=== PATIENT | male | born 1945 | race Caucasian/White ===

== ENCOUNTER 2016-07-28 16:44 | Emergency (ER) | payer OTHER ==
[~2016-07-28] VITALS: Ht 172.7 cm; Wt 87.0 kg
[~2016-07-28 16:44] MED LIST: ALBU0.63 NEB; ATOR40TA PO; ATOR40TA16 PO; CEPH-460 PO; CLAR10CA3 PO; COUM5TAB PO; DUONI NEB; ENOX80P SQ; FISH120014 PO; FURO1TAB60 PO; LASI20TA PO; LISI2.5T3 PO; LORA10TA7 PO; MECL12.574 PO; MECL25CH PO; METO25 PO; METO25TA3 PO; NITR0.4S SL; NOVOLOGP2 SQ; NOVOLOGSS SQ; PARO30TA PO; PAXI30TA7 PO; PRAZ1 PO; PRAZ1CAP PO; PRED20 PO; PRIN5TAB PO; SYMB80AE INH; WARF-21 PO; WARF2.5 PO
[2016-07-28 16:48] VITALS: BP 100/62; PULSE 76; RESP 16; TEMP 98.5; O2SAT 94
[2016-07-28] MEDS ORDERED: FISHCAP4 PO (17:14)
[2016-07-28] MEDS ORDERED: NITR0.4S SL (17:14)
[2016-07-28 17:15] VITALS: O2SAT 95
--- NOTE | 2016-07-28 17:16 | PD ---
HPI Chief Complaint: Respiratory Symptoms Time Seen by Provider: 16:56 Travel History International Travel<30 days: No Contact w/Intl Traveler<30days: No Traveled to known affect area: No History of Present Illness HPI 70-year-old male complains of shortness of breath and lower extremity swelling. Patient states that he has increasing lower extremity swelling for the past week. Patient has history of CHF and taking Lasix 40 mg twice a day. Patient states that he started having mild dry cough intermittent cough and increasing shortness of breath since last night. Patient denies any fever chills. Patient denies any chest pain. Patient denies abdominal pain. Patient denies any nausea vomiting diarrhea. Patient has history of chronic back pain, and that is not new. Patient denies any focal weakness or numbness of the extremity. Patient has history of fibrillation, hypertension, diabetes, dyslipidemia. Patient is a smoker. Patient is on Coumadin. PFSH Past Medical History Hx Anticoagulant Therapy: Yes (coumadin) Arthritis: Yes Asthma: Yes Autoimmune Disease: No Anxiety: Yes Depression: Yes Heart Rhythm Problems: Yes (AFIB) Cancer: No Cardiomyopathy: Yes Cardiovascular Problems: Yes (htn on meds, [place]) High Cholesterol: Yes Chest Pain: Yes Congestive Heart Failure: Yes COPD: Yes Cerebrovascular Accident: Yes (CVA's) Diabetes: Yes (INSULIN DEPENDENT X 15YRS) Diminished Hearing: No Endocrine: Yes GERD: Yes Genitourinary: Yes Headaches: Yes Hiatal Hernia: Yes Herniated Disk: Yes Hypertension: Yes Immune Disorder: No Implanted Vascular Access Dvce: Yes Musculoskeletal: Yes Neurologic: Yes (NEUROPATHY, RETINOPATHY) Psychiatric: Yes (PTSD) Reproductive: No Respiratory: Yes Migraines: No Myocardial Infarction: Yes (1989) Seizures: No Sickle Cell Disease: No Thyroid Disease: No Triglycerides - High: Yes PNEUMOCCOCAL Vaccine (Year): 1 Past Surgical History Abdominal Surgery: Yes (HERNIA REPAIR X 2) Body Medical Devices: PLATE, SCREWS, BOLTS, RODS IN BACK; FACCIAL RECONSTRUCTION Cardiac Surgery: No Eye Surgery: Yes Genitourinary Surgery: No Gynecologic Surgery: No Joint Replacement: Yes (RIGHT SHOULDER ROTATOR CUFF,RODS IN BACK) Neurologic Surgery: Yes (BACK SURGERY LUMBAR DISC FUSHION, ICBG WITH RODS ) Other Surgery: Yes Social History Alcohol Use: No Tobacco Use: Yes (1/2 PACK TO ONE PPD) Substance Use: No Allergies-Medications (Allergen,Severity, Reaction): Coded Allergies: Aspirin (Verified Allergy, Severe, ON COUMADIN, 07/28/16) Bee Sting (Verified Allergy, Severe, 07/28/16) Codeine (Verified Allergy, Severe, Seizures, 07/28/16) Penicillin (Verified Allergy, Severe, ANAPHYLAXSIS, 07/28/16) Sulfa (Verified Allergy, Severe, shakes/inchoherent, 07/28/16) Reported Meds & Prescriptions Reported Meds & Active Scripts Active Zithromax Z-Chandana (Azithromycin) 250 Mg Dspk 250 Mg PO DIRECTED 500 MG (2 tabs) day 1, then 1 tab days 2-5. Reported Metformin (Metformin HCl) 1,000 Mg Tab 1,000 Mg PO TID With meals Nitrostat SL (Nitroglycerin) 0.4 Mg Subl 0.4 Mg SL DIRECTED PRN 1 tablet under the tongue as needed for chest pain. Repeat every 5 minutes for a total of 3 DOSES or call 911 if NO relief. Fish Oil + D3 (Fish Oil-Cholecalciferol) 1,200-1,000 Mg-Unit Cap 1 Cap PO TID Paxil (Paroxetine HCl) 30 Mg Tab 30 Mg PO DAILY Claritin (Loratadine) 10 Mg Cap 10 Mg PO DAILY Lisinopril 2.5 Mg Tab 2.5 Mg PO DAILY Novolog Inj (Insulin Aspart) 1,000 Unit/10 Ml Vial 8 Units SQ WITH MEALS Lasix (Furosemide) 40 Mg Tab 40 Mg PO BID Fish Oil ([place]-3 Fatty Acids) 1,200 Mg Cap 1 Tab PO TID Symbicort Inh (Budesonide/Formoterol Fumarate) 80-4.5 Mcg/Act Aero 2 Puff INH Q12HR Atorvastatin (Atorvastatin Calcium) 40 Mg Tab 40 Mg PO HS Albuterol Neb (Albuterol Sulfate) 0.63 Mg/3 Ml Neb 0.63 Mg NEB Q4HR NEB PRN Coumadin 5 mg (Warfarin Sodium) 5 Mg Tab 5 Mg PO DAILY Review of Systems General / Constitutional: No: Fever Eyes: No: Visual changes HENT: No: Headaches Cardiovascular: No: Chest Pain or Discomfort Respiratory: Positive: Cough, Shortness of Breath Gastrointestinal: No: Abdominal Pain Genitourinary: No: Dysuria Musculoskeletal: Positive: Edema, No: Pain Skin: No Rash Neurologic: No: Weakness Psychiatric: No: Depression Endocrine: No: Polydipsia Hematologic/Lymphatic: No: Easy Bruising Physical Exam Narrative GENERAL: Well-nourished, well-developed patient. SKIN: Warm and dry. HEAD: Normocephalic. EYES: No scleral icterus. No injection or drainage. NECK: Supple, trachea midline. No JVD or lymphadenopathy. CARDIOVASCULAR: Regular rate and rhythm without murmurs, gallops, or rubs. RESPIRATORY: Breath sounds equal bilaterally. No accessory muscle use. GASTROINTESTINAL: Abdomen soft, non-tender, nondistended. MUSCULOSKELETAL: +1 pitting edema lower extremity. Dark Brown to purple discoloration low extremity. BACK: Nontender without obvious deformity. No CVA tenderness. Neurologic exam normal. Data Data Last Documented VS Vital Signs Date Time Temp Pulse Resp B/P Pulse Ox O2 Delivery O2 Flow Rate FiO2 07/28/16 17:35 72 20 95 Room Air 07/28/16 16:48 98.5 100/62 Orders Electrocardiogram (07/28/16 17:04) Complete Blood Count With Diff (07/28/16 17:04) Comprehensive Metabolic Panel (07/28/16 17:04) Creatine Kinase (Cpk) (07/28/16 17:04) Troponin I (07/28/16 17:04) B-Type Natriuretic Peptide (07/28/16 17:04) Prothrombin Time / Inr (Pt) (07/28/16 17:04) Act Partial Throm Time (Ptt) (07/28/16 17:04) Urinalysis - C+S If Indicated (07/28/16 17:04) Thyroid Stimulating Hormone (07/28/16 17:04) Chest, Single Ap (07/28/16 17:04) Iv Access Insert/Monitor (07/28/16 17:04) Ecg Monitoring (07/28/16 17:04) Oximetry (07/28/16 17:04) Labs Laboratory Tests Test 07/28/16 17:00 White Blood Count 10.7 TH/MM3 Red Blood Count 4.75 MIL/MM3 Hemoglobin 13.9 GM/DL Hematocrit 41.0 % Mean Corpuscular Volume 86.3 FL Mean Corpuscular Hemoglobin 29.2 PG Mean Corpuscular Hemoglobin 33.8 % Concent Red Cell Distribution Width 15.1 % Platelet Count 200 TH/MM3 Mean Platelet Volume 8.5 FL Neutrophils (%) (Auto) 71.4 % Lymphocytes (%) (Auto) 17.1 % Monocytes (%) (Auto) 8.6 % Eosinophils (%) (Auto) 2.5 % Basophils (%) (Auto) 0.4 % Neutrophils # (Auto) 7.7 TH/MM3 Lymphocytes # (Auto) 1.8 TH/MM3 Monocytes # (Auto) 0.9 TH/MM3 Eosinophils # (Auto) 0.3 TH/MM3 Basophils # (Auto) 0.0 TH/MM3 CBC Comment DIFF FINAL Differential Comment Prothrombin Time 43.2 SEC Prothromb Time International 3.7 RATIO Ratio Activated Partial 37.6 SEC Thromboplast Time Sodium Level 138 MEQ/L Potassium Level 3.7 MEQ/L Chloride Level 101 MEQ/L Carbon Dioxide Level 28.4 MEQ/L Anion Gap 9 MEQ/L Blood Urea Nitrogen 30 MG/DL Creatinine 1.30 MG/DL Estimat Glomerular Filtration 55 ML/MIN Rate Random Glucose 143 MG/DL Calcium Level 9.0 MG/DL Total Bilirubin 0.6 MG/DL Aspartate Amino Transf 16 U/L (AST/SGOT) Alanine Aminotransferase 28 U/L (ALT/SGPT) Alkaline Phosphatase 101 U/L Total Creatine Kinase 115 U/L Troponin I LESS THAN 0.02 NG/ML B-Type Natriuretic Peptide 56 PG/ML Total Protein 7.4 GM/DL Albumin 3.4 GM/DL Thyroid Stimulating Hormone 1.720 uIU/ML [address] [place] [address] Medical Decision Making Medical Screen Exam Complete: Yes Emergency Medical Condition: Yes Interpretation(s) EKG show atrial fibrillation rate 74. 1813 PM. Last Impressions Chest X-Ray 07/28/16 1704 Signed Impressions: Service Date/Time: Thursday, July 28, 2016 17:18 - CONCLUSION: Normal examination for a patient of this age. No significant change has occurred. Tenzin Alfred MD 1813 PM. CBC within normal limit. CMP within normal limit. BUN 30. Cardiac enzymes are normal. BNP 56. INR 3.7. Differential Diagnosis Differential diagnosis including URI, bronchitis, pneumonia, PE, pneumothorax, acute exacerbation of CHF. Narrative Course 70-year-old male with coughing congestion shows of breath and lower extremity edema. History of CHF and atrial fibrillation. Diagnosis Primary Impression: Bronchitis Patient Instructions: General Instructions Additional Instructions: Z-Chandana as directed. Continue with all medications. Keep legs elevated. Follow- up with personal physician. Return if worse. Check PT/INR while on antibiotic. Med/Other Pt SpecificInfo: Prescription(s) given Scripts Azithromycin (Zithromax Z-Chandana)250 Mg [id number] Mg PO DIRECTED #1 DSPK 500 MG (2 tabs) day 1, then 1 tab days 2-5. Prov:Dano Matias MD 07/28/16 Disposition: 01 DISCHARGE HOME Condition: Stable Dano Matias MD Jul 28, 2016 17:16
--- NOTE | 2016-07-28 17:30 | RADHPO ---
EXAM DATE/TIME: 07/28/2016 17:18 [facility] COMPARISON: CHEST SINGLE AP, June 07, 2016, 14:15. INDICATIONS : Shortness of breath. MEDICAL HISTORY : Congestive heart failure. Myocardial infarction. Asthma. Bronchitis. SURGICAL HISTORY : None. ENCOUNTER: Initial ACUITY: 1 day PAIN SCORE: 0/10 LOCATION: Bilateral chest FINDINGS: A single view of the chest demonstrates the lungs to be symmetrically aerated without evidence of mas s, infiltrate or effusion. The cardiomediastinal contours are unremarkable. Osseous structures are intact. CONCLUSION: Normal examination for a patient of this age. No significant change has occurred. Tenzin Alfred MD on July 28, 2016 at 17:27 Board Certified Radiologist. This report was verified electronically.
[2016-07-28 17:35] LABS: AUTOMATED NEUTROPHIL # 7.7 TH/MM3 (1.8-7.7); BASOPHIL % 0.4 % (0.0-2.0); EOSINOPHIL # 0.3 TH/MM3 (0-0.4); EOSINOPHIL % 2.5 % (0.0-4.0); HEMO FLAGS DIFF FINAL; LYMPH % 17.1 % (9.0-44.0); LYMPHOCYTE # 1.8 TH/MM3 (1.0-4.8); MEAN CELL VOLUME 86.3 FL (80.0-100.0); MEAN CORPUSCULAR HEMOGLOBIN 29.2 PG (27.0-34.0); MEAN CORPUSCULAR HGB CONC 33.8 % (32.0-36.0); MONO % 8.6 % (0.0-8.0); NEUT % 71.4 % (16.0-70.0); PLATELET COUNT 200 TH/MM3 (150-450); RED BLOOD COUNT 4.75 MIL/MM3 (4.50-5.90); RED CELL DISTRIBUTION WIDTH 15.1 % (11.6-17.2); WHITE BLOOD COUNT 10.7 TH/MM3 (4.0-11.0)
[2016-07-28] MEDS ORDERED: METF1000 PO (17:38)
[2016-07-28 17:43] LABS: CHLORIDE 101 MEQ/L (98-107); POTASSIUM 3.7 MEQ/L (3.5-5.1); SODIUM (NA) 138 MEQ/L (136-145)
[2016-07-28 17:47] LABS: ANION GAP 9 MEQ/L (5-15); BICARBONATE 28.4 MEQ/L (21.0-32.0); BLOOD UREA NITROGEN 30 MG/DL (7-18)
[2016-07-28 17:49] LABS: APTT (PATIENT) 37.6 SEC (24.3-30.1); INTERNATIONAL NORMALIZED RATIO 3.7 RATIO; PROTHROMBIN TIME - PATIENT 43.2 SEC (9.8-11.6)
[2016-07-28 17:50] LABS: ALT (GPT) 28 U/L (12-78); AST (GOT) 16 U/L (15-37); GLOMERULAR FILTRATION RATE 55 ML/MIN (>89)
[2016-07-28 17:51] LABS: TOTAL BILIRUBIN ADULT 0.6 MG/DL (0.2-1.0)
[2016-07-28 17:53] LABS: ALKALINE PHOSPHATASE 101 U/L (45-117); CREATINE KINASE 115 U/L (39-308)
[2016-07-28] MEDS ORDERED: ZITHTAB PO ×2 (18:18→18:20)
[2016-07-28 18:31] VITALS: BP 99/69
--- NOTE | 2016-07-30 07:02 | EKG ---
Date Performed: 07/28/2016 Time Performed: 17:08:52 PTAGE: 70 years EKG: Atrial fibrillation rSr'(V1) - probable normal variant Septal T wave changes are nonspecifi c Abnormal ECG PREVIOUS TRACING : 06/07/2016 14.03 Compared to prior tracing no significant change DOCTOR: Mark Osman Interpretating Date/Time 07/30/2016 07:00:11
== END 2016-07-28 18:45 | disposition home or self-care (01) ==
LOC: PHED 16:44
DX: J40 Bronchitis, not specified as acute or chronic (principal); R60.0 Localized edema; I50.9 Heart failure, unspecified; I48.91 Unspecified atrial fibrillation; R94.31 Abnormal electrocardiogram [ECG] [EKG]; I10 Essential (primary) hypertension; E11.9 Type 2 diabetes mellitus without complications; F17.200 Nicotine dependence, unspecified, uncomplicated; E78.00 Pure hypercholesterolemia, unspecified; Z79.01 Long term (current) use of anticoagulants; Z79.4 Long term (current) use of insulin; Z87.39 Personal history of other diseases of the musculoskeletal system and connective tissue; Z87.09 Personal history of other diseases of the respiratory system; Z86.79 Personal history of other diseases of the circulatory system; Z87.19 Personal history of other diseases of the digestive system; Z86.69 Personal history of other diseases of the nervous system and sense organs
CPT/HCPCS: 71010; 80053; 82550; 83880; 84443; 84484; 85025; 85610; 85730; 93005

== ENCOUNTER 2016-11-17 15:56 | Emergency (ER) | payer OTHER ==
[~2016-11-17] VITALS: Ht 172.7 cm; Wt 81.0 kg
[~2016-11-17 15:56] MED LIST changes: -ATOR40TA PO; -CEPH-460 PO; -DUONI NEB; -ENOX80P SQ; +FISHCAP4 PO; -LASI20TA PO; -LORA10TA7 PO; -MECL12.574 PO; -MECL25CH PO; +METF1000 PO; -METO25 PO; -METO25TA3 PO; -NOVOLOGSS SQ; -PARO30TA PO; -PRAZ1 PO; -PRAZ1CAP PO; -PRED20 PO; -PRIN5TAB PO; -WARF-21 PO; -WARF2.5 PO; +ZITHTAB PO
[2016-11-17 15:58] VITALS: BP 110/56; PULSE 73; RESP 18; TEMP 98.7; O2SAT 97
--- NOTE | 2016-11-17 16:05 | PD ---
Physical Exam Time Seen by Provider: 16:03 Narrative 71yo M c/o SOB x7days. [facility]. Hx CHF. Denies chest pain. Patient seen in triage. VS reviewed. Awaiting bed placement. Data Data Last Documented VS Vital Signs Date Time Temp Pulse Resp B/P Pulse Ox O2 Delivery O2 Flow Rate FiO2 11/17/16 15:58 98.7 73 18 110/56 97 Room Air MDM Supervised Visit with RAMEZ: Suha Calixto November 17, 2016 16:04
[2016-11-17 16:20] VITALS: O2SAT 98
--- NOTE | 2016-11-17 16:26 | PD ---
HPI Chief Complaint: Respiratory Symptoms Time Seen by Provider: 16:15 Travel History International Travel<30 days: No Contact w/Intl Traveler<30days: No Traveled to known affect area: No History of Present Illness HPI 71-year-old male with history of CHF, atrial fibrillation on Coumadin, COPD presents after being sent by the [facility] for evaluation of dyspnea. For the past week he has been more dyspneic which is constant, aggravated by movement. He has had no chest pain. He does endorse cough with brown sputum production. He' s had no fevers or chills. He feels like his legs are more tight bilaterally as well. He was seen at the [facility] today and sent here for further evaluation. He denies abdominal pain but does feel like it may be more distended than usual. Denies any dietary indiscretions, increase salt intake, recent travel, recent surgery. He takes his Lasix as prescribed. PFSH Past Medical History Hx Anticoagulant Therapy: Yes (coumadin) Arthritis: Yes Asthma: Yes Autoimmune Disease: No Anxiety: Yes Depression: Yes Heart Rhythm Problems: Yes (AFIB) Cancer: No Cardiomyopathy: Yes Cardiovascular Problems: Yes High Cholesterol: Yes Chest Pain: Yes Congestive Heart Failure: Yes COPD: Yes Cerebrovascular Accident: Yes Diabetes: Yes (METFORMIN 11/16/16) Diminished Hearing: No Endocrine: Yes GERD: Yes Genitourinary: Yes Headaches: Yes Hiatal Hernia: Yes Herniated Disk: Yes Hypertension: Yes Immune Disorder: No Implanted Vascular Access Dvce: Yes Musculoskeletal: Yes Neurologic: Yes (NEUROPATHY, RETINOPATHY) Psychiatric: Yes (PTSD) Reproductive: No Respiratory: Yes Migraines: No Myocardial Infarction: Yes (1989) Seizures: No Sickle Cell Disease: No Thyroid Disease: No Triglycerides - High: Yes PNEUMOCCOCAL Vaccine (Year): 1 Past Surgical History Abdominal Surgery: Yes (HERNIA REPAIR X 2) Body Medical Devices: PLATE, SCREWS, BOLTS, RODS IN BACK; FACCIAL RECONSTRUCTION Cardiac Surgery: No Eye Surgery: Yes Genitourinary Surgery: No Gynecologic Surgery: No Joint Replacement: Yes (RIGHT SHOULDER ROTATOR CUFF,RODS IN BACK) Neurologic Surgery: Yes (BACK SURGERY LUMBAR DISC FUSHION, ICBG WITH RODS ) Other Surgery: Yes Social History Alcohol Use: No Tobacco Use: Yes (1/2 PACK TO ONE PPD) Substance Use: No Allergies-Medications (Allergen,Severity, Reaction): Coded Allergies: Aspirin (Verified Allergy, Severe, ON COUMADIN, 07/28/16) Bee Sting (Verified Allergy, Severe, 07/28/16) Codeine (Verified Allergy, Severe, Seizures, 07/28/16) Penicillin (Verified Allergy, Severe, ANAPHYLAXSIS, 07/28/16) Sulfa (Verified Allergy, Severe, shakes/inchoherent, 07/28/16) Reported Meds & Prescriptions Reported Meds & Active Scripts Active Doxycycline Hyclate 100 Mg Cap 100 Mg PO BID Zithromax Z-Chandana (Azithromycin) 250 Mg Dspk 250 Mg PO DIRECTED 500 MG (2 tabs) day 1, then 1 tab days 2-5. Reported Metformin (Metformin HCl) 1,000 Mg Tab 1,000 Mg PO TID With meals Nitrostat SL (Nitroglycerin) 0.4 Mg Subl 0.4 Mg SL DIRECTED PRN 1 tablet under the tongue as needed for chest pain. Repeat every 5 minutes for a total of 3 DOSES or call 911 if NO relief. Fish Oil + D3 (Fish Oil-Cholecalciferol) 1,200-1,000 Mg-Unit Cap 1 Cap PO TID Paxil (Paroxetine HCl) 30 Mg Tab 30 Mg PO DAILY Claritin (Loratadine) 10 Mg Cap 10 Mg PO DAILY Lisinopril 2.5 Mg Tab 2.5 Mg PO DAILY Novolog Inj (Insulin Aspart) 1,000 Unit/10 Ml Vial 8 Units SQ WITH MEALS Lasix (Furosemide) 40 Mg Tab 40 Mg PO BID Fish Oil ([place]-3 Fatty Acids) 1,200 Mg Cap 1 Tab PO TID Symbicort Inh (Budesonide/Formoterol Fumarate) 80-4.5 Mcg/Act Aero 2 Puff INH Q12HR Atorvastatin (Atorvastatin Calcium) 40 Mg Tab 40 Mg PO HS Albuterol Neb (Albuterol Sulfate) 0.63 Mg/3 Ml Neb 0.63 Mg NEB Q4HR NEB PRN Coumadin 5 mg (Warfarin Sodium) 5 Mg Tab 5 Mg PO DAILY Review of Systems Except as stated in HPI: all other systems reviewed are Neg Physical Exam Narrative GENERAL: Pleasant well-developed well-nourished male in no acute distress resting comfortable in hospital bed. Vital signs reviewed. SKIN: Warm and dry. Chronic-appearing venous stasis changes on the lower extremities, left greater than right, some scabbing noted. There is no erythema or drainage. HEAD: Atraumatic. Normocephalic. EYES: Pupils equal and round. No scleral icterus. No injection or drainage. ENT: No nasal bleeding or discharge. Mucous membranes pink and moist. NECK: Trachea midline. No JVD. CARDIOVASCULAR: Regular rate and rhythm. No murmur appreciated. RESPIRATORY: No accessory muscle use. Mildly coarse breath sounds. No significant crackles at the bases, no wheezing. GASTROINTESTINAL: Abdomen soft, non-tender, nondistended. Hepatic and splenic margins not palpable. MUSCULOSKELETAL: No obvious deformities. There is no pitting edema of the legs , feet. NEUROLOGICAL: Awake and alert. No obvious cranial nerve deficits. Motor grossly within normal limits. Normal speech. PSYCHIATRIC: Appropriate mood and affect; insight and judgment normal. Data Data Last Documented VS Vital Signs Date Time Temp Pulse Resp B/P Pulse Ox O2 Delivery O2 Flow Rate FiO2 11/17/16 16:20 99 Room Air 11/17/16 16:15 22 11/17/16 15:58 98.7 73 110/56 Orders Complete Blood Count With Diff (11/17/16 16:18) Comprehensive Metabolic Panel (11/17/16 16:18) B-Type Natriuretic Peptide (11/17/16 16:18) Act Partial Throm Time (Ptt) (11/17/16 16:18) Prothrombin Time / Inr (Pt) (11/17/16 16:18) Magnesium (Mg) (11/17/16 16:18) Ckmb (Isoenzyme) Profile (11/17/16 16:18) Troponin I (11/17/16 16:18) Urinalysis - C+S If Indicated (11/17/16 16:18) Iv Access Insert/Monitor (11/17/16 16:18) Electrocardiogram (11/17/16 16:18) Ecg Monitoring (11/17/16 16:18) Oximetry (11/17/16 16:18) Oxygen Administration (11/17/16 16:18) Chest, Single Ap (11/17/16 16:18) Sodium Chloride 0.9% Flush (Ns Flush) (11/17/16 16:30) CKMB (11/17/16 16:22) CKMB% (11/17/16 16:22) Labs Laboratory Tests Test 11/17/16 11/17/16 16:22 17:00 White Blood Count 10.3 TH/MM3 Red Blood Count 4.87 MIL/MM3 Hemoglobin 14.0 GM/DL Hematocrit 42.0 % Mean Corpuscular Volume 86.2 FL Mean Corpuscular Hemoglobin 28.7 PG Mean Corpuscular Hemoglobin 33.3 % Concent Red Cell Distribution Width 16.1 % Platelet Count 218 TH/MM3 Mean Platelet Volume 8.5 FL Neutrophils (%) (Auto) 68.0 % Lymphocytes (%) (Auto) 17.9 % Monocytes (%) (Auto) 10.6 % Eosinophils (%) (Auto) 2.6 % Basophils (%) (Auto) 0.9 % Neutrophils # (Auto) 7.0 TH/MM3 Lymphocytes # (Auto) 1.8 TH/MM3 Monocytes # (Auto) 1.1 TH/MM3 Eosinophils # (Auto) 0.3 TH/MM3 Basophils # (Auto) 0.1 TH/MM3 CBC Comment DIFF FINAL Differential Comment Prothrombin Time 70.3 SEC Prothromb Time International 5.9 RATIO Ratio Activated Partial 42.0 SEC Thromboplast Time Sodium Level 135 MEQ/L Potassium Level 4.5 MEQ/L Chloride Level 98 MEQ/L Carbon Dioxide Level 30.8 MEQ/L Anion Gap 6 MEQ/L Blood Urea Nitrogen 29 MG/DL Creatinine 1.46 MG/DL Estimat Glomerular Filtration 48 ML/MIN Rate Random Glucose 172 MG/DL Calcium Level 9.4 MG/DL Magnesium Level 2.2 MG/DL Total Bilirubin 0.7 MG/DL Aspartate Amino Transf 29 U/L (AST/SGOT) Alanine Aminotransferase 29 U/L (ALT/SGPT) Alkaline Phosphatase 114 U/L Total Creatine Kinase 214 U/L Creatine Kinase MB 3.2 NG/ML Troponin I LESS THAN 0.02 NG/ML B-Type Natriuretic Peptide 59 PG/ML Total Protein 8.0 GM/DL Albumin 3.6 GM/DL Urine Color YELLOW Urine Turbidity CLEAR Urine pH 6.0 Urine Specific [place] 1.011 Urine Protein NEG mg/dL Urine Glucose (UA) NEG mg/dL Urine Ketones NEG mg/dL Urine Occult Blood NEG Urine Nitrite NEG Urine Bilirubin NEG Urine Urobilinogen LESS THAN 2.0 MG/DL Urine Leukocyte Esterase NEG Urine RBC 1 /hpf Urine WBC 1 /hpf Urine Hyaline Casts 9 /lpf Microscopic Urinalysis Comment CULT NOT INDICATED MDM Medical Decision Making Medical Screen Exam Complete: Yes Emergency Medical Condition: Yes Medical Record Reviewed: Yes Interpretation(s) EKG atrial fibrillation with a rate of 68, essentially unchanged from previous in July. Differential Diagnosis Pneumonia, bronchitis, COPD exacerbation, CHF exacerbation, acute coronary syndrome, PE, spontaneous pneumothorax Narrative Course 71-year-old male with history of CHF, COPD, atrial fibrillation presents for evaluation of worsening dyspnea over the past week, denies chest pain. Physical examination is reassuring. His oxygen saturation is 98% on room air. He is conversing normally. He has no lower extremity pitting edema but he does have some chronic venous stasis changes. A basic lab work, EKG, ECG monitoring , chest x-ray. The patient's laboratory and imaging studies have been reviewed. His x-ray reveals no acute abnormalities. CBC is unremarkable. CMP reveals a GFR of 48 which is at his baseline. His BNP and cardiac enzymes are normal. His INR is supratherapeutic and he is already aware of this and is holding his Coumadin until Tuesday. He sees his primary care physician on Tuesday to have his INR rechecked. Upon reexamination the patient is requesting to go home which seems reasonable. Impression is bronchitis with history of COPD, history of CHF. The plan would be to treat him with doxycycline. He understands that doxycycline like most antibiotics can affect the INR levels. Discussed signs and symptoms noted reports returning to the emergency room. He is stable for discharge. Procedures EKG Prior to Arrival: Yes Diagnosis Primary Impression: Bronchitis Additional Impressions: Chronic obstructive pulmonary disease Qualified Code: J44.9 - Chronic obstructive pulmonary disease, unspecified COPD type Chronic systolic congestive heart failure Additional Instructions: Antibiotic as prescribed. Hold Coumadin as previously instructed and follow-up with your primary care physician in 2 days for recheck. Return for any acutely new or worsening symptoms. Med/Other Pt SpecificInfo: Prescription(s) given Scripts Doxycycline Hyclate 100 Mg [id number] Mg PO BID #20 CAP Ref 0 Prov:Dave Singleton MD 11/17/16 Disposition: 01 DISCHARGE HOME Condition: Stable Sam Lopez November 17, 2016 16:26
[2016-11-17] MEDS ORDERED: SODIUM CHLORIDE 0.9% FLUSH 10 ML FLUSH IVF PRN (16:30)
[2016-11-17 16:33] LABS: BASOPHIL # 0.1 TH/MM3 (0-0.2); BASOPHIL % 0.9 % (0.0-2.0); EOSINOPHIL # 0.3 TH/MM3 (0-0.4); EOSINOPHIL % 2.6 % (0.0-4.0); HEMO FLAGS DIFF FINAL; LYMPH % 17.9 % (9.0-44.0); LYMPHOCYTE # 1.8 TH/MM3 (1.0-4.8); MEAN CELL VOLUME 86.2 FL (80.0-100.0); MEAN CORPUSCULAR HEMOGLOBIN 28.7 PG (27.0-34.0); MEAN CORPUSCULAR HGB CONC 33.3 % (32.0-36.0); MONO % 10.6 % (0.0-8.0); PLATELET COUNT 218 TH/MM3 (150-450); RED BLOOD COUNT 4.87 MIL/MM3 (4.50-5.90); RED CELL DISTRIBUTION WIDTH 16.1 % (11.6-17.2); WHITE BLOOD COUNT 10.3 TH/MM3 (4.0-11.0)
[2016-11-17 16:43] LABS: INTERNATIONAL NORMALIZED RATIO 5.9 RATIO; PROTHROMBIN TIME - PATIENT 70.3 SEC (9.8-11.6)
[2016-11-17 16:53] LABS: ANION GAP 6 MEQ/L (5-15)
[2016-11-17 16:59] LABS: ALKALINE PHOSPHATASE 114 U/L (45-117); ALT (GPT) 29 U/L (12-78); AST (GOT) 29 U/L (15-37); BICARBONATE 30.8 MEQ/L (21.0-32.0); BLOOD UREA NITROGEN 29 MG/DL (7-18); CHLORIDE 98 MEQ/L (98-107); CREATINE KINASE 214 U/L (39-308); GLOMERULAR FILTRATION RATE 48 ML/MIN (>89); MAGNESIUM 2.2 MG/DL (1.5-2.5); POTASSIUM 4.5 MEQ/L (3.5-5.1); SODIUM (NA) 135 MEQ/L (136-145); TOTAL BILIRUBIN ADULT 0.7 MG/DL (0.2-1.0)
[2016-11-17 17:12] LABS: CKMB 3.2 NG/ML (0.5-3.6)
[2016-11-17 17:16] LABS: BLOOD, URINE NEG (NEG); COMMENT (UR) CULT NOT INDICATED; CULTURE IF INDICATED CULT NOT INDICATED; GLUCOSE,URINE NEG (NEG); HYALINE CAST, URINE 9 /lpf (RARE); KETONE, URINE NEG (NEG); NITRITE,URINE NEG (NEG); URINE COLOR YELLOW (YELLW/STRAW)
--- NOTE | 2016-11-17 17:18 | RADRPT ---
EXAM DATE/TIME: 11/17/2016 16:54 [facility] COMPARISON: CHEST SINGLE AP, July 28, 2016, 17:18. INDICATIONS : Short of breath. MEDICAL HISTORY : Congestive heart failure. Myocardial infarction. Asthma. Bronchitis. SURGICAL HISTORY : None. ENCOUNTER: Initial ACUITY: 1 day PAIN SCORE: 0/10 LOCATION: Bilateral chest FINDINGS: Cardiomegaly. Clear lungs. Osseous structures are intact. EKG leads are noted. CONCLUSION: No acute disease. Edgar Weber MD on November 17, 2016 at 17:16 Board Certified Radiologist. This report was verified electronically.
[2016-11-17] MEDS ORDERED: DOXY100C PO (17:29)
[2016-11-17 18:54] VITALS: BP 122/65; PULSE 70; RESP 18; O2SAT 97
--- NOTE | 2016-11-18 17:28 | EKG ---
Date Performed: 11/17/2016 Time Performed: 16:30:29 PTAGE: 71 years EKG: ATRIAL FIBRILLATION MODERATE ST DEPRESSION ABNORMAL ECG PREVIOUS TRACING : 07/28/2016 17.08 Compared to prior tracing no significant change DOCTOR: Jalen Rossi Interpretating Date/Time 11/18/2016 17:27:16
== END 2016-11-17 18:53 | disposition home or self-care (01) ==
LOC: NEPC 15:56
DX: J40 Bronchitis, not specified as acute or chronic (principal); J44.9 Chronic obstructive pulmonary disease, unspecified; I48.91 Unspecified atrial fibrillation; E78.00 Pure hypercholesterolemia, unspecified; I10 Essential (primary) hypertension; I25.2 Old myocardial infarction; K21.9 Gastro-esophageal reflux disease without esophagitis; E11.9 Type 2 diabetes mellitus without complications; Z79.4 Long term (current) use of insulin; Z79.01 Long term (current) use of anticoagulants; I42.9 Cardiomyopathy, unspecified; Z79.82 Long term (current) use of aspirin; F17.210 Nicotine dependence, cigarettes, uncomplicated
CPT/HCPCS: 71010; 80053; 81001; 82550; 82552; 83735; 83880; 84484; 85025; 85610; 85730; 93005; 99285

== ENCOUNTER 2017-01-24 13:41 | Emergency (ER) | payer OTHER ==
[~2017-01-24] VITALS: Ht 175.3 cm; Wt 81.0 kg
[~2017-01-24 13:41] MED LIST changes: +DOXY100C PO
[2017-01-24 13:46] VITALS: BP 130/99; PULSE 97; RESP 20; TEMP 99.5; O2SAT 95
[2017-01-24] MEDS ORDERED: WARF-23 PO (14:13)
[2017-01-24] MEDS ORDERED: WARF-18 PO (14:13)
[2017-01-24] MEDS ORDERED: RESP: ALBUTEROL 2.5 MG/3 ML NEB (SCH) INH ONE (14:15)
[2017-01-24] MEDS ORDERED: methylPREDNISolone SOD SUCC 125 MG/2 ML VIAL IVP ONE (14:15)
[2017-01-24] MEDS ORDERED: SODIUM CHLORIDE 0.9% FLUSH 10 ML FLUSH IVF PRN (14:15)
--- NOTE | 2017-01-24 14:25 | RADRPT ---
EXAM DATE/TIME: 01/24/2017 14:13 [facility] COMPARISON: CHEST SINGLE AP, November 17, 2016, 16:54. INDICATIONS : Short of Breath MEDICAL HISTORY : Congestive heart failure. Myocardial infarction. Asthma. Bronchitis SURGICAL HISTORY : None. ENCOUNTER: Initial ACUITY: 1 day PAIN SCORE: 0/10 LOCATION: Bilateral chest FINDINGS: A single view of the chest demonstrates the lungs to be symmetrically aerated without evidence of mas s, infiltrate or effusion. The cardiomediastinal contours are unremarkable. Osseous structures are intact. CONCLUSION: 1. No acute cardiopulmonary disease. Vitaly Parikh MD on January 24, 2017 at 14:22 Board Certified Radiologist. This report was verified electronically.
[2017-01-24 14:34] VITALS: RESP 20; O2SAT 93
[2017-01-24 14:46] LABS: AUTOMATED NEUTROPHIL # 7.6 TH/MM3 (1.8-7.7); BASOPHIL # 0.1 TH/MM3 (0-0.2); BASOPHIL % 0.9 % (0.0-2.0); EOSINOPHIL # 0.1 TH/MM3 (0-0.4); EOSINOPHIL % 0.7 % (0.0-4.0); HEMATOCRIT 43.5 % (39.0-51.0); HEMO FLAGS DIFF FINAL; LYMPH % 15.5 % (9.0-44.0); LYMPHOCYTE # 1.6 TH/MM3 (1.0-4.8); MEAN CELL VOLUME 87.4 FL (80.0-100.0); MEAN CORPUSCULAR HGB CONC 33.2 % (32.0-36.0); MONO % 10.2 % (0.0-8.0); NEUT % 72.7 % (16.0-70.0); PLATELET COUNT 173 TH/MM3 (150-450); RED BLOOD COUNT 4.97 MIL/MM3 (4.50-5.90); RED CELL DISTRIBUTION WIDTH 15.1 % (11.6-17.2); WHITE BLOOD COUNT 10.4 TH/MM3 (4.0-11.0)
[2017-01-24 14:55] LABS: CHLORIDE 102 MEQ/L (98-107); SODIUM (NA) 136 MEQ/L (136-145)
[2017-01-24 14:57] LABS: INTERNATIONAL NORMALIZED RATIO 1.9 RATIO
[2017-01-24 15:00] LABS: ANION GAP 9 MEQ/L (5-15); BICARBONATE 24.7 MEQ/L (21.0-32.0); BLOOD UREA NITROGEN 17 MG/DL (7-18)
[2017-01-24 15:04] LABS: GLOMERULAR FILTRATION RATE 60 ML/MIN (>89)
[2017-01-24 15:18] VITALS: BP 122/72; PULSE 80; RESP 18; O2SAT 96
[2017-01-24] MEDS ORDERED: PRED20 PO (15:25)
--- NOTE | 2017-01-24 15:25 | PD ---
HPI Chief Complaint: Respiratory Symptoms Time Seen by Provider: 14:00 Travel History International Travel<30 days: No Contact w/Intl Traveler<30days: No Traveled to known affect area: No History of Present Illness HPI 71-year-old male describes shortness of breath. Orthopnea is reported. He has a history of COPD and CHF. He reports strict compliance with diuretics and dietary guidelines. He reports yesterday he was very tired spent most of the day in bed. He denies fever. He reports an occasional cough nonproductive. He has no chest pain. He reports compliance with Coumadin for DVTs and A. fib. PFSH Past Medical History Hx Anticoagulant Therapy: Yes Arthritis: Yes Asthma: Yes Autoimmune Disease: No Anxiety: Yes Depression: Yes Heart Rhythm Problems: Yes (AFIB) Cancer: No Cardiomyopathy: Yes Cardiovascular Problems: Yes High Cholesterol: Yes Chest Pain: Yes Congestive Heart Failure: Yes COPD: Yes Cerebrovascular Accident: Yes Diabetes: Yes Patient Takes Glucophage: No Diminished Hearing: No Endocrine: Yes GERD: Yes Genitourinary: Yes Headaches: Yes Hiatal Hernia: Yes Heparin Induced Thrombocytopen: No Herniated Disk: Yes Hypertension: Yes Immune Disorder: No Implanted Vascular Access Dvce: Yes Musculoskeletal: Yes Neurologic: Yes (NEUROPATHY, RETINOPATHY) Psychiatric: Yes (PTSD) Reproductive: No Respiratory: Yes Migraines: No Myocardial Infarction: Yes (1989) Seizures: No Sickle Cell Disease: No Thyroid Disease: No Triglycerides - High: Yes Influenza Vaccination: No PNEUMOCCOCAL Vaccine (Year): 1 Past Surgical History Abdominal Surgery: Yes (HERNIA REPAIR X 2) Body Medical Devices: PLATE, SCREWS, BOLTS, RODS IN BACK; FACCIAL RECONSTRUCTION Cardiac Surgery: No Eye Surgery: Yes Genitourinary Surgery: No Gynecologic Surgery: No Joint Replacement: Yes (RIGHT SHOULDER ROTATOR CUFF,RODS IN BACK) Neurologic Surgery: Yes (BACK SURGERY LUMBAR DISC FUSHION, ICBG WITH RODS ) Other Surgery: Yes Social History Alcohol Use: No Tobacco Use: Yes (2 PPD) Substance Use: No Allergies-Medications (Allergen,Severity, Reaction): Coded Allergies: Aspirin (Verified Allergy, Severe, ON COUMADIN, 01/24/17) Bee Sting (Verified Allergy, Severe, 01/24/17) Codeine (Verified Allergy, Severe, Seizures, 01/24/17) Penicillin (Verified Allergy, Severe, ANAPHYLAXSIS, 01/24/17) Sulfa (Verified Allergy, Severe, shakes/inchoherent, 01/24/17) Reported Meds & Prescriptions Reported Meds & Active Scripts Active Reported Warfarin 2.5 Mg Tab 2.5 Mg PO M/FR Warfarin 5 Mg Tab 5 Mg PO T/,,SA, ALLEN Nitrostat SL (Nitroglycerin) 0.4 Mg Subl 0.4 Mg SL DIRECTED PRN 1 tablet under the tongue as needed for chest pain. Repeat every 5 minutes for a total of 3 DOSES or call 911 if NO relief. Fish Oil + D3 (Fish Oil-Cholecalciferol) 1,200-1,000 Mg-Unit Cap 1 Cap PO TID Lisinopril 2.5 Mg Tab 2.5 Mg PO DAILY Novolog Inj (Insulin Aspart) 1,000 Unit/10 Ml Vial Unknown Dose SQ WITH MEALS Lasix (Furosemide) 40 Mg Tab 45 Mg PO BID Symbicort Inh (Budesonide/Formoterol Fumarate) 80-4.5 Mcg/Act Aero 2 Puff INH Q12HR Atorvastatin (Atorvastatin Calcium) 40 Mg Tab 40 Mg PO HS Albuterol Neb (Albuterol Sulfate) 0.63 Mg/3 Ml Neb 0.63 Mg NEB Q4HR NEB PRN Review of Systems Except as stated in HPI: all other systems reviewed are Neg General / Constitutional: No: Fever Respiratory: Positive: Shortness of Breath Physical Exam Narrative GENERAL: 71-year-old male pleasant well-nourished well-developed SKIN: Focused skin assessment warm/dry. HEAD: Atraumatic. Normocephalic. EYES: Pupils equal and round. No scleral icterus. No injection or drainage. ENT: No nasal bleeding or discharge. Mucous membranes pink and moist. NECK: Trachea midline. No JVD. CARDIOVASCULAR: Regular rate and rhythm. No murmur appreciated. RESPIRATORY: Wheezing present bilaterally. Normal respiratory rate. GASTROINTESTINAL: Abdomen soft, non-tender, nondistended. Hepatic and splenic margins not palpable. MUSCULOSKELETAL: No obvious deformities. No clubbing. No cyanosis. Prominent lower extremity venous vasculature without pitting edema. NEUROLOGICAL: Awake and alert. No obvious cranial nerve deficits. Motor grossly within normal limits. Normal speech. PSYCHIATRIC: Appropriate mood and affect; insight and judgment normal. Data Data Last Documented VS Vital Signs Date Time Temp Pulse Resp B/P Pulse Ox O2 Delivery O2 Flow Rate FiO2 7/31/17 15:18 80 18 122/72 96 Room Air 01/24/17 13:46 99.5 Vital signs reviewed Orders Complete Blood Count With Diff (01/24/17 14:04) Basic Metabolic Panel (Bmp) (01/24/17 14:04) B-Type Natriuretic Peptide (01/24/17 14:04) Prothrombin Time / Inr (Pt) (01/24/17 14:04) Troponin I (01/24/17 14:04) Iv Access Insert/Monitor (01/24/17 14:04) Electrocardiogram (01/24/17 14:04) Ecg Monitoring (01/24/17 14:04) Oximetry (01/24/17 14:04) Oxygen Administration (01/24/17 14:04) Chest, Single Ap (01/24/17 14:04) Sodium Chloride 0.9% Flush (Ns Flush) (01/24/17 14:15) Methylprednisolone So Succ Inj (Solumedr (01/24/17 14:15) Albuterol Neb (Albuterol Neb) (01/24/17 14:15) Labs Laboratory Tests Test 01/24/17 14:20 White Blood Count 10.4 TH/MM3 Red Blood Count 4.97 MIL/MM3 Hemoglobin 14.4 GM/DL Hematocrit 43.5 % Mean Corpuscular Volume 87.4 FL Mean Corpuscular Hemoglobin 29.0 PG Mean Corpuscular Hemoglobin 33.2 % Concent Red Cell Distribution Width 15.1 % Platelet Count 173 TH/MM3 Mean Platelet Volume 9.5 FL Neutrophils (%) (Auto) 72.7 % Lymphocytes (%) (Auto) 15.5 % Monocytes (%) (Auto) 10.2 % Eosinophils (%) (Auto) 0.7 % Basophils (%) (Auto) 0.9 % Neutrophils # (Auto) 7.6 TH/MM3 Lymphocytes # (Auto) 1.6 TH/MM3 Monocytes # (Auto) 1.1 TH/MM3 Eosinophils # (Auto) 0.1 TH/MM3 Basophils # (Auto) 0.1 TH/MM3 CBC Comment DIFF FINAL Differential Comment Prothrombin Time 22.0 SEC Prothromb Time International 1.9 RATIO Ratio Sodium Level 136 MEQ/L Potassium Level 4.0 MEQ/L Chloride Level 102 MEQ/L Carbon Dioxide Level 24.7 MEQ/L Anion Gap 9 MEQ/L Blood Urea Nitrogen 17 MG/DL Creatinine 1.20 MG/DL Estimat Glomerular Filtration 60 ML/MIN Rate Random Glucose 233 MG/DL Calcium Level 9.0 MG/DL Troponin I LESS THAN 0.02 NG/ML B-Type Natriuretic Peptide 207 PG/ML MDM Medical Decision Making Medical Screen Exam Complete: Yes Emergency Medical Condition: Yes Medical Record Reviewed: Yes Differential Diagnosis CHF, COPD, pneumonia, bronchitis, renal failure, anemia Narrative Course CBC & BMP Diagram 01/24/17 14:20 BNP 207 Troponin less than 0.02 EKG atrial fibrillation rate 81 Last 24 hours Impressions Chest X-Ray 01/24/17 1404 Signed Impressions: Service Date/Time: Tuesday, January 24, 2017 14:13 - CONCLUSION: 1. No acute cardiopulmonary disease. Vitaly Parikh MD At 1520: patient is resting comfortably and feels better, is alert and in no distress. The patients results and examination findings were discussed. The repeat examination is unremarkable and benign. The history, exam, diagnostic testing, and current condition do not suggest any significant pathology to warrant further testing, continued ED treatment, admission, or surgical evaluation at this point. The vital signs have been stable. The patient does not have uncontrollable pain, intractable vomiting, or other significant symptoms. The patient's condition is stable and appropriate for discharge. The patient will pursue further outpatient evaluation with a primary care physician or other designated or consulting physician as indicated in the discharge instructions. The patient expressed understanding and was agreeable with this plan. Diagnosis Primary Impression: Chronic obstructive pulmonary disease Qualified Code: J44.9 - Chronic obstructive pulmonary disease, unspecified COPD type Additional Impression: Chronic systolic congestive heart failure Referrals: Primary Care Physician 2 days Additional Instructions: PLEASE RETURN TO THE ER IF YOU DEVELOP A FEVER, SHORTNESS OF BREATH WORSENS OR IF YOU DEVELOP CHEST PAIN. PLEASE DO NOT HESITATE TO RETURN FOR ANY REASON YOU CONSIDER APPROPRIATE. Med/Other Pt SpecificInfo: Prescription(s) given Scripts Prednisone 20 Mg Tab20 Mg PO DAILY 4 Days Ref 0 Prov:Nick Rossi MD 01/24/17 Disposition: 01 DISCHARGE HOME Condition: Stable Nick Rossi MD Jan 24, 2017 15:25
--- NOTE | 2017-01-25 13:52 | EKG ---
Date Performed: 01/24/2017 Time Performed: 14:17:45 PTAGE: 71 years EKG: ATRIAL FIBRILLATION INTRAVENTRICULAR CONDUCTION DELAY Since previous tracing, no significan t change noted ABNORMAL ECG PREVIOUS TRACING : 11/17/2016 16.30 DOCTOR: Montana Chiu Interpretating Date/Time 01/25/2017 13:50:39
== END 2017-01-24 15:41 | disposition home or self-care (01) ==
LOC: PHED 13:41
DX: J44.9 Chronic obstructive pulmonary disease, unspecified (principal); I50.22 Chronic systolic (congestive) heart failure; R94.31 Abnormal electrocardiogram [ECG] [EKG]; E11.9 Type 2 diabetes mellitus without complications; I10 Essential (primary) hypertension; E78.5 Hyperlipidemia, unspecified; I25.2 Old myocardial infarction; F17.200 Nicotine dependence, unspecified, uncomplicated; Z79.4 Long term (current) use of insulin; Z79.01 Long term (current) use of anticoagulants; Z87.09 Personal history of other diseases of the respiratory system; Z87.39 Personal history of other diseases of the musculoskeletal system and connective tissue; Z86.59 Personal history of other mental and behavioral disorders; Z86.79 Personal history of other diseases of the circulatory system; Z87.19 Personal history of other diseases of the digestive system; Z86.69 Personal history of other diseases of the nervous system and sense organs
CPT/HCPCS: 71010; 80048; 83880; 84484; 85025; 85610; 93005; 94664; 96374; 99285; J2930; J7613

== ENCOUNTER 2017-05-12 15:58 | Emergency (ER) | payer OTHER ==
[~2017-05-12] VITALS: Ht 175.3 cm; Wt 85.0 kg
[~2017-05-12 15:58] MED LIST changes: -CLAR10CA3 PO; -COUM5TAB PO; -DOXY100C PO; -FISH120014 PO; -METF1000 PO; -PAXI30TA7 PO; +PRED20 PO; +WARF-18 PO; +WARF-23 PO; -ZITHTAB PO
[2017-05-12 16:00] VITALS: BP 129/58; PULSE 59; RESP 16; TEMP 97.7; O2SAT 97
[2017-05-12] MEDS ORDERED: CEPH500T PO (18:23)
--- NOTE | 2017-05-12 18:36 | PD ---
HPI . Paronychia Chief Complaint: Injury Time Seen by Provider: 17:48 Travel History International Travel<30 days: No Contact w/Intl Traveler<30days: No Traveled to known affect area: No History of Present Illness HPI 71-year-old male patient presents emergency department for evaluation of infection swelling on the distal aspect of his left fourth digit. Patient states he has experienced symptoms for a week now. Patient went to the [facility] today for evaluation and was referred here for a drainage procedure. Patient denies any fevers, chills, malaise. Patient retains full range of motion in his left hand and fourth digit finger. PFSH Past Medical History Hx Anticoagulant Therapy: Yes Arthritis: Yes Asthma: Yes Atrial Fibrillation: Yes Autoimmune Disease: No Anxiety: Yes Depression: Yes Heart Rhythm Problems: Yes Cancer: No Cardiomyopathy: Yes Cardiovascular Problems: Yes High Cholesterol: Yes Chest Pain: Yes Congestive Heart Failure: Yes COPD: Yes Cerebrovascular Accident: Yes Diabetes: Yes Patient Takes Glucophage: No Diminished Hearing: No Endocrine: Yes GERD: Yes Genitourinary: Yes Headaches: Yes Hiatal Hernia: Yes Heparin Induced Thrombocytopen: No Herniated Disk: Yes Hypertension: Yes Immune Disorder: No Implanted Vascular Access Dvce: Yes Musculoskeletal: Yes Neurologic: Yes (NEUROPATHY) Psychiatric: Yes (PTSD) Reproductive: No Respiratory: Yes Migraines: No Myocardial Infarction: Yes (1989) Seizures: No Sickle Cell Disease: No Thyroid Disease: No Triglycerides - High: Yes Tetanus Vaccination: > 5 Years Influenza Vaccination: No PNEUMOCCOCAL Vaccine (Year): 1 Past Surgical History Abdominal Surgery: Yes (HERNIA REPAIR X 2) Body Medical Devices: PLATE, SCREWS, BOLTS, RODS IN BACK; FACCIAL RECONSTRUCTION Cardiac Surgery: No Eye Surgery: Yes Genitourinary Surgery: No Gynecologic Surgery: No Joint Replacement: Yes (RIGHT SHOULDER ROTATOR CUFF,RODS IN BACK) Neurologic Surgery: Yes (BACK SURGERY LUMBAR DISC FUSHION, ICBG WITH RODS ) Other Surgery: Yes Social History Alcohol Use: No Tobacco Use: Yes (2 PPD) Substance Use: No Allergies-Medications (Allergen,Severity, Reaction): Coded Allergies: Sulfa (Sulfonamide Antibiotics) (Unverified Allergy, Severe, shakes/ inchoherent, 05/12/17) aspirin (Unverified Allergy, Severe, ON COUMADIN, 05/12/17) bee venom protein (honey bee) (Unverified Allergy, Severe, 05/12/17) codeine (Unverified Allergy, Severe, Seizures, 05/12/17) penicillin G (Unverified Allergy, Severe, ANAPHYLAXSIS, 05/12/17) Reported Meds & Prescriptions Reported Meds & Active Scripts Active Prednisone 20 Mg Tab 20 Mg PO DAILY 4 Days Reported Warfarin 2.5 Mg Tab 2.5 Mg PO M/FR Warfarin 5 Mg Tab 5 Mg PO T/,,SA, ALLEN Nitrostat SL (Nitroglycerin) 0.4 Mg Subl 0.4 Mg SL DIRECTED PRN 1 tablet under the tongue as needed for chest pain. Repeat every 5 minutes for a total of 3 DOSES or call 911 if NO relief. Fish Oil + D3 (Fish Oil-Cholecalciferol) 1,200-1,000 Mg-Unit Cap 1 Cap PO TID Lisinopril 2.5 Mg Tab 2.5 Mg PO DAILY Novolog Inj (Insulin Aspart) 1,000 Unit/10 Ml Vial Unknown Dose SQ WITH MEALS Lasix (Furosemide) 40 Mg Tab 45 Mg PO BID Symbicort Inh (Budesonide/Formoterol Fumarate) 80-4.5 Mcg/Act Aero 2 Puff INH Q12HR Atorvastatin (Atorvastatin Calcium) 40 Mg Tab 40 Mg PO HS Albuterol Neb (Albuterol Sulfate) 0.63 Mg/3 Ml Neb 0.63 Mg NEB Q4HR NEB PRN Review of Systems Except as stated in HPI: all other systems reviewed are Neg Physical Exam Narrative GENERAL: Well-nourished, well-developed 71-year-old male patient in no acute distress. Nontoxic appearing. Pleasant. SKIN: Area of edema and erythema noted to the distal aspect of the fourth digit on the left hand. HEAD: Normocephalic. Atraumatic. EYES: No scleral icterus. No injection or drainage. NECK: Supple, trachea midline. No JVD or lymphadenopathy. CARDIOVASCULAR: Regular rate and rhythm without murmurs, gallops, or rubs. RESPIRATORY: Breath sounds equal bilaterally. No accessory muscle use. GASTROINTESTINAL: Abdomen soft, non-tender, nondistended. MUSCULOSKELETAL: Full range of motion of the left hand. No cyanosis, or ecchymosis. BACK: Nontender without obvious deformity. No CVA tenderness. Data Data Last Documented VS Vital Signs Date Time Temp Pulse Resp B/P (MAP) Pulse Ox O2 Delivery O2 Flow Rate FiO2 05/12/17 16:00 97.7 59 16 129/58 (81) 97 Room Air MDM Medical Decision Making Medical Screen Exam Complete: Yes Emergency Medical Condition: Yes Differential Diagnosis Differential diagnoses include but not limited to cellulitis, paronychia, abscess Narrative Course 71-year-old male presents to the emergency department for evaluation of area of swelling and erythema to the distal aspect of the fourth digit on his left hand. Patient was repaired here. The [facility] for drainage procedure. Ethyl chloride spray used to anesthetize the area and incision was made. Moderate amount of purulent drainage noted. Wound culture obtained. Patient discharged home. Patient states he is going to perform good skin care. Patient instructed to return the emergency Department with any worsening condition but otherwise follow up with his primary care at the [facility]. Diagnosis Primary Impression: Paronychia of finger Qualified Codes: L03.012 - Cellulitis of left finger Referrals: [facility] [place] Patient Instructions: General Instructions, Paronychia (ED) Additional Instructions: Please return to emergency department if your symptoms return or worsen. Follow up with your primary care provider. Take medications as prescribed. Keep finger clean and dry. Med/Other Pt SpecificInfo: Prescription(s) given Disposition: DISCHARGE HOME Condition: Stable Tisha Harris May 12, 2017 18:36
== END 2017-05-12 19:03 | disposition home or self-care (01) ==
LOC: NEPK 15:58
DX: L03.012 Cellulitis of left finger (principal); J44.9 Chronic obstructive pulmonary disease, unspecified; E11.9 Type 2 diabetes mellitus without complications; I11.0 Hypertensive heart disease with heart failure; B95.1 Streptococcus, group B, as the cause of diseases classified elsewhere; Z79.01 Long term (current) use of anticoagulants
CPT/HCPCS: 26010; 87070; 87205

== ENCOUNTER 2017-09-16 11:40 | Inpatient (IN) | payer OTHER, MEDICARE ==
[2017-09-16] VITALS (22 sets, daily range): BP systolic 90–147; BP diastolic 53–68; PULSE 78–102; RESP 18–41; TEMP 98.8–100.3; O2SAT 90–99
[~2017-09-16] VITALS: Ht 175.3 cm; Wt 81.5 kg
--- NOTE | 2017-09-16 12:11 | PD ---
HPI Chief Complaint: Respiratory Symptoms Time Seen by Provider: 11:52 Travel History International Travel<30 days: No Contact w/Intl Traveler<30days: No Traveled to known affect area: No History of Present Illness HPI The patient is a 72-year-old male who presents to the emergency department for shortness of breath of 3 days duration. The patient states 3 days ago he developed increasing shortness of breath. He does note a cough that is occasionally productive, producing white sputum, as well as subjective fever, chills, and sweats. The patient is followed at the [facility], has not seen the [facility] doctor since his symptoms began. He did not receive a pneumonia coccal or influenza vaccination this year, states he always gets pneumonia when he received the vaccinations. He does complain of shortness of breath, cough, myalgias, nausea, decreased appetite, but denies any diarrhea. Symptoms are moderate. He has been using nebulizers at home without any alleviation of his symptoms. He does have a history of emphysema, is not on oxygen at home. PFSH Past Medical History Hx Anticoagulant Therapy: Yes Arthritis: Yes Asthma: Yes Atrial Fibrillation: Yes Autoimmune Disease: No Anxiety: Yes Depression: Yes Heart Rhythm Problems: Yes Cancer: No Cardiomyopathy: Yes Cardiovascular Problems: Yes High Cholesterol: Yes Chest Pain: Yes Congestive Heart Failure: Yes COPD: Yes Cerebrovascular Accident: Yes Diabetes: Yes Diminished Hearing: No Endocrine: Yes GERD: Yes Genitourinary: Yes Headaches: Yes Hiatal Hernia: Yes Heparin Induced Thrombocytopen: No Herniated Disk: Yes Hypertension: Yes Immune Disorder: No Implanted Vascular Access Dvce: Yes Musculoskeletal: Yes Neurologic: Yes (NEUROPATHY) Psychiatric: Yes (PTSD) Reproductive: No Respiratory: Yes Migraines: No Myocardial Infarction: Yes (1989) Seizures: No Sickle Cell Disease: No Thyroid Disease: No Triglycerides - High: Yes PNEUMOCCOCAL Vaccine (Year): 1 Past Surgical History Abdominal Surgery: Yes (HERNIA REPAIR X 2) Body Medical Devices: PLATE, SCREWS, BOLTS, RODS IN BACK; FACCIAL RECONSTRUCTION Cardiac Surgery: No Eye Surgery: Yes Genitourinary Surgery: No Gynecologic Surgery: No Joint Replacement: Yes (RIGHT SHOULDER ROTATOR CUFF,RODS IN BACK) Neurologic Surgery: Yes (BACK SURGERY LUMBAR DISC FUSHION, ICBG WITH RODS ) Other Surgery: Yes Social History Alcohol Use: No Tobacco Use: Yes (1/2 PPD) Substance Use: No Allergies-Medications (Allergen,Severity, Reaction): Coded Allergies: Sulfa (Sulfonamide Antibiotics) (Unverified Allergy, Severe, shakes/ inchoherent, 09/16/17) aspirin (Unverified Allergy, Severe, ON COUMADIN, 09/16/17) bee venom protein (honey bee) (Unverified Allergy, Severe, 09/16/17) codeine (Unverified Allergy, Severe, Seizures, 09/16/17) penicillin G (Unverified Allergy, Severe, ANAPHYLAXSIS, 09/16/17) Reported Meds & Prescriptions Reported Meds & Active Scripts Active Prednisone 20 Mg Tab 20 Mg PO DAILY 4 Days Reported Warfarin 2.5 Mg Tab 2.5 Mg PO / Warfarin 5 Mg Tab 5 Mg PO /,,, ALLEN Nitrostat SL (Nitroglycerin) 0.4 Mg Subl 0.4 Mg SL DIRECTED PRN 1 tablet under the tongue as needed for chest pain. Repeat every 5 minutes for a total of 3 DOSES or call 911 if NO relief. Fish Oil + D3 (Fish Oil-Cholecalciferol) 1,200-1,000 Mg-Unit Cap 1 Cap PO TID Lisinopril 2.5 Mg Tab 2.5 Mg PO DAILY Novolog Inj (Insulin Aspart) 1,000 Unit/10 Ml Vial Unknown Dose SQ WITH MEALS Lasix (Furosemide) 40 Mg Tab 45 Mg PO BID Symbicort Inh (Budesonide/Formoterol Fumarate) 80-4.5 Mcg/Act Aero 2 Puff INH Q12HR Atorvastatin (Atorvastatin Calcium) 40 Mg Tab 40 Mg PO HS Albuterol Neb (Albuterol Sulfate) 0.63 Mg/3 Ml Neb 0.63 Mg NEB Q4HR NEB PRN Review of Systems Except as stated in HPI: all other systems reviewed are Neg General / Constitutional: Positive: Fever, Chills HENT: No: Lightheadedness Cardiovascular: No: Chest Pain or Discomfort Respiratory: Positive: Cough, Shortness of Breath, Wheezing Gastrointestinal: Positive: Nausea, Loss of Appetite, No: Vomiting, Abdominal Pain Musculoskeletal: No: Edema Neurologic: No: Dizziness Physical Exam Narrative GENERAL: Awake, alert, pleasant 72-year-old male who appears his stated age and appears in moderate respiratory distress. Only able to speak in 2-3 word sentences. SKIN: Focused skin assessment warm/dry. HEAD: Atraumatic. Normocephalic. EYES: No injection or drainage.. ENT: No nasal bleeding or discharge. Mucous membranes pink and moist. NECK: Trachea midline. No JVD. CARDIOVASCULAR: Irregularly irregular, tachycardic with a heart rate 105. RESPIRATORY: Tachypnea with a respiratory rate of 32. Supraclavicular retractions. Diminished breath sounds throughout. GASTROINTESTINAL: Abdomen soft, non-tender, nondistended. No rebound tenderness. MUSCULOSKELETAL: No obvious deformities. No clubbing. No cyanosis. No edema. NEUROLOGICAL: Awake and alert. No obvious cranial nerve deficits. Motor grossly within normal limits. Normal speech. PSYCHIATRIC: Appropriate mood and affect; insight and judgment normal. Data Data Last Documented VS Vital Signs Date Time Temp Pulse Resp B/P (MAP) Pulse Ox O2 Delivery O2 Flow Rate FiO2 09/16/17 12:52 98.8 82 20 95/53 (67) 98 BiPAP 60 Orders Orders Complete Blood Count With Diff (09/16/17 12:04) Comprehensive Metabolic Panel (09/16/17 12:04) B-Type Natriuretic Peptide (09/16/17 12:04) Act Partial Throm Time (Ptt) (09/16/17 12:04) Prothrombin Time / Inr (Pt) (09/16/17 12:04) Magnesium (Mg) (09/16/17 12:04) Ckmb (Isoenzyme) Profile (09/16/17 12:04) Troponin I (09/16/17 12:04) Influenzae A/B Antigen (09/16/17 12:04) Blood Culture (09/16/17 12:04) Iv Access Insert/Monitor (09/16/17 12:04) Ecg Monitoring (09/16/17 12:04) Oximetry (09/16/17 12:04) Oxygen Administration (09/16/17 12:04) Chest, Single Ap (09/16/17 12:04) Sodium Chloride 0.9% Flush (Ns Flush) (09/16/17 12:15) Methylprednisolone So Succ Inj (Solumedr (09/16/17 12:15) Albuterol-Ipratropium Neb (Duoneb Neb) (09/16/17 12:15) Resp Bipap / Cpap Non Invas Vt (09/16/17 12:04) Lactic Acid (09/16/17 12:04) Electrocardiogram (09/16/17 ) Oseltamivir (Tamiflu) (09/16/17 13:00) CKMB (09/16/17 12:10) CKMB% (09/16/17 12:10) Admit Order (Ed Use Only) (09/16/17 13:14) Labs Laboratory Tests Test 09/16/17 12:10 White Blood Count 9.6 TH/MM3 Red Blood Count 5.12 MIL/MM3 Hemoglobin 15.1 GM/DL Hematocrit 46.0 % Mean Corpuscular Volume 89.8 FL Mean Corpuscular Hemoglobin 29.5 PG Mean Corpuscular Hemoglobin Concent 32.9 % Red Cell Distribution Width 15.2 % Platelet Count 148 TH/MM3 Mean Platelet Volume 9.3 FL Neutrophils (%) (Auto) 83.7 % Lymphocytes (%) (Auto) 6.4 % Monocytes (%) (Auto) 9.4 % Eosinophils (%) (Auto) 0.0 % Basophils (%) (Auto) 0.5 % Neutrophils # (Auto) 8.1 TH/MM3 Lymphocytes # (Auto) 0.6 TH/MM3 Monocytes # (Auto) 0.9 TH/MM3 Eosinophils # (Auto) 0.0 TH/MM3 Basophils # (Auto) 0.0 TH/MM3 CBC Comment DIFF FINAL Differential Comment Prothrombin Time 26.8 SEC Prothromb Time International Ratio 2.7 RATIO Activated Partial Thromboplast Time 38.1 SEC Blood Urea Nitrogen 33 MG/DL Creatinine 1.80 MG/DL Random Glucose 277 MG/DL Total Protein 7.7 GM/DL Albumin 3.3 GM/DL Calcium Level 8.7 MG/DL Magnesium Level 2.4 MG/DL Alkaline Phosphatase 73 U/L Aspartate Amino Transf (AST/SGOT) 76 U/L Alanine Aminotransferase (ALT/SGPT) 37 U/L Total Bilirubin 1.5 MG/DL Sodium Level 131 MEQ/L Potassium Level 4.5 MEQ/L Chloride Level 95 MEQ/L Carbon Dioxide Level 24.0 MEQ/L Anion Gap 12 MEQ/L Estimat Glomerular Filtration Rate 37 ML/MIN Lactic Acid Level 3.6 mmol/L Total Creatine Kinase 2323 U/L Creatine Kinase MB 7.1 NG/ML Creatine Kinase MB % 0.3 % Troponin I 1.54 NG/ML B-Type Natriuretic Peptide 375 PG/ML MDM Medical Decision Making Medical Screen Exam Complete: Yes Emergency Medical Condition: Yes Medical Record Reviewed: Yes Interpretation(s) EKG reveals atrial fibrillation with RVR. Rate 101. Nonspecific T-wave changes. Last Impressions Chest X-Ray 09/16/17 1204 Signed Impressions: Service Date/Time: Saturday, September 16, 2017 12:09 - CONCLUSION: Interstitial changes bilaterally do not appear significantly changed and suggest interstitial lung disease. No acute cardiopulmonary abnormality is identified. Derick Rincon MD Laboratory Tests Test 09/16/17 12:10 White Blood Count 9.6 TH/MM3 Red Blood Count 5.12 MIL/MM3 Hemoglobin 15.1 GM/DL Hematocrit 46.0 % Mean Corpuscular Volume 89.8 FL Mean Corpuscular Hemoglobin 29.5 PG Mean Corpuscular Hemoglobin Concent 32.9 % Red Cell Distribution Width 15.2 % Platelet Count 148 TH/MM3 Mean Platelet Volume 9.3 FL Neutrophils (%) (Auto) 83.7 % Lymphocytes (%) (Auto) 6.4 % Monocytes (%) (Auto) 9.4 % Eosinophils (%) (Auto) 0.0 % Basophils (%) (Auto) 0.5 % Neutrophils # (Auto) 8.1 TH/MM3 Lymphocytes # (Auto) 0.6 TH/MM3 Monocytes # (Auto) 0.9 TH/MM3 Eosinophils # (Auto) 0.0 TH/MM3 Basophils # (Auto) 0.0 TH/MM3 CBC Comment DIFF FINAL Differential Comment Prothrombin Time 26.8 SEC Prothromb Time International Ratio 2.7 RATIO Activated Partial Thromboplast Time 38.1 SEC Blood Urea Nitrogen 33 MG/DL Creatinine 1.80 MG/DL Random Glucose 277 MG/DL Total Protein 7.7 GM/DL Albumin 3.3 GM/DL Calcium Level 8.7 MG/DL Magnesium Level 2.4 MG/DL Alkaline Phosphatase 73 U/L Aspartate Amino Transf (AST/SGOT) 76 U/L Alanine Aminotransferase (ALT/SGPT) 37 U/L Total Bilirubin 1.5 MG/DL Sodium Level 131 MEQ/L Potassium Level 4.5 MEQ/L Chloride Level 95 MEQ/L Carbon Dioxide Level 24.0 MEQ/L Anion Gap 12 MEQ/L Estimat Glomerular Filtration Rate 37 ML/MIN Lactic Acid Level 3.6 mmol/L Total Creatine Kinase 2323 U/L Creatine Kinase MB 7.1 NG/ML Creatine Kinase MB % 0.3 % Troponin I 1.54 NG/ML B-Type Natriuretic Peptide 375 PG/ML Differential Diagnosis Differential diagnosis includes COPD exacerbation, influenza, pneumonia, bronchitis, pleural effusion, pulmonary edema, congestive heart failure, pulmonary embolism, viral syndrome. Narrative Course IV was established, labs are drawn and sent, and the patient was placed on cardiac telemetry monitoring and continuous pulse oximetry monitoring. EKG was ordered and interpreted. Chest x-ray was obtained. The patient was placed on BiPAP 12/5 and 60%. Lactic acid and blood cultures were sent to lab. Influenza screen was sent to lab. The patient received Solu-Medrol 125 mg intravenously and duo nebs 3. The patient's breathing improved on BiPAP. The patient's lactic acid is elevated 3.6, troponin elevated at 1.54, CPK greater than 2300, influenza A positive. Chest x-ray reveals interstitial lung disease but no evidence of pneumonia. The patient appears to have sepsis secondary to influenza A with secondary involvement of renal function with elevated creatinine 1.8 and elevated CPK and troponin. The patient is allergic to aspirin, therefore, no aspirin was administered. Coumadin is therapeutic. The patient will be placed in the stepdown unit at [facility]. 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 Burrell. He denies any previous stents or CABG. a call was placed to the on-call manager merchandising, Dr. Rossi, at 1:21 PM. I did discuss the patient with Dr. Rossi at 1:27 PM he states the patient may need an evaluation for possible ischemia after his initial sepsis/ influenza A evaluation is complete and his symptoms improved. The stock turner, Dr. Alegria, was consulted in regards to the patient's intensive care admission. I spoke with him personally at 3:30 PM, he request transfer to [facility] as the patient may need ischemic workup including cardiac catheterization. Therefore, patient will be transferred to the intensive care unit, IMC, at [facility] per Dr. Alegria's recommendations. Critical Care Narrative Aggregate critical care time was 40 minutes. Time to perform other separately billable procedures was not included in the critical care time. My time did not include minutes spent treating any other patients simultaneously or on activities that did not directly contribute to the patient's treatment. The services I provided to this patient were to treat and/or prevent clinically significant deterioration that could result in: Anoxia, hypoxia, septic shock, STEMI. I provided critical care services requiring my management, as noted below: Chart data review, documentation time, medication orders and management, vital sign assessments/reviewing monitor data, ordering and reviewing lab tests, ordering and interpreting/reviewing x-rays and diagnostic studies, care of the patient and discussion of the patient with the admitting physicians. Physician Communication Physician Communication I discussed the patient with Dr. Gunn who agrees with admission. Diagnosis Primary Impression: Influenza A Additional Impressions: COPD exacerbation Elevated troponin Lactic acidosis Rhabdomyolysis Qualified Codes: M62.82 - Rhabdomyolysis Admitting Information Admitting Physician Requests: Admit Condition: Serious Nagi Linares MD Sep 16, 2017 12:10
[2017-09-16] MEDS ORDERED: methylPREDNISolone SOD SUCC 125 MG/2 ML VIAL IV PUSH ONE (12:15)
[2017-09-16] MEDS ORDERED: SODIUM CHLORIDE 0.9% FLUSH 10 ML FLUSH IVF PRN (12:15)
[2017-09-16 12:26] LABS: AUTOMATED NEUTROPHIL # 8.1 TH/MM3 (1.8-7.7); BASOPHIL % 0.5 % (0.0-2.0); HEMOGLOBIN 15.1 GM/DL (13.0-17.0); LYMPH % 6.4 % (9.0-44.0); LYMPHOCYTE # 0.6 TH/MM3 (1.0-4.8); MEAN CELL VOLUME 89.8 FL (80.0-100.0); MEAN CORPUSCULAR HEMOGLOBIN 29.5 PG (27.0-34.0); MEAN CORPUSCULAR HGB CONC 32.9 % (32.0-36.0); MEAN PLATELET VOLUME 9.3 FL (7.0-11.0); MONO % 9.4 % (0.0-8.0); MONOCYTE # 0.9 TH/MM3 (0-0.9); NEUT % 83.7 % (16.0-70.0); PLATELET COUNT 148 TH/MM3 (150-450); RED BLOOD COUNT 5.12 MIL/MM3 (4.50-5.90); RED CELL DISTRIBUTION WIDTH 15.2 % (11.6-17.2); WHITE BLOOD COUNT 9.6 TH/MM3 (4.0-11.0)
[2017-09-16] MEDS: RESP: ALBUTEROL 2.5 MG/IPRATROPIUM 0.5 MG NEB (SCH) INH ×4 (12:30→21:43)
[2017-09-16 12:38] LABS: CHLORIDE 95 MEQ/L (98-107); SODIUM (NA) 131 MEQ/L (136-145)
[2017-09-16 12:41] LABS: CALCIUM 8.7 MG/DL (8.5-10.1)
[2017-09-16 12:42] LABS: ALBUMIN 3.3 GM/DL (3.4-5.0); BLOOD UREA NITROGEN 33 MG/DL (7-18); GLUCOSE,RANDOM 277 MG/DL (74-106); MAGNESIUM 2.4 MG/DL (1.5-2.5)
--- NOTE | 2017-09-16 12:43 | RADRPT ---
EXAM DATE/TIME: 09/16/2017 12:09 [facility] COMPARISON: CHEST SINGLE AP, March 19, 2015, 20:27. CHEST SINGLE AP, June 07, 2016, 14:15. CHEST SINGLE AP, July 28, 2016, 17:18. CHEST SINGLE AP, November 17, 2016, 16:54. CHEST SINGLE AP, January 24, 2017 , 14:13. INDICATIONS : Short of breath MEDICAL HISTORY : Congestive heart failure. Myocardial infarction. Asthma. Bronchitis SURGICAL HISTORY : None. ENCOUNTER: Initial ACUITY: 1 day PAIN SCORE: 0/10 LOCATION: Bilateral chest FINDINGS: Portable AP views of the chest demonstrate a normal-sized cardiac silhouette with calcification of th e aorta. There is stable interstitial prominence bilaterally. No pleural effusion, airspace consolida tion, or pneumothorax is visualized. The bones and soft tissues demonstrate no acute finding. CONCLUSION: Interstitial changes bilaterally do not appear significantly changed and suggest interstitial lung di sease. No acute cardiopulmonary abnormality is identified. A Rahul Rincon MD on September 16, 2017 at 12:39 Board Certified Radiologist. This report was verified electronically.
[2017-09-16 12:44] LABS: INTERNATIONAL NORMALIZED RATIO 2.7 RATIO; PROTHROMBIN TIME - PATIENT 26.8 SEC (9.8-11.6)
[2017-09-16 12:45] LABS: ALT (GPT) 37 U/L (12-78); AST (GOT) 76 U/L (15-37); GLOMERULAR FILTRATION RATE 37 ML/MIN (>89)
[2017-09-16 12:47] LABS: TOTAL BILIRUBIN ADULT 1.5 MG/DL (0.2-1.0); TOTAL PROTEIN 7.7 GM/DL (6.4-8.2)
[2017-09-16 12:48] LABS: ALKALINE PHOSPHATASE 73 U/L (45-117)
[2017-09-16] MEDS ORDERED: OSELTAMIVIR PHOSPHATE 75 MG CAP PO ONE (13:00)
[2017-09-16 13:15] LABS: TROPONIN I 1.54 NG/ML (0.02-0.05)
[2017-09-16] MEDS ORDERED: RESP: ALBUTEROL 2.5 MG/3 ML NEB (PRN) INH (13:15)
[2017-09-16] MEDS ORDERED: SODIUM CHLORIDE 0.9% FLUSH 10 ML FLUSH IV FLUSH PRN (13:15)
[2017-09-16] MEDS ORDERED: SODIUM CHLOR 0.9% 1000 ML INJ 1,000 ML IV ONE (14:00)
[2017-09-16] MEDS ORDERED: ENOXAPARIN SODIUM 40 MG/0.4 ML SYRINGE SQ SCH (14:00)
[2017-09-16] MEDS ORDERED: NITROGLYCERIN 0.4 MG SL 25 TABS/BTL SL PRN (14:00)
[2017-09-16] MEDS ORDERED: DEXTROSE 50% IN WATER 50 ML VIAL(D50) IV PUSH PRN ×2 (14:15→17:00)
[2017-09-16] MEDS ORDERED: CEFEPIME INJ 1,000 MG in SODIUM CHLORIDE 0.9% INJ 100 ML IV SCH (14:15)
[2017-09-16] MEDS ORDERED: GLUCAGON 1 MG/ML VIAL OTHER PRN ×2 (14:15→17:00)
--- NOTE | 2017-09-16 14:17 | HHI.HP ---
HPI Service [facility] Primary Care Physician [facility] Admission Diagnosis Influenza A, COPD exacerbation, lactic acidosis Diagnoses: Chief Complaint: Shortness of breath and weakness Travel History International Travel<30 Days: No Contact w/Intl Traveler <30 Da: No Traveled to Known Affected Are: No Sepsis Criteria SIRS Criteria (2 or more): Temp > 100.9 or < 96.8, Heart rate over 90, RR > 20 or PaCO2 < 32 Severe Sepsis (+one): Organ Dysfunction, Hypotension, Lactate >2 History of Present Illness This patient is a 72-year-old gentleman with known history of atrial fibrillation and COPD. 3 days ago he developed increased shortness of breath without any chest pain but was associated with sputum and subjective fever and chills. He laid around his house for quite a while and felt lethargic. His brother from [facility], [place] called his local brother who came to check on him and they found him very listless in the bed. Patient was then brought to the emergency room by private vehicle. Here he was found to have increased work of breathing and tachypnea and was started on BiPAP with IV steroids and nebulized bronchodilators. Patient since that time has become hypotensive. He has a new fever. Patient also still feels quite listless. Labs have resulted in it does show a influenza positive test as well as elevated troponin and elevated CPK levels. On my review of the EKG patient does have some hazy pattern without martha pneumonia. Patient also has an EKG which shows A. fib with no ischemic changes. The patient is hyponatremic with elevated lactic acid and elevated blood glucose. He does also have diabetes. Patient is admitted to the ICU due to multifactorial causes for severe sepsis and respiratory failure. Review of Systems Constitutional: COMPLAINS OF: Dizziness, DENIES: Diaphoretic episodes, Fatigue , Fever, Weight gain, Weight loss, Chills, Change in appetite, Night Sweats Endocrine: DENIES: Heat/cold intolerance, Polydipsia, Polyuria, Polyphagia Eyes: DENIES: Blurred vision, Diplopia, Eye inflammation, Eye pain, Vision loss , Photosensitivity, Double Vision Ears, nose, mouth, throat: DENIES: Tinnitus, Hearing loss, Vertigo, Nasal discharge, Oral lesions, Throat pain, Hoarseness, Ear Pain, Running Nose, Epistaxis, Sinus Pain, Toothache, Odynophagia Respiratory: DENIES: Apneas, Cough, Snoring, Wheezing, Hemoptysis, Sputum production, Shortness of breath Cardiovascular: COMPLAINS OF: Dyspnea on Exertion, DENIES: Chest pain, Palpitations, Syncope, PND, Lower Extremity Edema, Orthopnea, Claudication Gastrointestinal: DENIES: Abdominal pain, Black stools, Bloody stools, Constipation, Diarrhea, Nausea, Vomiting, Difficulty Swallowing, Anorexia Genitourinary: DENIES: Sexual dysfunction, Urinary frequency, Urinary incontinence, Urgency, Hematuria, Dysuria, Nocturia, Penile Discharge, Testicular Pain, Testicular Swelling Integumentary: DENIES: Abnormal pigmentation, Nail changes, Pruritus, Rash Hematologic/lymphatic: DENIES: Bruising, Lymphadenopathy Immunologic/allergic: DENIES: Eczema, Urticaria Neurologic: DENIES: Abnormal gait, Headache, Localized weakness, Paresthesias, Seizures, Speech Problems, Tremor, Poor Balance Psychiatric: DENIES: Anxiety, Confusion, Mood changes, Depression, Hallucinations, Agitation, Suicidal Ideation, Homicidal Ideation, Delusions Except as stated in HPI: all other systems reviewed are Neg Past Family Social History Past Medical History COPD Atrial fibrillation Chronic pain PTSD Past Surgical History Hernia repaier x2 Multiple plates and screws and facial reconstruction from trauma Right shoulder rotator cuff surgery Lumbar surgery Eye surgery Reported Medications Reviewed in the EMR Allergies: Coded Allergies: Sulfa (Sulfonamide Antibiotics) (Unverified Allergy, Severe, shakes/ inchoherent, 09/16/17) aspirin (Unverified Allergy, Severe, ON COUMADIN, 09/16/17) bee venom protein (honey bee) (Unverified Allergy, Severe, 09/16/17) codeine (Unverified Allergy, Severe, Seizures, 09/16/17) penicillin G (Unverified Allergy, Severe, ANAPHYLAXSIS, 09/16/17) Active Ordered Medications Reviewed in the EMR Family History Parents are both , mother at 77 from cardiac disease in father at 64 from sudden cardiac Social History No alcohol dependency Tobacco half pack a day for 40 years Lives alone Physical Exam Vital Signs Vital Signs Date Time Temp Pulse Resp B/P (MAP) Pulse Ox O2 Delivery O2 Flow Rate FiO2 09/16/17 12:52 98.8 82 20 95/53 (67) 98 BiPAP 60 09/16/17 12:31 100 BiPAP 09/16/17 12:22 96 18 104/56 (72) 09/16/17 12:20 99 BiPAP 60 09/16/17 12:20 99 BiPAP 60 09/16/17 12:15 99 60 09/16/17 11:42 100.3 92 22 147/67 (93) 91 Physical Exam GENERAL: This is a well-nourished, ill-appearing on BiPAP SKIN: No rashes, ecchymoses or lesions. Cool and dry. HEAD: Atraumatic. Normocephalic. No temporal or scalp tenderness. EYES: Pupils equal round and reactive. Extraocular motions intact. No scleral icterus. No injection or drainage. ENT: Nose without bleeding, purulent drainage or septal hematoma. Throat without erythema, tonsillar hypertrophy or exudate. Uvula midline. Airway patent. NECK: Trachea midline. No JVD or lymphadenopathy. Supple, nontender, no meningeal signs. CARDIOVASCULAR: Regular rate and rhythm without murmurs, gallops, or rubs. RESPIRATORY: Decreased breath sounds bilaterally GASTROINTESTINAL: Abdomen soft, non-tender, nondistended. No hepato-splenomegaly , or palpable masses. No guarding. MUSCULOSKELETAL: Extremities without clubbing, cyanosis, or edema. No joint tenderness, effusion, or edema noted. No calf tenderness. Negative Homans sign bilaterally. NEUROLOGICAL: Awake and alert. Cranial nerves II through XII intact. Motor and sensory grossly within normal limits. Five out of 5 muscle strength in all muscle groups. Normal speech. Laboratory Laboratory Tests Test 09/16/17 12:10 White Blood Count 9.6 Red Blood Count 5.12 Hemoglobin 15.1 Hematocrit 46.0 Mean Corpuscular Volume 89.8 Mean Corpuscular Hemoglobin 29.5 Mean Corpuscular Hemoglobin Concent 32.9 Red Cell Distribution Width 15.2 Platelet Count 148 Mean Platelet Volume 9.3 Neutrophils (%) (Auto) 83.7 Lymphocytes (%) (Auto) 6.4 Monocytes (%) (Auto) 9.4 Eosinophils (%) (Auto) 0.0 Basophils (%) (Auto) 0.5 Neutrophils # (Auto) 8.1 Lymphocytes # (Auto) 0.6 Monocytes # (Auto) 0.9 Eosinophils # (Auto) 0.0 Basophils # (Auto) 0.0 CBC Comment DIFF FINAL Differential Comment Prothrombin Time 26.8 Prothromb Time International Ratio 2.7 Activated Partial Thromboplast Time 38.1 Blood Urea Nitrogen 33 Creatinine 1.80 Random Glucose 277 Total Protein 7.7 Albumin 3.3 Calcium Level 8.7 Magnesium Level 2.4 Alkaline Phosphatase 73 Aspartate Amino Transf (AST/SGOT) 76 Alanine Aminotransferase (ALT/SGPT) 37 Total Bilirubin 1.5 Sodium Level 131 Potassium Level 4.5 Chloride Level 95 Carbon Dioxide Level 24.0 Anion Gap 12 Estimat Glomerular Filtration Rate 37 Lactic Acid Level 3.6 Total Creatine Kinase 2323 Creatine Kinase MB 7.1 Creatine Kinase MB % 0.3 Troponin I 1.54 B-Type Natriuretic Peptide 375 Date/Time Source Procedure Growth Status 09/16/17 12:30 Blood Peripheral Aerobic Blood Culture Pending Received 09/16/17 12:30 Blood Peripheral Anaerobic Blood Culture Pending Received 09/16/17 12:25 Nasal Aspirate Influenza Types A,B Antigen (PAIGE) - Final Positive For Flu A Antigen Complete Result Diagram: 09/16/17 1210 09/16/17 1210 Imaging Last Impressions Chest X-Ray 09/16/17 1204 Signed Impressions: Service Date/Time: Saturday, September 16, 2017 12:09 - CONCLUSION: Interstitial changes bilaterally do not appear significantly changed and suggest interstitial lung disease. No acute cardiopulmonary abnormality is identified. Derick Rincon MD Septic Shock Reassessment Septic shock perfusion: reassessment completed Caprini VTE Risk Assessment Caprini VTE Risk Assessment: Mod/High Risk (score >= 2) VTE Pharm Contraindication: Coagulopathy,INR elevated Caprini Risk Assessment Model Point Value = 1 Point Value = 2 Point Value = 3 Point Value = 5 Age 41-60 Minor surgery BMI > 25 kg/m2 Swollen legs Varicose veins or History of unexplained or recurrent spontaneous Oral contraceptives or hormone replacement Sepsis (< 1 month) Serious lung disease, including pneumonia (< 1 month) Abnormal pulmonary function Acute myocardial infarction Congestive heart failure (< 1 month) History of inflammatory bowel disease Medical patient at bed rest Age 61-74 Arthroscopic surgery Major open surgery (> 45 min) Laparoscopic surgery (> 45 min) Malignancy Confined to bed (> 72 hours) Immobilizing plaster cast Central venous access Age >= 75 History of VTE Family history of VTE Factor V Leiden Prothrombin [id number] Lupus anticoagulant Anticardiolipin antibodies Elevated serum homocysteine Heparin-induced thrombocytopenia Other congenital or acquired thrombophilia Stroke (< 1 month) Elective arthroplasty Hip, pelvis, or leg fracture Acute spinal cord injury (< 1 month) Prophylaxis Regimen Total Risk Factor Score Risk Level Prophylaxis Regimen 0-1 Low Early ambulation 2 Moderate Order ONE of the following: *Sequential Compression Device (SCD) *Heparin 5000 units SQ BID 3-4 Higher Order ONE of the following medications: *Heparin 5000 units SQ TID *Enoxaparin/Lovenox 40 mg SQ daily (WT < 150 kg, CrCl > 30 mL/min) *Enoxaparin/Lovenox 30 mg SQ daily (WT < 150 kg, CrCl > 10-29 mL/min) *Enoxaparin/Lovenox 30 mg SQ BID (WT < 150 kg, CrCl > 30 mL/min) AND/OR *Sequential Compression Device (SCD) 5 or more Highest Order ONE of the following medications: *Heparin 5000 units SQ TID (Preferred with Epidurals) *Enoxaparin/Lovenox 40 mg SQ daily (WT < 150 kg, CrCl > 30 mL/min) *Enoxaparin/Lovenox 30 mg SQ daily (WT < 150 kg, CrCl > 10-29 mL/min) *Enoxaparin/Lovenox 30 mg SQ BID (WT < 150 kg, CrCl > 30 mL/min) AND *Sequential Compression Device (SCD) Assessment and Plan Problem List: (1) Severe sepsis ICD Code: A41.9 - Sepsis, unspecified organism; R65.20 - Severe sepsis without septic shock Plan: Multifactorial due to copd and Influenza A Patient with elevated lactic acid, acute coronary syndrome, hypotension and respiratory failure Critical care evaluation pending Admit patient to ICU Follow-up blood cultures (2) COPD exacerbation ICD Code: J44.1 - Chronic obstructive pulmonary disease with (acute) exacerbation Status: Acute Plan: Continue with bronchodilators by nebulizer IV steroids IV antibiotics Oxygen to taper (3) Elevated troponin ICD Code: R74.8 - Abnormal levels of other serum enzymes Status: Acute Plan: Etiology unclear may be true ischemic event however EKG is not consistent with this. Patient is septic as well and this could also be a reflection of his rhabdomyolysis and indicates the patient will need to be evaluated by cardiology, will continue with cardiac enzymes trending Continue IV hydration Follow-up echocardiogram and symptom management for chest pain Patient anticoagulated on warfarin and his blood pressure prohibits the use of beta-blockers at this time (4) Influenza A ICD Code: J10.1 - Influenza due to other identified influenza virus with other respiratory manifestations Status: Acute Plan: Tamifly Resp support, O2 treat COPD (5) Rhabdomyolysis ICD Code: M62.82 - Rhabdomyolysis Status: Acute Plan: IV hydration, follow trend Follow renal function and avoid nephrotoxins (6) Lactic acidosis ICD Code: E87.2 - Acidosis Status: Acute Plan: Secondary to severe sepsis Repeat pending (7) Diabetes type 1, uncontrolled ICD Code: E10.65 - Diabetes type 1, uncontrolled Status: Acute Plan: ADA diet Insulin per sliding scale (8) Atrial fibrillation ICD Code: I48.91 - Atrial fibrillation Status: Acute Plan: Rate is controlled and ptn on Warfarin INR 2.7 (9) FRANK (acute kidney injury) ICD Code: N17.9 - Acute kidney failure, unspecified Plan: Patient appears volume depleted and with rhabdomyolysis We will continue with IV hydration and follow clinically Avoid nephrotoxins Follow-up repeat urine (10) Hyponatremia ICD Code: E87.1 - Hypo-osmolality and hyponatremia Plan: Patient quite volume depleted We will reassess after volume status normalizes Code Status Full code Discussed Condition With Patient, ER Physician Certification 2 Midnight Certification Type: Admission for Inpatient Services Order for Inpatient Services The services are ordered in accordance with Medicare regulations or non- Medicare payer requirements, as applicable. In the case of services not specified as inpatient-only, they are appropriately provided as inpatient services in accordance with the 2-midnight benchmark. Estimated LOS (days): 5 5 days is the estimated time the patient will need to remain in the hospital, assuming treatment plan goals are met and no additional complications. Post-Hospital Plan: Not yet determined Problem Qualifiers (1) Rhabdomyolysis: Qualified Codes: M62.82 - Rhabdomyolysis Augustina Gunn MD Sep 16, 2017 14:17
[2017-09-16] MEDS ORDERED: Vancomycin Consult Pharmacy 1 EA OTHER SCH (15:30)
[2017-09-16] MEDS ORDERED: LEVOFLOXACIN 750 MG PREMIX INJ 150 ML IV SCH (16:00)
[2017-09-16] MEDS ORDERED: INSULIN ASPART SUPPLEMENTAL SCALE SQ SCH ×2 (17:00)
[2017-09-16] MEDS: VANCOMYCIN INJ 1,250 MG in SODIUM CHLOR 0.9% 250 ML INJ 250 ML IV SCH (17:27)
--- NOTE | 2017-09-16 17:30 | MB ---
cc: Asha Christiansen MD DATE: 09/16/2017 REASON FOR CONSULTATION: Critical care management. HISTORY OF PRESENT ILLNESS: The patient is a 72-year-old male with a past medical history of coronary artery disease, chronic atrial fibrillation on Coumadin, COPD, and active smoker who presented to [facility] with a 3-4 day history of progressive worsening shortness of breath associated with a productive cough and subjective fever and chills. In addition, he reports edema of lower extremities. The patient denies any chest pain, orthopnea, or PND. In addition, he denies any nausea, vomiting, or abdominal pain. A chest x-ray in the ER showed interstitial changes bilaterally, which do not appear significantly changed compared to prior study. His laboratory data was significant for a lactic acidosis with lactic acid level 3.6, acute kidney injury with a creatinine 1.80 and elevated total CK 2323. In addition, his troponin was 1.50. Patient ruled in for influenza. He was placed on a BiPAP 12/5 with 50% FIO2 and an ABG was performed, which showed a pH of 7.43, CO2 of 34, paO2 pf 282, bicarbonate 23 and sats of 98%. The patient had systolic blood pressure in the 90s on arrival and he is currently receiving 1 liter bolus of normal saline with a current blood pressure 120/65 with a pulse of 93. The patient was taken off BiPAP and is currently on 4 liter oxygen with good saturation. He denies any use of home oxygen. He is being followed by the [facility]. He remains an active smoker where he smokes half a pack of cigarettes per day with a [id number] history of smoking. EKG in the ER shows atrial fibrillation with a rate of 101 beats per minute. The patient was initially admitted under hospitalist service; however, critical care medicine was consulted for critical care and respiratory management. PAST MEDICAL HISTORY: Significant for COPD, coronary artery disease with previous MT, chronic atrial fibrillation. PAST SURGICAL HISTORY: Previous hernia repair; previous face, shoulder, and back surgeries; previous eye surgery. ALLERGIES: 1. SULFA. 2. ASPIRIN. 3. PENICILLIN G. 4. CODEINE. SOCIAL HISTORY: Nondrinker, active smoker where he smokes half a pack a day for about 60 years. FAMILY HISTORY: Coronary artery disease runs in the family. REVIEW OF SYSTEMS: As per HPI. Rest of review of systems is unremarkable. PHYSICAL EXAMINATION: GENERAL: This is a 72-year-old male lying in bed in mild respiratory distress. VITAL SIGNS: Temperature 98.0, pulse of 93, blood pressure currently 120/65, saturation 94%. HEENT: Atraumatic, normocephalic. Pupils are equal, round, reactive to light and accommodation. Extraocular muscles intact. Conjunctivae pink with anicteric sclerae. Oral mucosa within normal. Dry mucous membranes. NECK: Supple. No JVD, adenopathy or thyromegaly. Trachea midline. HEART: Irregularly irregular. Normal S1, S2. No murmurs, rubs or gallops noted. LUNGS: Bilateral equal air entry with a few coarse breath sounds. ABDOMEN: Soft, nontender, nondistended, positive bowel sounds. EXTREMITIES: No cyanosis, clubbing, edema. NEUROLOGIC: No focal sensory deficit. LABORATORY DATA: Sodium 131, potassium 4.5, chloride 95, CO2 of 24, BUN 33, creatinine 1.80 with a lactic acid 3.6. AST 76, total bilirubin 1.5, ALT 37. Total CK 2320, CK-MB 7.1, troponin 1.54. BNP 375, albumin 3.3. WBC 9.6, hemoglobin 15.1, hematocrit 46, platelet count 148. INR 2.7 with PT 26.8. IMAGING STUDIES: Chest x-ray in the ER showed interstitial changes bilaterally. ASSESSMENT AND PLAN: 1. Acute hypoxemic respiratory failure. 2. Positive influenza. 3. Acute kidney injury. 4. Lactic acidemia. 5. Rhabdomyolysis with elevated CKs. 6. Elevated troponins, which could be stress mediated; however, cannot rule out acute coronary syndrome. 7. Coagulopathy secondary to Coumadin. 8. Elevated AST. 9. Chronic atrial fibrillation. 10. Chronic obstructive pulmonary disease. 11. Chronic obstructive pulmonary disease. RECOMMENDATIONS: 1. Monitor neuro status closely and avoid any sedatives. 2. Continue to wean down oxygen as tolerated and keep sats above 92%. 3. Bronchodilators in the form of DuoNeb q.4 plus q.2 hours p.r.n. for shortness of breath. In addition, we will add Symbicort 160/4.5 two puffs q.12 hours. 4. Agree with IV steroids. He was placed on Solu-Medrol 60 mg IV q.6 hours. 5. Noninvasive positive pressure ventilation p.r.n. for respiratory distress. 6. I will obtain CT scan of the chest without contrast for further evaluation of pulmonary parenchyma. 7. Monitor heart rate and blood pressure closely and maintain MAP greater than 65 mmHg. The patient is currently receiving 1 liter bolus of normal saline. We will continue maintenance fluids, normal saline at 75 mL an hour. 8. Serial lactic acid monitoring until clear. 9. Monitor cardiac enzymes with troponins. In addition, we will obtain 2D echo to evaluate LV function. Dr. Rossi from cardiology service was notified by ED. 10. Monitor renal function, I's and O's and avoid nephrotoxins. Electrolyte replacement as needed. Continue with IV hydration as stated above and monitor CKs. 11. Start on heart healthy diet once respiratory status improves and place on Pepcid for gastrointestinal prophylaxis. 12. Continue with antibiotics. He was given cefepime and Tamiflu. In addition, vancomycin was ordered. We will continue with vancomycin, Tamiflu and Levaquin. OF NOTE, THE PATIENT IS ALLERGIC TO PENICILLIN. Follow up on blood cultures and will check a sputum culture, Strep pneumonia and legionella urinary antigen. A chest x-ray in the ED showed likely chronic interstitial changes. Check urinalysis with culture if indicated. 13. Increase sliding scale to medium scale with Accu-Cheks for glycemic control. 14. Monitor CBC and coags as the patient is on Coumadin with INR 2.7 on arrival. 15. Gastrointestinal prophylaxis with Pepcid and DVT prophylaxis with SCDs and Coumadin. 16. Case discussed with nursing staff. 17. Further recommendations will be based on hospital course. MD MARTHA Alvarez/DIVINA , 04:53 PM , 05:28 PM
[2017-09-16] MEDS: INSULIN NovoLIN REGULAR SUPPLEMENTAL SCALE SQ SCH ×2 (17:35→20:18)
[2017-09-16] MEDS: SODIUM CHLOR 0.9% 1000 ML INJ 1,000 ML IV SCH ×2 (17:35→20:03)
[2017-09-16] MEDS: methylPREDNISolone SOD SUCC 125 MG/2 ML VIAL IV PUSH SCH (17:35)
--- NOTE | 2017-09-16 19:59 | EKG ---
Date Performed: 09/16/2017 Time Performed: 11:54:44 PTAGE: 72 years EKG: ATRIAL FIBRILLATION WITH RAPID VENTRICULAR RESPONSE INCOMPLETE RIGHT BUNDLE BRANCH BLOCK NO NSPECIFIC ST & T-WAVE ABNORMALITY Since previous tracing, no significant change noted ABNORMAL RHYTHM ECG PREVIOUS TRACING : 01/24/2017 14.17 DOCTOR: Johnny Rae Interpretating Date/Time 09/16/2017 19:55:28
[2017-09-16] MEDS: OSELTAMIVIR PHOSPHATE 75 MG CAP PO SCH (20:02)
[2017-09-16] MEDS: SODIUM CHLORIDE 0.9% FLUSH 10 ML FLUSH IV FLUSH SCH (20:03)
[2017-09-16] MEDS: LEVOFLOXACIN 500 MG PREMIX INJ 100 ML IV SCH (20:03)
[2017-09-16] MEDS: BUDESONIDE-FORMOTEROL 160/4.5 MCG INHALER INH SCH (20:20)
--- NOTE | 2017-09-16 23:22 | RADRPT ---
EXAM DATE/TIME: 09/16/2017 22:38 [facility] COMPARISON: CTA CHEST W 3D RECON, July 19, 2011, 15:28. INDICATIONS : Shortness of breath, interstitial lung disease. RADIATION DOSE: 16.60 CTDIvol (mGy) MEDICAL HISTORY : Chronic obstructive pulmonary disease. Congestive heart failure. Cerebrovascular disease. Myocardial infarction. Hypertension. Diabetes. SURGICAL HISTORY : Hernia repairs. Back surgery. ENCOUNTER: Initial ACUITY: 1 day PAIN SCALE: 4/10 LOCATION: chest TECHNIQUE: Volumetric scanning of the chest was performed. Using automated exposure control and adjustment of t he mA and/or kV according to patient size, radiation dose was kept as low as reasonably achievable to obtain optimal diagnostic quality images. DICOM format image data is available electronically for r eview and comparison. Follow-up recommendations for detected pulmonary nodules are based at a minimum on nodule size and pa tient risk factors according to Fleischner Society Guidelines. FINDINGS: Comparison is CT a chest from June 2011. Peribronchial thickening and distal airway disease have w orsened since the prior examination. There is also fairly extensive cylindrical bronchiectasis. This has also worsened. There is no left effusion. Trace right pleural fluid. Extensive mediastinal and hilar adenopathy is stable to slightly increased from 2012 and is probably reactive. Moderate to severe coronary artery calcifications. Small hiatal hernia. No acute findings in the upper abdomen. CONCLUSION: 1. Overall there is progression of peribronchial thickening, cylindrical bronchiectasis and distal ai rway disease in both lungs since June 2011. Differential diagnosis is chronic atypical mycobacteri al disease and chronic aspiration. Mediastinal adenopathy is also stable to slightly increased in siz e over the last 6 years. 2. Moderate coronary calcifications. Tenzin Alfred MD on September 16, 2017 at 23:15 Board Certified Radiologist. This report was verified electronically.
[2017-09-17] VITALS (33 sets, daily range): BP systolic 80–123; BP diastolic 49–69; PULSE 68–96; RESP 14–46; TEMP 97.3–100.3; O2SAT 94–100
--- NOTE | 2017-09-17 00:16 | MB ---
cc: Jalen Rossi DO DATE: 09/16/2017 Corrected Copy: 09/19/17 REASON FOR CONSULTATION: Elevated troponin. HISTORY OF PRESENT ILLNESS: Percy Castañeda is a pleasant 72-year-old male who presented to [facility] on 09/16/2017 due to increasing shortness of breath. He states that shortness of breath has been worse over the past 3 days. Shortness of breath comes on with any type of activity. He does not seem to get more short of breath while lying flat. He denies chest pain with any of these activities. He has had subjective fevers and chills and bringing up some sputum. Overall, the past few days he has felt relatively lethargic. Apparently his one brother came to check on him and found him lying in bed, short of breath and so he brought him to the emergency room. Upon arrival to the emergency room, he was started on BiPAP with IV steroids and bronchodilators. He was found to be influenza positive as well as an elevated troponin and admitted to the ICU. In seeing him, he is currently mildly tachypneic, but denies any chest pain. PAST MEDICAL HISTORY: 1. COPD. 2. Atrial fibrillation. 3. Chronic pain. 4. Posttraumatic stress disorder. PAST SURGICAL HISTORY: 1. Hernia repair x2. 2. Multiple plates, screws, and facial reconstruction from trauma. 3. Right shoulder rotator cuff surgery. 4. Lumbar surgery. 5. Eye surgery. ALLERGIES: 1. SULFA. 2. ASPIRIN. 3. CODEINE. 4. PENICILLIN-G. MEDICATIONS: 1. Albuterol every 4 hours as needed for shortness of breath. 2. Coumadin 2.5 mg Tuesday and Tuesday with 5 mg all the other days. 3. Lipitor 40 mg every night. 4. Nitro sublingual as needed. 5. Lisinopril 2.5 mg daily. 6. Lasix 40 mg t.i.d. 7. Symbicort 2 puffs every 12 hours. 8. Prednisone 20 mg daily. 9. NovoLog sliding scale. FAMILY HISTORY: Mother at the age of 77 from cardiac disease. His father at the age of 64 from sudden cardiac . SOCIAL HISTORY: The patient denies alcohol. He smokes half a pack of cigarettes for 40 years. REVIEW OF SYSTEMS: Fourteen systems were reviewed including osteopathic. Pertinent positives and negatives above, otherwise negative. PHYSICAL EXAMINATION: VITAL SIGNS: Temperature 99.1, heart rate 82, blood pressure 112/54, respirations 28, pulse oximetry 96% on 4 liters. GENERAL: The patient appears mildly tachypneic, in no acute distress, alert, awake and oriented x3. HEENT: Extraocular muscles intact. Mucous membranes moist. NECK: Supple. No JVD at 45 degrees. No carotid bruits heard bilaterally. Carotid upstroke is brisk in nature. HEART: Irregularly irregular. Positive first and second heart sounds with no noted murmurs, gallops or rubs. LUNGS: Scattered rhonchi bilaterally. ABDOMEN: Soft, nontender, nondistended. No organomegaly noted. EXTREMITIES: Show no clubbing, cyanosis or edema. Femoral and distal pulses intact bilaterally. NEUROLOGIC: No focal deficits. SKIN: Warm, dry and intact. OSTEOPATHIC: No kyphoscoliosis, lordosis or paraspinal tender points. LABORATORY DATA: Hemoglobin 15.1, hematocrit 46.0, platelets 148. Potassium 4.5, BUN 33, creatinine 1.80. Troponin 1.72. Lactic acid 3.6. Electrocardiogram (09/16/2017 at 11:54): Atrial fibrillation with rapid ventricular response, incomplete right bundle branch block, nonspecific ST and T-wave changes. IMPRESSIONS: 1. Influenza positive. 2. Severe sepsis. 3. Xgd-RI-yxkqeyxjt myocardial infarction, possible type 1 versus type 2. 4. Rhabdomyolysis. 5. Lactic acidosis. 6. Diabetes mellitus. 7. Atrial fibrillation. 8. Acute kidney injury. 9. Hyponatremia. RECOMMENDATIONS: 1. Mr. Castañeda presented with what appears to be shortness of breath secondary to influenza. 2. He was found to have an elevated troponin, and this may be type 1 versus type 2 NSTEMI. Obviously, there appears to be some injury here, but this may overall be due to his shortness of breath and stress on his body due to his overall illness. 3. He is currently on Coumadin for his atrial fibrillation. At this time, we will hold his Coumadin, and once his INR is below 2, he will be placed on a heparin drip. 4. I believe that once he is stabilized from his influenza, he should undergo an ischemic evaluation, most likely with cardiac catheterization. 5. We will check a 2D echo to look at his overall left ventricular function, cardiac structure, and possible valvopathies. 6. I spoke to him for greater than 3 minutes about tobacco cessation. 7. Further recommendations will be made based on the hospital course. Thank you for allowing me to see Percy Castañeda. If there are any questions, please do not hesitate to call. DO LESLYE Mcduffie/OLI , 11:33 PM , 12:14 AM
[2017-09-17 00:41] LABS: BILIRUBIN, URINE NEG (NEG); BLOOD, URINE MOD (NEG); GLUCOSE,URINE 500 mg/dL (NEG); KETONE, URINE TRACE mg/dL (NEG); NITRITE,URINE NEG (NEG); URINE COLOR YELLOW (YELLW/STRAW); URINE LEUKOCYTE ESTERASE NEG (NEG)
[2017-09-17 00:50] LABS: RBC, URINE 0-2 /hpf (0-3); SQUAMOUS EPITHELIAL CELL URINE 0-5 /hpf (0-5); WBC, URINE 0-2 /hpf (0-5)
[2017-09-17] MEDS: methylPREDNISolone SOD SUCC 125 MG/2 ML VIAL IV PUSH SCH ×4 (00:53→18:18)
[2017-09-17] MEDS: INSULIN NovoLIN REGULAR SUPPLEMENTAL SCALE SQ SCH ×4 (00:59→13:00)
[2017-09-17 06:22] LABS: AUTOMATED NEUTROPHIL # 5.3 TH/MM3 (1.8-7.7); BASOPHIL % 0.2 % (0.0-2.0); HEMATOCRIT 42.6 % (39.0-51.0); LYMPH % 8.2 % (9.0-44.0); LYMPHOCYTE # 0.5 TH/MM3 (1.0-4.8); MEAN CELL VOLUME 90.1 FL (80.0-100.0); MEAN CORPUSCULAR HEMOGLOBIN 29.7 PG (27.0-34.0); MEAN CORPUSCULAR HGB CONC 32.9 % (32.0-36.0); MEAN PLATELET VOLUME 9.4 FL (7.0-11.0); MONO % 4.8 % (0.0-8.0); MONOCYTE # 0.3 TH/MM3 (0-0.9); NEUT % 86.8 % (16.0-70.0); PLATELET COUNT 117 TH/MM3 (150-450); RED BLOOD COUNT 4.73 MIL/MM3 (4.50-5.90); RED CELL DISTRIBUTION WIDTH 15.2 % (11.6-17.2); WHITE BLOOD COUNT 6.1 TH/MM3 (4.0-11.0)
[2017-09-17 06:32] LABS: INTERNATIONAL NORMALIZED RATIO 2.8 RATIO; PROTHROMBIN TIME - PATIENT 28.7 SEC (9.8-11.6)
[2017-09-17 08:05] LABS: ALBUMIN 2.7 GM/DL (3.4-5.0); ALKALINE PHOSPHATASE 61 U/L (45-117); ALT (GPT) 38 U/L (12-78); AST (GOT) 67 U/L (15-37); BICARBONATE 24.6 MEQ/L (21.0-32.0); BLOOD UREA NITROGEN 31 MG/DL (7-18); CALCIUM 8.2 MG/DL (8.5-10.1); CHLORIDE 107 MEQ/L (98-107); GLOMERULAR FILTRATION RATE 54 ML/MIN (>89); GLUCOSE,RANDOM 282 MG/DL (74-106); MAGNESIUM 2.4 MG/DL (1.5-2.5); PHOSPHORUS 2.5 MG/DL (2.5-4.9); SODIUM (NA) 145 MEQ/L (136-145); TOTAL BILIRUBIN ADULT 0.9 MG/DL (0.2-1.0); TOTAL PROTEIN 6.8 GM/DL (6.4-8.2)
[2017-09-17 08:10] LABS: TROPONIN I 1.43 NG/ML (0.02-0.05)
[2017-09-17] MEDS: RESP: ALBUTEROL 2.5 MG/IPRATROPIUM 0.5 MG NEB (SCH) INH ×3 (08:34→20:02)
[2017-09-17] MEDS: SODIUM CHLORIDE 0.9% FLUSH 10 ML FLUSH IV FLUSH SCH ×2 (08:49→21:00)
[2017-09-17] MEDS: OSELTAMIVIR PHOSPHATE 75 MG CAP PO SCH ×2 (08:49→21:28)
[2017-09-17] MEDS: BUDESONIDE-FORMOTEROL 160/4.5 MCG INHALER INH SCH ×2 (09:00→21:28)
--- NOTE | 2017-09-17 13:27 | ECHRPT ---
Indication: SHORTNESS OF BREATH CONCLUSIONS The left ventricular systolic function is moderately reduced with an estimated ejection fraction in the range of 40-45%. Normal left ventricular size. Wall thickness is normal. No regional wall motion abnormalities are present. The right ventricle is mildly dilated. The right atrial size is wiwr-bv-pfzravsppk dilated. Severe thickening of the mitral valve leaflets. Calcification of both mitral valve leaflets. Trace mitral valve regurgitation. Moderate to severe mitral valve stenosis. Mitral valve mean gradient is 12.7 mmHg. The mitral valve area by Pressure Halftime Method is 1.41cm. Possibly severe aortic valve stenosis visually, though gradient only moderate, mean 23 mmHG Moderate aortic valve stenosis. Sqpm-iz-perxrnwz aortic valve regurgitation. There is trace tricuspid valve regurgitation. The estimated pulmonary arterial pressure is 31.3 mmHg. BP: 92 / 61 HR: 71 Rhythm: Sinus MEASUREMENTS (Male / Female) Normal Values Technical Quality:Fair 2D ECHO LV Diastolic Diameter PLAX 3.9 cm 4.2 - 5.9 / 3.9 - 5.3 cm LV Systolic Diameter PLAX 3.2 cm IVS Diastolic Thickness 1.0 cm 0.6 - 1.0 / 0.6 - 0.9 cm LVPW Diastolic Thickness 1.0 cm 0.6 - 1.0 / 0.6 - 0.9 cm LV Relative Wall Thickness 0.5 LVOT Diameter 1.8 cm LA Systolic Diameter LX 3.9 cm 3.0 - 4.0 / 2.7 - 3.8 cm LV Ejection Fraction MOD 4C 47.1 % LV Cardiac Index MOD 4C 1121.2 cm/minm LV Ejection Fraction 4C AL 50.8 % LV Cardiac Index 4C AL 1249.1 cm/minm M-MODE Aortic Root Diameter MM 2.7 cm LA Systolic Diameter MM 3.6 cm LA Ao Ratio MM 1.3 AV Cusp Separation MM 1.1 cm DOPPLER AV Peak Velocity 304.6 cm/s AV Peak Gradient 37.1 mmHg AV Mean Gradient 20.6 mmHg AV Velocity Time Integral 76.2 cm AI Peak Velocity 337.5 cm/s AI Peak Gradient 45.6 mmHg AI Pressure Half Time 474.5 ms LVOT Peak Velocity 81.5 cm/s LVOT Peak Gradient 2.7 mmHg LVOT Velocity Time Integral 17.2 cm LVOT Cardiac Index 1482.7 cm/minm AV Area Cont Eq vti 0.6 cm AV Area Cont Eq pk 0.7 cm MV Peak Velocity 254.7 cm/s MV Peak Gradient 25.9 mmHg MV Mean Velocity 167.7 cm/s MV Mean Gradient 12.7 mmHg MV Area PHT 1.4 cm Mitral E Point Velocity 244.7 cm/s Mitral A Point Velocity 100.0 cm/s Mitral E to A Ratio 2.4 TR Peak Velocity 231.0 cm/s TR Peak Gradient 21.3 mmHg Right Atrial Pressure 10.0 mmHg Pulmonary Artery Systolic Pressu 31.3 mmHg Right Ventricular Systolic Press 31.3 mmHg PV Peak Velocity 133.0 cm/s PV Peak Gradient 7.1 mmHg FINDINGS LEFT VENTRICLE The left ventricular systolic function is moderately reduced with an estimated ejection fraction in the range of 40-45%. Normal left ventricular size. Wall thickness is normal. No regional wall motion abnormalities are present. RIGHT VENTRICLE The right ventricle is mildly dilated. LEFT ATRIUM The left atrial size is normal. RIGHT ATRIUM The right atrial size is bwlu-uc-fahtgpyxfd dilated. ATRIAL SEPTUM Normal atrial septal thickness without atrial level shunting by limited color doppler interrogation. AORTA The aortic root and proximal ascending aorta are normal in size on limited imaging. MITRAL VALVE Severe thickening of the mitral valve leaflets. Calcification of both mitral valve leaflets. Trace mitral valve regurgitation. Moderate to severe mitral valve stenosis. Mitral valve mean gradient is 12.7 mmHg. The mitral valve area by Pressure Halftime Method is 1.41cm. AORTIC VALVE Diffuse calcification of the aortic valve. Severe aortic valve stenosis. Aortic valve area is 0.57 cm. Moderate aortic valve stenosis. Dqsv-de-qmtxylos aortic valve regurgitation. TRICUSPID VALVE Structurally normal tricuspid valve. There is trace tricuspid valve regurgitation. The estimated pulmonary arterial pressure is 31.3 mmHg. PULMONARY VALVE No pulmonary valve regurgitation or stenosis. VESSELS The inferior vena cava is normal in size. PERICARDIUM No pericardial effusion. Adam Cartwright MD (Electronically Signed) Final Date:17 September 2017 13:27
[2017-09-17] MEDS: SODIUM CHLOR 0.9% 1000 ML INJ 1,000 ML IV SCH (14:47)
[2017-09-17] MEDS: INSULIN ASPART SUPPLEMENTAL SCALE SQ SCH ×2 (17:00→21:28)
[2017-09-17] MEDS ORDERED: GLUCAGON 1 MG/ML VIAL OTHER PRN (17:15)
[2017-09-17] MEDS ORDERED: DEXTROSE 50% IN WATER 50 ML VIAL(D50) IV PUSH PRN (17:15)
[2017-09-17] MEDS: VANCOMYCIN INJ 1,250 MG in SODIUM CHLOR 0.9% 250 ML INJ 250 ML IV SCH (18:00)
--- NOTE | 2017-09-17 18:10 | HHI.CCPN ---
Subjective Remarks/Hospital Course The patient is a 72-year-old male with a past medical history of coronary artery disease, chronic atrial fibrillation on Coumadin, COPD, and active smoker who presented to [place] [facility] with a 3-4 day history of progressive worsening shortness of breath associated with a productive cough and subjective fever and chills. In addition , he reports edema of lower extremities. The patient denies any chest pain, orthopnea, or PND. In addition, he denies any nausea, vomiting, or abdominal pain. A chest x-ray in the ER showed interstitial changes bilaterally, which do not appear significantly changed compared to prior study. His laboratory data was significant for a lactic acidosis with lactic acid level 3.6, acute kidney injury with a creatinine 1.80 and elevated total CK 2323. In addition, his troponin was 1.50. Patient ruled in for influenza. He was placed on a BiPAP 12/5 with 50% FIO2 and an ABG was performed, which showed a pH of 7.43, CO2 of 34, paO2 pf 282, bicarbonate 23 and sats of 98%. The patient had systolic blood pressure in the 90s on arrival and he is currently receiving 1 liter bolus of normal saline with a current blood pressure 120/65 with a pulse of 93. The patient was taken off BiPAP and is currently on 4 liter oxygen with good saturation. He denies any use of home oxygen. He is being followed by the [place]. He remains an active smoker where he smokes half a pack of cigarettes per day with a 24-sumg-slro history of smoking. EKG in the ER shows atrial fibrillation with a rate of 101 beats per minute. The patient was initially admitted under hospitalist service; however, critical care medicine was consulted for critical care and respiratory management. 09/17: Labored breathing. Elevated glucose. Troponin trend continues. INR remains elevated, hold heparin. Objective Vital Signs Date Time Temp Pulse Resp B/P (MAP) Pulse Ox O2 Delivery O2 Flow Rate FiO2 09/17/17 11:00 92 34 107/69 (82) 95 09/17/17 08:36 Nasal Cannula 3.00 09/17/17 08:00 97.6 09/17/17 02:30 40 Intake and Output 09/17/17 09/17/17 09/18/17 08:00 16:00 00:00 Output Total 1200 ml Balance -1200 ml Result Diagram: 09/17/1760409/17/17604 Other Results Microbiology Date/Time Source Procedure Growth Status 09/16/17 12:25 Nasal Aspirate Influenza Types A,B Antigen (PAIGE) - Final Positive For Flu A Antigen Complete 09/17/17 00:00 Urine Catheterized Urine Legionella Antigen - Final PRESUMPTIVE NEGATIVE FOR LEGIONELLA P... Complete 09/17/17 00:00 Urine Catheterized Urine Streptococcus pneumoniae Antigen (M - Final PRESUMPTIVE NEGATIVE FOR STREPTOCOCCU... Complete Objective Remarks GENERAL: This is a 72-year-old male lying in bed in moderate respiratory distress. HEENT: Atraumatic, normocephalic. ITZEL. Extraocular muscles intact. Conjunctivae pink with anicteric sclerae. Oral mucosa within normal. Moist mucous membranes. NECK: Supple. No obstruction or stridor. Trachea midline. HEART: Irregularly irregular. Normal S1, S2. No murmurs, rubs or gallops noted. No JVD. LUNGS: Bilateral equal air entry with coarse breath sounds. Diffuse crackles. ABDOMEN: Soft, nontender, nondistended, positive bowel sounds. No guarding. EXTREMITIES: No cyanosis, clubbing, edema. Well perfused. NEUROLOGIC: O X 3, alert, anxious. Moves 4 limbs with purpose. A/P Assessment and Plan ASSESSMENT AND PLAN: 1. Acute hypoxemic respiratory failure. 2. Positive influenza. 3. Acute kidney injury. 4. Lactic acidemia. 5. Rhabdomyolysis with elevated CKs. 6. Elevated troponins, which could be stress mediated; however, cannot rule out acute coronary syndrome. 7. Coagulopathy secondary to Coumadin. 8. Elevated AST. 9. Chronic atrial fibrillation. 10. Chronic obstructive pulmonary disease, not exacerbated. RECOMMENDATIONS: 1. Gentle hydration. 2. Continue to wean down oxygen as tolerated and keep sats above 92%. 3. Bronchodilators in the form of DuoNeb q.4 plus q.2 hours p.r.n. for shortness of breath. Symbicort 160/4.5 two puffs q.12 hours. 4. Solu-Medrol 40 mg IV q.8 hours. 5. Noninvasive positive pressure ventilation p.r.n. for respiratory distress. 6. CT scan of the chest without contrast for further evaluation of pulmonary parenchyma -> clear. 7. Monitor heart rate and blood pressure closely and maintain MAP greater than 65 mmHg. 8. Serial lactic acid monitoring until clear. Done. 9. Monitor cardiac enzymes with troponins. 10. Monitor renal function, I's and O's and avoid nephrotoxins. Electrolyte replacement as needed. 11. Start on heart healthy diet once respiratory status improves and place on Pepcid for gastrointestinal prophylaxis. 12. D/C antibiotics. Follow up on blood cultures and will check a sputum culture, Strep pneumonia and legionella urinary antigen. 13. Increase sliding scale to medium scale with Accu-Cheks for glycemic control. Add levemir BID 14. Monitor CBC and coags as the patient is on Coumadin with INR 2.7 on arrival. 15. Gastrointestinal prophylaxis with Pepcid and DVT prophylaxis with SCDs and Coumadin. Overall impression: This acts like long-standing mitral stenosis with chronic interstitial changes but I can't easily select out changes associated with acute viral pneumonia. CT changes of bronchiectasis may simply reflect chronic aspiration. I will taper off steroids as there is no bronchospasm now. Hold fluids, restart diuretics. Dave Underwood MD Sep 17, 2017 18:10
--- NOTE | 2017-09-17 18:14 | PD.CARD.PN ---
Subjective Subjective Remarks Pt still w/ flu/coughing Objective Medications Current Medications Medications (Trade) Dose Ordered Sig/Arleen Route Start Time Stop Time Status Last Admin (NS Flush) 2 ml BID IV FLUSH 09/16/17 21:00 09/17/17 08:49 (NS Flush) 2 ml UNSCH PRN IV FLUSH 09/16/17 13:15 (Duoneb Neb) 1 ampule Q6HR WHILE AWAKE NEB INH 09/16/17 14:00 09/17/17 15:27 (Albuterol Neb) 2.5 mg Q2HR NEB PRN INH 09/16/17 13:15 (SoluMEDROL INJ) 60 mg Q6H IV PUSH 09/16/17 18:00 09/17/17 12:00 (Nitrostat Sl) 0.4 mg Q5M PRN SL 09/16/17 14:00 (Tamiflu) 75 mg BID PO 09/16/17 21:00 09/17/17 08:49 Vancomycin HCl 1250 mg/Sodium Chloride 262.5 ml @ 262.5 mls/ hr Q24H IV 09/16/17 18:00 09/16/17 17:27 Pharmacy Profile Note 0 ml @ 0 mls/hr UNSCH OTHER 09/16/17 15:30 Levofloxacin/ Dextrose 100 ml @ 100 mls/hr Q24H IV 09/16/17 18:00 09/16/17 20:03 Sodium Chloride 1,000 ml @ 75 mls/hr [id number] IV 09/16/17 16:15 09/17/17 14:47 (Symbicort 160-4.5 Mcg Inh) 2 puff Q12HR INH 09/16/17 21:00 09/17/17 09:00 (D50w (Vial) Inj) 50 ml UNSCH PRN IV PUSH 09/16/17 17:00 (Glucagon Inj) 1 mg UNSCH PRN OTHER 09/16/17 17:00 Miscellaneous Information SPECIFIC LAB TO BE DEMETRISU... ONCE ONCE .XX 09/19/17 17:45 09/19/17 17:46 (Levemir Inj) 8 units Q12HR SQ 09/17/17 21:00 (NovoLOG SUPPLEMENTAL SCALE) 1 ACHS SLIDING SCALE SQ 09/17/17 17:00 Vital Signs / I&O Vital Signs Date Time Temp Pulse Resp B/P (MAP) Pulse Ox O2 Delivery O2 Flow Rate FiO2 09/17/17 11:00 92 34 107/69 (82) 95 09/17/17 10:00 86 09/17/17 10:00 80 30 80/49 (59) 97 09/17/17 09:00 82 29 92/57 (69) 96 09/17/17 08:36 99 Nasal Cannula 3.00 09/17/17 08:00 68 09/17/17 08:00 97.6 72 19 106/61 (76) 97 09/17/17 07:00 98 Nasal Cannula 3.00 09/17/17 07:00 74 25 111/53 (72) 97 09/17/17 06:13 78 09/17/17 06:02 74 14 92/61 (71) 100 09/17/17 05:02 72 24 112/63 (79) 99 09/17/17 04:38 73 09/17/17 04:02 97.3 74 21 103/51 (68) 98 09/17/17 03:02 76 24 98/58 (71) 99 09/17/17 02:30 99 40 09/17/17 02:06 80 09/17/17 02:02 74 24 95/60 (72) 98 09/17/17 01:02 78 22 93/57 (69) 99 09/17/17 00:02 100.3 80 25 113/66 (82) 99 09/17/17 00:00 81 09/16/17 23:02 84 36 106/61 (76) 93 09/16/17 22:00 78 09/16/17 22:00 80 28 93/64 (74) 97 09/16/17 21:50 98 40 09/16/17 21:43 97 Nasal Cannula 4.00 09/16/17 21:10 84 33 98/56 (70) 97 09/16/17 20:00 99.1 82 28 112/54 (73) 96 09/16/17 20:00 82 09/16/17 19:23 98 Nasal Cannula 4.00 09/16/17 19:00 84 30 99/68 (78) 95 I/O 09/16/17 09/16/17 09/16/17 09/17/17 09/17/17 09/17/17 07:00 15:00 23:00 07:00 15:00 23:00 Intake Total 1120 ml Output Total 1200 ml Balance 1120 ml -1200 ml Intake Oral 120 ml IV Total 1000 ml Output Urine Total 1200 ml # Voids 2 Physical Exam GENERAL: This is a well-nourished, well-developed patient, in no apparent distress. CARDIOVASCULAR: Regular rate and rhythm 2/6 tiffany RESPIRATORY: Clear to auscultation. Breath sounds equal bilaterally. No wheezes , rales, or rhonchi. GASTROINTESTINAL: Abdomen soft, non-tender, nondistended. Normal active bowel sounds MUSCULOSKELETAL: Extremities without clubbing, cyanosis, or edema. NEURO: Alert & Oriented x4 to person, place, time, situation. Moves all ext x4 Laboratory Laboratory Tests Test 09/16/17 18:20 09/17/17 00:00 09/17/17 01:00 09/17/17 06:05 Lactic Acid Level 1.7 mmol/L Troponin I 1.70 NG/ML 1.61 NG/ML 1.43 NG/ML Urine Color YELLOW Urine Turbidity CLEAR Urine pH 6.0 Urine Specific Rickman 1.025 Urine Protein 100 mg/dL Urine Glucose (UA) 500 mg/dL Urine Ketones TRACE mg/dL Urine Occult Blood MOD Urine Nitrite NEG Urine Bilirubin NEG Urine Urobilinogen 0.2 MG/DL Urine Leukocyte Esterase NEG Urine RBC 0-2 /hpf Urine WBC 0-2 /hpf Urine Squamous Epithelial Cells 0-5 /hpf Urine Bacteria NONE /hpf Microscopic Urinalysis Comment CULT NOT INDICATED Nasal Screen MRSA (PCR) MRSA NOT DETECTED White Blood Count 6.1 TH/MM3 Red Blood Count 4.73 MIL/MM3 Hemoglobin 14.0 GM/DL Hematocrit 42.6 % Mean Corpuscular Volume 90.1 FL Mean Corpuscular Hemoglobin 29.7 PG Mean Corpuscular Hemoglobin Concent 32.9 % Red Cell Distribution Width 15.2 % Platelet Count 117 TH/MM3 Mean Platelet Volume 9.4 FL Neutrophils (%) (Auto) 86.8 % Lymphocytes (%) (Auto) 8.2 % Monocytes (%) (Auto) 4.8 % Eosinophils (%) (Auto) 0.0 % Basophils (%) (Auto) 0.2 % Neutrophils # (Auto) 5.3 TH/MM3 Lymphocytes # (Auto) 0.5 TH/MM3 Monocytes # (Auto) 0.3 TH/MM3 Eosinophils # (Auto) 0.0 TH/MM3 Basophils # (Auto) 0.0 TH/MM3 CBC Comment DIFF FINAL Differential Comment Prothrombin Time 28.7 SEC Prothromb Time International Ratio 2.8 RATIO Blood Urea Nitrogen 31 MG/DL Creatinine 1.30 MG/DL Random Glucose 282 MG/DL Total Protein 6.8 GM/DL Albumin 2.7 GM/DL Calcium Level 8.2 MG/DL Phosphorus Level 2.5 MG/DL Magnesium Level 2.4 MG/DL Alkaline Phosphatase 61 U/L Aspartate Amino Transf (AST/SGOT) 67 U/L Alanine Aminotransferase (ALT/SGPT) 38 U/L Total Bilirubin 0.9 MG/DL Sodium Level 145 MEQ/L Potassium Level 4.4 MEQ/L Chloride Level 107 MEQ/L Carbon Dioxide Level 24.6 MEQ/L Anion Gap 13 MEQ/L Estimat Glomerular Filtration Rate 54 ML/MIN Total Creatine Kinase 1143 U/L Creatine Kinase MB 7.4 NG/ML Creatine Kinase MB % 0.6 % Imaging Last Impressions Chest X-Ray 09/16/17 1204 Signed Impressions: Service Date/Time: Saturday, September 16, 2017 12:09 - CONCLUSION: Interstitial changes bilaterally do not appear significantly changed and suggest interstitial lung disease. No acute cardiopulmonary abnormality is identified. A Rahul Rincon MD Chest CT 09/16/17 0000 Signed Impressions: Service Date/Time: Saturday, September 16, 2017 22:38 - CONCLUSION: 1. Overall there is progression of peribronchial thickening, cylindrical bronchiectasis and distal airway disease in both lungs since June 2011. Differential diagnosis is chronic atypical mycobacterial disease and chronic aspiration. Mediastinal adenopathy is also stable to slightly increased in size over the last 6 years. 2. Moderate coronary calcifications. 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 ASA allergic, LFTs up so will avoid adding statin but could be considered as outpt Assessment and Plan Will sign off, but will be available as needed should he change his mind about the above workup. Adam Cartwright MD Sep 17, 2017 18:14
[2017-09-17] MEDS: LEVOFLOXACIN 500 MG PREMIX INJ 100 ML IV SCH (18:15)
[2017-09-17] MEDS: INSULIN DETEMIR 100 UNITS/ML VIAL SQ SCH (18:17)
[2017-09-18] VITALS (39 sets, daily range): BP systolic 85–134; BP diastolic 42–81; PULSE 71–118; RESP 18–36; TEMP 97.5–98.4; O2SAT 93–98
[2017-09-18] MEDS: methylPREDNISolone SOD SUCC 125 MG/2 ML VIAL IV PUSH SCH ×4 (00:28→20:08)
[2017-09-18] MEDS: SODIUM CHLOR 0.9% 1000 ML INJ 1,000 ML IV SCH (06:13)
--- NOTE | 2017-09-18 06:46 | HHI.CCPN ---
Subjective Remarks/Hospital Course The patient is a 72-year-old male with a past medical history of coronary artery disease, chronic atrial fibrillation on Coumadin, COPD, and active smoker who presented to [facility] with a 3-4 day history of progressive worsening shortness of breath associated with a productive cough and subjective fever and chills. In addition , he reports edema of lower extremities. The patient denies any chest pain, orthopnea, or PND. In addition, he denies any nausea, vomiting, or abdominal pain. A chest x-ray in the ER showed interstitial changes bilaterally, which do not appear significantly changed compared to prior study. His laboratory data was significant for a lactic acidosis with lactic acid level 3.6, acute kidney injury with a creatinine 1.80 and elevated total CK 2323. In addition, his troponin was 1.50. Patient ruled in for influenza. He was placed on a BiPAP 12/5 with 50% FIO2 and an ABG was performed, which showed a pH of 7.43, CO2 of 34, paO2 pf 282, bicarbonate 23 and sats of 98%. The patient had systolic blood pressure in the 90s on arrival and he is currently receiving 1 liter bolus of normal saline with a current blood pressure 120/65 with a pulse of 93. The patient was taken off BiPAP and is currently on 4 liter oxygen with good saturation. He denies any use of home oxygen. He is being followed by the [facility]. He remains an active smoker where he smokes half a pack of cigarettes per day with a [id number] history of smoking. EKG in the ER shows atrial fibrillation with a rate of 101 beats per minute. The patient was initially admitted under hospitalist service; however, critical care medicine was consulted for critical care and respiratory management. 09/17: Labored breathing. Elevated glucose. Troponin trend continues. INR remains elevated, hold heparin. 09/18 No events overnight. Afebrile. Objective Vital Signs Date Time Temp Pulse Resp B/P (MAP) Pulse Ox O2 Delivery O2 Flow Rate FiO2 09/18/17 05:02 98.0 80 23 90/52 (65) 96 09/18/17 00:00 Nasal Cannula 2.00 09/17/17 22:20 40 Intake and Output 09/18/17 09/18/17 09/19/17 08:00 16:00 00:00 Intake Total 1300 ml Balance 1300 ml Result Diagram: 09/17/17 0605 09/17/17 0605 Imaging Last Impressions Chest X-Ray 09/16/17 1204 Signed Impressions: Service Date/Time: Saturday, September 16, 2017 12:09 - CONCLUSION: Interstitial changes bilaterally do not appear significantly changed and suggest interstitial lung disease. No acute cardiopulmonary abnormality is identified. Derick Rincon MD Chest CT 09/16/17 0000 Signed Impressions: Service Date/Time: Saturday, September 16, 2017 22:38 - CONCLUSION: 1. Overall there is progression of peribronchial thickening, cylindrical bronchiectasis and distal airway disease in both lungs since June 2011. Differential diagnosis is chronic atypical mycobacterial disease and chronic aspiration. Mediastinal adenopathy is also stable to slightly increased in size over the last 6 years. 2. Moderate coronary calcifications. Tenzin Alfred MD Objective Remarks GENERAL: This is a 72-year-old male lying in bed in mild respiratory distress. HEENT: Atraumatic, normocephalic. ITZEL. Extraocular muscles intact. Conjunctivae pink with anicteric sclerae. Oral mucosa within normal. Moist mucous membranes. NECK: Supple. No obstruction or stridor. Trachea midline. HEART: Irregularly irregular. Normal S1, S2. No murmurs, rubs or gallops noted. No JVD. LUNGS: Bilateral equal air entry with coarse breath sounds. Diffuse crackles. ABDOMEN: Soft, nontender, nondistended, positive bowel sounds. No guarding. EXTREMITIES: No cyanosis, clubbing, edema. Well perfused. NEUROLOGIC:A/O X 3, alert, anxious. Moves 4 limbs with purpose. A/P Assessment and Plan ASSESSMENT AND PLAN: 1. Acute hypoxemic respiratory failure. 2. Positive influenza. 3. Acute kidney injury. 4. Lactic acidemia. 5. Rhabdomyolysis with elevated CKs. 6. Elevated troponins, which could be stress mediated; however, cannot rule out acute coronary syndrome. 7. Coagulopathy secondary to Coumadin. 8. Elevated AST. 9. Chronic atrial fibrillation. 10. Chronic obstructive pulmonary disease, not exacerbated. RECOMMENDATIONS: Neuro: Monitor neuro status, avoid sedatives Pulm: Continue with oxygen keep sats above 92%. Bronchodilators (DuoNeb, Symbicort) Decrease Solu-Medrol 40 mg IV Q12 BIPAP p.r.n. for respiratory distress. CT chest: progression of peribronchial thickening, cylindrical bronchiectasis and distal airway disease in both lungs Pulm eval. CV: Monitor HR and BP and maintain MAP>65 mmHg. Lactic acid 1.7 Echo: EF 40-45%, mod- severe MS, severe , cards is following- Dr. Cartwright Patient declined cardiac cath and double valve surgery. : Monitor renal function, I's and O's and avoid nephrotoxins. Electrolyte replacement as needed. GI: on Pepcid for gastrointestinal prophylaxis. ID: d/c Vanco, Levaquin, continue Tamiflu Strep pneumonia and legionella urinary antigen negative . Endo: SSI- medium scale with Accu-Cheks for glycemic control. Levemir 8u BID Heme: Monitor CBC and coags as the patient is on Coumadin with INR 2.8 09/17 GI prophylaxis with Pepcid and DVT prophylaxis with SCDs and Coumadin. Will sign off and transfer care to [facility] Level 2 Asha Christiansen MD Sep 18, 2017 06:46
[2017-09-18] MEDS ORDERED: FUROSEMIDE 40 MG/4 ML VIAL IV PUSH ONE (07:00)
[2017-09-18] MEDS: RESP: ALBUTEROL 2.5 MG/IPRATROPIUM 0.5 MG NEB (SCH) INH ×3 (07:49→20:23)
[2017-09-18 07:56] LABS: AUTOMATED NEUTROPHIL # 10.3 TH/MM3 (1.8-7.7); BASOPHIL # 0.1 TH/MM3 (0-0.2); BASOPHIL % 0.7 % (0.0-2.0); HEMATOCRIT 41.3 % (39.0-51.0); HEMOGLOBIN 13.8 GM/DL (13.0-17.0); LYMPH % 4.4 % (9.0-44.0); LYMPHOCYTE # 0.5 TH/MM3 (1.0-4.8); MEAN CELL VOLUME 90.2 FL (80.0-100.0); MEAN CORPUSCULAR HEMOGLOBIN 30.1 PG (27.0-34.0); MEAN CORPUSCULAR HGB CONC 33.4 % (32.0-36.0); MEAN PLATELET VOLUME 9.2 FL (7.0-11.0); MONO % 1.3 % (0.0-8.0); MONOCYTE # 0.1 TH/MM3 (0-0.9); NEUT % 93.6 % (16.0-70.0); PLATELET COUNT 110 TH/MM3 (150-450); RED BLOOD COUNT 4.57 MIL/MM3 (4.50-5.90)
[2017-09-18 08:05] LABS: CHLORIDE 108 MEQ/L (98-107); SODIUM (NA) 139 MEQ/L (136-145)
[2017-09-18 08:07] LABS: INTERNATIONAL NORMALIZED RATIO 2.2 RATIO; PROTHROMBIN TIME - PATIENT 22.5 SEC (9.8-11.6)
[2017-09-18 08:08] LABS: ALBUMIN 2.7 GM/DL (3.4-5.0); BICARBONATE 23.2 MEQ/L (21.0-32.0); BLOOD UREA NITROGEN 33 MG/DL (7-18); CALCIUM 8.4 MG/DL (8.5-10.1); GLUCOSE,RANDOM 204 MG/DL (74-106)
[2017-09-18 08:11] LABS: ALT (GPT) 42 U/L (12-78); AST (GOT) 57 U/L (15-37); GLOMERULAR FILTRATION RATE 66 ML/MIN (>89)
[2017-09-18 08:13] LABS: TOTAL BILIRUBIN ADULT 0.7 MG/DL (0.2-1.0); TOTAL PROTEIN 6.3 GM/DL (6.4-8.2)
[2017-09-18 08:14] LABS: ALKALINE PHOSPHATASE 55 U/L (45-117)
[2017-09-18] MEDS: OSELTAMIVIR PHOSPHATE 75 MG CAP PO SCH ×2 (08:27→20:30)
[2017-09-18] MEDS: BUDESONIDE-FORMOTEROL 160/4.5 MCG INHALER INH SCH ×2 (08:28→20:09)
[2017-09-18] MEDS: INSULIN DETEMIR 100 UNITS/ML VIAL SQ SCH ×2 (08:28→21:49)
[2017-09-18] MEDS: INSULIN ASPART SUPPLEMENTAL SCALE SQ SCH ×4 (08:29→21:48)
[2017-09-18] MEDS: SODIUM CHLORIDE 0.9% FLUSH 10 ML FLUSH IV FLUSH SCH ×2 (08:30→20:09)
[2017-09-18 08:43] LABS: TROPONIN I 0.73 NG/ML (0.02-0.05)
--- NOTE | 2017-09-18 12:06 | MB ---
cc: Dominic Guillory MD, V J MD DATE: 09/18/2017 REASON FOR CONSULTATION: Shortness of breath, hypoxemia. HISTORY OF PRESENT ILLNESS: The patient is a pleasant 72-year-old gentleman who is known to have a history of COPD, coronary artery disease, atrial fibrillation. The patient started having increased shortness of breath with a cough. The cough was productive. The patient did feel feverish, but he did not have any documented fever. He did not have any chest pain. He does not have any hemoptysis. He is doing much better today. PAST MEDICAL HISTORY: Reviewed in detail. PAST SURGICAL HISTORY: Reviewed in detail. ALLERGIES: REVIEWED IN DETAIL. SOCIAL HISTORY: The patient is a smoker, about half a pack a day for the past 60 years. REVIEW OF SYSTEMS: As mentioned in the HPI. PHYSICAL EXAMINATION: VITAL SIGNS: Show temperature 98, pulse 76, respiratory rate 20, blood pressure 98/56. He is sating 97% on 2 liters nasal cannula. HEAD AND NECK: Atraumatic, normocephalic. Trachea midline. LUNGS: Mild expiratory wheeze and rhonchi. HEART: S1, S2. ABDOMEN: Soft, nontender. EXTREMITIES: No edema or cyanosis. NEUROLOGIC: Alert, oriented x 3, moves all extremities. LABORATORY DATA: Reviewed. WBC 11, hemoglobin is 13.8. Sodium 139, potassium 4.2, BUN is 33, creatinine is 1.10. I reviewed his CT chest. It did show evidence of bronchiectasis. He does have mediastinal, hilar lymphadenopathy that are more in size compared to 2012. ASSESSMENT AND PLAN: 1. Acute chronic obstructive pulmonary disease with exacerbation. 2. Likely bronchiectasis exacerbation. 3. Mediastinal lymphadenopathy. The patient is improving. I would like to continue the current treatment with IV steroids as well as the antibiotics. I do believe the patient may benefit from a bronchoscopy at some point. The patient will need to be evaluated with a followup CAT scan because most likely the mediastinal lymphadenopathy needs to be addressed. This will be deferred to Dr. Amaya. He will be back in the morning. I do not think the patient needs to be in the intensive care unit from a pulmonary perspective at this point. Thank you for this consultation. MD MILENA York/SLAVA , 11:36 AM , 12:05 PM
--- NOTE | 2017-09-18 16:27 | PD.CARD.PN ---
Subjective Subjective Remarks Pt says he is starting to feel better. Objective Medications Current Medications Medications (Trade) Dose Ordered Sig/Arleen Route Start Time Stop Time Status Last Admin (NS Flush) 2 ml BID IV FLUSH 09/16/17 21:00 09/18/17 08:30 (NS Flush) 2 ml UNSCH PRN IV FLUSH 09/16/17 13:15 (Duoneb Neb) 1 ampule Q6HR WHILE AWAKE NEB INH 09/16/17 14:00 09/18/17 14:04 (Albuterol Neb) 2.5 mg Q2HR NEB PRN INH 09/16/17 13:15 (Nitrostat Sl) 0.4 mg Q5M PRN SL 09/16/17 14:00 (Tamiflu) 75 mg BID PO 09/16/17 21:00 09/18/17 08:27 (Symbicort 160-4.5 Mcg Inh) 2 puff Q12HR INH 09/16/17 21:00 09/18/17 08:28 (D50w (Vial) Inj) 50 ml UNSCH PRN IV PUSH 09/16/17 17:00 (Glucagon Inj) 1 mg UNSCH PRN OTHER 09/16/17 17:00 Miscellaneous Information SPECIFIC LAB TO BE DEMETRIUS... ONCE ONCE .XX 09/19/17 17:45 09/19/17 17:46 (Levemir Inj) 8 units Q12HR SQ 09/17/17 21:00 09/18/17 08:28 (NovoLOG SUPPLEMENTAL SCALE) 1 ACHS SLIDING SCALE SQ 09/17/17 17:00 09/18/17 13:37 (SoluMEDROL INJ) 40 mg Q12H IV PUSH 09/18/17 07:00 09/18/17 08:30 Vital Signs / I&O Vital Signs Date Time Temp Pulse Resp B/P (MAP) Pulse Ox O2 Delivery O2 Flow Rate FiO2 09/18/17 16:02 98.3 84 19 100/55 (70) 94 09/18/17 16:00 Nasal Cannula 2.00 09/18/17 16:00 82 09/18/17 15:02 92 24 111/51 (71) 93 09/18/17 14:28 118 35 109/61 (77) 09/18/17 14:24 98 29 109/81 (90) 09/18/17 14:24 98 29 109/81 (90) 09/18/17 14:21 98 36 94/60 (71) 94 09/18/17 14:21 98 36 94/60 (71) 94 09/18/17 14:02 92 26 94/54 (67) 94 09/18/17 14:02 97.9 92 26 94/54 (67) 94 09/18/17 14:00 86 24 94 09/18/17 14:00 71 09/18/17 13:02 88 26 97/50 (66) 94 09/18/17 12:02 88 25 103/55 (71) 94 09/18/17 12:00 2.00 09/18/17 12:00 86 09/18/17 11:02 94 26 100/53 (69) 09/18/17 10:02 88 22 113/61 (78) 95 09/18/17 10:00 82 09/18/17 09:02 97.5 100 23 134/58 (83) 95 09/18/17 08:02 80 27 86/57 (67) 97 09/18/17 08:00 77 09/18/17 08:00 Nasal Cannula 2.00 09/18/17 07:49 97 2.00 09/18/17 07:02 74 23 96/58 (71) 94 09/18/17 06:02 76 20 98/56 (70) 95 09/18/17 06:00 82 09/18/17 05:02 98.0 80 23 90/52 (65) 96 09/18/17 04:02 78 22 111/69 (83) 98 09/18/17 04:00 80 09/18/17 03:02 82 18 110/65 (80) 96 09/18/17 02:02 84 22 95/61 (72) 96 09/18/17 01:02 84 22 94/42 (59) 96 09/18/17 00:02 90 28 108/70 (83) 97 09/18/17 00:00 96 Nasal Cannula 2.00 09/18/17 00:00 80 09/17/17 23:02 97.3 86 24 96/63 (74) 98 09/17/17 22:20 97 Bi-Pap 40 09/17/17 22:10 98 40 09/17/17 22:02 84 25 90/54 (66) 96 09/17/17 22:00 72 09/17/17 21:00 88 30 95/59 (71) 96 09/17/17 20:02 99 Nasal Cannula 4.00 09/17/17 20:02 98.0 78 21 102/56 (71) 98 09/17/17 20:00 98 Nasal Cannula 3.00 09/17/17 20:00 96 09/17/17 19:02 86 28 123/56 (78) 97 09/17/17 18:00 88 46 109/66 (80) 98 09/17/17 18:00 90 09/17/17 17:00 84 22 107/60 (76) 98 I/O 09/17/17 09/17/17 09/17/17 09/18/17 09/18/17 09/18/17 07:00 15:00 23:00 07:00 15:00 23:00 Intake Total 862.5 ml 1300 ml Output Total 1200 ml 280 ml Balance -1200 ml 582.5 ml 1300 ml Intake Oral 500 ml 300 ml IV Total 362.5 ml 1000 ml Output Urine Total 1200 ml 280 ml Stool Total 0 ml # Voids 2 3 # Bowel Movements 1 Physical Exam GENERAL: This is a well-nourished, well-developed patient, in no apparent distress. CARDIOVASCULAR: Regular rate and rhythm 2/6 tiffany RESPIRATORY: Clear to auscultation. Breath sounds equal bilaterally. No wheezes , rales, or rhonchi. GASTROINTESTINAL: Abdomen soft, non-tender, nondistended. Normal active bowel sounds MUSCULOSKELETAL: Extremities without clubbing, cyanosis, or edema. NEURO: Alert & Oriented x4 to person, place, time, situation. Moves all ext x4 Laboratory Laboratory Tests Test 09/18/17 07:45 09/18/17 12:55 White Blood Count 11.0 TH/MM3 Red Blood Count 4.57 MIL/MM3 Hemoglobin 13.8 GM/DL Hematocrit 41.3 % Mean Corpuscular Volume 90.2 FL Mean Corpuscular Hemoglobin 30.1 PG Mean Corpuscular Hemoglobin Concent 33.4 % Red Cell Distribution Width 15.0 % Platelet Count 110 TH/MM3 Mean Platelet Volume 9.2 FL Neutrophils (%) (Auto) 93.6 % Lymphocytes (%) (Auto) 4.4 % Monocytes (%) (Auto) 1.3 % Eosinophils (%) (Auto) 0.0 % Basophils (%) (Auto) 0.7 % Neutrophils # (Auto) 10.3 TH/MM3 Lymphocytes # (Auto) 0.5 TH/MM3 Monocytes # (Auto) 0.1 TH/MM3 Eosinophils # (Auto) 0.0 TH/MM3 Basophils # (Auto) 0.1 TH/MM3 CBC Comment DIFF FINAL Differential Comment Prothrombin Time 22.5 SEC Prothromb Time International Ratio 2.2 RATIO Blood Urea Nitrogen 33 MG/DL Creatinine 1.10 MG/DL Random Glucose 204 MG/DL Total Protein 6.3 GM/DL Albumin 2.7 GM/DL Calcium Level 8.4 MG/DL Alkaline Phosphatase 55 U/L Aspartate Amino Transf (AST/SGOT) 57 U/L Alanine Aminotransferase (ALT/SGPT) 42 U/L Total Bilirubin 0.7 MG/DL Sodium Level 139 MEQ/L Potassium Level 4.2 MEQ/L Chloride Level 108 MEQ/L Carbon Dioxide Level 23.2 MEQ/L Anion Gap 8 MEQ/L Estimat Glomerular Filtration Rate 66 ML/MIN Troponin I 0.73 NG/ML 0.48 NG/ML Imaging Last Impressions Chest X-Ray 09/16/17 1204 Signed Impressions: Service Date/Time: Saturday, September 16, 2017 12:09 - CONCLUSION: Interstitial changes bilaterally do not appear significantly changed and suggest interstitial lung disease. No acute cardiopulmonary abnormality is identified. Derick Rincon MD Chest CT 09/16/17 0000 Signed Impressions: Service Date/Time: Saturday, September 16, 2017 22:38 - CONCLUSION: 1. Overall there is progression of peribronchial thickening, cylindrical bronchiectasis and distal airway disease in both lungs since June 2011. Differential diagnosis is chronic atypical mycobacterial disease and chronic aspiration. Mediastinal adenopathy is also stable to slightly increased in size over the last 6 years. 2. Moderate coronary calcifications. 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 ASA allergic, LFTs up so will avoid adding statin but could be considered as outpt Assessment and Plan Again I asked if he wanted cardiac workup and he declines. Will sign off, but will be available as needed should he change his mind about the above workup. Adam Cartwright MD Sep 18, 2017 16:27
[2017-09-19] VITALS (32 sets, daily range): BP systolic 98–132; BP diastolic 52–71; PULSE 68–99; RESP 4–30; TEMP 96.2–98; O2SAT 93–99
[2017-09-19] MEDS ORDERED: TEMAZEPAM 7.5 MG CAP PO ONE (00:30)
[2017-09-19] MEDS ORDERED: TEMAZEPAM 15 MG CAP PO PRN (00:30)
[2017-09-19 05:14] LABS: AUTOMATED NEUTROPHIL # 8.2 TH/MM3 (1.8-7.7); BASOPHIL % 0.1 % (0.0-2.0); HEMATOCRIT 42.2 % (39.0-51.0); HEMOGLOBIN 14.1 GM/DL (13.0-17.0); LYMPH % 6.5 % (9.0-44.0); LYMPHOCYTE # 0.6 TH/MM3 (1.0-4.8); MEAN CELL VOLUME 89.6 FL (80.0-100.0); MEAN CORPUSCULAR HGB CONC 33.5 % (32.0-36.0); MEAN PLATELET VOLUME 8.9 FL (7.0-11.0); MONO % 6.3 % (0.0-8.0); MONOCYTE # 0.6 TH/MM3 (0-0.9); NEUT % 87.1 % (16.0-70.0); PLATELET COUNT 116 TH/MM3 (150-450); RED BLOOD COUNT 4.72 MIL/MM3 (4.50-5.90); RED CELL DISTRIBUTION WIDTH 15.6 % (11.6-17.2); WHITE BLOOD COUNT 9.4 TH/MM3 (4.0-11.0)
[2017-09-19 05:43] LABS: CHLORIDE 105 MEQ/L (98-107); SODIUM (NA) 138 MEQ/L (136-145)
[2017-09-19 05:46] LABS: CALCIUM 8.7 MG/DL (8.5-10.1)
[2017-09-19 05:47] LABS: ALBUMIN 2.7 GM/DL (3.4-5.0); BICARBONATE 25.1 MEQ/L (21.0-32.0); BLOOD UREA NITROGEN 32 MG/DL (7-18); GLUCOSE,RANDOM 222 MG/DL (74-106)
[2017-09-19 05:50] LABS: ALT (GPT) 46 U/L (12-78); AST (GOT) 39 U/L (15-37); GLOMERULAR FILTRATION RATE 60 ML/MIN (>89)
[2017-09-19 05:52] LABS: TOTAL BILIRUBIN ADULT 0.9 MG/DL (0.2-1.0); TOTAL PROTEIN 6.2 GM/DL (6.4-8.2)
[2017-09-19 05:53] LABS: ALKALINE PHOSPHATASE 56 U/L (45-117)
[2017-09-19 06:42] LABS: INTERNATIONAL NORMALIZED RATIO 1.7 RATIO; PROTHROMBIN TIME - PATIENT 17.3 SEC (9.8-11.6)
[2017-09-19] MEDS: methylPREDNISolone SOD SUCC 125 MG/2 ML VIAL IV PUSH SCH ×2 (07:00→18:19)
[2017-09-19] MEDS: RESP: ALBUTEROL 2.5 MG/IPRATROPIUM 0.5 MG NEB (SCH) INH ×3 (07:20→20:20)
[2017-09-19] MEDS: INSULIN ASPART SUPPLEMENTAL SCALE SQ SCH ×4 (08:00→21:29)
[2017-09-19] MEDS: SODIUM CHLORIDE 0.9% FLUSH 10 ML FLUSH IV FLUSH SCH ×2 (09:00→21:31)
[2017-09-19] MEDS: BUDESONIDE-FORMOTEROL 160/4.5 MCG INHALER INH SCH ×2 (09:00→21:31)
[2017-09-19] MEDS: INSULIN DETEMIR 100 UNITS/ML VIAL SQ SCH ×2 (09:00→21:33)
[2017-09-19] MEDS: OSELTAMIVIR PHOSPHATE 75 MG CAP PO SCH ×2 (09:00→21:31)
--- NOTE | 2017-09-19 15:19 | HHI.PR ---
Subjective Remarks Raspatory status is improving. Patient is still oxygen dependent. He says he does not take oxygen at baseline. Influenza coupled with COPD is causing his hypoxia. With resolution of influenza he should have improvement in his respiratory status. Objective Vital Signs Date Time Temp Pulse Resp B/P (MAP) Pulse Ox O2 Delivery O2 Flow Rate FiO2 09/19/17 11:01 72 20 109/61 (77) 96 09/19/17 11:00 74 18 96 09/19/17 10:40 98.0 78 18 112/52 (72) 09/19/17 10:00 83 09/19/17 09:00 74 18 113/54 (73) 98 09/19/17 08:00 96 Nasal Cannula 2.00 09/19/17 08:00 68 09/19/17 08:00 70 19 109/54 (72) 96 09/19/17 07:21 99 Nasal Cannula 2.00 09/19/17 07:00 09/19/17 07:00 70 8 100/63 (75) 97 09/19/17 06:00 70 17 104/60 (75) 96 09/19/17 06:00 70 09/19/17 05:00 70 22 113/71 (85) 93 09/19/17 04:00 68 09/19/17 04:00 68 22 114/58 (76) 94 09/19/17 04:00 96 Nasal Cannula 2.00 09/19/17 03:00 72 22 109/60 (76) 94 09/19/17 02:00 78 24 110/63 (79) 96 09/19/17 02:00 78 09/19/17 01:29 86 30 105/67 (80) 96 09/19/17 00:00 76 09/19/17 00:00 95 Nasal Cannula 2.00 09/19/17 00:00 76 24 98/62 (74) 96 09/18/17 23:00 98.4 76 22 94/54 (67) 95 09/18/17 22:00 82 09/18/17 22:00 82 23 103/57 (72) 96 09/18/17 21:00 80 20 105/59 (74) 96 09/18/17 20:24 97 Nasal Cannula 2.00 09/18/17 20:00 98.3 74 23 112/61 (78) 96 09/18/17 20:00 95 09/18/17 20:00 96 Nasal Cannula 2.00 09/18/17 19:52 74 27 103/53 (70) 97 09/18/17 19:00 98.3 82 24 98 09/18/17 18:00 88 29 85/73 (77) 94 09/18/17 18:00 78 09/18/17 17:30 88 25 96 09/18/17 17:02 86 21 103/67 (79) 94 09/18/17 16:02 98.3 84 19 100/55 (70) 94 09/18/17 16:00 Nasal Cannula 2.00 09/18/17 16:00 82 09/18/17 15:02 92 24 111/51 (71) 93 I/O 09/18/17 09/18/17 09/18/17 09/19/17 09/19/17 09/19/17 07:00 15:00 23:00 07:00 15:00 23:00 Intake Total 1300 ml 720 ml 420 ml Output Total 801 ml Balance 1300 ml -81 ml 420 ml Intake Oral 300 ml 720 ml 420 ml IV Total 1000 ml Output Urine Total 800 ml Stool Total 1 ml # Voids 3 2 # Bowel Movements 1 1 Result Diagram: 09/19/17 0502 09/19/17 0502 Objective Remarks GENERAL: NAD, A&Ox3 HEAD: Normocephalic. NECK: Supple, trachea midline. No lymphadenopathy. EYES: No scleral icterus. No injection or drainage. CARDIOVASCULAR: Regular rate and rhythm without murmurs, gallops, or rubs. RESPIRATORY: Breath sounds equal bilaterally. No accessory muscle use. GASTROINTESTINAL: Abdomen soft, non-tender, nondistended. MUSCULOSKELETAL: No cyanosis, or edema. SKIN: Warm and dry. NEURO: No focal neurological deficitis. A/P Problem List: (1) COPD exacerbation ICD Code: J44.1 - Chronic obstructive pulmonary disease with (acute) exacerbation Status: Acute (2) Influenza A ICD Code: J10.1 - Influenza due to other identified influenza virus with other respiratory manifestations Status: Acute Assessment and Plan Mr. Castañeda is a 72 year old male admitted with Respiratory Failure related to influenza with underlying COPD. Acute hypoxemic respiratory failure. Positive influenza. COPD Improving slowly Continue Flu treatment Acute kidney injury Improved Follow renal function Lactic acidemia. Rhabdomyolysis with elevated CKs. Resolved Follow clinically Related to influenza and inflammation Elevated troponins Elevated AST Likely related to inflammation No further monitoring Hx of Coagulopathy on coumadin. Chronic atrial fibrillation Lovenox DVT Prophylaxis Lovechelseyx Nick Patiño MD Sep 19, 2017 15:19
[2017-09-19] MEDS ORDERED: PHARMACY ORDERED LAB ONE (17:45)
[2017-09-19] MEDS ORDERED: ENOXAPARIN SODIUM 40 MG/0.4 ML SYRINGE SQ SCH (18:00)
[2017-09-20 04:00] VITALS: BP 134/89; PULSE 78; RESP 18; TEMP 97.4; O2SAT 96
[2017-09-20 07:12] VITALS: O2SAT 93
[2017-09-20] MEDS: RESP: ALBUTEROL 2.5 MG/IPRATROPIUM 0.5 MG NEB (SCH) INH (07:12)
[2017-09-20 08:00] VITALS: BP 139/79; PULSE 67; RESP 16; TEMP 97.1; O2SAT 93
[2017-09-20] MEDS: INSULIN ASPART SUPPLEMENTAL SCALE SQ SCH (08:22)
[2017-09-20] MEDS: methylPREDNISolone SOD SUCC 125 MG/2 ML VIAL IV PUSH SCH (08:24)
[2017-09-20] MEDS: INSULIN DETEMIR 100 UNITS/ML VIAL SQ SCH (09:00)
[2017-09-20] MEDS: BUDESONIDE-FORMOTEROL 160/4.5 MCG INHALER INH SCH (09:13)
[2017-09-20] MEDS: OSELTAMIVIR PHOSPHATE 75 MG CAP PO SCH (09:13)
[2017-09-20] MEDS: SODIUM CHLORIDE 0.9% FLUSH 10 ML FLUSH IV FLUSH SCH (09:13)
[2017-09-20 09:14] LABS: AUTOMATED NEUTROPHIL # 6.6 TH/MM3 (1.8-7.7); BASOPHIL % 0.3 % (0.0-2.0); EOSINOPHIL % 0.1 % (0.0-4.0); HEMATOCRIT 41.4 % (39.0-51.0); HEMOGLOBIN 13.6 GM/DL (13.0-17.0); LYMPH % 9.2 % (9.0-44.0); LYMPHOCYTE # 0.8 TH/MM3 (1.0-4.8); MEAN CELL VOLUME 89.6 FL (80.0-100.0); MEAN CORPUSCULAR HEMOGLOBIN 29.4 PG (27.0-34.0); MEAN CORPUSCULAR HGB CONC 32.8 % (32.0-36.0); MEAN PLATELET VOLUME 9.4 FL (7.0-11.0); MONO % 9.4 % (0.0-8.0); MONOCYTE # 0.8 TH/MM3 (0-0.9); PLATELET COUNT 104 TH/MM3 (150-450); RED BLOOD COUNT 4.62 MIL/MM3 (4.50-5.90); RED CELL DISTRIBUTION WIDTH 15.3 % (11.6-17.2); WHITE BLOOD COUNT 8.2 TH/MM3 (4.0-11.0)
[2017-09-20] MEDS ORDERED: PRED10 PO (09:37)
[2017-09-20 09:41] LABS: CHLORIDE 104 MEQ/L (98-107); SODIUM (NA) 136 MEQ/L (136-145)
[2017-09-20 09:44] LABS: CALCIUM 8.6 MG/DL (8.5-10.1)
[2017-09-20 09:45] LABS: ALBUMIN 2.9 GM/DL (3.4-5.0); BICARBONATE 22.9 MEQ/L (21.0-32.0); GLUCOSE,RANDOM 271 MG/DL (74-106)
[2017-09-20 09:48] LABS: GLOMERULAR FILTRATION RATE 66 ML/MIN (>89)
[2017-09-20 09:49] LABS: TOTAL PROTEIN 6.4 GM/DL (6.4-8.2)
[2017-09-20 09:51] LABS: ALKALINE PHOSPHATASE 66 U/L (45-117)
[2017-09-20 09:56] LABS: ALT (GPT) 55 U/L (12-78)
[2017-09-20 10:00] LABS: AST (GOT) 36 U/L (15-37); BLOOD UREA NITROGEN 30 MG/DL (7-18)
[2017-09-20 10:07] LABS: TOTAL BILIRUBIN ADULT 1.2 MG/DL (0.2-1.0)
--- NOTE | 2017-09-20 10:12 | HHI.DS ---
Discharge Summary Admission Date Sep 16, 2017 at 14:06 Discharge Date: Sep 20, 2017 Admitting Diagnosis Influenza A, COPD exacerbation, lactic acidosis (1) Severe sepsis ICD Code: A41.9 - Sepsis, unspecified organism; R65.20 - Severe sepsis without septic shock Diagnosis: Principal (2) COPD exacerbation ICD Code: J44.1 - Chronic obstructive pulmonary disease with (acute) exacerbation Diagnosis: Principal Status: Acute (3) Elevated troponin ICD Code: R74.8 - Abnormal levels of other serum enzymes Diagnosis: Principal Status: Acute (4) Influenza A ICD Code: J10.1 - Influenza due to other identified influenza virus with other respiratory manifestations Diagnosis: Principal Status: Acute (5) Rhabdomyolysis ICD Code: M62.82 - Rhabdomyolysis Diagnosis: Principal Status: Acute (6) Lactic acidosis ICD Code: E87.2 - Acidosis Diagnosis: Principal Status: Acute (7) Diabetes type 1, uncontrolled ICD Code: E10.65 - Diabetes type 1, uncontrolled Diagnosis: Principal Status: Acute (8) Atrial fibrillation ICD Code: I48.91 - Atrial fibrillation Diagnosis: Principal Status: Acute (9) FRANK (acute kidney injury) ICD Code: N17.9 - Acute kidney failure, unspecified Diagnosis: Principal (10) Hyponatremia ICD Code: E87.1 - Hypo-osmolality and hyponatremia Diagnosis: Principal Procedures None Brief History - From Admission This patient is a 72-year-old gentleman with known history of atrial fibrillation and COPD. 3 days ago he developed increased shortness of breath without any chest pain but was associated with sputum and subjective fever and chills. He laid around his house for quite a while and felt lethargic. His brother from [facility] called his local brother who came to check on him and they found him very listless in the bed. Patient was then brought to the emergency room by private vehicle. Here he was found to have increased work of breathing and tachypnea and was started on BiPAP with IV steroids and nebulized bronchodilators. Patient since that time has become hypotensive. He has a new fever. Patient also still feels quite listless. Labs have resulted in it does show a influenza positive test as well as elevated troponin and elevated CPK levels. On my review of the EKG patient does have some hazy pattern without martha pneumonia. Patient also has an EKG which shows A. fib with no ischemic changes. The patient is hyponatremic with elevated lactic acid and elevated blood glucose. He does also have diabetes. Patient is admitted to the ICU due to multifactorial causes for severe sepsis and respiratory failure. CBC/BMP: 09/20/17 0832 09/20/17 0832 Significant Findings Laboratory Tests Test 09/18/17 07:45 09/18/17 12:55 09/18/17 18:32 09/19/17 05:02 Platelet Count 110 TH/MM3 (150-450) 116 TH/MM3 (150-450) Neutrophils (%) (Auto) 93.6 % (16.0-70.0) 87.1 % (16.0-70.0) Lymphocytes (%) (Auto) 4.4 % (9.0-44.0) 6.5 % (9.0-44.0) Neutrophils # (Auto) 10.3 TH/MM3 (1.8-7.7) 8.2 TH/MM3 (1.8-7.7) Lymphocytes # (Auto) 0.5 TH/MM3 (1.0-4.8) 0.6 TH/MM3 (1.0-4.8) Prothrombin Time 22.5 SEC (9.8-11.6) 17.3 SEC (9.8-11.6) Blood Urea Nitrogen 33 MG/DL (7-18) 32 MG/DL (7-18) Random Glucose 204 MG/DL (74-106) 222 MG/DL (74-106) Total Protein 6.3 GM/DL (6.4-8.2) 6.2 GM/DL (6.4-8.2) Albumin 2.7 GM/DL (3.4-5.0) 2.7 GM/DL (3.4-5.0) Calcium Level 8.4 MG/DL (8.5-10.1) Aspartate Amino Transf (AST/SGOT) 57 U/L (15-37) 39 U/L (15-37) Chloride Level 108 MEQ/L (98-107) Estimat Glomerular Filtration Rate 66 ML/MIN (>89) 60 ML/MIN (>89) Troponin I 0.73 NG/ML (0.02-0.05) 0.48 NG/ML (0.02-0.05) 0.38 NG/ML (0.02-0.05) Test 09/20/17 08:32 Platelet Count 104 TH/MM3 (150-450) Neutrophils (%) (Auto) 81.0 % (16.0-70.0) Monocytes (%) (Auto) 9.4 % (0.0-8.0) Lymphocytes # (Auto) 0.8 TH/MM3 (1.0-4.8) Blood Urea Nitrogen 30 MG/DL (7-18) Random Glucose 271 MG/DL (74-106) Albumin 2.9 GM/DL (3.4-5.0) Estimat Glomerular Filtration Rate 66 ML/MIN (>89) Hospital Course Mr. Castañeda is a 72 year old male admitted with Influenza and respiratory distress. He has underlying COPD. He needed intense respiratory support. Bronchoscopy was recommended, but he declines this option. Also declines options for cardiac interventions regarding cardiac valve disease. He has been told at the [facility] that he would not survive anesthesia and thus will not consent to any such procedures. He has finally been responding to steroids and is on room air with good oxygen saturations (93%, no SOB) He is medially stable at this point for discharge to home, without oxygen. Pt Condition on Discharge: Stable Discharge Disposition: Discharge Home Discharge Time: <= 30 minutes Discharge Instructions DIET: Follow Instructions for: As Tolerated, No Restrictions Activities you can perform: Regular-No Restrictions Follow up Referrals: PCP Follow-up - 2 Weeks New Medications: Prednisone (Prednisone) 10 Mg Tab 10 MG PO DIRECTED for Inflammation, #17 TAB 0 Refills 2 Tabs by mouth Daily, Day 1 to 5 1 Tab by mouth Daily, Day 6 to 10 1/2 Tab by mouth Daily, Day 11-14 Then stop Continued Medications: Albuterol Neb (Albuterol Neb) 0.63 Mg/3 Ml Neb 0.63 MG NEB Q4HR NEB PRN for SHORTNESS OF BREATH, #25 NEBULE 0 Refills Atorvastatin (Atorvastatin) 40 Mg Tab 40 MG PO HS for Cholesterol Management, #30 TAB 0 Refills Budesonide-Formoterol Inh (Symbicort Inh) 80-4.5 Mcg/Act Aero 2 PUFF INH Q12HR for Asthma Management, #1 INHALER 0 Refills Fish Oil-Cholecalciferol (Fish Oil + D3) 1,200-1,000 Mg-Unit Cap 1 CAP PO TID for Nutritional Supplement, #30 CAP 0 Refills Furosemide (Lasix) 40 Mg Tab 40 MG PO TID, #60 TAB 0 Refills Insulin Aspart Inj (Novolog Inj) 1,000 Unit/10 Ml Vial Unknown Dose SQ WITH MEALS for Blood Sugar Management, #0 ML 0 Refills Lisinopril (Lisinopril) 2.5 Mg Tab 2.5 MG PO DAILY, #30 TAB 0 Refills Nitroglycerin SL (Nitrostat SL) 0.4 Mg Subl 0.4 MG SL DIRECTED PRN for CHEST PAIN, #100 TAB.SL 0 Refills 1 tablet under the tongue as needed for chest pain. Repeat every 5 minutes for a total of 3 DOSES or call 911 if NO relief. Warfarin (Warfarin) 5 Mg Tab 5 MG PO T/,,SA, ALLEN for Blood Clot Prevention, #30 TAB 0 Refills Warfarin (Warfarin) 2.5 Mg Tab 2.5 MG PO / for Blood Clot Prevention, #30 TAB 0 Refills Discontinued Medications: Prednisone (Prednisone) 20 Mg Tab 20 MG PO DAILY for 4 Days, TAB 0 Refills Nick Patiño MD Sep 20, 2017 10:12
== END 2017-09-20 11:39 | disposition home or self-care (01) | DRG 871 ==
LOC: PHED 11:40 → INTOOBSV 13:15 → PHEDA 13:15 → OBSVTOIN 14:06 → PHICU 16:18 → PH3A 09-19 18:07
PROVIDERS: ADMIT Hospitalist; ATTEND Hospitalist
PROC: 5A09357 Assistance with Respiratory Ventilation, Less than 24 Consecutive Hours, Continuous Positive Airway Pressure (ICD-10-PCS; principal; 2017-09-16)
DX: A41.89 Other specified sepsis (principal); J96.01 Acute respiratory failure with hypoxia; I21.4 Non-ST elevation (NSTEMI) myocardial infarction; J84.9 Interstitial pulmonary disease, unspecified; N17.9 Acute kidney failure, unspecified; E87.2 Acidosis; I42.9 Cardiomyopathy, unspecified; I48.2 Chronic atrial fibrillation; E86.9 Volume depletion, unspecified; M62.82 Rhabdomyolysis; E87.1 Hypo-osmolality and hyponatremia; J47.1 Bronchiectasis with (acute) exacerbation; J10.1 Influenza due to other identified influenza virus with other respiratory manifestations; R65.20 Severe sepsis without septic shock; I50.9 Heart failure, unspecified; I11.0 Hypertensive heart disease with heart failure; R06.03 Acute respiratory distress; E10.65 Type 1 diabetes mellitus with hyperglycemia; I25.2 Old myocardial infarction; K21.9 Gastro-esophageal reflux disease without esophagitis; R74.8 Abnormal levels of other serum enzymes; E78.00 Pure hypercholesterolemia, unspecified; I25.10 Atherosclerotic heart disease of native coronary artery without angina pectoris; E10.42 Type 1 diabetes mellitus with diabetic polyneuropathy; R79.1 Abnormal coagulation profile; T45.515A Adverse effect of anticoagulants, initial encounter; R59.0 Localized enlarged lymph nodes; I08.0 Rheumatic disorders of both mitral and aortic valves; M19.90 Unspecified osteoarthritis, unspecified site; F17.210 Nicotine dependence, cigarettes, uncomplicated; F43.10 Post-traumatic stress disorder, unspecified; Z79.01 Long term (current) use of anticoagulants; Z79.4 Long term (current) use of insulin; Z82.49 Family history of ischemic heart disease and other diseases of the circulatory system; Z86.73 Personal history of transient ischemic attack (TIA), and cerebral infarction without residual deficits; Z88.0 Allergy status to penicillin; Z88.2 Allergy status to sulfonamides; Z88.5 Allergy status to narcotic agent; Z88.6 Allergy status to analgesic agent; Z91.030 Bee allergy status
CPT/HCPCS: 36600; 71045; 71250; 80053; 81001; 82550; 82552; 82805; 82948; 83605; 83735; 83880; 84100; 84484; 85025; 85610; 85730; 87040; 87449; 87641; 87804; 93005; 93306; 94002; 94003; 94640; 94664; 96374; J1650; J1815; J1940; J1956; J2930; J3370; J7030; J7050

== ENCOUNTER 2017-11-30 12:46 | Emergency (ER) | payer OTHER, MEDICARE ==
[~2017-11-30] VITALS: Ht 172.7 cm; Wt 72.5 kg
[~2017-11-30 12:46] MED LIST changes: +PRED10 PO; -PRED20 PO
[2017-11-30 12:52] VITALS: BP 82/48; PULSE 81; RESP 20; TEMP 98.3; O2SAT 95
[2017-11-30] MEDS ORDERED: SODIUM CHLORID 0.9% 500 ML INJ 500 ML IV ONE (13:15)
[2017-11-30 13:20] VITALS: BP 107/56; PULSE 78; RESP 20; O2SAT 93
[2017-11-30 13:53] LABS: AUTOMATED NEUTROPHIL # 6.2 TH/MM3 (1.8-7.7); BASOPHIL # 0.1 TH/MM3 (0-0.2); BASOPHIL % 0.8 % (0.0-2.0); EOSINOPHIL # 0.1 TH/MM3 (0-0.4); EOSINOPHIL % 1.5 % (0.0-4.0); HEMATOCRIT 38.9 % (39.0-51.0); HEMOGLOBIN 13.8 GM/DL (13.0-17.0); LYMPH % 14.7 % (9.0-44.0); LYMPHOCYTE # 1.3 TH/MM3 (1.0-4.8); MEAN CELL VOLUME 87.4 FL (80.0-100.0); MEAN CORPUSCULAR HEMOGLOBIN 31.1 PG (27.0-34.0); MEAN CORPUSCULAR HGB CONC 35.5 % (32.0-36.0); MEAN PLATELET VOLUME 8.6 FL (7.0-11.0); MONO % 12.8 % (0.0-8.0); MONOCYTE # 1.1 TH/MM3 (0-0.9); NEUT % 70.2 % (16.0-70.0); PLATELET COUNT 206 TH/MM3 (150-450); RED BLOOD COUNT 4.45 MIL/MM3 (4.50-5.90); RED CELL DISTRIBUTION WIDTH 17.2 % (11.6-17.2); WHITE BLOOD COUNT 8.8 TH/MM3 (4.0-11.0)
[2017-11-30 14:04] LABS: INTERNATIONAL NORMALIZED RATIO 2.8 RATIO; PROTHROMBIN TIME - PATIENT 28.6 SEC (9.8-11.6)
[2017-11-30 14:10] VITALS: BP 96/66; PULSE 90; RESP 20; O2SAT 93
--- NOTE | 2017-11-30 14:14 | RADRPT ---
EXAM DATE: 11/30/2017 1:58 PM EDT AGE/SEX: 72 years / Male INDICATIONS: Short of breath. CLINICAL DATA: This is the patient's initial encounter. Patient reports that signs and symptoms have been present for 1 day and indicates a pain score of 4/10. MEDICAL/SURGICAL HISTORY: Hypertension. Chronic obstructive pulmonary disease. Congestive heart failure. Cerebrovascular disease. None. COMPARISON: [facility], CHEST SINGLE AP, 09/16/2017. . FINDINGS: A single AP view of the chest demonstrates the lungs to be symmetrically aerated without evidence of mass, infiltrate or effusion. The cardiomediastinal contours are unremarkable. Osseous structures a re intact. CONCLUSION: Negative examination. Electronically signed by: Erlin Asif MD 11/30/2017 2:12 PM EDT
--- NOTE | 2017-11-30 14:19 | PD ---
HPI Chief Complaint: Respiratory Symptoms Time Seen by Provider: 12:57 Travel History International Travel<30 days: No Contact w/Intl Traveler<30days: No Traveled to known affect area: No History of Present Illness HPI 72-year-old male the presents to the ED for evaluation of shortness of breath and possible lung infection as well as hypotension. Per patient has been having symptoms for about 3-4 days. Per patient about 4 days ago he started having a bad coughing spell and he noticed that he spit up some blood. Per patient he was today coagulated blood. He did not think much of it and it went away. Per patient after that he developed the more shortness of breath and coughing and left-sided discomfort. Per patient is not really pain but more feels like there is an infection in there. Per patient he has had this before. He does have a history of CHF and COPD. He went to the [place] [facility] today to get evaluated for this and apparently they sent him here for evaluation as he was found to be hypotensive and was brought here for evaluation for this. He came here on his own car. He states that he uses inhalers at home. Per patient currently he does not feel short of breath but he does have shortness of breath with exertion which is chronic for him. His main concern is that he may have an infection and per patient has had this before and he usually gets an antibiotic and goes home. Per patient the [place] would not do that so they brought him here for eval. Per patient he has no discomfort at this time. No chest pain. States that mainly his main concern was the shortness of breath and apparently the coughing up blood. He does take Coumadin. PFSH Past Medical History Hx Anticoagulant Therapy: Yes Arthritis: Yes Asthma: Yes Atrial Fibrillation: Yes Autoimmune Disease: No Anxiety: Yes Depression: Yes Heart Rhythm Problems: Yes Cancer: No Cardiomyopathy: Yes Cardiovascular Problems: Yes High Cholesterol: Yes Chemotherapy: No Chest Pain: Yes Congestive Heart Failure: Yes COPD: Yes Cerebrovascular Accident: Yes Diabetes: Yes Patient Takes Glucophage: No Diminished Hearing: No Endocrine: Yes GERD: Yes Genitourinary: Yes Headaches: Yes Hiatal Hernia: Yes Heparin Induced Thrombocytopen: No Herniated Disk: Yes Hypertension: Yes Immune Disorder: No Implanted Vascular Access Dvce: Yes Kidney Stones: No Musculoskeletal: Yes Neurologic: Yes (NEUROPATHY) Psychiatric: Yes (PTSD) Reproductive: No Respiratory: Yes Migraines: No Myocardial Infarction: Yes (1989) Radiation Therapy: No Renal Failure: No Seizures: No Sickle Cell Disease: No Sleep Apnea: Yes Thyroid Disease: No Triglycerides - High: Yes Ulcer: No PNEUMOCCOCAL Vaccine (Year): 1 Past Surgical History Abdominal Surgery: Yes (HERNIA REPAIR X 2) AICD: No Arteriovenous Shunt: No Body Medical Devices: PLATE, SCREWS, BOLTS, RODS IN BACK; FACCIAL RECONSTRUCTION Cardiac Surgery: No Ear Surgery: No Eye Surgery: Yes (orbital) Genitourinary Surgery: No Gynecologic Surgery: No Insulin Pump: No Joint Replacement: Yes (RIGHT SHOULDER ROTATOR CUFF,RODS IN BACK) Neurologic Surgery: Yes (BACK SURGERY LUMBAR DISC FUSHION, ICBG WITH RODS ) Oral Surgery: No Pacemaker: No Other Surgery: Yes Social History Alcohol Use: No Tobacco Use: Yes (06/28 PPD) Substance Use: No Allergies-Medications (Allergen,Severity, Reaction): Coded Allergies: Sulfa (Sulfonamide Antibiotics) (Verified Allergy, Severe, shakes/ inchoherent, 11/30/17) aspirin (Verified Allergy, Severe, ON COUMADIN, 11/30/17) bee venom protein (honey bee) (Verified Allergy, Severe, 11/30/17) codeine (Verified Allergy, Severe, Seizures, 11/30/17) penicillin G (Verified Allergy, Severe, ANAPHYLAXSIS, 11/30/17) Reported Meds & Prescriptions Reported Meds & Active Scripts Active Azithromycin 250 Mg Tab 250 Mg PO DIRECTED Take 2 tabs (500 mg) on day 1 then 1 tab daily x 4 days. Prednisone 10 Mg Tab 10 Mg PO DIRECTED 2 Tabs by mouth Daily, Day 1 to 5 1 Tab by mouth Daily, Day 6 to 10 1/2 Tab by mouth Daily, Day 11-14 Then stop Reported Warfarin 2.5 Mg Tab 2.5 Mg PO / Warfarin 5 Mg Tab 5 Mg PO /,,, ALLEN Nitrostat SL (Nitroglycerin) 0.4 Mg Subl 0.4 Mg SL DIRECTED PRN 1 tablet under the tongue as needed for chest pain. Repeat every 5 minutes for a total of 3 DOSES or call 911 if NO relief. Fish Oil + D3 (Fish Oil-Cholecalciferol) 1,200-1,000 Mg-Unit Cap 1 Cap PO TID Lisinopril 2.5 Mg Tab 2.5 Mg PO DAILY Novolog Inj (Insulin Aspart) 1,000 Unit/10 Ml Vial Unknown Dose SQ WITH MEALS Lasix (Furosemide) 40 Mg Tab 40 Mg PO TID Symbicort Inh (Budesonide/Formoterol Fumarate) 80-4.5 Mcg/Act Aero 2 Puff INH Q12HR Atorvastatin (Atorvastatin Calcium) 40 Mg Tab 40 Mg PO HS Albuterol Neb (Albuterol Sulfate) 0.63 Mg/3 Ml Neb 0.63 Mg NEB Q4HR NEB PRN Review of Systems Except as stated in HPI: all other systems reviewed are Neg Physical Exam Narrative GENERAL: Well-nourished, well-developed patient in no apparent distress. SKIN: Warm and dry. HEAD: Atraumatic. Normocephalic. EYES: Pupils equal and round reactive to light and accommodation. No scleral icterus. No injection or drainage. ENT: No nasal bleeding or discharge. Mucous membranes pink and moist. TMs are clear with no sign of infection or perforation. No mastoid tenderness. Ear canals are intact bilaterally. No lymphadenopathy. Nostril mucosa is red and moist with clear mucus noted. No sinus tenderness to palpation noted. Tonsils are not enlarged or swollen. No ulvua Deviation. Tongue is midline. NECK: Trachea midline. No JVD. No meningeal signs noted CARDIOVASCULAR: Regular rate and rhythm. RESPIRATORY: No accessory muscle use. Clear to auscultation. Breath sounds equal bilaterally. GASTROINTESTINAL: Abdomen soft, non-tender, nondistended. Hepatic and splenic margins not palpable. MUSCULOSKELETAL: Extremities without clubbing, cyanosis, or edema. No obvious deformities. Full range of motion of the upper and lower extremities bilaterally. 2+ pulses bilaterally. NEUROLOGICAL: Awake and alert. No obvious cranial nerve deficits. Motor grossly within normal limits. Five out of 5 muscle strength in the arms and legs. Normal speech. PSYCHIATRIC: Appropriate mood and affect; insight and judgment normal. Data Data Last Documented VS Vital Signs Date Time Temp Pulse Resp B/P (MAP) Pulse Ox O2 Delivery O2 Flow Rate FiO2 11/30/17 14:10 90 20 96/66 (76) 93 Room Air 11/30/17 12:52 98.3 Orders Orders Electrocardiogram (11/30/17 12:58) Complete Blood Count With Diff (11/30/17 12:58) Comprehensive Metabolic Panel (11/30/17 12:58) B-Type Natriuretic Peptide (11/30/17 12:58) Prothrombin Time / Inr (Pt) (11/30/17 12:58) Act Partial Throm Time (Ptt) (11/30/17 12:58) Lipase (11/30/17 12:58) Magnesium (Mg) (11/30/17 12:58) Chest, Single Ap (11/30/17 12:58) Iv Access Insert/Monitor (11/30/17 12:58) Ecg Monitoring (11/30/17 12:58) Oximetry (11/30/17 12:58) Lactic Acid Sepsis Protocol (11/30/17 12:58) Ct Pulmonary Angiogram (11/30/17 ) Type And Screen (11/30/17 13:07) B-Type Natriuretic Peptide (11/30/17 13:07) Troponin I (11/30/17 13:07) Ckmb (Isoenzyme) Profile (11/30/17 13:07) Sodium Chlorid 0.9% 500 Ml Inj (Ns 500 M (11/30/17 13:15) CKMB (11/30/17 13:20) CKMB% (11/30/17 13:20) Iohexol 350 Inj (Omnipaque 350 Inj) (11/30/17 16:46) Azithromycin Inj (Zithromax Inj) (11/30/17 17:15) Ed Discharge Order (11/30/17 17:22) Labs Laboratory Tests Test 11/30/17 13:20 11/30/17 13:28 White Blood Count 8.8 TH/MM3 Red Blood Count 4.45 MIL/MM3 Hemoglobin 13.8 GM/DL Hematocrit 38.9 % Mean Corpuscular Volume 87.4 FL Mean Corpuscular Hemoglobin 31.1 PG Mean Corpuscular Hemoglobin Concent 35.5 % Red Cell Distribution Width 17.2 % Platelet Count 206 TH/MM3 Mean Platelet Volume 8.6 FL Neutrophils (%) (Auto) 70.2 % Lymphocytes (%) (Auto) 14.7 % Monocytes (%) (Auto) 12.8 % Eosinophils (%) (Auto) 1.5 % Basophils (%) (Auto) 0.8 % Neutrophils # (Auto) 6.2 TH/MM3 Lymphocytes # (Auto) 1.3 TH/MM3 Monocytes # (Auto) 1.1 TH/MM3 Eosinophils # (Auto) 0.1 TH/MM3 Basophils # (Auto) 0.1 TH/MM3 CBC Comment DIFF FINAL Differential Comment Prothrombin Time 28.6 SEC Prothromb Time International Ratio 2.8 RATIO Activated Partial Thromboplast Time 35.7 SEC Blood Urea Nitrogen 39 MG/DL Creatinine 1.44 MG/DL Random Glucose 125 MG/DL Total Protein 8.1 GM/DL Albumin 3.6 GM/DL Calcium Level 9.4 MG/DL Magnesium Level 1.9 MG/DL Alkaline Phosphatase 84 U/L Aspartate Amino Transf (AST/SGOT) 22 U/L Alanine Aminotransferase (ALT/SGPT) 28 U/L Total Bilirubin 1.8 MG/DL Sodium Level 133 MEQ/L Potassium Level 3.9 MEQ/L Chloride Level 97 MEQ/L Carbon Dioxide Level 24.5 MEQ/L Anion Gap 12 MEQ/L Estimat Glomerular Filtration Rate 48 ML/MIN Total Creatine Kinase 112 U/L Creatine Kinase MB 2.4 NG/ML Troponin I LESS THAN 0.02 NG/ML B-Type Natriuretic Peptide 90 PG/ML Lipase 219 U/L Lactic Acid Level 1.7 mmol/L [facility] Medical Decision Making Medical Screen Exam Complete: Yes Emergency Medical Condition: Yes Medical Record Reviewed: Yes Interpretation(s) CBC & BMP Diagram 11/30/17 13:20 Total Protein 8.1, Albumin 3.6, Calcium Level 9.4, Magnesium Level 1.9, Alkaline Phosphatase 84, Aspartate Amino Transf (AST/SGOT) 22, Alanine Aminotransferase (ALT/SGPT) 28, Total Bilirubin 1.8 H Last Impressions Chest X-Ray 11/30/17 1258 Signed Impressions: CONCLUSION: Negative examination. CT Angiography 11/30/17 0000 Signed Impressions: CONCLUSION: 1. Bronchiectasis with waxing and waning parenchymal infiltrates with new foca l infiltrate right lower lobe not present previously most likely pneumonia. 2. Stable mediastinal adenopathy. 3. No evidence for PE. troponin and CKMB negative EKG show atrial fibrillation but no sign of RVR read by me and attending. No sign of acute ischemia. Differential Diagnosis Pneumonia versus COPD versus PE versus bronchitis versus sinusitis versus hemoptysis Narrative Course 72-year-old male that presents to the ED for evaluation of possible infection hypotension. Patient was properly examined and was found to have signs and symptoms of unclear etiology. Labs and imaging ordered. Labs and imaging showed no sign of acute disease. CTA was done try and set of PE. No PE noted but definitely appears to have what appears to be early pneumonia. Will treat with azithromycin. My attending himself Dr. Rincon evaluated the patient and recommendation from him to the patient was for admission secondary to patient's low blood pressure. This is chronic for the patient per patient and he does not want to stay. Patient was made aware that he will have signed out AMA and this could lead to potentially fatal complications. He wants to leave AMA. My attending had a lengthy discussion with the patient who still wants to leave AMA. AMA: The risks of leaving against medical advice without further evaluation treatment were discussed with the patient. These risks include cardiac dysfunction, cardiac dysrhythmia, possible heart attack, possible stroke or . The patient indicated understanding of these risks and appeared to have the capacity to make this decision. Patient will be regardless treated with azithromycin as he does have an infection. Patient was told to follow-up closely with PCP. See ED if worsening symptoms. Diagnosis Primary Impression: Pneumonia Qualified Codes: J18.1 - Lobar pneumonia, unspecified organism Patient Instructions: General Instructions Additional Instructions: Take medication as prescribed. Follow-up with PCP. See ED if any worsening symptoms. Med/Other Pt SpecificInfo: Prescription(s) given Scripts Azithromycin (Azithromycin) 250 Mg Tab 250 MG PO DIRECTED for Infection, #6 TAB 0 Refills Take 2 tabs (500 mg) on day 1 then 1 tab daily x 4 days. Prov: Benjamin Rincon MD 11/30/17 Disposition: 07 AGAINST MEDICAL ADVICE Condition: Casey Jacobson Nov 30, 2017 14:19
[2017-11-30 14:26] LABS: ALBUMIN 3.6 GM/DL (3.4-5.0); AST (GOT) 22 U/L (15-37); BICARBONATE 24.5 MEQ/L (21.0-32.0); BLOOD UREA NITROGEN 39 MG/DL (7-18); CALCIUM 9.4 MG/DL (8.5-10.1); CHLORIDE 97 MEQ/L (98-107); CREATININE 1.44 MG/DL (0.60-1.30); GLOMERULAR FILTRATION RATE 48 ML/MIN (>89); GLUCOSE,RANDOM 125 MG/DL (74-106); MAGNESIUM 1.9 MG/DL (1.5-2.5); SODIUM (NA) 133 MEQ/L (136-145)
[2017-11-30 14:27] LABS: ALT (GPT) 28 U/L (12-78)
[2017-11-30 14:29] LABS: ALKALINE PHOSPHATASE 84 U/L (45-117); TOTAL BILIRUBIN ADULT 1.8 MG/DL (0.2-1.0); TOTAL PROTEIN 8.1 GM/DL (6.4-8.2); TROPONIN I LESS THAN 0.02 NG/ML (0.02-0.05)
[2017-11-30 15:00] VITALS: BP 117/63; PULSE 72; RESP 18; O2SAT 95
[2017-11-30 16:00] VITALS: BP 107/59; PULSE 74; RESP 17; O2SAT 95
[2017-11-30] MEDS ORDERED: IOHEXOL 350 MG/ML 10 ML VIAL (for RAD DIAG) IVCONTRAST ONE (16:46)
--- NOTE | 2017-11-30 16:53 | RADRPT ---
EXAM DATE: 11/30/2017 4:43 PM EDT AGE/SEX: 72 years / Male INDICATIONS: Shortness of breath, hypotension. CLINICAL DATA: This is the patient's initial encounter. Patient reports that signs and symptoms have been present for 3 days and indicates a pain score of 0/10. MEDICAL/SURGICAL HISTORY: Cardiovascular disease. Cerebrovascular disease. Chronic obstructive pu lmonary disease. Hypertension, asthma, renal disease, diabetes, emphysema, neuropathy. None. RADIATION DOSE: 9.81 CTDI (mGy) COMPARISON: [facility], CT THORAX W/O CONTRAST, 09/16/2017. . TECHNIQUE: Volumetric scanning was performed using a multi-row detector CT scanner during bolus infu nicolle of 50 ml Omnipaque 350 (iohexol) nonionic water-soluble contrast as a single exam dose. The mason a was post processed with a variety of visualization algorithms including full volume maximum intensi ty projection and sliding thin slab reformation. Using automated exposure control and adjustment of the mA and/or kV according to patient size, radiation dose was kept as low as reasonably achievable t o obtain optimal diagnostic quality images. FINDINGS: Approximate 8 mm groundglass nodule is present in right middle lobe not significantly changed. There are parenchymal infiltrates in right lower lobe in addition to somewhat nodular process in right uppe r lobe and right lower lobe infiltrate was not seen previously. Slight infiltrate is also seen in lef t lower lobe. Small hiatal hernia is seen. There is no evidence of PE for technique. Approximate 1.6 cm right thyroid nodule is present. There are lymph nodes within the mediastinum nonspecific the lar gest measures almost 2.4 cm in right paratracheal area and a 3.1 cm in precarinal area. There is invo lvement of the superior mediastinum, AP window, bilateral hilar and subcarinal area. Bronchiectasis i s again seen not significantly changed. CONCLUSION: 1. Bronchiectasis with waxing and waning parenchymal infiltrates with new focal infiltrate right low er lobe not present previously most likely pneumonia. 2. Stable mediastinal adenopathy. 3. No evidence for PE. Electronically signed by: Shakira Yeager MD 11/30/2017 4:51 PM EDT
[2017-11-30] MEDS ORDERED: AZITHROMYCIN INJ 500 MG in SODIUM CHLOR 0.9% 250 ML INJ 250 ML IV ONE (17:15)
[2017-11-30] MEDS ORDERED: AZIT250T3 PO (17:20)
--- NOTE | 2017-11-30 17:22 | PD ---
Data Data Last Documented VS Vital Signs Date Time Temp Pulse Resp B/P (MAP) Pulse Ox O2 Delivery O2 Flow Rate FiO2 11/30/17 14:10 90 20 96/66 (76) 93 Room Air 11/30/17 12:52 98.3 Orders Orders Electrocardiogram (11/30/17 12:58) Complete Blood Count With Diff (11/30/17 12:58) Comprehensive Metabolic Panel (11/30/17 12:58) B-Type Natriuretic Peptide (11/30/17 12:58) Prothrombin Time / Inr (Pt) (11/30/17 12:58) Act Partial Throm Time (Ptt) (11/30/17 12:58) Lipase (11/30/17 12:58) Magnesium (Mg) (11/30/17 12:58) Chest, Single Ap (11/30/17 12:58) Iv Access Insert/Monitor (11/30/17 12:58) Ecg Monitoring (11/30/17 12:58) Oximetry (11/30/17 12:58) Lactic Acid Sepsis Protocol (11/30/17 12:58) Ct Pulmonary Angiogram (11/30/17 ) Type And Screen (11/30/17 13:07) B-Type Natriuretic Peptide (11/30/17 13:07) Troponin I (11/30/17 13:07) Ckmb (Isoenzyme) Profile (11/30/17 13:07) Sodium Chlorid 0.9% 500 Ml Inj (Ns 500 M (11/30/17 13:15) CKMB (11/30/17 13:20) CKMB% (11/30/17 13:20) Iohexol 350 Inj (Omnipaque 350 Inj) (11/30/17 16:46) Azithromycin Inj (Zithromax Inj) (11/30/17 17:15) Labs Laboratory Tests Test 11/30/17 13:20 11/30/17 13:28 White Blood Count 8.8 TH/MM3 Red Blood Count 4.45 MIL/MM3 Hemoglobin 13.8 GM/DL Hematocrit 38.9 % Mean Corpuscular Volume 87.4 FL Mean Corpuscular Hemoglobin 31.1 PG Mean Corpuscular Hemoglobin Concent 35.5 % Red Cell Distribution Width 17.2 % Platelet Count 206 TH/MM3 Mean Platelet Volume 8.6 FL Neutrophils (%) (Auto) 70.2 % Lymphocytes (%) (Auto) 14.7 % Monocytes (%) (Auto) 12.8 % Eosinophils (%) (Auto) 1.5 % Basophils (%) (Auto) 0.8 % Neutrophils # (Auto) 6.2 TH/MM3 Lymphocytes # (Auto) 1.3 TH/MM3 Monocytes # (Auto) 1.1 TH/MM3 Eosinophils # (Auto) 0.1 TH/MM3 Basophils # (Auto) 0.1 TH/MM3 CBC Comment DIFF FINAL Differential Comment Prothrombin Time 28.6 SEC Prothromb Time International Ratio 2.8 RATIO Activated Partial Thromboplast Time 35.7 SEC Blood Urea Nitrogen 39 MG/DL Creatinine 1.44 MG/DL Random Glucose 125 MG/DL Total Protein 8.1 GM/DL Albumin 3.6 GM/DL Calcium Level 9.4 MG/DL Magnesium Level 1.9 MG/DL Alkaline Phosphatase 84 U/L Aspartate Amino Transf (AST/SGOT) 22 U/L Alanine Aminotransferase (ALT/SGPT) 28 U/L Total Bilirubin 1.8 MG/DL Sodium Level 133 MEQ/L Potassium Level 3.9 MEQ/L Chloride Level 97 MEQ/L Carbon Dioxide Level 24.5 MEQ/L Anion Gap 12 MEQ/L Estimat Glomerular Filtration Rate 48 ML/MIN Total Creatine Kinase 112 U/L Creatine Kinase MB 2.4 NG/ML Troponin I LESS THAN 0.02 NG/ML B-Type Natriuretic Peptide 90 PG/ML Lipase 219 U/L Lactic Acid Level 1.7 mmol/L MDM Supervised Visit with RAMEZ: Yes Narrative Course I, Dr. Rincon, have reviewed the advance practice practitioner's documentation and am in agreement, met with the patient face to face, made the diagnosis, and the medical decision making was done by me. *My assessment and Findings: Workup is reviewed. I discussed with the patient. I suggested hospitalization which she is declining. He does have some pneumonia along with borderline low blood pressures and intermittently marginal saturations. He absolutely refuses. He is going to sign out against advice. I have advised him to return if he worsens or changes his mind. We will treat him with some antibiotics despite his leaving against advice. He has no PE Benjamin Rincon MD Nov 30, 2017 17:22
[2017-11-30 19:02] VITALS: BP 115/80
--- NOTE | 2017-12-01 15:33 | EKG ---
Date Performed: 11/30/2017 Time Performed: 12:42:04 PTAGE: 72 years EKG: ATRIAL FIBRILLATION INCOMPLETE RIGHT BUNDLE BRANCH BLOCK MODERATE ST DEPRESSION ABNORMAL EC G Since the PREVIOUS TRACING , no significant change noted PREVIOUS TRACIN09/16/2017 11.54 DOCTOR: Saira Jj Interpretating Date/Time 12/01/2017 15:31:38
== END 2017-11-30 19:05 | disposition left against medical advice (07) ==
LOC: NEPE 12:46
DX: J18.1 Lobar pneumonia, unspecified organism (principal); I95.9 Hypotension, unspecified; I48.91 Unspecified atrial fibrillation; I45.10 Unspecified right bundle-branch block; J44.0 Chronic obstructive pulmonary disease with (acute) lower respiratory infection; I11.0 Hypertensive heart disease with heart failure; I50.9 Heart failure, unspecified; E11.9 Type 2 diabetes mellitus without complications; I25.2 Old myocardial infarction; E78.2 Mixed hyperlipidemia; F32.9 Major depressive disorder, single episode, unspecified; F43.10 Post-traumatic stress disorder, unspecified; F17.210 Nicotine dependence, cigarettes, uncomplicated; Z86.73 Personal history of transient ischemic attack (TIA), and cerebral infarction without residual deficits; Z88.2 Allergy status to sulfonamides; Z88.0 Allergy status to penicillin; Z88.5 Allergy status to narcotic agent; Z79.01 Long term (current) use of anticoagulants; Z79.4 Long term (current) use of insulin
CPT/HCPCS: 71045; 71275; 80053; 82550; 82552; 83605; 83690; 83735; 83880; 84484; 85025; 85610; 85730; 86850; 86900; 86901; 93005; 96361; 96374; 99284; J0456; J7040; J7050; Q9967

== ENCOUNTER 2018-02-15 14:32 | Observation (INO) ==
[2018-02-15 15:44] LABS: Baso % (Auto) 0.5 % (0.0-2.0); Eos # (Auto) 0.1 th/mm3 (0.0-0.4); Eos % (Auto) 1.1 % (0.0-4.0); Hemoglobin 13.7 gm/dL (13.0-17.0); Lymph % (Auto) 13.1 % (9.0-44.0); Mean Corpuscular HGB Conc 32.6 % (32.0-36.0); Mean Corpuscular Hemoglobin 29.5 pg (27.0-34.0); Mean Corpuscular Volume 90.3 fL (80.0-100.0); Mean Platelet Volume 8.8 fL (7.0-11.0); Mono # (Auto) 0.7 th/mm3 (0.0-0.9); Neut # (Auto) 5.8 th/mm3 (1.8-7.7); Neut % (Auto) 76.3 % (16.0-70.0); Platelet Count 175 th/mm3 (150-450); Red Blood Count 4.65 mil/mm3 (4.50-5.90); Red Cell Distribution Width 17.4 % (11.6-17.2); White Blood Count 7.7 th/mm3 (4.0-11.0)
[2018-02-15 15:50] LABS: Activated Partial Thrombo Time 32.3 sec (24.3-30.1); INR 2.7 Ratio; Prothrombin Time 27.5 sec (9.8-11.6)
--- NOTE | 2018-02-15 16:03 | ED ---
HPI General Chief Complaint: Shortness of Breath/Dyspnea Stated Complaint: SOB Time Seen by Provider: 02/15/18 14:42 Source: patient, EMS, RN notes reviewed and old records reviewed Mode of arrival: EMS Limitations: no limitations History of Present Illness 72 y/o male presents with shortness of breath over the past couple of days. He states he was at his primary doctor and his oxygen level was 88% so they called an ambulance to bring him here. In route he was 96% on room air. He states he feels short of breath when he moves around or lays flat. He states he also gets swelling in his legs intermittently. He denies any pain or other concurrent complaints at this time. He does note history of CHF MD Complaint: shortness of breath Related Data Home Medications Medication Instructions Recorded Confirmed albuterol sulfate 2 puff INHALATION Q6H PRN 02/15/18 02/15/18 atorvastatin [Lipitor] 40 mg PO HS 02/15/18 02/15/18 budesonide-formoterol [Symbicort] 2 puff INHALATION BID 02/15/18 02/15/18 doxycycline hyclate 100 mg PO BID 02/15/18 02/15/18 furosemide [Lasix] 20 mg PO TID 02/15/18 02/15/18 gabapentin 200 mg PO HS 02/15/18 02/15/18 gabapentin 600 mg PO BID 02/15/18 02/15/18 guaifenesin 400 mg PO Q8HR PRN 02/15/18 02/15/18 insulin glargine [Lantus U-100 40 unit SUB-Q BID 02/15/18 02/15/18 Insulin] liraglutide [Victoza 2-Chandana] 1.8 mg SUB-Q DAILY 02/15/18 02/15/18 metformin 500 mg PO BID 02/15/18 02/15/18 metoprolol succinate 12.5 mg PO DAILY 02/15/18 02/15/18 warfarin 2.5 mg PO DIRECTED 02/15/18 02/15/18 warfarin 5 mg PO DIRECTED 02/15/18 02/15/18 zolpidem [Ambien] 2.5 mg PO HS PRN 02/15/18 02/15/18 Allergies Allergy/AdvReac Type Severity Reaction Status Date / Time aspirin Allergy Severe ON COUMADIN Verified 11/30/17 12:52 bee venom protein (honey bee) Allergy Severe Agitation Verified 02/15/18 14:49 codeine Allergy Severe Seizures Verified 11/30/17 12:52 penicillin G Allergy Severe ANAPHYLAXSI Verified 11/30/17 12:52 S Sulfa (Sulfonamide Allergy Severe shakes/inch Verified 11/30/17 12:52 Antibiotics) oherent Review of Systems ROS: all other systems reviewed are negative [facility] Medical History Medical History Afib (Acute) Asthma (Acute) CHF (congestive heart failure) (Acute) Diabetes (Acute) HTN (hypertension) (Acute) Heart attack (Acute) Surgical History Surgical History History of facial surgery (Acute) Previous back surgery (Acute) Social History Social History Substance History: No History of Abuse Second Hand Smoke Exposure: No Smoking Status: Current every day smoker Tobacco Type: Cigarettes How Often Do You Have a Drink Containing Alcohol: Never Recent Travel in [facility] within the Last 8 Weeks: No Recent Out of Country Travel within the Last 8 Weeks: No Immunization History Tetanus Immunization: Unsure Hx Influenza Vaccine This Season: No Exam Narrative Exam Narrative: GENERAL: 72 y/o male presents in no apparent distress SKIN: Focused skin assessment warm/dry. HEAD: Atraumatic. Normocephalic. EYES: Pupils equal and round. No scleral icterus. No injection or drainage. ENT: No nasal bleeding or discharge. Mucous membranes pink and moist. NECK: Trachea midline. CARDIOVASCULAR: irregular rate and rhythm. RESPIRATORY: No accessory muscle use. crackles bilaterally. GASTROINTESTINAL: Abdomen soft, non-tender, nondistended. MUSCULOSKELETAL: No obvious deformities. No clubbing. No cyanosis. mild edema noted bilaterally. NEUROLOGICAL: Awake and alert. Motor grossly within normal limits. Normal speech. Course Reevaluation(s) Reevaluation #1: patient updated and agrees to admit Consultations Consultation #1: dr patiño agrees to admit Initial Documented Vital Signs Temperature 98.5 F 02/15/18 14:49 Pulse Rate 92 H 02/15/18 14:49 Respiratory Rate 18 02/15/18 14:49 Blood Pressure 134/68 02/15/18 14:49 Last Documented Vital Signs Temperature 98.5 F 02/15/18 14:49 Pulse Rate 92 H 02/15/18 14:49 Respiratory Rate 18 02/15/18 14:49 Blood Pressure 134/68 02/15/18 14:49 Medical Decision Making MDM Narrative Medical decision making narrative: will check labs, imaging and dose with lasix and reevaluate Medical Screen Exam Complete: Yes Emergency Medical Condition: Yes Differential Diagnosis Differential Diagnosis: chf, anemia, renal failure Lab Data Lab results reviewed: Yes I reviewed the patient's lab results. Result diagrams: 02/15/18 15:05 02/15/18 15:05 Lab Results 02/15/18 02/15/18 02/15/18 Range/Units 15:05 15:05 15:05 WBC 7.7 (4.0-11.0) th/mm3 RBC 4.65 (4.50-5.90) mil/mm3 Hgb 13.7 (13.0-17.0) gm/dL Hct 42.0 (39.0-51.0) % MCV 90.3 (80.0-100.0) fL MCH 29.5 (27.0-34.0) pg MCHC 32.6 (32.0-36.0) % RDW 17.4 H (11.6-17.2) % Plt Count 175 (150-450) th/mm3 MPV 8.8 (7.0-11.0) fL Neut % (Auto) 76.3 H (16.0-70.0) % Lymph % (Auto) 13.1 (9.0-44.0) % [place] % (Auto) 9.0 H (0.0-8.0) % Eos % (Auto) 1.1 (0.0-4.0) % Baso % (Auto) 0.5 (0.0-2.0) % Neut # (Auto) 5.8 (1.8-7.7) th/mm3 Lymph # (Auto) 1.0 (1.0-4.8) th/mm3 [place] # (Auto) 0.7 (0.0-0.9) th/mm3 Eos # (Auto) 0.1 (0.0-0.4) th/mm3 Baso # (Auto) 0.0 (0.0-0.2) th/mm3 WBC Differential . Differential Comment Auto diff final PT 27.5 H (9.8-11.6) sec INR 2.7 Ratio APTT 32.3 H (24.3-30.1) sec Sodium 137 (136-145) meq/L Potassium 3.9 (3.5-5.1) meq/L Chloride 101 (98-107) meq/L Carbon Dioxide 26.9 (21.0-32.0) meq/L Anion Gap 9 (5-15) meq/L BUN 25 H (7-18) mg/dL Creatinine 1.54 H (0.60-1.30) mg/dL Estimated GFR 45 L (>89) mL/min Random Glucose 220 H (74-106) mg/dL Calcium 8.5 (8.5-10.1) mg/dL Magnesium 1.9 (1.5-2.5) mg/dL Total Bilirubin 0.8 (0.2-1.0) mg/dL AST 27 (15-37) U/L ALT 26 (12-78) U/L Alkaline Phosphatase 118 H (45-117) U/L Total Creatine Kinase 149 (39-308) U/L CK-MB (CK-2) 5.0 H (0.5-3.6) ng/mL Troponin I 0.05 (0.02-0.05) ng/mL B-Natriuretic Peptide (0-100) pg/mL Total Protein 7.1 (6.4-8.2) g/dL Albumin 3.0 L (3.4-5.0) g/dL 02/15/18 Range/Units 15:05 WBC (4.0-11.0) th/mm3 RBC (4.50-5.90) mil/mm3 Hgb (13.0-17.0) gm/dL Hct (39.0-51.0) % MCV (80.0-100.0) fL MCH (27.0-34.0) pg MCHC (32.0-36.0) % RDW (11.6-17.2) % Plt Count (150-450) th/mm3 MPV (7.0-11.0) fL Neut % (Auto) (16.0-70.0) % Lymph % (Auto) (9.0-44.0) % [place] % (Auto) (0.0-8.0) % Eos % (Auto) (0.0-4.0) % Baso % (Auto) (0.0-2.0) % Neut # (Auto) (1.8-7.7) th/mm3 Lymph # (Auto) (1.0-4.8) th/mm3 [place] # (Auto) (0.0-0.9) th/mm3 Eos # (Auto) (0.0-0.4) th/mm3 Baso # (Auto) (0.0-0.2) th/mm3 WBC Differential Differential Comment PT (9.8-11.6) sec INR Ratio APTT (24.3-30.1) sec Sodium (136-145) meq/L Potassium (3.5-5.1) meq/L Chloride (98-107) meq/L Carbon Dioxide (21.0-32.0) meq/L Anion Gap (5-15) meq/L BUN (7-18) mg/dL Creatinine (0.60-1.30) mg/dL Estimated GFR (>89) mL/min Random Glucose (74-106) mg/dL Calcium (8.5-10.1) mg/dL Magnesium (1.5-2.5) mg/dL Total Bilirubin (0.2-1.0) mg/dL AST (15-37) U/L ALT (12-78) U/L Alkaline Phosphatase (45-117) U/L Total Creatine Kinase (39-308) U/L CK-MB (CK-2) (0.5-3.6) ng/mL Troponin I (0.02-0.05) ng/mL B-Natriuretic Peptide 359 H (0-100) pg/mL Total Protein (6.4-8.2) g/dL Albumin (3.4-5.0) g/dL Imaging Data Attestation: I personally reviewed and interpreted this imaging study as follows : Radiologist's impression: Chest X-Ray 02/15/18 14:43 CONCLUSION: Right base infiltrate and effusion Discharge Plan Discharge Disposition Patient Disposition: 30 Still Patient Discharge Details Diagnosis: Acute exacerbation of CHF (congestive heart failure) Physicians Team ED Provider: Claudette Denton Primary Care Provider: [facility] [place] Attending Provider: Nick Patiño Status ED Status: Admitted Observation Patient
[2018-02-15 16:05] LABS: Alanine Aminotransferase 26 U/L (12-78); Anion Gap 9 meq/L (5-15); Aspartate Aminotransferase 27 U/L (15-37); Blood Urea Nitrogen 25 mg/dL (7-18); Calcium 8.5 mg/dL (8.5-10.1); Carbon Dioxide 26.9 meq/L (21.0-32.0); Chloride 101 meq/L (98-107); Glomerular Filtration Rate 45 mL/min (>89); Glucose,Random 220 mg/dL (74-106); Magnesium 1.9 mg/dL (1.5-2.5); Potassium 3.9 meq/L (3.5-5.1); Sodium 137 meq/L (136-145)
[2018-02-15 16:09] LABS: Alkaline Phosphatase 118 U/L (45-117); Creatine Kinase 149 U/L (39-308); Total Protein 7.1 g/dL (6.4-8.2); Troponin I 0.05 ng/mL (0.02-0.05)
--- NOTE | 2018-02-15 16:36 | XR ---
EXAM DATE: 02/15/2018 4:32 PM EDT AGE/SEX: 72 years / Male INDICATIONS: Patient states he has been experiencing shortness of breath for 4 weeks. CLINICAL DATA: This is the patient's initial encounter. Patient reports that signs and symptoms have been present for 1 month and indicates a pain score of 2/10. MEDICAL/SURGICAL HISTORY: Asthma. Smoker None. [place] [facility] [place]. . FINDINGS: There is mild infiltrate in the right lung base potentially with small associated effusion. The left lung is grossly clear. Cardiac contours are stable and satisfactory. CONCLUSION: Right base infiltrate and effusion Electronically signed by: Rahul England MD 02/15/2018 4:34 PM EDT
[2018-02-15] MEDS ORDERED: Dextrose 50% in Water 50 ML Vial IV.PUSH PRN (18:00)
--- NOTE | 2018-02-15 19:16 | P.HPIM ---
History of Present Illness Primary Care Physician: Physician [facility] History of Present Illness: Mr. Castañeda is a 72-year-old male. He has a past medical history of CHF and came in secondary to progressive shortness of breath. He says shortness of breath has been present for about 1 month but has worsened recently. [facility]. Imaging shows evidence for CHF exacerbation but additionally unilateral infiltrate is suggestive of pneumonia. With treatment in the ER he has improvement in his respiratory status. When seen in the ER he is 95% on room air. Additional complaints are left-sided flank/chest pain. No other complaints. Patient is hoping to discharge soon, he is asked to be patient. - Diagnosis (1) Community acquired pneumonia (2) Acute exacerbation of CHF (congestive heart failure) Review of Systems Constitutional: No fevers, no chills no night sweats, no fatigue, no weakness Eyes: No eye pain, no blurry vision, no loss of vision ENT: No sore throat, no ear pain, no rhinorrhea Cardiovascular: No chest pain, no tachycardia, no palpitations, no shortness of breath, no syncope Respiratory: No wheezing, no cough, shortness of breath, pleuritic chest pain Gastrointestinal: No abdominal pain, no black tarry stools, no bright red blood per rectum, no vomiting, no diarrhea Musculoskeletal: No joint pain, no muscle cramps, no stiffness Integumentary: No rash, no ulcers, no drainage Neurologic: No sensory loss, no loss of motor function, no dizziness Psychiatric: No behavioral changes, no hallucinations, no suicidal ideations PMFSH - History History Provided By: Patient - Medical History Medical History: Medical History (Last Reviewed 02/15/18 @ 16:01 by Claudette Denton MD) Afib Asthma CHF (congestive heart failure) Diabetes HTN (hypertension) Heart attack - Surgical History Surgical History: Surgical History (Last Reviewed 02/15/18 @ 16:01 by Claudette Denton MD) History of facial surgery Previous back surgery - Family History Family History: Family History (Last Updated 02/15/18 @ 19:06 by Nick Patiño MD) Other Coronary artery disease - Tobacco History Second Hand Smoke Exposure: No Tobacco Use In Past 30 Days: No Smoking Status: Current every day smoker Tobacco Type: Cigarettes - Alcohol History How Often Do You Have a Drink Containing Alcohol: Never - Substance Use History Substance History: No History of Abuse - Travel History Recent Travel in the [place] Within the Last 8 Weeks: No Recent Travel Out of the Country Within the Last 8 Weeks: No - Immunization History Tetanus Immunization: Unsure Hx Influenza Vaccine This Season: No Medications and Allergies Active Medications: Active Medications Al Hydroxide/Mg Hydroxide (Milk Of Gerardo Liq) 30 ml PO Q12H PRN PRN Reason: Mild Constipation Atorvastatin Calcium (Lipitor) 40 mg PO HS SALAS Budesonide/Formoterol Fumarate (Symbicort 80/4.5 Mcg Inh) 2 puff INH BID SALAS Dextrose (D50w Vial) 50 ml IV.PUSH UNSCH PRN PRN Reason: PER HYPOGLYCEMIA PROTOCOL Doxycycline Hyclate (Vibramycin) 100 mg PO BID SALAS Furosemide (Lasix Inj) 40 mg IV.PUSH BID@0900,1800 SALAS Gabapentin (Neurontin) 200 mg PO HS SALAS Glucagon (Glucagon Inj) 1 mg OTHER PRN PRN PRN Reason: for Hypoglycemia Protocol Insulin Aspart (Novolog Insulin Correctional Sugar Inj) 0 unit SQ ACHS SALAS; Protocol Metoprolol Succinate (Toprol Xl) 12.5 mg PO DAILY SALAS Non-Formulary Medication (Gabapentin [Gabapentin]) 600 mg PO BID SALAS Non-Formulary Medication (Guaifenesin [Guaifenesin]) 400 mg PO Q8HR PRN PRN Reason: Thin Mucous Non-Formulary Medication (Insulin Glargine) 40 unit SQ BID SALAS Non-Formulary Medication (Liraglutide [Victoza 2-Chandana]) 1.8 mg SQ DAILY SALAS Ondansetron HCl (Zofran Inj) 4 mg IV.PUSH Q6H PRN PRN Reason: NAUSEA OR VOMITING Warfarin Sodium (Coumadin) 5 mg PO DIRECTED SALAS Warfarin Sodium (Coumadin) 2.5 mg PO DIRECTED SALAS Zolpidem Tartrate (Ambien) 2.5 mg PO HS PRN PRN Reason: Sleep Allergies Allergy/AdvReac Type Severity Reaction Status Date / Time aspirin Allergy Severe ON COUMADIN Verified 11/30/17 12:52 bee venom protein (honey bee) Allergy Severe Agitation Verified 02/15/18 14:49 codeine Allergy Severe Seizures Verified 11/30/17 12:52 penicillin G Allergy Severe ANAPHYLAXSI Verified 11/30/17 12:52 S Sulfa (Sulfonamide Allergy Severe shakes/inch Verified 11/30/17 12:52 Antibiotics) oherent Home Medications Medication Instructions Recorded Confirmed Type albuterol sulfate 2 puff INHALATION Q6H PRN 02/15/18 02/15/18 History atorvastatin [Lipitor] 40 mg PO HS 02/15/18 02/15/18 History budesonide-formoterol [Symbicort] 2 puff INHALATION BID 02/15/18 02/15/18 History doxycycline hyclate 100 mg PO BID 02/15/18 02/15/18 History furosemide [Lasix] 20 mg PO TID 02/15/18 02/15/18 History gabapentin 200 mg PO HS 02/15/18 02/15/18 History gabapentin 600 mg PO BID 02/15/18 02/15/18 History guaifenesin 400 mg PO Q8HR PRN 02/15/18 02/15/18 History insulin glargine [Lantus U-100 40 unit SUB-Q BID 02/15/18 02/15/18 History Insulin] liraglutide [Victoza 2-Chandana] 1.8 mg SUB-Q DAILY 02/15/18 02/15/18 History metformin 500 mg PO BID 02/15/18 02/15/18 History metoprolol succinate 12.5 mg PO DAILY 02/15/18 02/15/18 History warfarin 2.5 mg PO DIRECTED 02/15/18 02/15/18 History warfarin 5 mg PO DIRECTED 02/15/18 02/15/18 History zolpidem [Ambien] 2.5 mg PO HS PRN 02/15/18 02/15/18 History Exam Vital signs: Vital Signs 02/15/18 14:49 Temperature 98.5 F Pulse Rate 92 H Respiratory Rate 18 Blood Pressure 134/68 Intake & Output 02/14/18 02/15/18 02/15/18 18:59 06:59 18:59 Weight 79.379 kg Narrative: GENERAL: NAD, A&Ox3 HEAD: Normocephalic. NECK: Supple, trachea midline. No lymphadenopathy. EYES: No scleral icterus. No injection or drainage. CARDIOVASCULAR: Regular rate and rhythm without murmurs, gallops, or rubs. RESPIRATORY: Breath sounds equal bilaterally. No accessory muscle use. Bilateral basilar crackles. GASTROINTESTINAL: Abdomen soft, non-tender, nondistended. MUSCULOSKELETAL: No cyanosis, or edema. SKIN: Warm and dry. NEURO: No focal neurological deficits. Results - Labs CBC & Chem 7: 02/15/18 15:05 02/15/18 15:05 Labs: Short CBC 02/15/18 Range/Units 15:05 WBC 7.7 (4.0-11.0) th/mm3 Hgb 13.7 (13.0-17.0) gm/dL Hct 42.0 (39.0-51.0) % Plt Count 175 (150-450) th/mm3 BMP 02/15/18 15:05 Sodium 137 Potassium 3.9 Chloride 101 Carbon Dioxide 26.9 BUN 25 H Creatinine 1.54 H Calcium 8.5 Cardiac Enzymes 02/15/18 Range/Units 15:05 Total Creatine Kinase 149 (39-308) U/L CK-MB (CK-2) 5.0 H (0.5-3.6) ng/mL Troponin I 0.05 (0.02-0.05) ng/mL Liver Function 02/15/18 Range/Units 15:05 Total Bilirubin 0.8 (0.2-1.0) mg/dL AST 27 (15-37) U/L ALT 26 (12-78) U/L Alkaline Phosphatase 118 H (45-117) U/L Albumin 3.0 L (3.4-5.0) g/dL - Imaging Impressions Chest X-Ray 02/15/18 14:43 CONCLUSION: Right base infiltrate and effusion Caprini VTE Risk Assessment Caprini VTE Risk Assessment: Moderate/High Risk (score >= 2) Caprini Risk Assessment Model: Point Value = 1 Point Value = 2 Point Value = 3 Point Value = 5 Age 41-60 Minor surgery BMI > 25 kg/m2 Swollen legs Varicose veins or History of unexplained or recurrent spontaneous Oral contraceptives or hormone replacement Sepsis (< 1 month) Serious lung disease, including pneumonia (< 1 month) Abnormal pulmonary function Acute myocardial infarction Congestive heart failure (< 1 month) History of inflammatory bowel disease Medical patient at bed rest Age 61-74 Arthroscopic surgery Major open surgery (> 45 min) Laparoscopic surgery (> 45 min) Malignancy Confined to bed (> 72 hours) Immobilizing plaster cast Central venous access Age >= 75 History of VTE Family history of VTE Factor V Leiden Prothrombin [id number] Lupus anticoagulant Anticardiolipin antibodies Elevated serum homocysteine Heparin-induced thrombocytopenia Other congenital or acquired thrombophilia Stroke (< 1 month) Elective arthroplasty Hip, pelvis, or leg fracture Acute spinal cord injury (< 1 month) Prophylaxis Regimen: Total Risk Factor Score Risk Level Prophylaxis Regimen 0-1 Low Early ambulation 2 Moderate Order ONE of the following: *Sequential Compression Device (SCD) *Heparin 5000 units SQ BID 3-4 Higher Order ONE of the following medications: *Heparin 5000 units SQ TID *Enoxaparin/Lovenox 40 mg SQ daily (WT < 150 kg, CrCl > 30 mL/min) *Enoxaparin/Lovenox 30 mg SQ daily (WT < 150 kg, CrCl > 10-29 mL/min) *Enoxaparin/Lovenox 30 mg SQ BID (WT < 150 kg, CrCl > 30 mL/min) AND/OR *Sequential Compression Device (SCD) 5 or more Highest Order ONE of the following medications: *Heparin 5000 units SQ TID (Preferred with Epidurals) *Enoxaparin/Lovenox 40 mg SQ daily (WT < 150 kg, CrCl > 30 mL/min) *Enoxaparin/Lovenox 30 mg SQ daily (WT < 150 kg, CrCl > 10-29 mL/min) *Enoxaparin/Lovenox 30 mg SQ BID (WT < 150 kg, CrCl > 30 mL/min) AND *Sequential Compression Device (SCD) Assessment and Plan - Assessment (1) Community acquired pneumonia Code(s): J18.9 - Pneumonia, unspecified organism Status: Acute (2) Acute exacerbation of CHF (congestive heart failure) Code(s): I50.9 - Heart failure, unspecified Status: Acute - Plan 72-year-old male admitted secondary to CHF exacerbation and pneumonia CHF exacerbation IV diuresis Monitor renal function Oxygen as needed Follow clinically for improvement Follow on telemetry Community-acquired pneumonia Rocephin Azithromycin Probiotics Monitor clinically for improvement Oxygen supplementation as needed Atrial fibrillation [place] Follow clinically Continue baseline treatments Hypertension Continue baseline treatment Follow blood pressures Adjust treatments as needed Diabetes mellitus type 2 Follow blood sugars Insulin sliding scale Diabetic diet Asthma Continue baseline treatments Albuterol nebulizer DVT prophylaxis Heparin
[2018-02-15] MEDS ORDERED: Zolpidem Tartrate 5 MG Tablet PO PRN (21:00)
[2018-02-15] MEDS: Insulin Detemir Inj 1,000 UNIT/10 ML Vial SQ SCH (21:41)
[2018-02-15] MEDS: Gabapentin 100 MG Capsule PO SCH (21:41)
[2018-02-15] MEDS: Heparin - SQ 10,000 UNITS/ML Vial SQ SCH (21:41)
[2018-02-15] MEDS: Insulin NovoLOG Aspart Correctional Sugar Inj SQ SCH (21:41)
[2018-02-15] MEDS ORDERED: guaiFENesin 600 MG ER Tablet PO PRN (22:00)
[2018-02-15] MEDS: Budesonide-Formoterol 80/4.5 MCG 6.9 GM Inhaler INH SCH (23:21)
[2018-02-16] MEDS ORDERED: LIRAGLUTIDE 1.8 MG SQ SCH (09:00)
[2018-02-16] MEDS: Insulin NovoLOG Aspart Correctional Sugar Inj SQ SCH ×4 (09:12→21:13)
[2018-02-16] MEDS: Insulin Detemir Inj 1,000 UNIT/10 ML Vial SQ SCH ×2 (09:14→21:12)
[2018-02-16 11:51] LABS: Baso # (Auto) 0.1 th/mm3 (0.0-0.2); Baso % (Auto) 0.6 % (0.0-2.0); Eos # (Auto) 0.1 th/mm3 (0.0-0.4); Lymph # (Auto) 0.9 th/mm3 (1.0-4.8); Lymph % (Auto) 11.2 % (9.0-44.0); Mean Corpuscular HGB Conc 33.4 % (32.0-36.0); Mean Corpuscular Hemoglobin 29.6 pg (27.0-34.0); Mean Corpuscular Volume 88.8 fL (80.0-100.0); Mean Platelet Volume 8.8 fL (7.0-11.0); Mono # (Auto) 0.8 th/mm3 (0.0-0.9); Mono % (Auto) 9.5 % (0.0-8.0); Neut # (Auto) 6.5 th/mm3 (1.8-7.7); Neut % (Auto) 77.7 % (16.0-70.0); Platelet Count 173 th/mm3 (150-450); Red Blood Count 4.73 mil/mm3 (4.50-5.90); Red Cell Distribution Width 17.2 % (11.6-17.2); White Blood Count 8.4 th/mm3 (4.0-11.0)
[2018-02-16] MEDS: Gabapentin 300 MG Capsule PO SCH ×2 (11:58→16:47)
[2018-02-16] MEDS: Heparin - SQ 10,000 UNITS/ML Vial SQ SCH ×2 (12:00→21:09)
[2018-02-16 12:02] LABS: INR 2.6 Ratio; Prothrombin Time 26.4 sec (9.8-11.6)
[2018-02-16] MEDS: Budesonide-Formoterol 80/4.5 MCG 6.9 GM Inhaler INH SCH ×2 (12:03→21:45)
[2018-02-16 12:22] LABS: Alanine Aminotransferase 27 U/L (12-78); Albumin 3.1 g/dL (3.4-5.0); Alkaline Phosphatase 86 U/L (45-117); Anion Gap 10 meq/L (5-15); Aspartate Aminotransferase 23 U/L (15-37); Blood Urea Nitrogen 20 mg/dL (7-18); Calcium 8.7 mg/dL (8.5-10.1); Carbon Dioxide 27.3 meq/L (21.0-32.0); Chloride 104 meq/L (98-107); Glomerular Filtration Rate 63 mL/min (>89); Glucose,Random 97 mg/dL (74-106); Potassium 3.3 meq/L (3.5-5.1); Sodium 141 meq/L (136-145); Total Protein 7.2 g/dL (6.4-8.2); Troponin I 0.06 ng/mL (0.02-0.05)
--- NOTE | 2018-02-16 13:26 | ECG ---
Date Performed: 02/15/2018 Time Performed: 14:59:29 PTAGE: 72 years EKG: ATRIAL FIBRILLATION INCOMPLETE RIGHT BUNDLE BRANCH BLOCK ST DEVIATION AND MODERATE T-WAVE A BNORMALITY, CONSIDER ANTERIOR ISCHEMIA ABNORMAL ECG INTERPRETATION BASED ON A DEFAULT AGE OF 40 YEARS PREVIOUS TRACING : 11/30/2017 12.42 Since the previous tracing, no significant change not ed DOCTOR: Montana Chiu Interpretating Date/Time 02/16/2018 13:24:39
--- NOTE | 2018-02-16 14:29 | P.PN ---
Subjective Interval history: Follow-up for CHF exacerbation, pneumonia. The patient reports continued shortness of breath, dyspnea on exertion, and lower extremity swelling. He also reports cough, nonproductive. Denies fevers but does report recent chills. He reports minimal improvement compared to yesterday. He denies any chest pain. The patient is very upset about his food, wants a regular meal. Thoroughly explained the importance of a low-sodium diet and fluid restriction secondary to his CHF and fluid overload. Patient states he eats out every day and does not add any salt to his food. Again explained that restaurants likely already add salt to his food and he should limit his sodium intake to less than 2 g per day. We thoroughly discussed CHF education, monitoring daily weights, fluid intake less than 1200 mL per day, and sodium intake less than 2 g per day. Physical Exam Vital signs: Vital Signs 02/15/18 14:49 02/15/18 23:00 02/16/18 03:00 Temperature 98.5 F Pulse Rate 92 H 82 88 Respiratory Rate 18 15 19 Blood Pressure 134/68 122/66 131/70 Pulse Oximetry 98 97 02/16/18 09:09 02/16/18 11:50 Temperature 97.6 F Pulse Rate 71 89 Respiratory Rate 18 16 Blood Pressure 124/63 105/64 Pulse Oximetry 92 L 94 L Intake & Output 02/15/18 02/16/18 02/16/18 18:59 06:59 18:59 Weight 79.379 kg Narrative: GENERAL: Well-nourished, well-developed elderly male patient in [facility]. SKIN: Warm and dry. No rash. HEENT: Normocephalic. Atraumatic. Mucous membranes pink and moist. NECK: Supple. Trachea midline. CARDIOVASCULAR: Regular rate and rhythm. No murmur appreciated. RESPIRATORY: No accessory muscle use. Clear to auscultation today, improved. Breath sounds equal bilaterally. GASTROINTESTINAL: Abdomen soft, non-tender, nondistended. Normoactive bowel sounds x4. MUSCULOSKELETAL: No obvious deformities. Extremities without clubbing, cyanosis , or edema. NEUROLOGICAL: Awake and alert. No obvious cranial nerve deficits. Motor grossly within normal limits. Moving all extremities spontaneously. Normal speech. Results - Labs CBC & Chem 7: 02/16/18 10:38 02/17/18 06:36 Laboratory Results - last 24 hr 02/15/18 02/15/18 02/15/18 15:05 15:05 15:05 WBC 7.7 RBC 4.65 Hgb 13.7 Hct 42.0 MCV 90.3 MCH 29.5 MCHC 32.6 RDW 17.4 H Plt Count 175 MPV 8.8 Neut % (Auto) 76.3 H Lymph % (Auto) 13.1 [place] % (Auto) 9.0 H Eos % (Auto) 1.1 Baso % (Auto) 0.5 Neut # (Auto) 5.8 Lymph # (Auto) 1.0 [place] # (Auto) 0.7 Eos # (Auto) 0.1 Baso # (Auto) 0.0 WBC Differential . Differential Comment Auto diff final PT 27.5 H INR 2.7 APTT 32.3 H Sodium 137 Potassium 3.9 Chloride 101 Carbon Dioxide 26.9 Anion Gap 9 BUN 25 H Creatinine 1.54 H Estimated GFR 45 L POC Glucose Random Glucose 220 H Calcium 8.5 Magnesium 1.9 Total Bilirubin 0.8 AST 27 ALT 26 Alkaline Phosphatase 118 H Total Creatine Kinase 149 CK-MB (CK-2) 5.0 H Troponin I 0.05 B-Natriuretic Peptide Total Protein 7.1 Albumin 3.0 L 02/15/18 02/15/18 02/16/18 15:05 21:37 10:38 WBC 8.4 RBC 4.73 Hgb 14.0 Hct 42.0 MCV 88.8 MCH 29.6 MCHC 33.4 RDW 17.2 Plt Count 173 MPV 8.8 Neut % (Auto) 77.7 H Lymph % (Auto) 11.2 [place] % (Auto) 9.5 H Eos % (Auto) 1.0 Baso % (Auto) 0.6 Neut # (Auto) 6.5 Lymph # (Auto) 0.9 L [place] # (Auto) 0.8 Eos # (Auto) 0.1 Baso # (Auto) 0.1 WBC Differential . Differential Comment Auto diff final PT INR APTT Sodium Potassium Chloride Carbon Dioxide Anion Gap BUN Creatinine Estimated GFR POC Glucose 89 Random Glucose Calcium Magnesium Total Bilirubin AST ALT Alkaline Phosphatase Total Creatine Kinase CK-MB (CK-2) Troponin I B-Natriuretic Peptide 359 H Total Protein Albumin 02/16/18 02/16/18 02/16/18 10:38 10:38 10:38 WBC RBC Hgb Hct MCV MCH MCHC RDW Plt Count MPV Neut % (Auto) Lymph % (Auto) [place] % (Auto) Eos % (Auto) Baso % (Auto) Neut # (Auto) Lymph # (Auto) [place] # (Auto) Eos # (Auto) Baso # (Auto) WBC Differential Differential Comment PT 26.4 H INR 2.6 APTT Sodium 141 Potassium 3.3 L Chloride 104 Carbon Dioxide 27.3 Anion Gap 10 BUN 20 H Creatinine 1.14 Estimated GFR 63 L POC Glucose Random Glucose 97 D Calcium 8.7 Magnesium Total Bilirubin 1.2 H AST 23 ALT 27 Alkaline Phosphatase 86 Total Creatine Kinase 90 CK-MB (CK-2) Troponin I 0.06 H B-Natriuretic Peptide Total Protein 7.2 Albumin 3.1 L - Imaging Impressions Chest X-Ray 02/15/18 14:43 CONCLUSION: Right base infiltrate and effusion Assessment and Plan - Assessment (1) Community acquired pneumonia Code(s): J18.9 - Pneumonia, unspecified organism Status: Acute (2) Acute exacerbation of CHF (congestive heart failure) Code(s): I50.9 - Heart failure, unspecified Status: Acute - Plan 72-year-old male with history of afib, asthma, CHF, DM, HTN, CAD, presents with increasing shortness of breath and cough, found to have CHF exacerbation and pneumonia Acute Systolic CHF exacerbation EMR reviewed, echo 09/17/17 showed EF 40-45% with mod-severe MS, moderate , mild-mod AR Upon review of EMR, the patient previously declined further work up with cath and consideration for double valve surgery, and he is still declining any further testing/intervention, requests medical management only Continue IV diuresis with Lasix 40mg bid Monitor renal function and Is&Os Oxygen as needed Continue BB, unable to add ESEQUIEL due to CKD and borderline low BP Follow clinically for improvement Monitor on telemetry Provided CHF education including limiting sodium/fluid intake and monitoring daily weights Community-acquired pneumonia Continue antibiotics with doxycycline Monitor clinically for improvement Oxygen supplementation as needed Atrial fibrillation [place] Follow clinically Continue patient's Coumadin, INR therapeutic at 2.6 Hypertension Continue baseline treatment Follow blood pressures Adjust treatments as needed Diabetes mellitus type 2 Follow blood sugars Insulin sliding scale Diabetic diet Asthma Continue baseline treatments Albuterol nebulizer DVT prophylaxis Heparin Discharge Planning: Discharge pending further clinical improvement. Will need to wean off oxygen or perform walk test prior to discharge.
[2018-02-16] MEDS: Gabapentin 100 MG Capsule PO SCH (21:08)
[2018-02-17 07:43] LABS: Carbon Dioxide 29.7 meq/L (21.0-32.0); Potassium 3.9 meq/L (3.5-5.1)
[2018-02-17] MEDS: Insulin NovoLOG Aspart Correctional Sugar Inj SQ SCH (10:10)
[2018-02-17] MEDS: Gabapentin 300 MG Capsule PO SCH (10:14)
[2018-02-17] MEDS: Budesonide-Formoterol 80/4.5 MCG 6.9 GM Inhaler INH SCH (10:17)
[2018-02-17] MEDS: Insulin Detemir Inj 1,000 UNIT/10 ML Vial SQ SCH (10:17)
[2018-02-17] MEDS: Heparin - SQ 10,000 UNITS/ML Vial SQ SCH (10:18)
--- NOTE | 2018-02-17 11:04 | P.PN ---
Subjective Interval history: Follow-up for CHF exacerbation, pneumonia. Patient reports feeling much better today and wants to go home. He denies any significant shortness of breath. He reports an occasional cough productive of clear sputum today. Denies fevers or chills. He passed his O2 walk test with lowest O2 saturation of 92% on exertion. He continues to decline any further testing for his CHF. He adamantly wants to go home as soon as possible. He has no other medical complaints at this time. Physical Exam Vital signs: Vital Signs 02/16/18 11:50 02/16/18 16:00 02/16/18 18:02 Temperature 97.6 F 98.4 F Pulse Rate 89 87 88 Respiratory Rate 16 14 Blood Pressure 105/64 122/65 Pulse Oximetry 94 L 95 02/16/18 19:45 02/16/18 20:00 02/16/18 23:26 Temperature 97.6 F 97.4 F L Pulse Rate 94 H 84 Respiratory Rate 18 18 Blood Pressure 116/65 107/61 Pulse Oximetry 95 97 96 02/17/18 00:00 02/17/18 04:00 02/17/18 08:00 Temperature 98.3 F 97.6 F Pulse Rate 83 82 87 Respiratory Rate 20 16 Blood Pressure 120/60 135/71 Pulse Oximetry 96 91 L Intake & Output 02/16/18 02/17/18 02/17/18 18:59 06:59 18:59 Intake Total 480 / 480 Output Total 1200 / 1200 Balance -720 / -720 Weight 79.4 kg Intake: Oral 480 / 480 Output: Urine 1200 / 1200 Other: Date of Last Bowel Movement 02/15/18 Weight On Admission 79.379 kg Narrative: GENERAL: Well-nourished, well-developed elderly male patient in [facility]. SKIN: Warm and dry. No rash. HEENT: Normocephalic. Atraumatic. Mucous membranes pink and moist. NECK: Supple. Trachea midline. CARDIOVASCULAR: Regular rate and rhythm. No murmur appreciated. RESPIRATORY: No accessory muscle use. Clear to auscultation today, improved. Breath sounds equal bilaterally. GASTROINTESTINAL: Abdomen soft, non-tender, nondistended. Normoactive bowel sounds x4. MUSCULOSKELETAL: No obvious deformities. Extremities without clubbing, cyanosis , or edema. NEUROLOGICAL: Awake and alert. No obvious cranial nerve deficits. Motor grossly within normal limits. Moving all extremities spontaneously. Normal speech. Results - Labs CBC & Chem 7: 02/16/18 10:38 02/17/18 06:36 Laboratory Results - last 24 hr 02/16/18 02/16/18 02/16/18 10:38 10:38 10:38 WBC 8.4 RBC 4.73 Hgb 14.0 Hct 42.0 MCV 88.8 MCH 29.6 MCHC 33.4 RDW 17.2 Plt Count 173 MPV 8.8 Neut % (Auto) 77.7 H Lymph % (Auto) 11.2 [place] % (Auto) 9.5 H Eos % (Auto) 1.0 Baso % (Auto) 0.6 Neut # (Auto) 6.5 Lymph # (Auto) 0.9 L [place] # (Auto) 0.8 Eos # (Auto) 0.1 Baso # (Auto) 0.1 WBC Differential . Differential Comment Auto diff final PT 26.4 H INR 2.6 Sodium 141 Potassium 3.3 L Chloride 104 Carbon Dioxide 27.3 Anion Gap 10 BUN 20 H Creatinine 1.14 Estimated GFR 63 L POC Glucose Random Glucose 97 D Calcium 8.7 Total Bilirubin 1.2 H AST 23 ALT 27 Alkaline Phosphatase 86 Total Creatine Kinase Troponin I Total Protein 7.2 Albumin 3.1 L 02/16/18 02/16/18 02/16/18 10:38 16:45 21:06 WBC RBC Hgb Hct MCV MCH MCHC RDW Plt Count MPV Neut % (Auto) Lymph % (Auto) [place] % (Auto) Eos % (Auto) Baso % (Auto) Neut # (Auto) Lymph # (Auto) [place] # (Auto) Eos # (Auto) Baso # (Auto) WBC Differential Differential Comment PT INR Sodium Potassium Chloride Carbon Dioxide Anion Gap BUN Creatinine Estimated GFR POC Glucose 95 170 H Random Glucose Calcium Total Bilirubin AST ALT Alkaline Phosphatase Total Creatine Kinase 90 Troponin I 0.06 H Total Protein Albumin 02/17/18 02/17/18 06:36 07:48 WBC RBC Hgb Hct MCV MCH MCHC RDW Plt Count MPV Neut % (Auto) Lymph % (Auto) [place] % (Auto) Eos % (Auto) Baso % (Auto) Neut # (Auto) Lymph # (Auto) [place] # (Auto) Eos # (Auto) Baso # (Auto) WBC Differential Differential Comment PT INR Sodium 141 Potassium 3.9 Chloride 102 Carbon Dioxide 29.7 Anion Gap 9 BUN 27 H Creatinine 1.19 Estimated GFR 60 L POC Glucose 85 Random Glucose 85 Calcium 9.0 Total Bilirubin AST ALT Alkaline Phosphatase Total Creatine Kinase Troponin I Total Protein Albumin - Imaging Chest X-Ray 02/15/18 14:43 CONCLUSION: Right base infiltrate and effusion Assessment and Plan - Assessment (1) Community acquired pneumonia Code(s): J18.9 - Pneumonia, unspecified organism Status: Acute (2) Acute exacerbation of CHF (congestive heart failure) Code(s): I50.9 - Heart failure, unspecified Status: Acute - Plan 72-year-old male with history of afib, asthma, CHF, DM, HTN, CAD, presents with increasing shortness of breath and cough, found to have CHF exacerbation and pneumonia Acute Systolic CHF exacerbation EMR reviewed, echo 09/17/17 showed EF 40-45% with mod-severe MS, moderate , mild-mod AR Upon review of EMR, the patient previously declined further work up with cath and consideration for valve surgery, and he is still declining any further testing/intervention, requests medical management only Continue IV diuresis with Lasix 40mg bid Monitor renal function and Is&Os Oxygen as needed Continue BB, unable to add ESEQUIEL due to CKD and borderline low BP Follow clinically for improvement Monitor on telemetry Provided CHF education including limiting sodium/fluid intake and monitoring daily weights, patient verbalized understanding Symptoms much improved, stable for discharge, continued p.o. Lasix at discharge. Community-acquired pneumonia Continue antibiotics with doxycycline Monitor clinically for improvement Oxygen supplementation as needed Atrial fibrillation [place] Follow clinically Continue patient's Coumadin, INR therapeutic at 2.6 Hypertension Continue baseline treatment Follow blood pressures Adjust treatments as needed Diabetes mellitus type 2 Follow blood sugars Insulin sliding scale Diabetic diet Asthma Continue baseline treatments Albuterol nebulizer DVT prophylaxis Heparin Discharge Planning: Discharge patient to home Condition on discharge: Stable Cardiac diet as tolerated Ad Maia activity Rx written: Lasix 40 mg twice daily, doxycycline 100 mg twice daily, KCl 20 mEq twice daily Follow-up with primary care physician at the [facility] within 1 week
== END 2018-02-17 13:15 | disposition home or self-care (01) ==
LOC: NEPE 14:32 → NEDA 14:32 → NEDH 21:40 → NEPHCDU 02-16 09:47
PROVIDERS: ADMIT Internal Medicine; ATTEND Internal Medicine
DX: Z79.01 Long term (current) use of anticoagulants; I50.23 Acute on chronic systolic (congestive) heart failure; J18.9 Pneumonia, unspecified organism; Z88.6 Allergy status to analgesic agent; Z79.4 Long term (current) use of insulin; Z79.51 Long term (current) use of inhaled steroids; Z88.2 Allergy status to sulfonamides; Z88.5 Allergy status to narcotic agent; Z82.49 Family history of ischemic heart disease and other diseases of the circulatory system; I11.0 Hypertensive heart disease with heart failure; I25.10 Atherosclerotic heart disease of native coronary artery without angina pectoris; I25.2 Old myocardial infarction; E11.9 Type 2 diabetes mellitus without complications; I48.91 Unspecified atrial fibrillation; J45.909 Unspecified asthma, uncomplicated; Z88.0 Allergy status to penicillin; F17.210 Nicotine dependence, cigarettes, uncomplicated

== ENCOUNTER 2018-05-19 03:57 | Inpatient (IN) ==
--- NOTE | 2018-05-19 04:20 | ED ---
HPI General Chief Complaint: Respiratory Symptoms Stated Complaint: EVAC/Short of Breath Time Seen by Provider: 05/19/18 04:06 History of Present Illness HPI Narrative: pt is bed bound COPD VET recently admitted to [facility] for 3 days and dsicahrge 4 days ago after being treated for PNA , Pt has home Neb but not making his symptoms better. Pt conitnues to use accessory muscles and has difficulty breathing increased resp rate and cough up phlegm. Related Data Home Medications Medication Instructions Recorded Confirmed albuterol sulfate 2 puff INHALATION Q6H PRN 02/15/18 02/15/18 atorvastatin [Lipitor] 120 mg PO HS 02/15/18 02/15/18 budesonide-formoterol [Symbicort] 2 puff INHALATION BID 02/15/18 02/15/18 gabapentin 200 mg PO HS 02/15/18 02/15/18 gabapentin 600 mg PO BID 02/15/18 02/15/18 guaifenesin 400 mg PO Q8HR PRN 02/15/18 02/15/18 insulin glargine [Lantus U-100 40 unit SUB-Q BID 02/15/18 02/15/18 Insulin] liraglutide [Victoza 2-Chandana] 1.8 mg SUB-Q DAILY 02/15/18 02/15/18 metformin 500 mg PO BID 02/15/18 02/15/18 metoprolol succinate 12.5 mg PO DAILY 02/15/18 02/15/18 warfarin 2.5 mg PO DIRECTED 02/15/18 02/15/18 warfarin 5 mg PO DIRECTED 02/15/18 02/15/18 zolpidem [Ambien] 2.5 mg PO HS PRN 02/15/18 02/15/18 [id number] oil [Fish 1,200 mg PO DAILY 05/19/18 Oil] Previous Rx's Medication Instructions Recorded furosemide [Lasix] 40 mg PO BID@0900,1800 #120 tab 02/17/18 potassium chloride 20 meq PO BID #60 tab 02/17/18 Allergies Allergy/AdvReac Type Severity Reaction Status Date / Time aspirin Allergy Severe ON COUMADIN Verified 05/19/18 04:07 bee venom protein (honey bee) Allergy Severe Agitation Verified 05/19/18 04:07 codeine Allergy Severe Seizures Verified 05/19/18 04:07 penicillin G Allergy Severe ANAPHYLAXSI Verified 05/19/18 04:07 S Sulfa (Sulfonamide Allergy Severe shakes/inch Verified 05/19/18 04:07 Antibiotics) oherent Review of Systems ROS: all other systems reviewed are negative [facility] Family History Family History Other Coronary artery disease Social History Social History Substance History: No History of Abuse Second Hand Smoke Exposure: No Smoking Status: Current every day smoker Tobacco Type: Cigarettes How Often Do You Have a Drink Containing Alcohol: Never Recent Travel in [facility] within the Last 8 Weeks: No Recent Out of Country Travel within the Last 8 Weeks: No Exam Narrative Exam Narrative: GENERAL: pt is arriving stretch EVAC on neb treatment 97 % sat on neb 100% O2 mild resp distress SKIN: Warm and dry. HEAD: Atraumatic. Normocephalic. EYES: Pupils equal and round. No scleral icterus. No injection or drainage. ENT: No nasal bleeding or discharge. Mucous membranes pink and moist. NECK: Trachea midline. No JVD. CARDIOVASCULAR: Regular rate and rhythm. RESPIRATORY: using abdominal muscles to breath increased RR and wheeze auscultated in all [place] bilaterally. GASTROINTESTINAL: Abdomen soft, non-tender, nondistended. Hepatic and splenic margins not palpable. MUSCULOSKELETAL: Extremities legs edema and large of bound bound appearnce to leg bilateral wasting muscle widened by gravity . chronic appearance bilateral s. NEUROLOGICAL: Awake and alert. No obvious cranial nerve deficits. Motor grossly within normal limits. Five out of 5 muscle strength in the arms and legs. Normal speech. PSYCHIATRIC: Appropriate mood and affect; insight and judgment normal. Course Initial Documented Vital Signs Pulse Oximetry 99 05/19/18 04:05 Last Documented Vital Signs Pulse Oximetry 99 05/19/18 04:05 Discharge Plan Physicians Team ED Provider: Yuri Ocasio Rxs /Orders / Referrals /Forms Prescriptions: No Action metoprolol succinate 25 mg Tablet Extended Release 24 Hr 12.5 mg PO DAILY RF: 0 metformin 500 mg Tablet 500 mg PO BID RF: 0 atorvastatin [Lipitor] 80 mg Tablet 120 mg PO HS RF: 0 gabapentin 600 mg Tablet 600 mg PO BID RF: 0 insulin glargine [Lantus U-100 Insulin] 100 unit/mL Solution 40 unit SUB-Q BID RF: 0 warfarin 5 mg Tablet 5 mg PO DIRECTED RF: 0 warfarin 5 mg Tablet 2.5 mg PO DIRECTED RF: 0 zolpidem [Ambien] 5 mg Tablet 2.5 mg PO HS PRN (Reason: Sleep) RF: 0 gabapentin 100 mg Capsule 200 mg PO HS RF: 0 albuterol sulfate 90 mcg/actuation Hfa Aerosol Inhaler 2 puff INHALATION Q6H PRN (Reason: Shortness Of Breath) RF: 0 guaifenesin 400 mg Tablet 400 mg PO Q8HR PRN (Reason: Thin Mucous) RF: 0 budesonide-formoterol [Symbicort] 80-4.5 mcg/actuation Hfa Aerosol Inhaler 2 puff INHALATION BID RF: 0 liraglutide [Victoza 2-Chandana] 0.6 mg/0.1 mL (18 mg/3 mL) Pen Injector 1.8 mg SUB-Q DAILY RF: 0 potassium chloride 20 mEq Tablet,Er Particles/Crystals 20 meq PO BID Qty: 60 RF: 0 furosemide [Lasix] 20 mg Tablet 40 mg PO BID@0900,1800 Qty: 120 RF: 0 [id number] oil [Fish Oil] 120 mg-180 mg- 60 mg-1,200 mg Capsule, Delayed Release(Dr/Ec) 1,200 mg PO DAILY RF: 0 Status ED Status: With Doctor
--- NOTE | 2018-05-19 04:29 | XR ---
EXAM DATE: 05/19/2018 4:25 AM EST AGE/SEX: 72 years / Male INDICATIONS: Shortness of breath CLINICAL DATA: This is the patient's initial encounter. Patient reports that signs and symptoms have been present for 1 day and indicates a pain score of 0/10. MEDICAL/SURGICAL HISTORY: . Hypertension. Chronic obstructive pulmonary disease. Congestive hea rt failure. Cerebrovascular disease. None. COMPARISON: [facility], CHEST 1V SINGLE AP, 05/05/2018. . FINDINGS: A single AP view of the chest demonstrates the lungs to be symmetrically aerated without evidence of mass, infiltrate or effusion. The cardiomediastinal contours are unremarkable. Osseous structures a re intact. CONCLUSION: No acute findings. Electronically signed by: Tenzin Alfred MD 05/19/2018 4:27 AM EST
[2018-05-19] MEDS ORDERED: Metoprolol Inj 5 MG/5 ML Vial IV.PUSH ONE (04:43)
[2018-05-19 04:45] LABS: Chloride 95 meq/L (98-107); Potassium 5.1 meq/L (3.5-5.1); Sodium 130 meq/L (136-145)
[2018-05-19 04:48] LABS: Albumin 3.2 g/dL (3.4-5.0); Anion Gap 11 meq/L (5-15); Calcium 8.5 mg/dL (8.5-10.1); Carbon Dioxide 24.4 meq/L (21.0-32.0); Glucose,Random 227 mg/dL (74-106)
[2018-05-19 04:49] LABS: Blood Urea Nitrogen 45 mg/dL (7-18)
[2018-05-19 04:51] LABS: Alanine Aminotransferase 82 U/L (12-78); Baso % (Auto) 0.3 % (0.0-2.0); Eos % (Auto) 0.2 % (0.0-4.0); Hematocrit 47.6 % (39.0-51.0); Hemoglobin 15.2 gm/dL (13.0-17.0); Lymph # (Auto) 1.2 th/mm3 (1.0-4.8); Lymph % (Auto) 15.8 % (9.0-44.0); Mean Corpuscular HGB Conc 31.9 % (32.0-36.0); Mean Corpuscular Hemoglobin 28.3 pg (27.0-34.0); Mean Corpuscular Volume 88.9 fL (80.0-100.0); Mean Platelet Volume 10.1 fL (7.0-11.0); Mono # (Auto) 0.8 th/mm3 (0.0-0.9); Mono % (Auto) 9.8 % (0.0-8.0); Neut # (Auto) 5.8 th/mm3 (1.8-7.7); Neut % (Auto) 73.9 % (16.0-70.0); Platelet Count 167 th/mm3 (150-450); Red Blood Count 5.35 mil/mm3 (4.50-5.90); Red Cell Distribution Width 18.8 % (11.6-17.2); White Blood Count 7.8 th/mm3 (4.0-11.0)
[2018-05-19 04:52] LABS: Aspartate Aminotransferase 139 U/L (15-37); Glomerular Filtration Rate 37 mL/min (>89)
[2018-05-19 04:53] LABS: Total Protein 7.6 g/dL (6.4-8.2)
[2018-05-19 04:54] LABS: Alkaline Phosphatase 97 U/L (45-117)
[2018-05-19 04:57] LABS: Troponin I 0.03 ng/mL (0.02-0.05)
[2018-05-19] MEDS ORDERED: Dextrose 50% in Water 50 ML Vial IV.PUSH PRN (05:34)
[2018-05-19] MEDS ORDERED: Bisacodyl 10 MG Supp RECTAL PRN (05:34)
[2018-05-19] MEDS ORDERED: Warfarin Consult Pharmacy OTHER PRN (05:37)
[2018-05-19 05:56] LABS: ABG Base Excess 0.3 mmol/L (-2-2); ABG PCO2 35 mmHg (38-42); ABG PO2 149 mmHg (61-120)
[2018-05-19 07:01] LABS: INR 5.5 Ratio; Prothrombin Time 54.9 sec (9.8-11.6)
[2018-05-19] MEDS: Furosemide 20 MG Tablet PO SCH ×2 (08:33→18:51)
[2018-05-19] MEDS: Insulin NovoLOG Aspart Correctional Sugar Inj SQ SCH ×4 (08:34→21:50)
[2018-05-19] MEDS: Senna/Docusate Sodium 8.6/50 MG Tablet PO SCH ×2 (08:34→20:41)
[2018-05-19] MEDS: Gabapentin 300 MG Capsule PO SCH ×2 (08:36→20:40)
--- NOTE | 2018-05-19 09:55 | P.HP ---
History of Present Illness Primary Care Physician: [facility] History of Present Illness: 72-year-old white male being admitted for SOB. Patient is a poor historian with significant memory gaps in his history of present illness. Patient reports experiencing worsening shortness of breath starting about 4 days ago. Claims he was just discharged from some hospital about 1 week ago but does not know the name, no records of such in [facility] system and RN verified he hasn't been to [facility] either. He says he ended up feeling one prescription at [facility] which was an antibiotic which was with "ligament" damage. The other prescriptions he said he was given he is not sure what exactly what he did with them. He says he tried to get them filled at the [place] but he is unable to tell me if he actually ended up going to the pharmacy and submitting the prescriptions at all or picking up the medications at all, but what he does affirm is that he was not taking any of those other medicines coming out of the hospital. Reports having thick productive sputum and cough induced chest pain but no other chest pain otherwise. When asked if he was having nausea vomiting or diarrhea, he reports having black stools as well that self resolved and says that this happened earlier in the week. Patient does not know his medications well. He says he takes 2 inhalers for his COPD and wears 2 L of oxygen. 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 Denies any suicidal or homicidal ideation. In the emergency department he had chest x-ray done which I reviewed which is clear from any acute findings. He also had a BMP done which showed elevated creatinine at 1.8 with his baseline seems to be under 1.2. Was noted to be in A. fib with RVR, given IV Lopressor. Inpatient Certification: I certify that the inpatient services were ordered in accordance with Medicare regulations governing the order. This includes certification that hospital inpatient services are reasonable and necessary and in the case of services not specified as inpatient-only under 42 CFR 419.22(n), that they are appropriately provided as inpatient services in accordance to with the 2-midnight benchmark under 43 CFR 412.3(e) Estimated Total Length of Stay (Days): 2 Plans for Post Hospital Care: Not yet determined PMFSH - History History Provided By: Patient - Medical History Medical History: Medical History (Last Reviewed 05/19/18 @ 10:00 by Yves Hammonds MD) Afib Asthma CHF (congestive heart failure) Diabetes HTN (hypertension) Heart attack - Surgical History Surgical History: Surgical History (Last Reviewed 05/19/18 @ 10:00 by Yves Hammonds MD) History of facial surgery Previous back surgery - Family History Family History: Family History (Last Reviewed 05/19/18 @ 10:01 by Yves Hammonds MD) Other Coronary artery disease - Social History I have reviewed the patient's Social History: Yes - Tobacco History Second Hand Smoke Exposure: Yes Tobacco Use In Past 30 Days: Yes Smoking Status: Current some day smoker Tobacco Type: Cigarettes - Alcohol History How Often Do You Have a Drink Containing Alcohol: Never - Substance Use History Substance History: No History of Abuse - Travel History Recent Travel in the [place] Within the Last 8 Weeks: No Recent Travel Out of the Country Within the Last 8 Weeks: No - Immunization History Tetanus Immunization: Unsure Medications and Allergies Active Medications: Active Medications Acetaminophen (Tylenol) 650 mg PO Q4H PRN PRN Reason: Temp > 100.4 Al Hydroxide/Mg Hydroxide (Milk Of Magnesia Liq) 30 ml PO Q12H PRN PRN Reason: Mild Constipation Atorvastatin Calcium (Lipitor) 120 mg PO HS SALAS Bisacodyl (Dulcolax Supp) 10 mg RECTAL DAILY PRN PRN Reason: SEVERE CONSITIPATION Budesonide/Formoterol Fumarate (Symbicort 80/4.5 Mcg Inh) 2 puff INH BID [facility]AS Dextrose (D50w Vial) 50 ml IV.PUSH UNSCH PRN PRN Reason: PER HYPOGLYCEMIA PROTOCOL Furosemide (Lasix) 40 mg PO BID@0900,1800 SALAS Last Admin: 05/19/18 08:33 Dose: 40 mg Gabapentin (Neurontin) 600 mg PO BID [facility] Last Admin: 05/19/18 08:36 Dose: 600 mg Glucagon (Glucagon Inj) 1 mg OTHER PRN PRN PRN Reason: for Hypoglycemia Protocol Insulin Aspart (Novolog Insulin Correctional Sugar Inj) 0 unit SQ ACHS AND 3AM SALAS; Protocol Last Admin: 05/19/18 08:34 Dose: 3 unit Lactulose (Lactulose Liq) 30 ml PO DAILY PRN PRN Reason: SEVERE CONSITIPATION Metoprolol Succinate (Toprol Xl) 12.5 mg PO DAILY [facility] Last Admin: 05/19/18 08:33 Dose: 12.5 mg Ondansetron HCl (Zofran Inj) 4 mg IV.PUSH Q6H PRN PRN Reason: NAUSEA OR VOMITING Pharmacy Profile Note (Coumadin Consult Pharmacy) 1 each OTHER UNSCH PRN PRN Reason: PHARMACY DOCUMENTATION Potassium Chloride (K-Dur) 20 meq PO BID [facility] Last Admin: 05/19/18 08:32 Dose: 20 meq Senna/Docusate Sodium (Graciela-Colace) 1 tab PO BID [facility] Last Admin: 05/19/18 08:34 Dose: Not Given Sennosides (Senokot) 17.2 mg PO Q12H PRN PRN Reason: Moderate Constipation Allergies Allergy/AdvReac Type Severity Reaction Status Date / Time aspirin Allergy Severe ON COUMADIN Verified 05/19/18 04:07 bee venom protein (honey bee) Allergy Severe Agitation Verified 05/19/18 04:07 codeine Allergy Severe Seizures Verified 05/19/18 04:07 penicillin G Allergy Severe ANAPHYLAXSI Verified 05/19/18 04:07 S Sulfa (Sulfonamide Allergy Severe shakes/inch Verified 05/19/18 04:07 Antibiotics) oherent Home Medications Medication Instructions Recorded Confirmed Type albuterol sulfate 2 puff INHALATION Q6H PRN 02/15/18 05/19/18 History atorvastatin [Lipitor] 120 mg PO HS 02/15/18 05/19/18 History budesonide-formoterol [Symbicort] 2 puff INHALATION BID 02/15/18 05/19/18 History gabapentin 600 mg PO BID 02/15/18 05/19/18 History insulin glargine [Lantus U-100 40 unit SUB-Q BID 02/15/18 05/19/18 History Insulin] metformin 500 mg PO BID 02/15/18 05/19/18 History metoprolol succinate 12.5 mg PO DAILY 02/15/18 05/19/18 History warfarin 2.5 mg PO DIRECTED 02/15/18 05/19/18 History warfarin 5 mg PO DIRECTED 02/15/18 05/19/18 History ruomy-[id number]-[id number]-epa-fish oil [Fish 1,200 mg PO DAILY 05/19/18 05/19/18 History Oil] Exam Vital signs: Vital Signs 05/19/18 04:00 05/19/18 04:05 05/19/18 04:10 Temperature 98.7 F Pulse Rate 120 H Respiratory Rate 24 Blood Pressure 111/73 Pulse Oximetry 99 99 99 05/19/18 05:00 05/19/18 06:11 05/19/18 07:30 Temperature Pulse Rate 104 H 122 H 73 Respiratory Rate 22 22 22 Blood Pressure 110/90 92/64 L 119/77 Pulse Oximetry 99 94 L 05/19/18 08:00 Temperature 97.5 F L Pulse Rate 106 H Respiratory Rate 26 H Blood Pressure 113/68 Pulse Oximetry 96 Intake & Output 05/18/18 05/19/18 05/19/18 18:59 06:59 18:59 Intake Total 240 / 240 Balance 240 / 240 Weight 75 kg Intake: Oral 240 / 240 Narrative: VS: afebrile GENERAL: Well-nourished elderly white male, sitting up in bed, nervous SKIN: Warm and dry. EYES: No scleral icterus. No injection or drainage. ENT: No nasal bleeding or discharge. Normocephalic atraumatic CARDIOVASCULAR: Tachycardic rate, regular rhythm, no murmurs RESPIRATORY: No accessory muscle use. Coarse breath sounds with very faint wheezing heard in the bases GASTROINTESTINAL: Abdomen soft, non-tender, nondistended. Extremities: No clubbing, cyanosis. Mod lower extremity bilateral edema MUSCULOSKELETAL: adequate muscle bulk and tone for age and habitus NEUROLOGICAL: Awake and alert. No obvious cranial nerve deficits. No facial droop nor slurred speech noted. PSYCHIATRIC: Appropriate mood and affect; insight and judgment normal. Results - Labs CBC & Chem 7: 05/20/18 05:33 05/21/18 06:31 Labs: Laboratory Results - last 24 hr 05/19/18 05/19/18 05/19/18 04:10 04:10 04:10 CBC w Diff Auto diff final WBC 7.8 RBC 5.35 Hgb 15.2 Hct 47.6 MCV 88.9 MCH 28.3 MCHC 31.9 L RDW 18.8 H Plt Count 167 MPV 10.1 Neut % (Auto) 73.9 H Lymph % (Auto) 15.8 [place] % (Auto) 9.8 H Eos % (Auto) 0.2 Baso % (Auto) 0.3 Neut # (Auto) 5.8 Lymph # (Auto) 1.2 [place] # (Auto) 0.8 Eos # (Auto) 0.0 Baso # (Auto) 0.0 WBC Differential . Differential Comment . PT INR Puncture Site Patient Temperature O2 Saturation ABG pH ABG pCO2 ABG pO2 ABG HCO3 ABG O2 Content ABG Base Excess ABG Methemoglobin Jamie Test Hemoglobin Carboxyhemoglobin O2 Delivery Device Vent Setting Inspired O2 Critical Value Sodium 130 L Potassium 5.1 Chloride 95 L Carbon Dioxide 24.4 Anion Gap 11 BUN 45 H Creatinine 1.80 H Estimated GFR 37 L POC Glucose Random Glucose 227 H Calcium 8.5 Total Bilirubin 2.0 H AST 139 H ALT 82 H Alkaline Phosphatase 97 Troponin I 0.03 B-Natriuretic Peptide 767 H Total Protein 7.6 Albumin 3.2 L 05/19/18 05/19/18 05/19/18 04:10 05:45 07:39 CBC w Diff WBC RBC Hgb Hct MCV MCH MCHC RDW Plt Count MPV Neut % (Auto) Lymph % (Auto) [place] % (Auto) Eos % (Auto) Baso % (Auto) Neut # (Auto) Lymph # (Auto) [place] # (Auto) Eos # (Auto) Baso # (Auto) WBC Differential Differential Comment PT 54.9 H INR 5.5 Puncture Site Right radial Patient Temperature 98.6 O2 Saturation 97 ABG pH 7.45 H ABG pCO2 35 L ABG pO2 149 H ABG HCO3 24 ABG O2 Content 21.3 H ABG Base Excess 0.3 ABG Methemoglobin 0.9 Jamie Test Present Hemoglobin 15.5 Carboxyhemoglobin 2.0 O2 Delivery Device Bipap Vent Setting Ipap 10/epap 5 Inspired O2 40 Critical Value No Sodium Potassium Chloride Carbon Dioxide Anion Gap BUN Creatinine Estimated GFR POC Glucose 233 H Random Glucose Calcium Total Bilirubin AST ALT Alkaline Phosphatase Troponin I B-Natriuretic Peptide Total Protein Albumin - Imaging Impressions Chest X-Ray 05/19/18 04:12 CONCLUSION: No acute findings. Caprini VTE Risk Assessment Caprini VTE Risk Assessment: Moderate/High Risk (score >= 2) Caprini Risk Assessment Model: Point Value = 1 Point Value = 2 Point Value = 3 Point Value = 5 Age 41-60 Minor surgery BMI > 25 kg/m2 Swollen legs Varicose veins or History of unexplained or recurrent spontaneous Oral contraceptives or hormone replacement Sepsis (< 1 month) Serious lung disease, including pneumonia (< 1 month) Abnormal pulmonary function Acute myocardial infarction Congestive heart failure (< 1 month) History of inflammatory bowel disease Medical patient at bed rest Age 61-74 Arthroscopic surgery Major open surgery (> 45 min) Laparoscopic surgery (> 45 min) Malignancy Confined to bed (> 72 hours) Immobilizing plaster cast Central venous access Age >= 75 History of VTE Family history of VTE Factor V Leiden Prothrombin [id number] Lupus anticoagulant Anticardiolipin antibodies Elevated serum homocysteine Heparin-induced thrombocytopenia Other congenital or acquired thrombophilia Stroke (< 1 month) Elective arthroplasty Hip, pelvis, or leg fracture Acute spinal cord injury (< 1 month) Prophylaxis Regimen: Total Risk Factor Score Risk Level Prophylaxis Regimen 0-1 Low Early ambulation 2 Moderate Order ONE of the following: *Sequential Compression Device (SCD) *Heparin 5000 units SQ BID 3-4 Higher Order ONE of the following medications: *Heparin 5000 units SQ TID *Enoxaparin/Lovenox 40 mg SQ daily (WT < 150 kg, CrCl > 30 mL/min) *Enoxaparin/Lovenox 30 mg SQ daily (WT < 150 kg, CrCl > 10-29 mL/min) *Enoxaparin/Lovenox 30 mg SQ BID (WT < 150 kg, CrCl > 30 mL/min) AND/OR *Sequential Compression Device (SCD) 5 or more Highest Order ONE of the following medications: *Heparin 5000 units SQ TID (Preferred with Epidurals) *Enoxaparin/Lovenox 40 mg SQ daily (WT < 150 kg, CrCl > 30 mL/min) *Enoxaparin/Lovenox 30 mg SQ daily (WT < 150 kg, CrCl > 10-29 mL/min) *Enoxaparin/Lovenox 30 mg SQ BID (WT < 150 kg, CrCl > 30 mL/min) AND *Sequential Compression Device (SCD) Assessment and Plan - Plan 72-year-old white male admitted with shortness of breath Shortness of breath Multifactorial, possibly COPD exacerbation and acute systolic CHF exacerbation , see treatments below Possible COPD exacerbation Started on IV steroids, bronchodilators, continue home oxygen supplementation -sputum collection Possible acute on chronic systolic CHF exacerbation A. fib with mild RVR Mild BNP elevation around the 700s which would could be secondary to his chronic hypoxia, monitor intake and output for now, hold off on diuresis given impaired renal function and hyponatremia -home Toprol xl Continue home Toprol XL and Coumadin, pharmacy to adjust Coumadin given elevated INR -telemetry Acute kidney injury Hyponatremia Possibly secondary to diuresis Infuse albumin - will consult nephrology to assist w/ volume status and electrolyte abnormalities Subjective history of melena -could have been possibly secondary to stress induced gastric ulcers versus Coumadin induced bloody bowel movement; will start protonix, obtain stool hemoccult -h/h stable at this time, trend in AM CAD Continue home Lipitor Elevated LFTs -? 2/2 hepatic congestion, trend in am DM - SS w/ accu-checks Coumadin Discharge Planning: Patient is a very poor historian. His medical plan of care has been largely been formulated based upon his past medical records here under [place] as well as what ever limited quality information he could provide us himself. We are requesting outside medical records. Addendum: [facility] has verified that the patient has not been there in years. Patient's brother states that of the patient's friends named Hetal a few days ago to [facility], but EMR does not indicate such. Medical records is not reachable at this time to verify any possible on un- entered documents.
[2018-05-19] MEDS: Pantoprazole Inj 40 MG Vial IV.PUSH SCH ×2 (12:17→23:19)
[2018-05-19] MEDS: Albumin Human 25% Inj 50 ML IV.SIG SCH ×2 (12:17→23:20)
[2018-05-19] MEDS: Budesonide-Formoterol 80/4.5 MCG 6.9 GM Inhaler INH SCH ×2 (12:18→20:41)
[2018-05-19] MEDS: MethylPREDNISolone Sod Succinate Inj 125 MG/2 ML Vial IV.PUSH SCH ×2 (12:20→23:11)
--- NOTE | 2018-05-19 15:58 | ECHRPT ---
Indication: Heart Failure CONCLUSIONS Normal left ventricular size. Wall thickness is normal. The left ventricular systolic function is moderately reduced with an estimated ejection fraction in the range of 40-45%. The right ventricle is mildly dilated. The right atrial size is mildly dilated. Calcification of both mitral valve leaflets. Moderate mitral valve regurgitation. Mitral annular calcification is present. Severe mitral valve stenosis. Mitral valve mean gradient is 16 mmHg. Diffuse calcification of the aortic valve. Moderate aortic valve regurgitation. Moderate to severe aortic valve stenosis. There is mild tricuspid valve regurgitation. The inferior vena cava is dilated. BP: 105 / 71 HR: 100 Rhythm: MEASUREMENTS (Male / Female) Normal Values Technical Quality:Technically difficult study 2D ECHO LV Diastolic Diameter PLAX 4.0 cm 4.2 - 5.9 / 3.9 - 5.3 cm LV Systolic Diameter PLAX 3.1 cm IVS Diastolic Thickness 0.9 cm 0.6 - 1.0 / 0.6 - 0.9 cm LVPW Diastolic Thickness 0.9 cm 0.6 - 1.0 / 0.6 - 0.9 cm LV Relative Wall Thickness 0.4 RV Internal Dim ED PLAX 3.9 cm LVOT Diameter 1.7 cm Aortic Root Diameter 3.3 cm LA Systolic Diameter LX 3.7 cm 3.0 - 4.0 / 2.7 - 3.8 cm DOPPLER AV Peak Velocity 268.0 cm/s AV Peak Gradient 28.7 mmHg AV Mean Gradient 15.0 mmHg AV Velocity Time Integral 47.6 cm AI Peak Velocity 318.0 cm/s AI Peak Gradient 40.4 mmHg AI Pressure Half Time 339.0 ms LVOT Peak Velocity 61.0 cm/s LVOT Peak Gradient 1.5 mmHg LVOT Velocity Time Integral 11.5 cm LVOT Cardiac Index 1370.6 cm/minm AV Area Cont Eq vti 0.5 cm AV Area Cont Eq pk 0.5 cm MV Peak Velocity 256.0 cm/s MV Peak Gradient 26.2 mmHg MV Mean Velocity 193.0 cm/s MV Mean Gradient 16.0 mmHg MV Area PHT 1.0 cm Mitral E Point Velocity 243.0 cm/s LV E' Lateral Velocity 3.3 cm/s Mitral E to LV E' Lateral Ratio 74.4 LV E' Septal Velocity 5.4 cm/s Mitral E to LV E' Septal Ratio 45.3 TR Peak Velocity 356.0 cm/s TR Peak Gradient 50.7 mmHg Right Atrial Pressure 10.0 mmHg Pulmonary Artery Systolic Pressu 60.7 mmHg Right Ventricular Systolic Press 60.7 mmHg PV Peak Velocity 78.7 cm/s PV Peak Gradient 2.5 mmHg FINDINGS LEFT VENTRICLE Normal left ventricular size. Wall thickness is normal. The left ventricular systolic function is moderately reduced with an estimated ejection fraction in the range of 40-45%. RIGHT VENTRICLE The right ventricle is mildly dilated. LEFT ATRIUM The left atrial size is normal. RIGHT ATRIUM The right atrial size is mildly dilated. ATRIAL SEPTUM Normal atrial septal thickness without atrial level shunting by limited color doppler interrogation. AORTA The aortic root and proximal ascending aorta are normal in size on limited imaging. MITRAL VALVE Calcification of both mitral valve leaflets. Moderate mitral valve regurgitation. Mitral annular calcification is present. Severe mitral valve stenosis. Mitral valve mean gradient is 16 mmHg. AORTIC VALVE Diffuse calcification of the aortic valve. Moderate aortic valve regurgitation. Moderate to severe aortic valve stenosis. TRICUSPID VALVE There is mild tricuspid valve regurgitation. PULMONARY VALVE No pulmonary valve regurgitation or stenosis. VESSELS The inferior vena cava is dilated. PERICARDIUM No pericardial effusion. Johnny Rae MD, FACC, [facility] [place] (Electronically Signed) Final Date:19 May 2018 15:58
--- NOTE | 2018-05-19 17:32 | P.CONNP ---
History of Present Illness Service: Nephrology Consult date: 05/19/18 Requesting Physician: Yves Hammonds Reason for Consult: ARF Primary Care Provider: [facility] Chief Complaint: COPD shortness of breath History of Present Illness: Patient is a 72-year-old white male with history of acute renal failure creatinine 1.8, he has atrial fibrillation, he has COPD exacerbation shortness of breath and admitted to this hospital, patient stated he has been diabetic for more than 15 years, has atrial fibrillation denies any kidney problems, he is a smoker said he quit 2 weeks ago he was smoking less than a pack per day, patient states he has been admitted to the [facility] 1 week ago however there are no records at [place] and he was given antibiotics recently, his creatinine is 1.2- 1.5 in the past. Review of Systems Constitutional: Reports fatigue Eyes: Denies blind spots, Denies blurry vision, Denies bulging eyes, Denies change in vision, Denies double vision, Denies discharge, Denies dry eyes, Denies floaters, Denies irritation, Denies itchy eyes, Denies loss of vision, Denies pain, Denies requires corrective lenses, Denies sensitivity to light, Denies other Ears, Nose, Mouth, and Throat: Denies abnormal hearing, Denies bleeding gums, Denies bad breath, Denies change in voice, Denies dental pain, Denies difficulty swallowing, Denies dizziness, Denies dry mouth, Denies ear discharge , Denies ear pain, Denies facial pain, Denies headache(s), Denies hearing loss, Denies hoarseness, Denies lip swelling, Denies nosebleed, Denies mouth lesions, Denies mouth pain, Denies nasal congestion, Denies nasal discharge, Denies nasal obstruction, Denies nasal trauma, Denies neck lump, Denies neck pain, Denies nose pain, Denies pain with swallowing, Denies poor balance, Denies post nasal drip, Denies ringing in the ears, Denies sinus pain, Denies sinus pressure , Denies sore throat, Denies throat swelling, Denies tongue swelling, Denies other Cardiovascular: Reports leg swelling, Reports shortness of breath, Reports shortness of breath with activity, Reports shortness of breath when lying down Respiratory: Reports shortness of breath Gastrointestinal: Denies abdominal pain, Denies belching, Denies black, tarry stools, Denies bloating, Denies bright, red blood in stools, Denies change in bowel habits, Denies constant urge to pass stool, Denies change in stools, Denies coffee ground vomit, Denies constipation, Denies cramping, Denies difficulty swallowing, Denies excessive passing of gas, Denies feeling full early, Denies heartburn, Denies incontinent of stools, Denies loose stools, Denies nausea, Denies pain with swallowing, Denies vomiting, Denies vomiting blood, Denies other Genitourinary: Denies blood in semen, Denies blood in urine, Denies decreased urination, Denies difficulty urinating, Denies difficulty with ejaculations, Denies erectile dysfunction, Denies genital lesions, Denies genital pain, Denies painful urination, Denies side pain, Denies frequent nighttime urination , Denies painful ejaculations, Denies penile discharge, Denies scrotal swelling , Denies testicle lump, Denies testicle pain, Denies urinary frequency, Denies urinary hesitancy, Denies urinary incontinence, Denies urinary urgency, Denies other Musculoskeletal: Reports muscle weakness Skin/Breast: Reports other Neurologic: Reports weakness PMFSH - History History Provided By: Patient - Medical History Medical History: Medical History (Last Reviewed 05/19/18 @ 17:28 by Shelly Pitt MD) Afib Asthma CHF (congestive heart failure) Diabetes HTN (hypertension) Heart attack - Surgical History Surgical History: Surgical History (Last Reviewed 05/19/18 @ 17:28 by Shelly Pitt MD) History of facial surgery Previous back surgery - Family History Family History: Family History (Last Reviewed 05/19/18 @ 17:28 by Shelly Pitt MD) Other Coronary artery disease - Tobacco History Second Hand Smoke Exposure: Yes Tobacco Use In Past 30 Days: Yes Smoking Status: Current some day smoker Tobacco Type: Cigarettes - Alcohol History How Often Do You Have a Drink Containing Alcohol: Never - Substance Use History Substance History: No History of Abuse - Travel History Recent Travel in the [facility] Within the Last 8 Weeks: No Recent Travel Out of the Country Within the Last 8 Weeks: No - Immunization History Tetanus Immunization: Unsure Medications and Allergies Active Medications: Active Medications Acetaminophen (Tylenol) 650 mg PO Q4H PRN PRN Reason: Temp > 100.4 Al Hydroxide/Mg Hydroxide (Milk Of Magnesia Liq) 30 ml PO Q12H PRN PRN Reason: Mild Constipation Albuterol (Albuterol Neb (Prn)) 1.25 mg NEB Q2HR NEB PRN PRN Reason: shortness of breath Albuterol (Duoneb Neb (Arleen)) 1 ampul NEB Q6HR ALT NEB [facility] Last Admin: 05/19/18 13:20 Dose: 1 ampul Atorvastatin Calcium (Lipitor) 120 mg PO HS [facility] Bisacodyl (Dulcolax Supp) 10 mg RECTAL DAILY PRN PRN Reason: SEVERE CONSITIPATION Budesonide/Formoterol Fumarate (Symbicort 80/4.5 Mcg Inh) 2 puff INH BID [facility] Last Admin: 05/19/18 12:18 Dose: 2 puff Dextrose (D50w Vial) 50 ml IV.PUSH UNSCH PRN PRN Reason: PER HYPOGLYCEMIA PROTOCOL Furosemide (Lasix) 40 mg PO BID@0900,1800 [facility] Last Admin: 05/19/18 08:33 Dose: 40 mg Gabapentin (Neurontin) 600 mg PO BID [facility] Last Admin: 05/19/18 08:36 Dose: 600 mg Glucagon (Glucagon Inj) 1 mg OTHER PRN PRN PRN Reason: for Hypoglycemia Protocol Albumin Human (Flexbumin 25% Inj) 50 mls @ 60 mls/hr IV.SIG Q12H [facility] Last Infusion: 05/19/18 13:10 Dose: Infused Insulin Aspart (Novolog Insulin Correctional Sugar Inj) 0 unit SQ ACHS AND 3AM [facility]; Protocol Last Admin: 05/19/18 12:17 Dose: 9 unit Lactulose (Lactulose Liq) 30 ml PO DAILY PRN PRN Reason: SEVERE CONSITIPATION Methylprednisolone Sodium Succinate (Solumedrol Inj) 60 mg IV.PUSH Q12HR [facility] Methylprednisolone Sodium Succinate (Solumedrol Inj) 125 mg IV.PUSH Q12HR [facility] Stop: 05/20/18 00:00 Last Admin: 05/19/18 12:20 Dose: 125 mg Metoprolol Succinate (Toprol Xl) 12.5 mg PO DAILY [facility] Last Admin: 05/19/18 08:33 Dose: 12.5 mg Ondansetron HCl (Zofran Inj) 4 mg IV.PUSH Q6H PRN PRN Reason: NAUSEA OR VOMITING Pantoprazole Sodium (Protonix Inj) 40 mg IV.PUSH Q12H [facility] Last Admin: 05/19/18 12:17 Dose: 40 mg Pharmacy Profile Note (Coumadin Consult Pharmacy) 1 each OTHER UNSCH PRN PRN Reason: PHARMACY DOCUMENTATION Potassium Chloride (K-Dur) 20 meq PO BID [facility] Last Admin: 05/19/18 08:32 Dose: 20 meq Senna/Docusate Sodium (Graciela-Colace) 1 tab PO BID [facility] Last Admin: 05/19/18 08:34 Dose: Not Given Sennosides (Senokot) 17.2 mg PO Q12H PRN PRN Reason: Moderate Constipation Allergies Allergy/AdvReac Type Severity Reaction Status Date / Time aspirin Allergy Severe ON COUMADIN Verified 05/19/18 04:07 bee venom protein (honey bee) Allergy Severe Agitation Verified 05/19/18 04:07 codeine Allergy Severe Seizures Verified 05/19/18 04:07 penicillin G Allergy Severe ANAPHYLAXSI Verified 05/19/18 04:07 S Sulfa (Sulfonamide Allergy Severe shakes/inch Verified 05/19/18 04:07 Antibiotics) oherent Home Medications Medication Instructions Recorded Confirmed Type albuterol sulfate 2 puff INHALATION Q6H PRN 02/15/18 05/19/18 History atorvastatin [Lipitor] 120 mg PO HS 02/15/18 05/19/18 History budesonide-formoterol [Symbicort] 2 puff INHALATION BID 02/15/18 05/19/18 History gabapentin 600 mg PO BID 02/15/18 05/19/18 History insulin glargine [Lantus U-100 40 unit SUB-Q BID 02/15/18 05/19/18 History Insulin] metformin 500 mg PO BID 02/15/18 05/19/18 History metoprolol succinate 12.5 mg PO DAILY 02/15/18 05/19/18 History warfarin 2.5 mg PO DIRECTED 02/15/18 05/19/18 History warfarin 5 mg PO DIRECTED 02/15/18 05/19/18 History [id number] oil [Fish 1,200 mg PO DAILY 05/19/18 05/19/18 History Oil] Exam Vital signs: Vital Signs 05/19/18 04:00 05/19/18 04:05 05/19/18 04:10 Temperature 98.7 F Pulse Rate 120 H Respiratory Rate 24 Blood Pressure 111/73 Pulse Oximetry 99 99 99 05/19/18 05:00 05/19/18 06:11 05/19/18 07:30 Temperature Pulse Rate 104 H 122 H 73 Respiratory Rate 22 22 22 Blood Pressure 110/90 92/64 L 119/77 Pulse Oximetry 99 94 L 05/19/18 08:00 05/19/18 12:00 05/19/18 13:22 Temperature 97.5 F L 97.5 F L Pulse Rate 106 H 86 Respiratory Rate 26 H 20 Blood Pressure 113/68 Pulse Oximetry 96 97 05/19/18 16:00 Temperature 98.2 F Pulse Rate 74 Respiratory Rate 19 Blood Pressure 115/64 Pulse Oximetry 99 Intake & Output 05/18/18 05/19/18 05/19/18 18:59 06:59 18:59 Intake Total 530 / 530 Balance 530 / 530 Weight 75 kg Intake: IV 50 / 50 Flexbumin 25% Inj 50 ML @ 60 50 / 50 mls/hr IV.SIG Q12H [facility] Rx#: [id number] Oral 480 / 480 Narrative: GENERAL: Well-nourished, well-developed patient. SKIN: Warm and dry. HEAD: Normocephalic. EYES: No scleral icterus. No injection or drainage. NECK: Supple, trachea midline. No JVD or lymphadenopathy. CARDIOVASCULAR: S1-S2 irregularly irregular. RESPIRATORY: Breath bilateral wheezes. GASTROINTESTINAL: Abdomen soft, non-tender, nondistended. EXTREMITIES: 1+ edema NEUROLOGICAL: Awake, alert, and oriented x 3. Non-focal. Results - Lab Results 05/20/18 05:33 05/20/18 16:30 Most recent lab results ABG pH 7.45 (7.380-7.420) H 05/19/18 05:45 ABG pCO2 35 mmHg (38-42) L 05/19/18 05:45 ABG pO2 149 mmHg (61-120) H 05/19/18 05:45 ABG HCO3 24 mmol/L (22-26) 05/19/18 05:45 Calcium 8.5 mg/dL (8.5-10.1) 05/19/18 04:10 Assessment and Plan - Assessment (1) Acute renal failure Code(s): N17.9 - Acute kidney failure, unspecified Status: Acute (2) Diabetes Code(s): E11.9 - Type 2 diabetes mellitus without complications Status: Acute (3) COPD (chronic obstructive pulmonary disease) Code(s): J44.9 - Chronic obstructive pulmonary disease, unspecified Status: Acute (4) Acute exacerbation of CHF (congestive heart failure) Code(s): I50.9 - Heart failure, unspecified Status: Acute (5) Community acquired pneumonia Code(s): J18.9 - Pneumonia, unspecified organism Status: Acute - Plan Patient has severe mitral stenosis, and congestive heart failure, EF 40-45% continue with diuresis, check ultrasound of the kidney, protein immunofixation, DM, serum complement Ultrasound of the kidney Patient may need cardiology follow-up Has underlying atrial fibrillation Monitor intake and output And avoid nephrotoxic agents
[2018-05-19] MEDS ORDERED: Insulin Detemir Inj 1,000 UNIT/10 ML Vial SQ ONE (22:20)
[2018-05-19 22:55] LABS: Protein/Creatinine Ratio,Urine 0.85 (0.00-0.14); Total Protein,Urine Random 46.7 mg/dL (0-11.8)
[2018-05-20] MEDS: Insulin NovoLOG Aspart Correctional Sugar Inj SQ SCH ×5 (04:27→20:28)
[2018-05-20 06:32] LABS: INR 3.8 Ratio; Prothrombin Time 38.6 sec (9.8-11.6)
[2018-05-20 06:34] LABS: Hematocrit 41.3 % (39.0-51.0); Hemoglobin 13.5 gm/dL (13.0-17.0)
[2018-05-20 07:49] LABS: Anion Gap 9 meq/L (5-15); Blood Urea Nitrogen 53 mg/dL (7-18); Chloride 96 meq/L (98-107); Glomerular Filtration Rate 40 mL/min (>89); Glucose,Random 411 mg/dL (74-106); Potassium 4.2 meq/L (3.5-5.1); Sodium 132 meq/L (136-145)
[2018-05-20 07:50] LABS: Alanine Aminotransferase 95 U/L (12-78); Albumin 2.9 g/dL (3.4-5.0); Alkaline Phosphatase 80 U/L (45-117); Aspartate Aminotransferase 105 U/L (15-37); Calcium 8.4 mg/dL (8.5-10.1); Total Protein 6.6 g/dL (6.4-8.2)
[2018-05-20] MEDS ORDERED: MethylPREDNISolone Sod Succinate Inj 125 MG/2 ML Vial IV.PUSH SCH (09:00)
--- NOTE | 2018-05-20 09:38 | CT ---
EXAM DATE: 05/20/2018 9:19 AM EST AGE/SEX: 72 years / Male INDICATIONS: Altered mental status CLINICAL DATA: This is the patient's initial encounter. Patient reports that signs and symptoms have been present for 1 day and indicates a pain score of 0/10. MEDICAL/SURGICAL HISTORY: Asthma. Congestive heart failure. Diabetes. COPD, heart attack, hypert ension . Back and facial surgery RADIATION DOSE: 49.78 CTDI (mGy) COMPARISON: [facility], CT BRAIN W/O CONTRAST, 03/19/2015. . TECHNIQUE: CT of the head without contrast. Using automated exposure control and adjustment of the mA and/or kV according to patient size, radiation dose was kept as low as reasonably achievable to ob tain optimal diagnostic quality images. DICOM format image data is available electronically for revi ew and comparison. FINDINGS: Cerebrum: The ventricles are normal for age. There is a small area of encephalization at the anterio r medial left occipital lobe. The cortical sulci are widened. No evidence of midline shift, mass lesi on, hemorrhage or acute infarction. No extraaxial fluid collections are seen. Posterior Fossa: The cerebellum and brainstem are intact. The 4th ventricle is midline. The cerebe llopontine angle is unremarkable. Extracranial: The visualized portion of the orbits is intact. Skull: The calvaria is intact. No evidence of skull fracture. CONCLUSION: 1. No acute intracranial abnormality. 2. 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 3. Cortical atrophy . Electronically signed by: Rahul Hull MD 05/20/2018 9:37 AM EST
[2018-05-20] MEDS: Budesonide-Formoterol 80/4.5 MCG 6.9 GM Inhaler INH SCH ×2 (09:50→21:23)
[2018-05-20] MEDS: Senna/Docusate Sodium 8.6/50 MG Tablet PO SCH ×2 (09:55→21:23)
[2018-05-20] MEDS: Furosemide 20 MG Tablet PO SCH ×2 (09:56→17:12)
--- NOTE | 2018-05-20 10:11 | P.PN ---
Subjective Interval history: No acute changes overnight per nursing, no bowel movement while in hospital. Patient himself says he feels better today. He jokingly says he could jog with me. Says his shortness of breath is much better today. I revisited the notion of valve replacement surgery with him which he originally had denied in the past. He vocalizes concern about difficulty with anesthesia and difficulty waking up from some surgery in the past done at a different hospital system. He thinks he was informed by some medical staff to never undergo surgery in the future. He was evaluated by [facility] for CHF exacerbation sometime earlier this year and was offered cardiac workup including catheterization and cardiothoracic surgery evaluation which he declined. I extensively discussed with him that there was no guarantee that his quality of life or mortality was going to be any better not having the surgery since the patient vocalized that there was no guarantee that having the surgery was going to make anything better at all. Denies any CP today as he did yesterday. Physical Exam Vital signs: Vital Signs 05/19/18 12:00 05/19/18 13:22 05/19/18 16:00 Temperature 97.5 F L 98.2 F Pulse Rate 86 74 Respiratory Rate 20 19 Blood Pressure 115/64 Pulse Oximetry 97 99 05/19/18 20:00 05/19/18 21:00 05/19/18 21:05 Temperature 96.0 F L Pulse Rate 72 68 74 Respiratory Rate 18 19 22 Blood Pressure 100/66 98/65 L Pulse Oximetry 97 98 97 05/20/18 00:00 05/20/18 01:00 05/20/18 02:00 Temperature 97.5 F L Pulse Rate 68 72 72 Respiratory Rate 18 15 18 Blood Pressure 104/61 110/57 L 115/51 L Pulse Oximetry 98 94 L 95 05/20/18 03:00 05/20/18 03:10 05/20/18 04:12 Temperature 98.0 F Pulse Rate 70 70 80 Respiratory Rate 18 18 24 Blood Pressure 92/64 L 90/62 L Pulse Oximetry 95 98 05/20/18 07:30 05/20/18 08:00 Temperature 97.5 F L Pulse Rate 76 Respiratory Rate 18 Blood Pressure 104/64 Pulse Oximetry 96 92 L Intake & Output 05/19/18 05/20/18 05/20/18 18:59 06:59 18:59 Intake Total 770 / 770 50 / 50 100 / 100 Output Total 800 / 800 200 / 200 900 / 900 Balance -30 / -30 -150 / -150 -800 / -800 Weight 76.5 kg Intake: IV 50 / 50 50 / 50 Flexbumin 25% Inj 50 ML @ 60 50 / 50 50 / 50 mls/hr IV.SIG Q12H [facility] Rx#: [id number] Oral 720 / 720 100 / 100 Output: Urine 800 / 800 200 / 200 900 / 900 Other: Date of Last Bowel Movement 05/18/18 05/18/18 Narrative: No obvious murmurs heard Irregular rhythm, regular rate Mod LE edema largely unchanged since yesterday Very minimal inspiratory crackles heard in the bases suggestive of atelectasis but no rales or rhonchi heard, no wheezing No labored breathing Sitting up in chair just finishing breakfast Results - Labs CBC & Chem 7: 05/20/18 05:33 05/21/18 06:31 Laboratory Results - last 24 hr 05/19/18 05/19/18 05/19/18 12:04 18:20 18:38 Hgb Hct PT INR Sodium Potassium Chloride Carbon Dioxide Anion Gap BUN Creatinine Estimated GFR POC Glucose 425 H 434 H Random Glucose Calcium Total Bilirubin AST ALT Alkaline Phosphatase B-Natriuretic Peptide Total Protein Albumin Ur Random Creatinine U Random Total Protein Protein/Creatinin Ratio Complement C3 89 L 05/19/18 05/19/18 05/20/18 18:45 20:48 04:23 Hgb Hct PT INR Sodium Potassium Chloride Carbon Dioxide Anion Gap BUN Creatinine Estimated GFR POC Glucose 424 H 497 H* Random Glucose Calcium Total Bilirubin AST ALT Alkaline Phosphatase B-Natriuretic Peptide Total Protein Albumin Ur Random Creatinine 55 U Random Total Protein 46.7 H Protein/Creatinin Ratio 0.85 H Complement C3 05/20/18 05/20/18 05/20/18 05:33 05:33 05:33 Hgb 13.5 Hct 41.3 PT INR Sodium 132 L Potassium 4.2 D Chloride 96 L Carbon Dioxide 27.0 Anion Gap 9 BUN 53 H Creatinine 1.70 H Estimated GFR 40 L POC Glucose Random Glucose 411 H D Calcium 8.4 L Total Bilirubin 1.2 H AST 105 H ALT 95 H Alkaline Phosphatase 80 B-Natriuretic Peptide 1217 H Total Protein 6.6 D Albumin 2.9 L Ur Random Creatinine U Random Total Protein Protein/Creatinin Ratio Complement C3 05/20/18 05/20/18 06:05 08:06 Hgb Hct PT 38.6 H D INR 3.8 Sodium Potassium Chloride Carbon Dioxide Anion Gap BUN Creatinine Estimated GFR POC Glucose 414 H Random Glucose Calcium Total Bilirubin AST ALT Alkaline Phosphatase B-Natriuretic Peptide Total Protein Albumin Ur Random Creatinine U Random Total Protein Protein/Creatinin Ratio Complement C3 - Imaging Impressions Head CT 05/20/18 00:00 CONCLUSION: 1. No acute intracranial abnormality. 2. 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 3. Cortical atrophy . Assessment and Plan - Plan 72-year-old white male admitted with shortness of breath. Patient was started on IV steroids and diuresis to cover for both COPD exacerbation and acute on chronic systolic CHF. Respiratory symptoms improved quickly over the first 24 hours. Patient had acute kidney injury with hyponatremia, nephrology help comanage albumin and diuresis. Patient ultimately was willing to have a discussion with cardiology regarding heart cath given his heart failure and valve disease possible ischemic findings on EKG. Was transferred to the main hospital. Shortness of breath Multifactorial, possibly COPD exacerbation and acute systolic CHF exacerbation -Near resolution, see treatments below Possible COPD exacerbation improving, wean steroids, switching over to oral prednisone on 05/21 -Bronchodilators Possible acute on chronic systolic CHF exacerbation, possibly 2/2 AV and MV stenosis A. fib -home Toprol xl, Coumadin, pharmacy to adjust Coumadin -Patient open to having conversations with specialists regarding aortic valve surgery -telemetry Suspected CAD AV + MV stenosis Continue home Lipitor, allergic to aspirin, Toprol XL -Had extensive discussion with the patient regarding possible ischemic findings on his EKG (independent review demonstrating right bundle branch block and possible T wave inversions which appear to have been chronic), had initially refused a heart cath many months ago when offered by cardiology. However after discussing the possible poor outcome of an undiagnosed and untreated ACS scenario, he is willing to undergo the procedure if warranted -Cards consulted case discussed with Dr. Rae, holding coumadin and transferring per cards to [facility]. I will start heparin TID for now while Coumadin level keeps coming down from a supra-therapeutic INR Acute kidney injury Hyponatremia -improving slowly, -albumin and Lasix per nephrology Subjective history of melena No evidence of that here while hospitalized, -h/h wnl but dropping, yet no BMs, could be dilutional, trend in AM -protonix Elevated LFTs -? 2/2 hepatic congestion, trend in am DM - SS w/ accu-checks, starting scheduled Levemir due to high sugars Coumadin Discharge Planning: Will need SNF upon discharge, pt willing
[2018-05-20] MEDS: Pantoprazole Inj 40 MG Vial IV.PUSH SCH ×2 (13:45→23:55)
[2018-05-20] MEDS: Albumin Human 25% Inj 50 ML IV.SIG SCH ×2 (13:45→23:55)
--- NOTE | 2018-05-20 14:01 | ECG ---
Date Performed: 05/20/2018 Time Performed: 09:57:55 PTAGE: 72 years EKG: ATRIAL FIBRILLATION INCOMPLETE RIGHT BUNDLE BRANCH BLOCK ST DEVIATION AND MODERATE T-WAVE A BNORMALITY, CONSIDER ANTERIOR ISCHEMIA ST DEVIATION AND MODERATE T-WAVE ABNORMALITY, CONSIDER INFERIO R ISCHEMIA ABNORMAL ECG PREVIOUS TRACING : 05/19/2018 15.54 Since the previous tracing, no significant change noted DOCTOR: Johnny Rae Interpretating Date/Time 05/20/2018 14:00:31
--- NOTE | 2018-05-20 14:01 | ECG ---
Date Performed: 05/19/2018 Time Performed: 15:54:22 PTAGE: 72 years EKG: ATRIAL FIBRILLATION INCOMPLETE RIGHT BUNDLE BRANCH BLOCK ST DEVIATION AND MODERATE T-WAVE A BNORMALITY, CONSIDER ANTEROLATERAL ISCHEMIA ABNORMAL ECG PREVIOUS TRACING : 02/15/2018 14.59 Since the previous tracing, no significant change noted DOCTOR: Johnny Rae Interpretating Date/Time 05/20/2018 14:00:12
--- NOTE | 2018-05-20 17:07 | US ---
EXAM DATE: 05/20/2018 4:55 PM EST AGE/SEX: 72 years / Male INDICATIONS: Increased BUN/creatinine. CLINICAL DATA: This is the patient's initial encounter. Patient reports that signs and symptoms have been present for 1 day and indicates a pain score of 0/10. MEDICAL/SURGICAL HISTORY: Diabetes. Myocardial infarction. Congestive heart failure. Atrial fibrillation. HTN. Asthma. . Facial surgery. Back surgery. COMPARISON: No prior exams available for comparison. MEASUREMENTS: Right Kidney:__10.2 x 3.5 x 4.3 cm Left Kidney:__11.0 x 5.3 x 5.9 cm FINDINGS: Right Kidney: Increased echotexture. No mass or hydronephrosis. There is a focal area of cortical thi nning/scarring laterally in the mid zone. Left Kidney: Increased echotexture. No mass or hydronephrosis. Bladder: Within normal limits given the degree of distension. Other: None. CONCLUSION: 1. Increased echotexture of both kidneys typical of chronic parenchymal disease. 2. No obstructive uropathy or other acute abnormality demonstrated. 3. Focal cortical thinning/scarring mid zone of the right kidney. Electronically signed by: Rahul Jha MD 05/20/2018 5:06 PM EST
[2018-05-20] MEDS ORDERED: predniSONE 20 MG Tablet PO ONE (19:00)
--- NOTE | 2018-05-20 20:11 | P.PNNP ---
Subjective Interval history: Patient states he has been taking 30 units of Levemir at home the blood sugar has been running above 600 currently at 433 his creatinine came down to 1.7 Physical Exam Vital signs: Vital Signs 05/19/18 21:00 05/19/18 21:05 05/20/18 00:00 Temperature 96.0 F L 97.5 F L Pulse Rate 68 74 68 Respiratory Rate 19 22 18 Blood Pressure 98/65 L 104/61 Pulse Oximetry 98 97 98 05/20/18 01:00 05/20/18 02:00 05/20/18 03:00 Temperature Pulse Rate 72 72 70 Respiratory Rate 15 18 18 Blood Pressure 110/57 L 115/51 L 92/64 L Pulse Oximetry 94 L 95 95 05/20/18 03:10 05/20/18 04:12 05/20/18 07:30 Temperature 98.0 F Pulse Rate 70 80 Respiratory Rate 18 24 Blood Pressure 90/62 L Pulse Oximetry 98 96 05/20/18 08:00 05/20/18 10:00 05/20/18 10:29 Temperature 97.5 F L Pulse Rate 79 96 H 76 Respiratory Rate 18 20 Blood Pressure 104/64 Pulse Oximetry 92 L 97 05/20/18 12:00 05/20/18 14:00 05/20/18 15:04 Temperature 98.2 F Pulse Rate 98 H 88 88 Respiratory Rate 20 Blood Pressure Pulse Oximetry 05/20/18 16:00 05/20/18 18:12 05/20/18 19:40 Temperature 97.7 F Pulse Rate 92 H 82 Respiratory Rate Blood Pressure Pulse Oximetry 96 Intake & Output 05/20/18 05/20/18 05/21/18 06:59 18:59 06:59 Intake Total 50 / 50 1110 / 1110 Output Total 200 / 200 2600 / 2600 Balance -150 / -150 -1490 / -1490 Weight 76.5 kg Intake: IV 50 / 50 50 / 50 Flexbumin 25% Inj 50 ML @ 60 50 / 50 50 / 50 mls/hr IV.SIG Q12H [facility] Rx#: [id number] Oral 1060 / 1060 Output: Urine 200 / 200 2600 / 2600 Other: Date of Last Bowel Movement 05/18/18 05/18/18 Narrative: GENERAL: Well-nourished, well-developed patient. SKIN: Warm and dry. HEAD: Normocephalic. EYES: No scleral icterus. No injection or drainage. NECK: Supple, trachea midline. No JVD or lymphadenopathy. CARDIOVASCULAR: S1-S2 irregularly irregular. RESPIRATORY: Breath bilateral wheezes. GASTROINTESTINAL: Abdomen soft, non-tender, nondistended. EXTREMITIES: 1+ edema NEUROLOGICAL: Awake, alert, and oriented x 3. Non-focal. Assessment and Plan - Assessment (1) Acute renal failure Code(s): N17.9 - Acute kidney failure, unspecified Status: Acute (2) Diabetes Code(s): E11.9 - Type 2 diabetes mellitus without complications Status: Acute (3) COPD (chronic obstructive pulmonary disease) Code(s): J44.9 - Chronic obstructive pulmonary disease, unspecified Status: Acute (4) Acute exacerbation of CHF (congestive heart failure) Code(s): I50.9 - Heart failure, unspecified Status: Acute (5) Community acquired pneumonia Code(s): J18.9 - Pneumonia, unspecified organism Status: Acute - Plan Patient has severe mitral stenosis, and congestive heart failure, EF 40-45% continue with diuresis, Await cardiology input patient has 2 valve cardiac disease And avoid nephrotoxic agents Patient creatinine did improve to 1.7 His blood sugar extremely elevated and he takes more insulin at home I change the insulin to Levemir 30 units at night discussed with staff The ultra sound of kidney showed thinning cortex medical renal disease Monitor BMP
[2018-05-20] MEDS: Insulin Detemir Inj 1,000 UNIT/10 ML Vial SQ SCH (20:22)
[2018-05-20] MEDS ORDERED: Insulin Detemir Inj 1,000 UNIT/10 ML Vial SQ SCH ×2 (21:00)
[2018-05-21] MEDS: Heparin - SQ 10,000 UNITS/ML Vial SQ SCH ×3 (05:02→21:00)
[2018-05-21 07:09] LABS: Alanine Aminotransferase 100 U/L (12-78); Albumin 3.2 g/dL (3.4-5.0); Anion Gap 9 meq/L (5-15); Aspartate Aminotransferase 91 U/L (15-37); Blood Urea Nitrogen 52 mg/dL (7-18); Carbon Dioxide 26.1 meq/L (21.0-32.0); Chloride 101 meq/L (98-107); Glomerular Filtration Rate 43 mL/min (>89); Glucose,Random 222 mg/dL (74-106); Potassium 4.2 meq/L (3.5-5.1); Sodium 136 meq/L (136-145)
[2018-05-21 07:11] LABS: INR 4.4 Ratio; Prothrombin Time 44.5 sec (9.8-11.6)
[2018-05-21 07:12] LABS: Alkaline Phosphatase 91 U/L (45-117)
[2018-05-21] MEDS: Furosemide 20 MG Tablet PO SCH ×2 (09:23→17:46)
[2018-05-21] MEDS: Senna/Docusate Sodium 8.6/50 MG Tablet PO SCH ×2 (09:24→20:51)
[2018-05-21 11:41] LABS: Hematocrit 40.8 % (39.0-51.0); Hemoglobin 13.9 gm/dL (13.0-17.0)
--- NOTE | 2018-05-21 12:03 | P.PN ---
Subjective Interval history: Follow-up respiratory failure/syncope/Mitral and Aortic Valves stenosis May 21, 2018-Patient seen and examined, +SOB but no chest pain or dizziness. Physical Exam Vital signs: Vital Signs 05/20/18 12:00 05/20/18 14:00 05/20/18 15:04 Temperature 98.2 F Pulse Rate 98 H 88 88 Respiratory Rate 20 Blood Pressure Pulse Oximetry 05/20/18 16:00 05/20/18 18:12 05/20/18 19:40 Temperature 97.7 F Pulse Rate 92 H 82 Respiratory Rate Blood Pressure Pulse Oximetry 96 05/20/18 20:00 05/20/18 21:39 05/20/18 22:00 Temperature 97.4 F L Pulse Rate 103 H 85 103 H Respiratory Rate 22 18 Blood Pressure 110/57 L Pulse Oximetry 93 L 05/21/18 00:00 05/21/18 04:00 05/21/18 04:12 Temperature 97.5 F L 98 F Pulse Rate 81 88 79 Respiratory Rate 20 20 18 Blood Pressure 105/68 108/65 Pulse Oximetry 96 97 96 05/21/18 05:00 05/21/18 05:49 05/21/18 08:00 Temperature 97.7 F Pulse Rate 83 86 92 H Respiratory Rate 18 Blood Pressure 104/75 Pulse Oximetry 96 05/21/18 09:44 Temperature Pulse Rate 86 Respiratory Rate 18 Blood Pressure Pulse Oximetry Intake & Output 05/20/18 05/21/18 05/21/18 18:59 06:59 18:59 Intake Total 1110 / 1110 50 / 50 Output Total 2600 / 2600 300 / 300 Balance -1490 / -1490 -250 / -250 Weight 76.2 kg Intake: IV 50 / 50 50 / 50 Flexbumin 25% Inj 50 ML @ 60 50 / 50 50 / 50 mls/hr IV.SIG Q12H [facility] Rx#: [id number] Oral 1060 / 1060 Output: Urine 2600 / 2600 300 / 300 Other: Date of Last Bowel Movement 05/18/18 05/18/18 # Bowel Movements 0 Narrative: GENERAL: NAD SKIN: Warm and dry. HEAD: Normocephalic. EYES: No scleral icterus. No injection or drainage. NECK: Supple, trachea midline. No JVD or lymphadenopathy. CARDIOVASCULAR: Regular rate and rhythm without murmurs, gallops, or rubs. RESPIRATORY: Breath sounds decrease bilaterally. + accessory muscle use. GASTROINTESTINAL: Abdomen soft, non-tender, nondistended. MUSCULOSKELETAL: No cyanosis, or edema. BACK: Nontender without obvious deformity. No CVA tenderness. Results - Labs CBC & Chem 7: 05/21/18 10:37 05/21/18 06:31 Laboratory Results - last 24 hr 05/20/18 05/20/18 05/20/18 05:33 05:33 16:11 Hgb Hct PT INR Sodium Potassium Chloride Carbon Dioxide Anion Gap BUN Creatinine Estimated GFR POC Glucose Greater than 600 H* Random Glucose Calcium Total Bilirubin AST ALT Alkaline Phosphatase Total Protein Albumin Vitamin B12 815 Complement C4 23 05/20/18 05/20/18 05/20/18 16:15 16:30 20:06 Hgb Hct PT INR Sodium Potassium Chloride Carbon Dioxide Anion Gap BUN Creatinine Estimated GFR POC Glucose Greater than 600 H* 433 H Random Glucose 564 H* D Calcium Total Bilirubin AST ALT Alkaline Phosphatase Total Protein Albumin Vitamin B12 Complement C4 05/21/18 05/21/18 05/21/18 06:31 06:31 09:20 Hgb Hct PT 44.5 H INR 4.4 Sodium 136 Potassium 4.2 Chloride 101 Carbon Dioxide 26.1 Anion Gap 9 BUN 52 H Creatinine 1.58 H Estimated GFR 43 L POC Glucose 285 H Random Glucose 222 H D Calcium 9.0 Total Bilirubin 1.2 H AST 91 H ALT 100 H Alkaline Phosphatase 91 Total Protein 7.0 Albumin 3.2 L Vitamin B12 Complement C4 05/21/18 10:37 Hgb 13.9 Hct 40.8 PT INR Sodium Potassium Chloride Carbon Dioxide Anion Gap BUN Creatinine Estimated GFR POC Glucose Random Glucose Calcium Total Bilirubin AST ALT Alkaline Phosphatase Total Protein Albumin Vitamin B12 Complement C4 - Imaging Impressions Abdomen/Bladder Ultrasound 05/20/18 00:00 CONCLUSION: 1. Increased echotexture of both kidneys typical of chronic parenchymal disease. 2. No obstructive uropathy or other acute abnormality demonstrated. 3. Focal cortical thinning/scarring mid zone of the right kidney. Assessment and Plan - Plan 72-year-old man with Acute on chronic systolic CHF exacerbation Lasix on Hold 2D echo with EF of 40-45% ESEQUIEL-I contraindicated 2/2 worsening Renal failure Continue with Toprol-XL Awaiting for Cardiology consult COPD exacerbation Currently on p.o. prednisone 20 mg twice daily Start Spiriva and continue with Symbicort, Schedule and PRN Duo Neb IS Suspected moderate to severe Aortic and Severe Mitral valve stenosis Cardiology consultation pending May need eval with [facility] OAC on hold d/t supra therapeutic INR Acute kidney injury Management per Nephrology Renal US of kidney showed thinning cortex medical renal disease Continue with albumin per nephrology Subjective history of melena No evidence of that here while hospitalized, -Continue to monitor H/H -Protonix Transaminitis likely 2/2 medication statin However will check Hepatitis panel Continue to monitor LFTs DM Currently on Levemir 30 units at bedtime, start Aspart 4units 3 times daily before meals New with SS w/ accu-checks DVT prophylaxis: Heparin
[2018-05-21] MEDS: Albumin Human 25% Inj 50 ML IV.SIG SCH ×2 (12:40→22:07)
[2018-05-21] MEDS: Insulin NovoLOG Aspart Correctional Sugar Inj SQ SCH ×4 (12:41→20:53)
[2018-05-21] MEDS: Pantoprazole Inj 40 MG Vial IV.PUSH SCH ×2 (12:42→22:07)
[2018-05-21 14:27] LABS: Hepatitits B Surface Antigen Nonreactive (Nonreactive)
[2018-05-21 14:52] LABS: Hepatitis A IgM Antibody Nonreactive (Nonreactive)
[2018-05-21] MEDS: Budesonide-Formoterol 80/4.5 MCG 6.9 GM Inhaler INH SCH ×2 (15:29→20:54)
--- NOTE | 2018-05-21 15:53 | MB ---
cc: Johnny Rae MD DATE: 05/21/2018 HISTORY OF PRESENT ILLNESS: Percy is a very pleasant 72-year-old gentleman with history of CHF, diabetes, myocardial infarction, atrial fibrillation on Coumadin, who presents to the hospital with severe shortness of breath. He is found to have a mean mitral valve gradient of 60 mmHg, mild aortic valve stenosis, preserved LV systolic function. Otherwise, denies any fever, chills, cough, GI or bleeding, PND, orthopnea, syncope or dizziness. PAST MEDICAL HISTORY: Per history of present illness. He has a history of atrial fibrillation, asthma, CHF, diabetes, myocardial infarction, hypertension, history of facial surgery, history of back surgery. ALLERGIES: ASPIRIN, BEE VENOM PROTEIN, CODEINE, PENICILLIN G AND SULFA. SOCIAL HISTORY: He smokes. Denies alcohol use. MEDICATIONS: 1. Lipitor 40 mg at bedtime. 2. Lasix 40 mg p.o. b.i.d. 3. Gabapentin 600 mg p.o. b.i.d. 4. Heparin 5000 subcutaneous every 8 hours. 5. Insulin. 6. Toprol-XL 12.5 mg daily. 7. Protonix 40 mg IV every 12 hours. 8. K-Dur 20 mEq p.o. b.i.d. 9. Prednisone 20 mg p.o. b.i.d. 10. Spiriva 18 mcg inhaler daily. PHYSICAL EXAMINATION: VITAL SIGNS: Pulse 92, temperature 97.7, blood pressure 114/75, respiratory rate 18. GENERAL: He is alert and oriented x 3, in no acute distress. NECK: Supple. No JVD. No bruit. CARDIOVASCULAR: S1, S2. No murmurs, rubs or gallops. LUNGS: Clear to auscultation bilaterally. ABDOMEN: Soft, nontender, nondistended with positive bowel sounds. EXTREMITIES: No extremity edema. DIAGNOSTIC DATA: Chest x-ray: Lungs symmetrically aerated without evidence of mass, infiltrate, or effusion. EKG: Atrial fibrillation at a rate of 77 beats per minute. Asymmetric T-wave inversion V3, V4, V5, III and aVF. Echocardiogram: EF 40-45%, heavily calcified mitral valve, mean mitral valve gradient 60 mmHg. Moderate aortic valve regurgitation, moderate mitral valve regurgitation. The aortic valve mean gradient is 15 mmHg, RV systolic pressure is 60.7 mmHg. Abdominal bladder ultrasound: Increased echotexture of both kidneys typical of chronic parenchymal disease, focal cortical thinning, scarring mid zone of the right kidney. Head CT: No acute intracranial abnormality, small area of encephalomalacia presumably from prior infarct at the left occipital lobe, cortical atrophy. LABORATORY DATA: White count 7.8, hemoglobin 15.2, hematocrit 47.6, platelet count 167. INR is 4.4. Blood gas: pH 7.45, pCO2 of 35, pO2 149. Sodium 136, potassium 4.2, chloride 101, BUN 52, creatinine 1.58. Glucose on 05/20/2018, 1650. Blood glucose today is 222. BNP yesterday 1217. DIAGNOSES: 1. Severe mitral valve stenosis. 2. At least mild aortic valve stenosis, possibly moderate aortic valve stenosis, as the valve gradient may be underestimated due to cardiomyopathy and mitral valve stenosis. 3. Decompensated congestive heart failure. 4. Cardiomyopathy. 5. Diabetes mellitus. 6. History of cerebrovascular accident. 7. Hyperglycemia. 8. Tobacco abuse. 9. Atrial fibrillation. 10. Chronic renal insufficiency. 11. Elevated total bilirubin. 12. Elevated liver enzymes. PLAN AND DISCUSSION: I have placed a consult for Cardiothoracic Surgery, anticipating the patient will definitely need mitral valve replacement. His calcium score is greater than 80, therefore it does not appear that he is a candidate for mitral valve repair. He may also need aortic valve replacement. Once his INR is below 2, we will proceed with left heart catheterization. I have strongly advised him to stop smoking. I think it is reasonable to continue diuresis; however, this may be limited by the severe mechanical obstruction of the mitral valve. We will continue to follow daily BNP and also creatinine just to make sure he does not develop acute renal failure on diuretics. Would be very cautious with beta blockers as he has decompensated congestive heart failure and severe mitral valve stenosis. Also, ESEQUIEL inhibitors are being held due to acute renal failure. MD CORNELL Foley/jan , 02:03 PM , 02:14 PM
--- NOTE | 2018-05-21 17:23 | P.PNNP ---
Subjective Interval history: Transferred from [place] for possible intervention, states he is feeling better Physical Exam Vital signs: Vital Signs 05/20/18 18:12 05/20/18 19:40 05/20/18 20:00 Temperature 97.4 F L Pulse Rate 82 103 H Respiratory Rate 22 Blood Pressure 110/57 L Pulse Oximetry 96 93 L 05/20/18 21:39 05/20/18 22:00 05/21/18 00:00 Temperature 97.5 F L Pulse Rate 85 103 H 81 Respiratory Rate 18 20 Blood Pressure 105/68 Pulse Oximetry 96 05/21/18 04:00 05/21/18 04:12 05/21/18 05:00 Temperature 98 F Pulse Rate 88 79 83 Respiratory Rate 20 18 Blood Pressure 108/65 Pulse Oximetry 97 96 05/21/18 05:49 05/21/18 08:00 05/21/18 09:44 Temperature 97.7 F Pulse Rate 86 92 H 86 Respiratory Rate 18 18 Blood Pressure 104/75 Pulse Oximetry 96 05/21/18 12:00 05/21/18 14:28 Temperature 97.7 F Pulse Rate 98 H 98 H Respiratory Rate 18 18 Blood Pressure 114/75 Pulse Oximetry 96 Intake & Output 05/20/18 05/21/18 05/21/18 18:59 06:59 18:59 Intake Total 1110 / 1110 50 / 50 Output Total 2600 / 2600 300 / 300 Balance -1490 / -1490 -250 / -250 Weight 76.2 kg Intake: IV 50 / 50 50 / 50 Flexbumin 25% Inj 50 ML @ 60 50 / 50 50 / 50 mls/hr IV.SIG Q12H [facility] Rx#: [id number] Oral 1060 / 1060 Output: Urine 2600 / 2600 300 / 300 Other: Date of Last Bowel Movement 05/18/18 05/18/18 05/18/18 # Bowel Movements 0 Narrative: GENERAL: NAD SKIN: Warm and dry. HEAD: Normocephalic. EYES: No scleral icterus. No injection or drainage. NECK: Supple, trachea midline. No JVD or lymphadenopathy. CARDIOVASCULAR: Regular rate and rhythm without murmurs, gallops, or rubs. RESPIRATORY: Breath sounds decrease bilaterally. + accessory muscle use. GASTROINTESTINAL: Abdomen soft, non-tender, nondistended. MUSCULOSKELETAL: No cyanosis, or edema. BACK: Nontender without obvious deformity. No CVA tenderness. Assessment and Plan - Assessment (1) Acute renal failure Code(s): N17.9 - Acute kidney failure, unspecified Status: Acute (2) Diabetes Code(s): E11.9 - Type 2 diabetes mellitus without complications Status: Acute (3) COPD (chronic obstructive pulmonary disease) Code(s): J44.9 - Chronic obstructive pulmonary disease, unspecified Status: Acute (4) Acute exacerbation of CHF (congestive heart failure) Code(s): I50.9 - Heart failure, unspecified Status: Acute (5) Community acquired pneumonia Code(s): J18.9 - Pneumonia, unspecified organism Status: Acute - Plan Patient has severe mitral stenosis, and congestive heart failure, EF 40-45% continue with diuresis, Await cardiology input patient has 2 valve cardiac disease And avoid nephrotoxic agents Patient creatinine did improve to 1.5 His blood sugar high Diabetes being managed The ultrasound of kidney showed thinning cortex medical renal disease Monitor BMP
[2018-05-21] MEDS ORDERED: Melatonin 5 MG Tablet PO ONE (20:28)
[2018-05-21] MEDS: Insulin Detemir Inj 1,000 UNIT/10 ML Vial SQ SCH (20:53)
[2018-05-22] MEDS: Heparin - SQ 10,000 UNITS/ML Vial SQ SCH ×2 (05:07→14:17)
[2018-05-22 05:57] LABS: Eos % (Auto) 0.1 % (0.0-4.0); Hematocrit 41.2 % (39.0-51.0); Hemoglobin 13.9 gm/dL (13.0-17.0); Lymph % (Auto) 9.2 % (9.0-44.0); Mean Corpuscular HGB Conc 33.7 % (32.0-36.0); Mean Corpuscular Hemoglobin 29.7 pg (27.0-34.0); Mean Platelet Volume 9.7 fL (7.0-11.0); Mono % (Auto) 8.4 % (0.0-8.0); Neut # (Auto) 9.4 th/mm3 (1.8-7.7); Neut % (Auto) 82.3 % (16.0-70.0); Platelet Count 151 th/mm3 (150-450); Red Blood Count 4.68 mil/mm3 (4.50-5.90); Red Cell Distribution Width 19.3 % (11.6-17.2); White Blood Count 11.4 th/mm3 (4.0-11.0)
[2018-05-22 06:01] LABS: INR 1.7 Ratio; Prothrombin Time 17.7 sec (9.8-11.6)
[2018-05-22 06:28] LABS: Alanine Aminotransferase 133 U/L (12-78); Albumin 3.5 g/dL (3.4-5.0); Alkaline Phosphatase 81 U/L (45-117); Anion Gap 6 meq/L (5-15); Aspartate Aminotransferase 110 U/L (15-37); Blood Urea Nitrogen 48 mg/dL (7-18); Carbon Dioxide 30.4 meq/L (21.0-32.0); Chloride 102 meq/L (98-107); Glomerular Filtration Rate 49 mL/min (>89); Glucose,Random 53 mg/dL (74-106); Potassium 4.1 meq/L (3.5-5.1); Sodium 138 meq/L (136-145)
[2018-05-22] MEDS: Insulin NovoLOG Aspart Correctional Sugar Inj SQ SCH ×4 (07:38→21:16)
[2018-05-22] MEDS: Furosemide 20 MG Tablet PO SCH ×2 (09:02→17:05)
[2018-05-22] MEDS: Budesonide-Formoterol 80/4.5 MCG 6.9 GM Inhaler INH SCH ×2 (09:03→21:16)
[2018-05-22] MEDS: Senna/Docusate Sodium 8.6/50 MG Tablet PO SCH ×2 (09:03→21:15)
[2018-05-22] MEDS: Tiotropium Bromide 18 MCG/ACT Inhaler INH SCH (09:03)
[2018-05-22] MEDS: predniSONE 20 MG Tablet PO SCH ×2 (09:03→21:16)
--- NOTE | 2018-05-22 10:46 | P.PN ---
Subjective Interval history: Follow-up respiratory failure/syncope/Mitral and Aortic Valves stenosis May 21, 2018-Patient seen and examined, +SOB but no chest pain or dizziness. May 22, 2018-patient seen and examined, no chest pain, or significant shortness of breath. Only complains of restless leg syndromes pain. Brother by the bedside. Physical Exam Vital signs: Vital Signs 05/21/18 11:00 05/21/18 12:00 05/21/18 13:00 Temperature 97.7 F Pulse Rate 103 H 98 H 98 H Respiratory Rate 18 Blood Pressure 114/75 Pulse Oximetry 96 05/21/18 14:00 05/21/18 14:28 05/21/18 15:00 Temperature Pulse Rate 94 H 98 H 102 H Respiratory Rate 18 Blood Pressure Pulse Oximetry 05/21/18 16:00 05/21/18 17:00 05/21/18 18:00 Temperature 97.9 F Pulse Rate 114 H 94 H 106 H Respiratory Rate 18 Blood Pressure 110/86 Pulse Oximetry 95 05/21/18 19:58 05/21/18 19:59 05/21/18 20:00 Temperature 98.2 F Pulse Rate 74 88 Respiratory Rate 21 22 Blood Pressure 102/69 Pulse Oximetry 2 L 98 98 05/21/18 21:00 05/21/18 21:30 05/21/18 23:00 Temperature Pulse Rate 100 H 99 H 99 H Respiratory Rate Blood Pressure Pulse Oximetry 05/22/18 00:00 05/22/18 00:08 05/22/18 01:00 Temperature 98 F Pulse Rate 89 85 92 H Respiratory Rate 20 24 Blood Pressure 127/85 Pulse Oximetry 97 97 05/22/18 02:00 05/22/18 03:00 05/22/18 04:00 Temperature 98 F Pulse Rate 93 H 95 H 91 H Respiratory Rate 18 Blood Pressure 88/56 L Pulse Oximetry 97 05/22/18 05:00 05/22/18 06:00 05/22/18 07:43 Temperature Pulse Rate 90 89 63 Respiratory Rate 16 Blood Pressure Pulse Oximetry 94 L 05/22/18 08:00 05/22/18 09:58 Temperature 97.9 F Pulse Rate 91 H 91 H Respiratory Rate 18 Blood Pressure 108/74 Pulse Oximetry 95 Intake & Output 05/21/18 05/22/18 05/22/18 18:59 06:59 18:59 Intake Total 50 / 50 730 / 730 Output Total 850 / 850 Balance 50 / 50 -120 / -120 Weight 73.8 kg Intake: IV 50 / 50 50 / 50 Flexbumin 25% Inj 50 ML @ 60 50 / 50 50 / 50 mls/hr IV.SIG Q12H [facility] Rx#: [id number] Oral 680 / 680 Output: Urine 850 / 850 Other: Date of Last Bowel Movement 05/18/18 05/18/18 05/18/18 # Bowel Movements 1 Narrative: GENERAL: NAD SKIN: Warm and dry. HEAD: Normocephalic. EYES: No scleral icterus. No injection or drainage. NECK: Supple, trachea midline. No JVD or lymphadenopathy. CARDIOVASCULAR: Regular rate and rhythm without murmurs, gallops, or rubs. RESPIRATORY: Breath sounds decrease bilaterally. + accessory muscle use. GASTROINTESTINAL: Abdomen soft, non-tender, nondistended. MUSCULOSKELETAL: No cyanosis, or edema. BACK: Nontender without obvious deformity. No CVA tenderness. Results - Labs CBC & Chem 7: 05/22/18 04:49 05/22/18 04:49 Laboratory Results - last 24 hr 05/21/18 05/21/18 05/21/18 10:37 12:15 13:15 WBC RBC Hgb 13.9 Hct 40.8 MCV MCH MCHC RDW Plt Count MPV Neut % (Auto) Lymph % (Auto) Mccreary % (Auto) Eos % (Auto) Baso % (Auto) Neut # (Auto) Lymph # (Auto) Mccreary # (Auto) Eos # (Auto) Baso # (Auto) WBC Differential Differential Comment PT INR Sodium Potassium Chloride Carbon Dioxide Anion Gap BUN Creatinine Estimated GFR POC Glucose 413 H Random Glucose Calcium Total Bilirubin AST ALT Alkaline Phosphatase B-Natriuretic Peptide Total Protein Albumin Hepatitis A IgM Ab Nonreactive Hep Bs Antigen Nonreactive Hep B Core IgM Ab Nonreactive Hep C IgG Ab Nonreactive 05/21/18 05/21/18 05/22/18 17:23 20:10 04:49 WBC 11.4 H RBC 4.68 Hgb 13.9 Hct 41.2 MCV 88.0 MCH 29.7 MCHC 33.7 RDW 19.3 H Plt Count 151 MPV 9.7 Neut % (Auto) 82.3 H Lymph % (Auto) 9.2 Mccreary % (Auto) 8.4 H Eos % (Auto) 0.1 Baso % (Auto) 0.0 Neut # (Auto) 9.4 H Lymph # (Auto) 1.0 Mccreary # (Auto) 1.0 H Eos # (Auto) 0.0 Baso # (Auto) 0.0 WBC Differential . Differential Comment Auto diff final PT INR Sodium Potassium Chloride Carbon Dioxide Anion Gap BUN Creatinine Estimated GFR POC Glucose 278 H 237 H Random Glucose Calcium Total Bilirubin AST ALT Alkaline Phosphatase B-Natriuretic Peptide Total Protein Albumin Hepatitis A IgM Ab Hep Bs Antigen Hep B Core IgM Ab Hep C IgG Ab 05/22/18 05/22/18 05/22/18 04:49 04:49 04:49 WBC RBC Hgb Hct MCV MCH MCHC RDW Plt Count MPV Neut % (Auto) Lymph % (Auto) Mccreary % (Auto) Eos % (Auto) Baso % (Auto) Neut # (Auto) Lymph # (Auto) Mccreary # (Auto) Eos # (Auto) Baso # (Auto) WBC Differential Differential Comment PT 17.7 H D INR 1.7 Sodium 138 Potassium 4.1 Chloride 102 Carbon Dioxide 30.4 Anion Gap 6 BUN 48 H Creatinine 1.43 H Estimated GFR 49 L POC Glucose Random Glucose 53 L D Calcium 9.0 Total Bilirubin 1.2 H AST 110 H ALT 133 H Alkaline Phosphatase 81 B-Natriuretic Peptide 747 H Total Protein 7.0 Albumin 3.5 Hepatitis A IgM Ab Hep Bs Antigen Hep B Core IgM Ab Hep C IgG Ab 05/22/18 05/22/18 07:26 09:11 WBC RBC Hgb Hct MCV MCH MCHC RDW Plt Count MPV Neut % (Auto) Lymph % (Auto) Mccreary % (Auto) Eos % (Auto) Baso % (Auto) Neut # (Auto) Lymph # (Auto) Mccreary # (Auto) Eos # (Auto) Baso # (Auto) WBC Differential Differential Comment PT INR Sodium Potassium Chloride Carbon Dioxide Anion Gap BUN Creatinine Estimated GFR POC Glucose 56 L 211 H Random Glucose Calcium Total Bilirubin AST ALT Alkaline Phosphatase B-Natriuretic Peptide Total Protein Albumin Hepatitis A IgM Ab Hep Bs Antigen Hep B Core IgM Ab Hep C IgG Ab Assessment and Plan - Plan 72-year-old man with Acute on chronic systolic CHF exacerbation Lasix 40 mg IV twice daily 2D echo with EF of 40-45% ESEQUIEL-I contraindicated 2/2 worsening Renal failure Continue with Toprol-XL Appreciate input from cardiology will plan for left heart catheterization COPD exacerbation Currently on p.o. prednisone 20 mg twice daily Continue Spiriva and continue with Symbicort, Schedule and PRN Duo Neb IS Suspected moderate to severe Aortic and Severe Mitral valve stenosis Cardiology consultation appreciated, pending consultation from cardiothoracic surgery for evaluation for repair May need eval with [facility] INR therapeutic, therefore will resume Coumadin if okay with cardiology Acute kidney injury Management per Nephrology Renal US of kidney showed thinning cortex medical renal disease Continue with albumin per nephrology Subjective history of melena No evidence of that here while hospitalized, -Continue to monitor H/H -Protonix Transaminitis likely 2/2 medication statin Hepatitis panel negative Continue to monitor LFTs DM Decreased Levemir to 20 units at bedtime, continue aspart 4units 3 times daily before meals New with SS w/ accu-checks Restless leg syndrome Start Pramipexole 0.25mg daily as opposed to Ropinirole 0.25mg daily d/t renal insufficiency DVT prophylaxis: Heparin
[2018-05-22] MEDS: Pantoprazole Inj 40 MG Vial IV.PUSH SCH (11:15)
[2018-05-22] MEDS: Albumin Human 25% Inj 50 ML IV.SIG SCH (11:15)
[2018-05-22 11:17] LABS: Anti-Nuclear Antibody Screen Pos (Neg)
--- NOTE | 2018-05-22 14:41 | P.PNNP ---
Subjective Interval history: Patient is doing better he is going to have a heart catheterization Physical Exam Vital signs: Vital Signs 05/21/18 15:00 05/21/18 16:00 05/21/18 17:00 Temperature 97.9 F Pulse Rate 102 H 114 H 94 H Respiratory Rate 18 Blood Pressure 110/86 Pulse Oximetry 95 05/21/18 18:00 05/21/18 19:58 05/21/18 19:59 Temperature Pulse Rate 106 H 74 Respiratory Rate 21 Blood Pressure Pulse Oximetry 2 L 98 05/21/18 20:00 05/21/18 21:00 05/21/18 21:30 Temperature 98.2 F Pulse Rate 88 100 H 99 H Respiratory Rate 22 Blood Pressure 102/69 Pulse Oximetry 98 05/21/18 23:00 05/22/18 00:00 05/22/18 00:08 Temperature 98 F Pulse Rate 99 H 89 85 Respiratory Rate 20 24 Blood Pressure 127/85 Pulse Oximetry 97 97 05/22/18 01:00 05/22/18 02:00 05/22/18 03:00 Temperature Pulse Rate 92 H 93 H 95 H Respiratory Rate Blood Pressure Pulse Oximetry 05/22/18 04:00 05/22/18 05:00 05/22/18 06:00 Temperature 98 F Pulse Rate 91 H 90 89 Respiratory Rate 18 Blood Pressure 88/56 L Pulse Oximetry 97 05/22/18 07:43 05/22/18 08:00 05/22/18 09:58 Temperature 97.9 F Pulse Rate 63 91 H 91 H Respiratory Rate 16 18 Blood Pressure 108/74 Pulse Oximetry 94 L 95 05/22/18 11:00 05/22/18 12:00 Temperature 97.5 F L Pulse Rate 101 H 81 Respiratory Rate 16 Blood Pressure 100/67 Pulse Oximetry 96 Intake & Output 05/21/18 05/22/18 05/22/18 18:59 06:59 18:59 Intake Total 50 / 50 730 / 730 50 / 50 Output Total 850 / 850 Balance 50 / 50 -120 / -120 50 / 50 Weight 73.8 kg Intake: IV 50 / 50 50 / 50 50 / 50 Flexbumin 25% Inj 50 ML @ 60 50 / 50 50 / 50 50 / 50 mls/hr IV.SIG Q12H [facility] Rx#: [id number] Oral 680 / 680 Output: Urine 850 / 850 Other: Date of Last Bowel Movement 05/18/18 05/18/18 05/18/18 # Bowel Movements 1 Narrative: GENERAL: NAD SKIN: Warm and dry. HEAD: Normocephalic. EYES: No scleral icterus. No injection or drainage. NECK: Supple, trachea midline. No JVD or lymphadenopathy. CARDIOVASCULAR: Regular rate and rhythm without murmurs, gallops, or rubs. RESPIRATORY: Breath sounds decrease bilaterally. + accessory muscle use. GASTROINTESTINAL: Abdomen soft, non-tender, nondistended. MUSCULOSKELETAL: No cyanosis, or edema. BACK: Nontender without obvious deformity. No CVA tenderness. Assessment and Plan - Assessment (1) Acute renal failure Code(s): N17.9 - Acute kidney failure, unspecified Status: Acute (2) Diabetes Code(s): E11.9 - Type 2 diabetes mellitus without complications Status: Acute (3) COPD (chronic obstructive pulmonary disease) Code(s): J44.9 - Chronic obstructive pulmonary disease, unspecified Status: Acute (4) Acute exacerbation of CHF (congestive heart failure) Code(s): I50.9 - Heart failure, unspecified Status: Acute (5) Community acquired pneumonia Code(s): J18.9 - Pneumonia, unspecified organism Status: Acute - Plan Patient has severe mitral stenosis, and congestive heart failure, EF 40-45% continue with diuresis, cardiology recommend s 2 valve cardiac disease And avoid nephrotoxic agents Patient is going for heart catheterization Patient creatinine did improve to 1.4 His blood sugar high Diabetes being managed The ultrasound of kidney showed thinning cortex medical renal disease Monitor BMP
--- NOTE | 2018-05-22 14:57 | MB ---
cc: Mirta Davis DATE: 05/22/2018 HISTORY OF PRESENT ILLNESS: This is a 72-year-old male, a very poor historian, who does have his brother at the bedside who does live alone. Gets his medical treatment from the [place], Dr. Booker of [facility]. Presented to the hospital in severe shortness of breath. Underwent an echocardiogram, which showed ejection fraction of 40%-45%, left ventricular systolic function moderately reduced. The right ventricle was mildly dilated, moderate mitral regurgitation, severe mitral valve stenosis, valve gradient of 60 mmHg. There was also moderate aortic valve regurgitation and [id number] aortic valve stenosis. The patient was transferred from the [facility]. The patient was admitted for respiratory failure and COPD exacerbation. He was also admitted back, per the notes, on 02/15/2018. Per the patient, he states he was in the hospital a few weeks ago, was treated for a possible pneumonia. He is not sure if he picked up his medications. PAST MEDICAL HISTORY: Diabetes mellitus type 2, insulin-dependent, history of atrial fibrillation, history of prior MT (he is not sure how many years ago that was), asthma, history of CHF, COPD, posttraumatic stress disorder. PAST SURGICAL HISTORY: Includes facial surgery, also some back surgery. ALLERGIES: 1. ASPIRIN. 2. CODEINE. 3. PENICILLIN. 4. SULFA. HOME MEDICATIONS: Include: 1. Albuterol inhaler. 2. Lantus insulin 40 subcutaneously b.i.d. 3. Metformin 500 b.i.d. 4. [place] fish oil. 5. Coumadin. 6. Atorvastatin. 7. Symbicort. 8. Lasix. 9. Gabapentin. 10. Metoprolol. 11. Potassium. FAMILY HISTORY: In the initial H and P. 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 He has been smoking for 61 years. He quit less than 3 or 4 weeks ago, less than a pack per day. REVIEW OF SYSTEMS: GENERAL: No night sweats, fever, heat or cold intolerance. SKIN: No psoriasis, itching or hives. HEENT: No blurred vision, hearing loss. RESPIRATORY: Positive for shortness of breath. No current chest pain. No paroxysmal nocturnal dyspnea. Please note that he also uses 2 liters of O2 at home. GASTROINTESTINAL: No diarrhea or vomiting. GENITOURINARY: No burning, frequency, urgency. CENTRAL NERVOUS SYSTEM: No history of TIA, CVA or seizure disorder. ENDOCRINOLOGY: Positive for diabetes. No hypothyroidism. PHYSICAL EXAMINATION: VITAL SIGNS: Blood pressure 100/60, heart rate of 80, temperature max 97.5. GENERAL: The patient is awake, alert, again a very poor historian with short-term. HEENT: Head is normocephalic, atraumatic. He does wear partial dentures. Pupils equal and reactive. Oral mucosa pink, moist. NECK: Supple. No JVD. HEART: S1 and S2. Regular rate and rhythm. Grade 2/6 systolic and a diastolic component. LUNGS: He has got significant inspiratory and expiratory wheeze, very diminished in the bases, a few basilar crackles. ABDOMEN: Soft, nontender. EXTREMITIES: Reveal chronic venous stasis with chronic venous ulcers. Very faint but palpable dorsalis pedis on both feet. He has got some chronic fungal changes to his toes. LABORATORY DATA: EKG showed atrial fibrillation, incomplete right bundle branch block, moderate T-wave abnormality. Lab work shows hemoglobin 13, hematocrit of 41, white cell count of 11, platelet count of 151. INR 1.7, it was 5.5. His blood gas showed a pH of 7.45, CO2 of 35, pO2 of 149. This was on BiPAP on 40%. Latest blood work shows a sodium of 138, potassium 4.1, BUN of 48 with a creatinine 1.43, which was 1.80 on admission. Blood sugars have varied from 237 to 56 to 211. AST at 110, ALT at 133. A statin is now on hold. BNP was elevated at 1200, now is 747. The patient's DM screen is positive, complement C3 is 89. Hepatitis A, B, and C are all negative. He did have an ultrasound of the kidney showing chronic parenchymal disease, no obstructive uropathy. 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 Chest x-ray on admission showed no acute findings. IMPRESSION: This is a 72-year-old male with multiple risk factors for aortic valve surgery. Still pending is a cardiac catheterization. He has significant mitral regurgitation, also evidence of some severe mitral stenosis, moderate aortic regurgitation, and with also severe aortic stenosis. The echocardiogram will be read by Dr. Marisol Prince and also pending will be his heart catheterization. Risk stratification will be done at that time when his catheterization has been done. He would need to have baseline pulmonary function testing also to deem him a candidate for any type of surgery. ENOC Mata , 01:03 PM , 01:15 PM
[2018-05-22] MEDS: Heparin Drip 25,000 UNIT/250 ML BAG IV.CONT PRN (16:37)
--- NOTE | 2018-05-22 17:08 | P.PNWCN ---
Wound Care Nurse Consult Description: Received wound management consult for both lower legs / chronic venous stasis with ulcerations/ skin therapy from [facility] Communicated with: HEIDI Stover and call placed to [facility] for orders. Recommendation: Please apply shaving cream to bilateral lower legs and cover with warm moistened towels and leave in place for 10 minutes. Rinse legs with warm water and pat dry. Please do shaving cream therapy and then apply lotion with dressing changes. Please cleanse wound to L hernandez with normal saline or wound cleanser and pat dry. Apply pea sized amount of hydrogel to wound bed and cover with ABD pad, secure dressing will rolled gauze, tape and stockinette. Change dressing every other day. Wound/Pressure Injury - Wound Left Hernandez Wound Assessment: Ongoing Wound Type: Traumatic Wound (Arterial in appearance) Length (cm): 2.2 (~2.2cm) Width (cm): 1.5 (~1.5cm) Depth (cm): 0.2 (~0.2cm) Wound Bed Appearance: Red Wound Bed Appearance: 100% red non granulation tissue that is dry Surrounding Tissue Appearance: [place] Surrounding Tissue Temperature: Cool Drainage Amount: None Drainage Odor: No Odor Dressing Status: Open to Air Cleansing Solution: Saline Wound Margin Description: Wound margins are steep, and even wound has a punched out appearance. - Additional Information Patient was seen on [facility] for wound management of both lower legs/chronic venous stasis with ulceration/ skin therapy. Patient is sitting up at bedside. Bilateral legs are noted open to air. Open wound is visible to L hernandez, that is open to air, dry and non draining. BLE both present with dark pink discoloration and dry peeling skin, with scattered scabs. Wound presents with 100% red non granulation tissue that dry and non draining. Periwound presents with peeling dry skin.Patient is requesting to use the urinal at this time at bedside. Spoke with HEIDI cunningham and obtained supplies and placed at bedside for HEIDI Cunningham to apply shaving cream therapy , followed by lotion, followed by wound care to L hernandez.
--- NOTE | 2018-05-22 17:14 | P.PNCA ---
Subjective Interval history: alert in nad Medications and Allergies Active Medications: Active Medications Acetaminophen (Tylenol) 650 mg PO Q4H PRN PRN Reason: Temp > 100.4 Al Hydroxide/Mg Hydroxide (Milk Of Gerardo Clarke) 30 ml PO Q12H PRN PRN Reason: Mild Constipation Albuterol (Albuterol Neb (Prn)) 1.25 mg NEB Q2HR NEB PRN PRN Reason: shortness of breath Albuterol (Duoneb Neb (Arleen)) 1 ampul NEB Q6HR ALT NEB [facility] Last Admin: 05/22/18 14:31 Dose: Not Given Atorvastatin Calcium (Lipitor) 40 mg PO HS [facility] Last Admin: 05/20/18 20:23 Dose: 40 mg Bisacodyl (Dulcolax Supp) 10 mg RECTAL DAILY PRN PRN Reason: SEVERE CONSITIPATION Budesonide/Formoterol Fumarate (Symbicort 80/4.5 Mcg Inh) 2 puff INH BID [facility] Last Admin: 05/22/18 09:03 Dose: 2 puff Dextrose (D50w Vial) 50 ml IV.PUSH UNSCH PRN PRN Reason: PER HYPOGLYCEMIA PROTOCOL Furosemide (Lasix) 40 mg PO BID@0900,1800 [facility] Last Admin: 05/22/18 17:05 Dose: 40 mg Gabapentin (Neurontin) 600 mg PO BID [facility] Last Admin: 05/19/18 20:40 Dose: 600 mg Glucagon (Glucagon Inj) 1 mg OTHER PRN PRN PRN Reason: for Hypoglycemia Protocol Heparin Sodium (Porcine) (Heparin Inj) 2,500 units IV.PUSH UNSCH PRN PRN Reason: aPTT 25-39 Heparin Sodium (Porcine) (Heparin Inj) 5,000 units IV.PUSH UNSCH PRN PRN Reason: aPTT < 25 Albumin Human (Flexbumin 25% Inj) 50 mls @ 60 mls/hr IV.SIG Q12H [facility] Last Infusion: 05/22/18 11:51 Dose: Infused Heparin Sodium/Dextrose (Heparin/D5w 25,000 U/250 Ml) 25,000 unit in 250 mls @ 9 mls/hr IV.CONT TITRATE PRN; Protocol PRN Reason: Per Protocol Last Admin: 05/22/18 16:37 Dose: 900 units/hr, 9 mls/hr Insulin Aspart (Novolog Insulin Correctional Sugar Inj) 0 unit SQ ACHS [facility]; Protocol Last Admin: 05/22/18 16:36 Dose: 5 unit Insulin Aspart (Novolog Inj) 4 units SQ TIDAC [facility] Last Admin: 05/22/18 16:36 Dose: 4 units Insulin Detemir (Levemir Inj) 25 unit SQ HS [facility] Lactulose (Lactulose Liq) 30 ml PO DAILY PRN PRN Reason: SEVERE CONSITIPATION Metoprolol Succinate (Toprol Xl) 12.5 mg PO DAILY [facility] Last Admin: 05/22/18 09:03 Dose: 12.5 mg Ondansetron HCl (Zofran Inj) 4 mg IV.PUSH Q6H PRN PRN Reason: NAUSEA OR VOMITING Pantoprazole Sodium (Protonix Inj) 40 mg IV.PUSH Q12H [facility] Last Admin: 05/22/18 11:15 Dose: 40 mg Pharmacy Profile Note (Coumadin Consult Pharmacy) 1 each OTHER UNSCH PRN PRN Reason: PHARMACY DOCUMENTATION Potassium Chloride (K-Dur) 20 meq PO BID [facility] Last Admin: 05/22/18 09:03 Dose: 20 meq Pramipexole Dihydrochloride (Mirapex) 0.25 mg PO DAILY [facility] Last Admin: 05/22/18 11:16 Dose: 0.25 mg Prednisone (Deltasone) 20 mg PO BID [facility] Last Admin: 05/22/18 09:03 Dose: 20 mg Senna/Docusate Sodium (Graciela-Colace) 1 tab PO BID [facility] Last Admin: 05/22/18 09:03 Dose: Not Given Sennosides (Senokot) 17.2 mg PO Q12H PRN PRN Reason: Moderate Constipation Tiotropium [place] (Spiriva 18 Mcg Inh) 18 mcg INH DAILY [facility] Last Admin: 05/22/18 09:03 Dose: 18 mcg Allergies Allergy/AdvReac Type Severity Reaction Status Date / Time aspirin Allergy Severe ON COUMADIN Verified 05/19/18 04:07 bee venom protein (honey bee) Allergy Severe Agitation Verified 05/19/18 04:07 codeine Allergy Severe Seizures Verified 05/19/18 04:07 penicillin G Allergy Severe ANAPHYLAXSI Verified 05/19/18 04:07 S Sulfa (Sulfonamide Allergy Severe shakes/inch Verified 05/19/18 04:07 Antibiotics) oherent Home Medications Medication Instructions Recorded Confirmed Type albuterol sulfate 2 puff INHALATION Q6H PRN 02/15/18 05/19/18 History atorvastatin [Lipitor] 120 mg PO HS 02/15/18 05/19/18 History budesonide-formoterol [Symbicort] 2 puff INHALATION BID 02/15/18 05/19/18 History gabapentin 600 mg PO BID 02/15/18 05/19/18 History insulin glargine [Lantus U-100 40 unit SUB-Q BID 02/15/18 05/19/18 History Insulin] metformin 500 mg PO BID 02/15/18 05/19/18 History metoprolol succinate 12.5 mg PO DAILY 02/15/18 05/19/18 History warfarin 2.5 mg PO DIRECTED 02/15/18 05/19/18 History warfarin 5 mg PO DIRECTED 02/15/18 05/19/18 History [id number] oil [Fish 1,200 mg PO DAILY 05/19/18 05/19/18 History Oil] Physical Exam Vital signs: Vital Signs 05/21/18 18:00 05/21/18 19:58 05/21/18 19:59 Temperature Pulse Rate 106 H 74 Respiratory Rate 21 Blood Pressure Pulse Oximetry 2 L 98 05/21/18 20:00 05/21/18 21:00 05/21/18 21:30 Temperature 98.2 F Pulse Rate 88 100 H 99 H Respiratory Rate 22 Blood Pressure 102/69 Pulse Oximetry 98 05/21/18 23:00 05/22/18 00:00 05/22/18 00:08 Temperature 98 F Pulse Rate 99 H 89 85 Respiratory Rate 20 24 Blood Pressure 127/85 Pulse Oximetry 97 97 05/22/18 01:00 05/22/18 02:00 05/22/18 03:00 Temperature Pulse Rate 92 H 93 H 95 H Respiratory Rate Blood Pressure Pulse Oximetry 05/22/18 04:00 05/22/18 05:00 05/22/18 06:00 Temperature 98 F Pulse Rate 91 H 90 89 Respiratory Rate 18 Blood Pressure 88/56 L Pulse Oximetry 97 05/22/18 07:43 05/22/18 08:00 05/22/18 09:58 Temperature 97.9 F Pulse Rate 63 91 H 91 H Respiratory Rate 16 18 Blood Pressure 108/74 Pulse Oximetry 94 L 95 05/22/18 11:00 05/22/18 12:00 05/22/18 13:00 Temperature 97.5 F L Pulse Rate 101 H 81 90 Respiratory Rate 16 Blood Pressure 100/67 Pulse Oximetry 96 05/22/18 14:00 05/22/18 15:00 Temperature Pulse Rate 88 86 Respiratory Rate Blood Pressure Pulse Oximetry Intake & Output 05/21/18 05/22/18 05/22/18 18:59 06:59 18:59 Intake Total 50 / 50 730 / 730 50 / 50 Output Total 850 / 850 Balance 50 / 50 -120 / -120 50 / 50 Weight 73.8 kg Intake: IV 50 / 50 50 / 50 50 / 50 Flexbumin 25% Inj 50 ML @ 60 50 / 50 50 / 50 50 / 50 mls/hr IV.SIG Q12H [facility] Rx#: [id number] Oral 680 / 680 Output: Urine 850 / 850 Other: Date of Last Bowel Movement 05/18/18 05/18/18 05/18/18 # Bowel Movements 1 - Constitutional no acute distress - Routine HEENT Exam Head: Present: normocephalic - Routine Neck Exam Present: supple - Routine Respiratory Exam Present: CTA bilaterally - Routine Cardiovascular Exam Present: S1, S2 - Routine Abdominal Exam Present: soft - Routine Extremities Exam Comments: no annetta Results 05/22/18 04:49 05/22/18 04:49 Cardiac Enzymes 05/21/18 05/22/18 05/22/18 Range/Units 06:31 04:49 04:49 AST 91 H 110 H (15-37) U/L B-Natriuretic Peptide 747 H (0-100) pg/mL Coagulation 05/21/18 05/22/18 05/22/18 Range/Units 06:31 04:49 04:49 PT 44.5 H 17.7 H D (9.8-11.6) sec APTT (23.4-31.7) sec B-Natriuretic Peptide 747 H (0-100) pg/mL 05/22/18 Range/Units 16:35 PT (9.8-11.6) sec APTT 30.3 (23.4-31.7) sec B-Natriuretic Peptide (0-100) pg/mL CBC 05/21/18 05/22/18 Range/Units 10:37 04:49 WBC 11.4 H (4.0-11.0) th/mm3 RBC 4.68 (4.50-5.90) mil/mm3 Hgb 13.9 13.9 (13.0-17.0) gm/dL Hct 40.8 41.2 (39.0-51.0) % Plt Count 151 (150-450) th/mm3 Neut # (Auto) 9.4 H (1.8-7.7) th/mm3 Lymph # (Auto) 1.0 (1.0-4.8) th/mm3 [place] # (Auto) 1.0 H (0.0-0.9) th/mm3 Eos # (Auto) 0.0 (0.0-0.4) th/mm3 Baso # (Auto) 0.0 (0.0-0.2) th/mm3 Comprehensive Metabolic Panel 05/21/18 05/22/18 Range/Units 06:31 04:49 Sodium 136 138 (136-145) meq/L Potassium 4.2 4.1 (3.5-5.1) meq/L Chloride 101 102 (98-107) meq/L Carbon Dioxide 26.1 30.4 (21.0-32.0) meq/L BUN 52 H 48 H (7-18) mg/dL Creatinine 1.58 H 1.43 H (0.60-1.30) mg/dL Calcium 9.0 9.0 (8.5-10.1) mg/dL AST 91 H 110 H (15-37) U/L ALT 100 H 133 H (12-78) U/L Alkaline Phosphatase 91 81 (45-117) U/L Total Protein 7.0 7.0 (6.4-8.2) g/dL Albumin 3.2 L 3.5 (3.4-5.0) g/dL Intake and Output 05/22/18 05/22/18 05/22/18 06:59 14:59 22:59 Intake Total 530 / 530 50 / 50 Output Total 850 / 850 Balance -320 / -320 50 / 50 Intake: IV 50 / 50 50 / 50 Flexbumin 25% Inj 50 ML @ 60 50 / 50 50 / 50 mls/hr IV.SIG Q12H [facility] Rx#: [id number] Oral 480 / 480 Output: Urine 850 / 850 Other: Date of Last Bowel Movement 05/18/18 05/18/18 # Bowel Movements 1 Weight 73.8 kg Assessment and Plan - Assessment (1) Acute exacerbation of CHF (congestive heart failure) Code(s): I50.9 - Heart failure, unspecified Status: Acute (2) Acute renal failure Code(s): N17.9 - Acute kidney failure, unspecified Status: Acute (3) Diabetes Code(s): E11.9 - Type 2 diabetes mellitus without complications Status: Acute (4) COPD (chronic obstructive pulmonary disease) Code(s): J44.9 - Chronic obstructive pulmonary disease, unspecified Status: Acute - Plan 1.) Mitral stenosis - severe, coumadin held, start heparin drip, rhc/lhc scheduled for 05/23/18; CT surgery consulted, case d/w patient and nurs eat bedside
[2018-05-22] MEDS: Insulin Detemir Inj 1,000 UNIT/10 ML Vial SQ SCH (21:16)
[2018-05-22] MEDS ORDERED: Heparin 10,000 UNITS/10 ML Vial (for IV use) IV.PUSH PRN ×2 (22:05)
[2018-05-23] MEDS: Albumin Human 25% Inj 50 ML IV.SIG SCH ×3 (00:29→23:53)
[2018-05-23] MEDS: Pantoprazole Inj 40 MG Vial IV.PUSH SCH ×3 (00:30→23:51)
[2018-05-23 03:17] LABS: Activated Partial Thrombo Time 64.3 sec (23.4-31.7); INR 1.6 Ratio; Prothrombin Time 15.7 sec (9.8-11.6)
[2018-05-23] MEDS: Senna/Docusate Sodium 8.6/50 MG Tablet PO SCH ×2 (09:29→21:21)
[2018-05-23] MEDS: predniSONE 20 MG Tablet PO SCH (09:30)
[2018-05-23] MEDS: Tiotropium Bromide 18 MCG/ACT Inhaler INH SCH (09:30)
[2018-05-23] MEDS: Furosemide 20 MG Tablet PO SCH ×2 (09:30→17:57)
[2018-05-23] MEDS: Budesonide-Formoterol 80/4.5 MCG 6.9 GM Inhaler INH SCH ×2 (09:30→21:21)
[2018-05-23] MEDS: Insulin NovoLOG Aspart Correctional Sugar Inj SQ SCH ×4 (09:40→21:22)
--- NOTE | 2018-05-23 10:49 | P.PNNP ---
Subjective Interval history: Patient is doing well, waiting for heart catheterization Physical Exam Vital signs: Vital Signs 05/22/18 11:00 05/22/18 12:00 05/22/18 13:00 Temperature 97.5 F L Pulse Rate 101 H 81 90 Respiratory Rate 16 Blood Pressure 100/67 Pulse Oximetry 96 05/22/18 14:00 05/22/18 15:00 05/22/18 16:00 Temperature 97.8 F Pulse Rate 88 86 91 H Respiratory Rate 18 Blood Pressure 111/86 Pulse Oximetry 94 L 05/22/18 17:00 05/22/18 17:38 05/22/18 19:00 Temperature Pulse Rate 102 H 84 92 H Respiratory Rate Blood Pressure Pulse Oximetry 05/22/18 19:37 05/22/18 20:00 05/22/18 21:00 Temperature 97.6 F Pulse Rate 67 88 92 H Respiratory Rate 16 14 Blood Pressure 118/84 Pulse Oximetry 94 L 97 05/22/18 22:00 05/22/18 23:00 05/23/18 00:00 Temperature 97.8 F Pulse Rate 84 83 86 Respiratory Rate 16 Blood Pressure 130/77 Pulse Oximetry 97 05/23/18 01:00 05/23/18 02:00 05/23/18 03:00 Temperature Pulse Rate 74 84 88 Respiratory Rate Blood Pressure Pulse Oximetry 05/23/18 04:00 05/23/18 04:49 05/23/18 05:00 Temperature 97.6 F Pulse Rate 77 81 80 Respiratory Rate 18 20 Blood Pressure 100/72 Pulse Oximetry 100 05/23/18 06:00 05/23/18 07:00 05/23/18 08:00 Temperature 97.7 F Pulse Rate 82 79 Respiratory Rate 16 Blood Pressure 136/87 Pulse Oximetry 96 97 05/23/18 09:52 Temperature Pulse Rate 72 Respiratory Rate 12 Blood Pressure Pulse Oximetry Intake & Output 05/22/18 05/23/18 05/23/18 18:59 06:59 18:59 Intake Total 910 / 910 530 / 530 Output Total 750 / 750 1625 / 1625 Balance 160 / 160 -1095 / -1095 Weight 72.4 kg Intake: IV 50 / 50 50 / 50 Flexbumin 25% Inj 50 ML @ 60 50 / 50 50 / 50 mls/hr IV.SIG Q12H [facility] Rx#: [id number] Oral 860 / 860 480 / 480 Output: Urine 750 / 750 1625 / 1625 Other: Date of Last Bowel Movement 05/22/18 05/22/18 # Bowel Movements 1 Narrative: GENERAL: NAD SKIN: Warm and dry. HEAD: Normocephalic. EYES: No scleral icterus. No injection or drainage. NECK: Supple, trachea midline. No JVD or lymphadenopathy. CARDIOVASCULAR: Regular rate and rhythm without murmurs, gallops, or rubs. RESPIRATORY: Breath sounds decrease bilaterally. + accessory muscle use. GASTROINTESTINAL: Abdomen soft, non-tender, nondistended. MUSCULOSKELETAL: No cyanosis, or edema. BACK: Nontender without obvious deformity. No CVA tenderness. Assessment and Plan - Assessment (1) Acute renal failure Code(s): N17.9 - Acute kidney failure, unspecified Status: Acute (2) Diabetes Code(s): E11.9 - Type 2 diabetes mellitus without complications Status: Acute (3) COPD (chronic obstructive pulmonary disease) Code(s): J44.9 - Chronic obstructive pulmonary disease, unspecified Status: Acute (4) Acute exacerbation of CHF (congestive heart failure) Code(s): I50.9 - Heart failure, unspecified Status: Acute (5) Community acquired pneumonia Code(s): J18.9 - Pneumonia, unspecified organism Status: Acute - Plan Patient has severe mitral stenosis, and congestive heart failure, EF 40-45% continue with diuresis, cardiology recommend heart catheterization he has 2 valve cardiac disease And avoid nephrotoxic agents Patient is going for heart catheterization I will start him on IV hydration normal saline at 84 cc an hour Patient creatinine did improve to 1.4 His blood sugar high Diabetes being managed The ultrasound of kidney showed thinning cortex medical renal disease Monitor BMP
--- NOTE | 2018-05-23 11:04 | P.PNCV ---
- Note Subjective/Hospital Course: This is a 72-year-old male, a very poor historian, who does have his brother at the bedside who does live alone. Gets his medical treatment from the CT, Dr. Booker of blue team. Presented to the hospital in severe shortness of breath. Underwent an echocardiogram, which showed ejection fraction of 40%-45%, left ventricular systolic function moderately reduced. The right ventricle was mildly dilated, moderate mitral regurgitation, severe mitral valve stenosis, valve gradient of 60 mmHg. There was also moderate aortic valve regurgitation and hxlxijnn-ro-aaoheq aortic valve stenosis. The patient was transferred from the [facility]. The patient was admitted for respiratory failure and COPD exacerbation. He was also admitted back, per the notes, on 02/15/2018. Per the patient, he states he was in the hospital a few weeks ago, was treated for a possible pneumonia. He is not sure if he picked up his medications. PAST MEDICAL HISTORY: Diabetes mellitus type 2, insulin-dependent, history of atrial fibrillation, history of prior [place] (he is not sure how many years ago that was), asthma, history of CHF, COPD, posttraumatic stress disorder 05/23 PFT FEV1 0.88 31% predicted await cardiac cath today he will be high risk 2/2 poor lung function Objective: Vital Signs - 24 hr 05/22/18 11:00 05/22/18 12:00 05/22/18 13:00 Temperature 97.5 F L Pulse Rate 101 H 81 90 Respiratory Rate 16 Blood Pressure 100/67 Pulse Oximetry 96 05/22/18 14:00 05/22/18 15:00 05/22/18 16:00 Temperature 97.8 F Pulse Rate 88 86 91 H Respiratory Rate 18 Blood Pressure 111/86 Pulse Oximetry 94 L 05/22/18 17:00 05/22/18 17:38 05/22/18 19:00 Temperature Pulse Rate 102 H 84 92 H Respiratory Rate Blood Pressure Pulse Oximetry 05/22/18 19:37 05/22/18 20:00 05/22/18 21:00 Temperature 97.6 F Pulse Rate 67 88 92 H Respiratory Rate 16 14 Blood Pressure 118/84 Pulse Oximetry 94 L 97 05/22/18 22:00 05/22/18 23:00 05/23/18 00:00 Temperature 97.8 F Pulse Rate 84 83 86 Respiratory Rate 16 Blood Pressure 130/77 Pulse Oximetry 97 05/23/18 01:00 05/23/18 02:00 05/23/18 03:00 Temperature Pulse Rate 74 84 88 Respiratory Rate Blood Pressure Pulse Oximetry 05/23/18 04:00 05/23/18 04:49 05/23/18 05:00 Temperature 97.6 F Pulse Rate 77 81 80 Respiratory Rate 18 20 Blood Pressure 100/72 Pulse Oximetry 100 05/23/18 06:00 05/23/18 07:00 05/23/18 08:00 Temperature 97.7 F Pulse Rate 82 79 Respiratory Rate 16 Blood Pressure 136/87 Pulse Oximetry 96 97 05/23/18 09:52 Temperature Pulse Rate 72 Respiratory Rate 12 Blood Pressure Pulse Oximetry GENERAL: A&O SKIN: Warm and dry. wound left rodríguez, poor chronic venous stasis HEAD: Normocephalic. EYES: No scleral icterus. No injection or drainage. NECK: Supple, trachea midline. No JVD or lymphadenopathy. CARDIOVASCULAR: Regular rate and rhythm without murmurs, gallops, or rubs. 3/6 sm RESPIRATORY: Breath sounds equal bilaterally. No accessory muscle use. insp and exp wheezing GASTROINTESTINAL: Abdomen soft, non-tender, nondistended. MUSCULOSKELETAL: No cyanosis, or edema. BACK: Nontender without obvious deformity. No CVA tenderness. Labs: Laboratory Results - last 12 hr 05/23/18 05/23/18 05/23/18 02:54 03:55 07:47 PT 15.7 H INR 1.6 APTT 64.3 H POC Glucose 124 H 159 H Result Diagrams: 05/22/18 04:49 05/22/18 04:49 Telemetry: NSR statin , heparin gtt await cardiac cath and STS scoring
[2018-05-23] MEDS ORDERED: Heparin/NS PF Inj 1,500 ML ONE (12:18)
[2018-05-23] MEDS ORDERED: fentaNYL Citrate Inj 100 MCG/2 ML Ampul ONE (12:18)
--- NOTE | 2018-05-23 12:23 | P.PN ---
Subjective Interval history: Follow-up respiratory failure/syncope/Mitral and Aortic Valves stenosis May 21, 2018-Patient seen and examined, +SOB but no chest pain or dizziness. May 22, 2018-patient seen and examined, no chest pain, or significant shortness of breath. Only complains of restless leg syndromes pain. Brother by the bedside. May 23, 2018-patient seen and examined still with some shortness of breath and wheezing on exam. Denies any chest pain. Reports improvement of restless leg syndrome pain. N.p.o. pending left heart catheterization today. Physical Exam Vital signs: Vital Signs 05/22/18 13:00 05/22/18 14:00 05/22/18 15:00 Temperature Pulse Rate 90 88 86 Respiratory Rate Blood Pressure Pulse Oximetry 05/22/18 16:00 05/22/18 17:00 05/22/18 17:38 Temperature 97.8 F Pulse Rate 91 H 102 H 84 Respiratory Rate 18 Blood Pressure 111/86 Pulse Oximetry 94 L 05/22/18 19:00 05/22/18 19:37 05/22/18 20:00 Temperature 97.6 F Pulse Rate 92 H 67 88 Respiratory Rate 16 14 Blood Pressure 118/84 Pulse Oximetry 94 L 97 05/22/18 21:00 05/22/18 22:00 05/22/18 23:00 Temperature Pulse Rate 92 H 84 83 Respiratory Rate Blood Pressure Pulse Oximetry 05/23/18 00:00 05/23/18 01:00 05/23/18 02:00 Temperature 97.8 F Pulse Rate 86 74 84 Respiratory Rate 16 Blood Pressure 130/77 Pulse Oximetry 97 05/23/18 03:00 05/23/18 04:00 05/23/18 04:49 Temperature 97.6 F Pulse Rate 88 77 81 Respiratory Rate 18 20 Blood Pressure 100/72 Pulse Oximetry 100 05/23/18 05:00 05/23/18 06:00 05/23/18 07:00 Temperature 97.7 F Pulse Rate 80 82 79 Respiratory Rate 16 Blood Pressure 136/87 Pulse Oximetry 96 05/23/18 08:00 05/23/18 09:52 Temperature Pulse Rate 72 Respiratory Rate 12 Blood Pressure Pulse Oximetry 97 Intake & Output 05/22/18 05/23/18 05/23/18 18:59 06:59 18:59 Intake Total 910 / 910 530 / 530 Output Total 750 / 750 1625 / 1625 Balance 160 / 160 -1095 / -1095 Weight 72.4 kg Intake: IV 50 / 50 50 / 50 Flexbumin 25% Inj 50 ML @ 60 50 / 50 50 / 50 mls/hr IV.SIG Q12H SALAS Rx#: [id number] Oral 860 / 860 480 / 480 Output: Urine 750 / 750 1625 / 1625 Other: Date of Last Bowel Movement 05/22/18 05/22/18 # Bowel Movements 1 Narrative: GENERAL: NAD SKIN: Warm and dry. HEAD: Normocephalic. EYES: No scleral icterus. No injection or drainage. NECK: Supple, trachea midline. No JVD or lymphadenopathy. CARDIOVASCULAR: Regular rate and rhythm without murmurs, gallops, or rubs. RESPIRATORY: Breath sounds decrease bilaterally. +exp wheezings GASTROINTESTINAL: Abdomen soft, non-tender, nondistended. MUSCULOSKELETAL: No cyanosis, or edema. BACK: Nontender without obvious deformity. No CVA tenderness. Results - Labs CBC & Chem 7: 05/22/18 04:49 05/22/18 04:49 Laboratory Results - last 24 hr 05/22/18 05/22/18 05/22/18 16:30 16:35 21:05 PT INR APTT 30.3 55.0 H D POC Glucose 181 H 05/22/18 05/22/18 05/23/18 21:09 21:11 02:54 PT 15.7 H INR 1.6 APTT 64.3 H POC Glucose 234 H 260 H 05/23/18 05/23/18 03:55 07:47 PT INR APTT POC Glucose 124 H 159 H Assessment and Plan - Plan 72-year-old man with Acute on chronic systolic CHF exacerbation Lasix 40 mg IV twice daily 2D echo with EF of 40-45% ESEQUIEL-I contraindicated 2/2 worsening Renal failure Continue with Toprol-XL Appreciate input from cardiology who plan for left heart catheterization today 05/23/18 COPD exacerbation Currently on p.o. prednisone 20 mg twice daily, however will switch to Solu- Medrol 40 mg IV every 12 hours 05/23/18 Continue Spiriva and continue with Symbicort, Schedule and PRN Duo Neb IS Suspected moderate to severe Aortic and Severe Mitral valve stenosis Cardiology consultation appreciated, and appreciate input from cardiothoracic surgery for evaluation for repair May need eval with C INR therapeutic, however Coumadin on hold. Patient is currently on heparin drip Acute kidney injury Renal indices improving Management per Nephrology Renal US of kidney showed thinning cortex medical renal disease Continue with albumin per nephrology Subjective history of melena No evidence of that here while hospitalized, -Continue to monitor H/H -Protonix Transaminitis likely 2/2 medication statin Hepatitis panel negative Continue to monitor LFTs DM Continue Levemir 20 units at bedtime, aspart 4units 3 times daily before meals New with SS w/ accu-checks Restless leg syndrome Continue pramipexole 0.25mg daily DVT prophylaxis: Heparin
--- NOTE | 2018-05-23 13:31 | CATHPROC ---
j-Grab HIS Report Study Information Study Number Admission Scheduled Start Study Start [id number] May 19 2018 5:43AM 05/23/2018 May 23 2018 11:37AM [place] Service Electrophysiology Study Admit Source Facility Department Other [facility] - Fitness Coordinator Physician and Clinical Staff Initial Johnny Bowman Tray Line Supervisor Radha Last RN Recorder Komal Morrow,RT(R) Scrub Gladis Rosas ,RT(R) Procedures Performed Procedure Location (Site) Vessel Name Coronary Angiograms LCA Left Coronary Coronary Angiograms RCA Right Coronary L Heart Cath Wire insertion Fem Art (right) Femoral Art Equipment Time Paint Line Production Supervisor Description Size Mfg Part Number Used/Scraped CATHETER, FR5 SWAN BARBARA 12:55 [id number] FR 5 [id number] *[id number] Used MONITOR TRANSDUCER, TRUWAVE [id number] 12:55 PATRICK LUTZ * Used W/STOCKCOCK *[id number] *[id number] [id number] *[id number] [id number] *[id number] [id number] *[id number] 12:55 [employer]PlayWin BLANKET,WARM AIR CCL * Used *[id number] 12:55 [employer] PACK, CCL CUSTOM * Used *[id number] 12:55 InCytu PACER PEN, SKIN DUAL W/ RULER * Used *[id number] 12:55 Proven MEDICAL SHEATH, FR5.5 PRELUDE 11CM FR 5.5 Used 038ACT# [id number] 12:55 Proven MEDICAL WIRE, 3MMJ .035 180CM 180CM Used *[id number] 12:55 NAMIC MANIFOLD, 4 PORT * Used *[id number] 12:55 NYCOMED OMNIPAQUE, 350 MG, 150ML 150ML [id number] Used [id number] 12:55 TERUMO MEDICAL SHEATH, FR4 TERUMO (10CM) FR 4 Used *[id number] History: Current Medications Medication Dosage/Unit Route Frequency Last Date/Time Taken K-Dur Glucophage Coumadin History: Allergies Allergy Reaction aspirin ON COUMADIN Bee Sting codeine Seizures Penicillin ANAPHYLAXSIS Sulfa shakes/inchoherent Sulfa (Sulfonamide Antibiotics) shakes/inchoherent penicillin G ANAPHYLAXSIS bee venom protein (honey bee) Agitation History: Risk Factors Family History of Hypertension Dyslipidemia Previous AR Previous Heart Failure Premature CAD Yes No No Yes Yes Prior Valve Prior PCI Prior CABG Surgery No No No Cerebrovascular Peripheral Artery Chronic Lung On Dialysis Diabetes Diabetes Therapy Disease Disease Disease No No No No Yes Oral History: Symptoms/Diagnosis Selection Items SOB History: CV Disease Selection Items AR History: Stress Tests Stress or Imaging Studies Performed No History: Arrhythmias Selection Items Atrial fibrillation History: Other Disease Selection Items Renal Failure/Insufficiency History: Other Current Smoker No Labs Hgb (g/dl) Hct (%) RBC (MIL/MM3) WBC (l/cumm) Platelets (thousands) 11.60-17.00 35.00-51.00 4.00-5.90 4.00-11.00 150.00-450.00 13.9 40.8 4.6 11.4 151 Glucose (mg/dl) BUN (mg/dl) Creatinine (mg/dl) BUN:Creatinine (1:x) 74.00-106.00 7.00-18.00 0.50-1.30 10.00-20.00 159 48 1.4 34.3 Na (meq/l) K (meq/l) Cl (meq/l) CO2 (mmol/L) Ca (mg/dl) 136.00-145.00 3.50-5.10 98.00-107.00 21.00-32.00 8.50-10.10 138 4.1 102 30.4 9 PT (sec) PTT (sec) INR (PTT:PT) 9.80-11.60 24.30-30.10 0.90-1.10 15.7 64.3 1.6 CPK-MB (ng/ML) 0.50-3.60 Not Drawn Medication Medication Total Dose (Bolus/Oral) Medication Total Dosage/Unit 1% XYLOCAINE 20 mL FENTANYL 25 mcg Medications (Bolus/Oral) Medication Time Given Dosage/Unit Administered By Reason 05/23/2018 12:40:49 FENTANYL 25 mcg Radha Last PM 25 mcg FENTANYL given by Radha Last RN via Peripheral IV. 05/23/2018 12:53:35 1% XYLOCAINE 20 mL Johnny Rae PM 20 mL 1% XYLOCAINE given by Johnny Rae in Right Groin via Subcutaneous. Initial Case Assessment Cardiovascular HR Rhythm NIBP Chest Pain 84 irreg 138/81 0 Edema Present Skin color Skin None Normal Warm Circulatory - Right Pulses Dorsalis Pedis Femoral 1 1 Scale (0,1,2,3,4,d) Circulatory - Left Pulses Dorsalis Pedis Femoral 1 1 Scale (0,1,2,3,4,d) Circulatory - Lower Extremities Color Lower Right Color Lower Left Normal Normal Neurological State Oriented to time-place- Alert Moves all extremities person Respiration - General Respiration Rate SpO2 (%) O2 (lpm) (B/min) 19 98 2 Chronological Log Time Study Chronological Log 12:00:35 Patient arrived via Bed. 12:10:54 Patient Name, D.O.B, / Armband Verified By R.N. 12:10:55 Consent signed by the physician and the patient and verified by the Fitness Coordinator staff. 12:10:56 Pre-op and post- op instructions given; patient acknowledges understanding of instructions. 12:10:57 Verbal Stimulation=2 Physical Stimulation=2 Airway=2 Respiration=2 TOTAL=8. (0=absent, 1=li mited, 2=present) 12:11:01 Presedation assessment performed by Fitness Coordinator RN. 12:11:02 Patient has been NPO for Less than 6Hrs. 12:11:03 Skin Breakdown-mult bruises on rt arm. weepy and swollen ankles bilaterally 12:11:06 A # 20 IV was noted in the Fem Vein (right). Grade = 0 12:11:23 A # 20 IV was noted in the Forearm (left). Grade = 0 12:11:42 heparin discontinued in pts room 12:12:57 Reference ECG taken 12:14:48 MD texted. there will be a delay physician at other hospital Vitals capture started with the following parameters, Patient=Adult, Interval=5 min, Initial Pr pbywdb=333 mmHg, 12:16:27 Deflation Rate=5 mmHg, Cuff placed on Left Arm 12:17:09 HR=79 bpm, SITG=230/75 mmhg, SpO2=99.0 %, Resp=14 B/min, Pain=0, Holli=10, Pizano=2 12:20:17 Pressure channel 1 zeroed. 12:22:08 HR=73 bpm, ACQV=156/81 mmhg, SpO2=97.0 %, Resp=12 B/min, Pain=0, Holli=10, Pizano=2 12:27:07 HR=80 bpm, QBRC=602/81 mmhg, SpO2=96.0 %, Resp=11 B/min, Pain=0, Holli=10, Pizano=2 12:32:06 HR=93 bpm, LOKA=093/81 mmhg, SpO2=96.0 %, Resp=10 B/min, Pain=0, Holli=10, Pizano=2 Assessment: Initial Case, HR=84 BPM, Rhythm=irreg, EASD=327/81 mmhg, Chest Pain=0, Edema=None, Color=Normal, Skin = Warm Right Pulses: Al Ped=1, Femoral=1 Left Pulses: Al Ped=1, Femoral=1 12:33:37 Lower Right Extremities: Color=Normal Lower Left Extremities: Color=Normal Neurological: State=Alert, Ox3, [place] Respiration: Resp=19 B/min, SpO2=98 %, O2=2 lpm 12:34:23 Bilateral groins prepped with 2% chlorhexidine, and draped after a 3 minute waiting time. 12:37:09 HR=81 bpm, GXWO=895/83 mmhg, SpO2=96.0 %, Resp=20 B/min, Pain=0, Holli=10, Pizano=2 12:40:49 25 mcg FENTANYL given by Radha Last RN via Peripheral IV. 12:42:34 HR=86 bpm, WLUH=009/81 mmhg, SpO2=95.0 %, Resp=25 B/min, Pain=0, Holli=10, Pizano=2 12:47:07 HR=81 bpm, MWWS=942/89 mmhg, SpO2=93.0 %, Resp=15 B/min, Pain=0, Holli=10, Pizano=2 12:49:17 MD arrived. Time Out. Correct patient, correct procedure, correct physician, labs, allergies, and equipment verified with warehouse general laborer 12:51:53 team present. Fire risk assesment completed (see hard stop sheet for coding). Time Out Conc urred by MD and individual staff in procedure. Time Out #2 - Consents verified, patient in correct position, all results are labled and displa yed, safety precautions 12:51:58 taken. Time Out concurred by MD, individual staff and BLACKTOP SPREADER in procedure. 12:52:06 HR=77 bpm, UMTH=319/98 mmhg, SpO2=87.0 %, Resp=25 B/min, Pain=0, Holli=10, Pizano=2 12:53:25 Case Start 12:53:27 Verbal Stimulation=2 Physical Stimulation=2 Airway=2 Respiration=2 TOTAL=8. (0=absent, 1=li mited, 2=present) 12:53:35 20 mL 1% XYLOCAINE given by Johnny Rae in Right Groin via Subcutaneous. 12:54:33 Access site was Right Femoral Artery. 12:54:40 A wire was inserted via Fem Art (right). 12:54:54 A SHEATH, FR4 TERUMO (10CM) FR 4 was advanced into the Fem Art (right) using the Percutaneo us technique. 12:57:05 HR=98 bpm, PKVB=639/78 mmhg, SpO2=94.0 %, Resp=16 B/min, Pain=0, Holli=10, Pizano=2 12:57:34 Access site was Right Femoral Vein. 12:57:39 A SHEATH, FR5.5 PRELUDE 11CM FR 5.5 was advanced into the Fem Vein (right) using the Percut aneous technique. 12:57:57 Saturation: Site=Ao (Aorta) , O2=13.9 %, Hgb=97 gm/dl, Condition=Condition 1. Used in [facility]. Recorded Pressure: MPA, HR=82, Condition=Condition 1 13:01:55 (Main Pulmonary Artery) MPA 80/54/66 13:02:06 HR=71 bpm, HRAR=009/97 mmhg, SpO2=95.0 %, Resp=72 B/min, Pain=0, Holli=10, Pizano=2 Recorded Pressure: MPA, HR=75, Condition=Condition 1 13:02:29 (Main Pulmonary Artery) MPA 91/43/64 Recorded Pressure: RV, HR=85, Condition=Condition 1 13:03:21 (Right Ventricle) RV 87/8/15 Recorded Pressure: RA, HR=81, Condition=Condition 1 13:04:14 (Right Atrium) RA 22/20/17 13:04:31 [place] Barbara Catheter Removed A JR 4.0 INFINITI CATHETER FR 4 was advanced over a wire. OMNIPAQUE, 350 MG, 150ML 150ML was us ed for 13:05:28 injections. Recorded Pressure: LV, HR=93, Condition=Condition 1 13:06:02 (Left Ventricle) LV 160/11/16 Recorded Pressure: LV, Ao, HR=82, Condition=Condition 1 13:06:22 (Left Ventricle) LV 179/7/19, (Aorta) Ao 144/73/105 13:07:05 HR=79 bpm, MUKD=283/91 mmhg, SpO2=98.0 %, Resp=17 B/min, Pain=0, Holli=10, Pizano=2 13:08:14 The RCA was injected and visualized at various angles. OMNIPAQUE, 350 MG, 150ML 150ML used . 13:08:41 Catheter was removed A JL 4.0 INFINITI CATHETER FR 4 was advanced over a wire. OMNIPAQUE, 350 MG, 150ML 150ML was us ed for 13:08:52 injections. 13:10:36 Catheter was removed A JL 5.0 INFINITI CATHETER FR 4 was advanced over a wire. OMNIPAQUE, 350 MG, 150ML 150ML was us ed for 13:11:01 injections. 13:12:35 HR=89 bpm, OOIW=761/81 mmhg, SpO2=92.0 %, Resp=38 B/min, Pain=0, Holli=10, Pizano=2 13:13:00 The LCA was injected and visualized at various angles. OMNIPAQUE, 350 MG, 150ML 150ML used . 13:14:54 Catheter was removed 13:16:25 Activated Clotting Time Drawn 13:17:05 HR=94 bpm, LCCL=000/94 mmhg, SpO2=94.0 %, Resp=21 B/min, Pain=0, Holli=10, Pizano=2 13:21:59 Vitals capture stopped. 13:23:29 Case End (Physician broke scrub) 13:28:43 Sheath(s) left in place, will be removed in pts room by DOCU 13:30:37 Sterile dressing applied to site 13:30:38 No case complications noted. 13:30:39 Cine recording checked. 13:30:40 Bedside Report will be given. 13:30:43 A Left Heart Cath was performed. 13:30:44 Patient moved to stretcher 13:30:45 Clinical correlaton risk stratification. End Study - Contrast Media Used In Study Contrast Total Opened (mL) Total Used (mL) Total Wasted (mL) Omnipaque 350 40 40 0 End Study - Maximum Contrast Load Max Contrast Load (mL) 263.0 End Study - Radiation Exposure Fluoro Time (minutes) 6.0 End Study - Patient Disposition Complications Transferred To No Fitness Coordinator Holding
[2018-05-23] MEDS: Acetaminophen 325 MG Tablet PO PRN ×2 (13:52→19:36)
--- NOTE | 2018-05-23 14:07 | MR ---
cc: Johnny Rae MD DATE: 05/23/2018 PROCEDURE PERFORMED: Right heart catheterization, left heart catheterization, left ventriculography, coronary angiography INDICATIONS: Severe mitral valve stenosis, preop mitral valve repair, mild aortic valve stenosis, cardiomyopathy, congestive heart failure, tobacco use, multiple cardiac risk factors. DESCRIPTION OF PROCEDURE: The patient was brought to the cardiac catheterization laboratory, prepped and draped in the usual sterile fashion. Ten mL of 1% lidocaine was used to locally anesthetize the right common femoral artery. A 4-[place] sheath was placed in right common femoral artery. A 5.5-[place] sheath placed in the right common femoral vein. Right heart catheterization was performed first. I was able to partially place a balloon tipped catheter into the pulmonary artery temporarily. We were not able to record the pressure, however, as the systolic blood pressure with 80 and the catheter, despite multiple loops in the right atrium and right ventricle, could not be pushed out into the PA for sat determination or pressure determination or documentation. The right ventricular pressure was 87/8-15, RA pressure 22/20-17. Left heart catheterization was then performed with a 4-[place] JR4 and JL5 diagnostic catheter with the following findings: The LV pressure was 160/8-12, ejection fraction 45%. Right coronary artery is nondominant. There is a step down in reference vessel diameter of approximately 2.5 in the proximal segment down to about 1 mm after a high RV branch, which bifurcates proximally. Some mild disease in the ostial proximal segment up to 20% angiographically. There is moderate diffuse disease in the proximal segment up to 60% angiographically. The left main coronary artery is calcified fluoroscopically. It is a large vessel with no focal stenosis, reference vessel diameter probably at least 5.5 mm. The LAD is a large transapical vessel with a long proximal 60-70% stenosis. There is a medium to large ramus intermedius vessel, reference vessel diameter of 2.75 mm with a long ostial proximal 50% stenosis. The left circumflex was a dominant vessel. It is heavily calcified fluoroscopically in the proximal mid segment with 70% proximal stenosis. The left PDA is a 2 mm vessel with zizbhxsi-la-wqjnut diffuse disease in the proximal segment up to 50-60% angiographically. First and second diagonal arteries are small, 1.5 mm of vessels. No significant obstructive disease angiographically. The distal LAD has disease up to 50% angiographically. Also, note there is heavy calcification fluoroscopically in the proximal mid LAD. The mid to distal LAD is probably at least 2.5-2.75 mm in diameter. CONCLUSION: 1. Moderate to severe 3-vessel coronary artery disease in a left dominant system as detailed above. 2. Cardiomyopathy, ejection fraction 45%. 3. Severe pulmonary hypertension with systolic blood pressure of at least 80 mmHg. 4. Severe mitral valve stenosis by Doppler evaluation of the mitral valve with mean gradient of 60 mmHg. The valve is heavily calcified echocardiographically but does not appear so fluoroscopically. Pullback gradient across the aortic valve is approximately 5 mmHg. 5. I have strongly advised the patient stop smoking. 6. Recommend mitral valve replacement with strong consideration of left internal mammary artery to the left anterior descending, vein graft to left circumflex vessel, and possibly left posterior descending artery and possibly ramus intermedius vessel. I also recommend treatment of lipids per NCEP guidelines. Note, we will hold aggressive treatment with beta xena and angiotensin-converting enzyme inhibitor due to preop status as well as very fragile hemodynamics given the severe mitral valve stenosis. MD CORNELL Foley/nikolas , 01:27 PM , 01:38 PM
[2018-05-23] MEDS ORDERED: Sodium Chlor 0.9% Inj 77.5 ML, Papaverine Inj 60 MG, Nitroglycerin Inj 100 MCG, dilTIAZ... IRRIGATION SCH ×3 (14:15)
[2018-05-23] MEDS: Sod Chloride 0.9% Inj 1,000 ML IV.CONT SCH (14:21)
[2018-05-23] MEDS ORDERED: fentaNYL Citrate Inj 100 MCG/2 ML Ampul IV.PUSH ONE ×3 (14:30→14:45)
[2018-05-23] MEDS ORDERED: Sodium Chlor 0.9% Inj 500 ML IV.SIG SCH (15:00)
--- NOTE | 2018-05-23 16:03 | US ---
EXAM DATE: 05/23/2018 3:59 PM EST AGE/SEX: 72 years / Male INDICATIONS: Pre-op cardiac surgery. CLINICAL DATA: This is the patient's initial encounter. Patient reports that signs and symptoms have been present for 1 day and indicates a pain score of 0/10. MEDICAL/SURGICAL HISTORY: . Pre-op cardiac surgery. . Facial and back surgery. [place] [facility] [place]. . TECHNIQUE: Venous ultrasound of both lower extremities was performed from the inguinal ligament to t he proximal calf. Real-time, color Doppler and spectral tracing, compression and augmentation techni ques were used. FINDINGS: Right Leg: Normal compression of the deep venous system from the inguinal region to the proximal francesca f. No echogenic clot is seen. Normal response of the venous system to augmentation and respiration. Left Leg: Normal compression of the deep venous system from the inguinal region to the proximal calf . No echogenic clot is seen. Normal response of the venous system to augmentation and respiration. Other: None. CONCLUSION: 1. The study is negative for bilateral lower extremity deep venous thrombosis. Electronically signed by: Monty Barton MD 05/23/2018 4:02 PM EST
--- NOTE | 2018-05-23 16:08 | US ---
EXAM DATE: 05/23/2018 4:04 PM EST AGE/SEX: 72 years / Male INDICATIONS: Preop cardiac surgery. CLINICAL DATA: This is the patient's initial encounter. Patient reports that signs and symptoms have been present for 1 day and indicates a pain score of 0/10. MEDICAL/SURGICAL HISTORY: . Preop cardiac surgery. . Back and facial surgery. COMPARISON: No prior exams available for comparison. MEASUREMENTS: RIGHT THIGH: Proximal:__4 mm Mid:__ 3 mm Distal:__3 mm LEFT THIGH: Proximal:__5 mm Mid:__4 mm Distal:__3 mm RIGHT CALF: Proximal:__3 mm Mid:__3 mm Distal:__2 mm LEFT CALF: Proximal:__3 mm Mid:__3 mm Distal:__2 mm FINDINGS: The venous system of the lower extremities are patent by color Doppler imaging. Measurements of the leg veins (in mm) are listed above. CONCLUSION: 1. Venous mapping as above Electronically signed by: Monty Barton MD 05/23/2018 4:06 PM EST
[2018-05-23] MEDS ORDERED: Iohexol 350 MG/ML 50 ML Vial (for Cath Lab) IVCONTRAST ONE (16:32)
[2018-05-23] MEDS: Heparin Drip 25,000 UNIT/250 ML BAG IV.CONT PRN (17:53)
[2018-05-23] MEDS: MethylPREDNISolone Sod Succinate Inj 40 MG/ML Vial IV.PUSH SCH (21:21)
[2018-05-23] MEDS: Insulin Detemir Inj 1,000 UNIT/10 ML Vial SQ SCH (21:22)
[2018-05-24] MEDS: Acetaminophen 325 MG Tablet PO PRN ×2 (04:03→09:13)
[2018-05-24] MEDS: Sod Chloride 0.9% Inj 1,000 ML IV.CONT SCH (04:04)
[2018-05-24] MEDS ORDERED: Budesonide-Formoterol 160/4.5 MCG 6 GM Inhaler INH SCH (09:00)
[2018-05-24] MEDS: MethylPREDNISolone Sod Succinate Inj 40 MG/ML Vial IV.PUSH SCH (09:12)
[2018-05-24] MEDS: Tiotropium Bromide 18 MCG/ACT Inhaler INH SCH (09:12)
[2018-05-24] MEDS: Senna/Docusate Sodium 8.6/50 MG Tablet PO SCH (09:13)
[2018-05-24] MEDS: Insulin NovoLOG Aspart Correctional Sugar Inj SQ SCH (09:14)
[2018-05-24] MEDS: Furosemide 20 MG Tablet PO SCH (09:14)
--- NOTE | 2018-05-24 09:25 | P.PN ---
Subjective Interval history: telemetry- in a fib/flutter rhythm rate 80s up sitting at side of the bed sarcastic, wanting to go home "now" refused labs Physical Exam Vital signs: Vital Signs 05/23/18 09:52 05/23/18 10:00 05/23/18 11:00 Temperature 97.9 F Pulse Rate 72 72 95 H Respiratory Rate 12 16 Blood Pressure 119/62 Pulse Oximetry 95 05/23/18 14:00 05/23/18 15:00 05/23/18 16:00 Temperature Pulse Rate 80 87 100 H Respiratory Rate 16 Blood Pressure 148/87 H Pulse Oximetry 92 L 05/23/18 17:00 05/23/18 18:00 05/23/18 19:00 Temperature 97.6 F Pulse Rate 100 H 104 H 82 Respiratory Rate 16 Blood Pressure 113/79 Pulse Oximetry 98 05/23/18 20:00 05/23/18 21:00 05/23/18 22:00 Temperature Pulse Rate 84 88 82 Respiratory Rate Blood Pressure Pulse Oximetry 98 05/23/18 23:00 05/24/18 00:00 05/24/18 01:00 Temperature 98.2 F Pulse Rate 92 H 84 82 Respiratory Rate 18 Blood Pressure 122/79 Pulse Oximetry 97 05/24/18 02:00 05/24/18 03:00 05/24/18 04:00 Temperature 98.0 F Pulse Rate 84 67 81 Respiratory Rate 14 Blood Pressure 119/75 Pulse Oximetry 95 05/24/18 05:00 05/24/18 06:00 05/24/18 07:00 Temperature 97.7 F Pulse Rate 82 93 H 84 Respiratory Rate 20 Blood Pressure 139/87 Pulse Oximetry 92 L Intake & Output 05/23/18 05/24/18 05/24/18 18:59 06:59 18:59 Intake Total 650 / 650 1290 / 1290 Output Total 1200 / 1200 1500 / 1500 Balance -550 / -550 -210 / -210 Weight 73.5 kg Intake: IV 310 / 310 1050 / 1050 Heparin/NS PF Inj 1,500 ML @ 0 10 / 10 mls/hr .ROUTE .STK-MED ONE Rx#: [id number] Heparin/D5W 25,000 U/250 mL 25, 250 / 250 000 unit In 250 ml @ 900 UNITS/ HR 9 mls/hr IV.CONT TITRATE PRN Rx#:[id number] NS Inj 1,000 ML @ 84 mls/hr IV. 1000 / 1000 CONT .[id number] [facility] Rx#:[id number] Flexbumin 25% Inj 50 ML @ 60 50 / 50 50 / 50 mls/hr IV.SIG Q12H [facility] Rx#: [id number] Oral 240 / 240 240 / 240 Anesthesia Amount 100 / 100 Output: Urine 1200 / 1200 1500 / 1500 Other: Date of Last Bowel Movement 05/22/18 Narrative: anicteric Normocephalic. irregularly irregular rhythm occasional expiratory wheeze abdmen- soft nontender extremities - no edema, superficial left leg ulcer- dressing in place- refused to be examined Results - Labs CBC & Chem 7: 05/22/18 04:49 05/22/18 04:49 Laboratory Results - last 24 hr 05/23/18 05/23/18 05/23/18 17:14 20:27 23:41 APTT 48.1 H D POC Glucose 221 H 355 H 05/23/18 05/24/18 05/24/18 23:50 03:58 07:50 APTT POC Glucose 309 H 276 H 282 H - Imaging Impressions Lower Extremity Ultrasound 05/23/18 14:13 CONCLUSION: 1. Venous mapping as above Venous Doppler Study 05/23/18 14:13 CONCLUSION: 1. The study is negative for bilateral lower extremity deep venous thrombosis. Assessment and Plan - Plan 72-year-old man with Acute on chronic systolic CHF exacerbation S/P cardiac cath- severe 3V, EF 45% Severe MS, Atrial fibrillation Lasix 40 mg IV twice daily 2D echo with EF of 40-45% ESEQUIEL-I contraindicated 2/2 worsening Renal failure Continue with Toprol-XL CVS consulted- for CABG and MV repair currently on heparin drip was on Coumadin as OP COPD exacerbation on Solu-Medrol 40 mg IV every 12 hours 05/23/18 Continue Spiriva and continue with Symbicort, Schedule and PRN Duo Neb IS Acute kidney injury Renal indices improving Management per Nephrology Renal US of kidney showed thinning cortex medical renal disease Subjective history of melena No evidence of that here while hospitalized, -Continue to monitor H/H -Protonix Transaminitis-likely drug induced likely 2/2 medication statin- at home was on 120 mg Hepatitis panel negative Continue to monitor LFTs- patient refuse blood works HOld statins DM Continue Levemir 20 units at bedtime, aspart 4units 3 times daily before meals- resume home regimen as OP was on metformin- hold with FRANK Restless leg syndrome Continue pramipexole 0.25mg daily DVT prophylaxis: Heparin patient seen at bedside -[facility] staff nurse- d/w him that needs surgery- patient refuses very sarcastic and insist to leave = AMA- advise [facility] ff [facility] patient navigator gave him a card of Dr. Prince to ff up with if he decides advise to resume his home insulin regimen and coumadin on DC
--- NOTE | 2018-05-24 10:18 | P.AMA ---
AMA Note Recommended Treatment Course: [facility] with [facility]- [facility]CP within 24-48 hours AMA Statement: Patient Percy Castañeda has decided to leave the hospital against medical advice. This patient has the capacity to refuse care and understands the risks of leaving, including permanent disability and/or , and has had an opportunity to ask questions about his/her condition. The patient has been informed that he/she may return for care at any time, and follow up has been arranged/advised. Discharge Disposition: Against Medical Advice Patient Condition on Discharge: Fair
--- NOTE | 2018-05-24 10:27 | P.DS ---
Date of admission: 05/19/18 05:43 Primary care physician: [facility] Anticipated date of discharge: 05/24/18 Brief History from admission: 72-year-old white male being admitted for SOB. Patient is a poor historian with significant memory gaps in his history of present illness. Patient reports experiencing worsening shortness of breath starting about 4 days ago. Claims he was just discharged from some hospital about 1 week ago but does not know the name, no records of such in [employer] system and RN verified he hasn't been to [facility] either. He says he ended up feeling one prescription at [facility] which was an antibiotic which was with "ligament" damage. The other prescriptions he said he was given he is not sure what exactly what he did with them. He says he tried to get them filled [facility] but he is unable to tell me if he actually ended up going to the pharmacy and submitting the prescriptions at all or picking up the medications at all, but what he does affirm is that he was not taking any of those other medicines coming out of the hospital. Reports having thick productive sputum and cough induced chest pain but no other chest pain otherwise. When asked if he was having nausea vomiting or diarrhea, he reports having black stools as well that self resolved and says that this happened earlier in the week. Patient does not know his medications well. He says he takes 2 inhalers for his COPD and wears 2 L of oxygen. Says he has a chaperone, says he does not see a review trainer in the office. 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 Denies any suicidal or homicidal ideation. In the emergency department he had chest x-ray done which I reviewed which is clear from any acute findings. He also had a BMP done which showed elevated creatinine at 1.8 with his baseline seems to be under 1.2. Was noted to be in A. fib with RVR, given IV Lopressor. Patient update on day of discharge: awake and alert, refused blood works , no complains of chest pain wants to go home "now" refuses surgery telemetry- a fib- rate controlled d/w [facility] gave him a card to ff up with if he decides to do surgery DS: Summary Hospital Course: 72-year-old man with Acute on chronic systolic CHF exacerbation S/P cardiac cath- severe 3V, EF 45% Severe MS, Atrial fibrillation Lasix 40 mg IV twice daily 2D echo with EF of 40-45% ESEQUILE-I contraindicated 2/2 worsening Renal failure Continue with Toprol-XL CVS consulted- for CABG and MV repair currently on heparin drip was on Coumadin as OP COPD exacerbation on Solu-Medrol 40 mg IV every 12 hours 05/23/18 Continue Spiriva and continue with Symbicort, Schedule and PRN Duo Neb IS Acute kidney injury Renal indices improving Management per Nephrology Renal US of kidney showed thinning cortex medical renal disease Subjective history of melena No evidence of that here while hospitalized, -Continue to monitor H/H -Protonix Transaminitis-likely drug induced likely 2/2 medication statin- at home was on 120 mg Hepatitis panel negative Continue to monitor LFTs- patient refuse blood works HOld statins DM Continue Levemir 20 units at bedtime, aspart 4units 3 times daily before meals- resume home regimen as OP was on metformin- hold with FRANK Restless leg syndrome Continue pramipexole 0.25mg daily DVT prophylaxis: Heparin patient seen at bedside -[facility] staff nurse- d/w him that needs surgery- patient refuses very sarcastic and insist to leave = AMA- advise to ff [facility] patient navigator gave him a card of Dr. Prince to ff up with if he decides advise to resume his home insulin regimen and coumadin on DC - Time Spent with Patient Total time spent providing and/or coordinating discharge services: Greater than 30 minutes (d/w staff nurse, Vacualr surgery and pateint) - Quality: VTE Deep Vein Thrombosis/Pulmonary Embolism Present on Admission: No Exam Vital signs: Vital Signs 05/23/18 11:00 05/23/18 14:00 05/23/18 15:00 Temperature 97.9 F Pulse Rate 95 H 80 87 Respiratory Rate 16 16 Blood Pressure 119/62 148/87 H Pulse Oximetry 95 92 L 05/23/18 16:00 05/23/18 17:00 05/23/18 18:00 Temperature Pulse Rate 100 H 100 H 104 H Respiratory Rate Blood Pressure Pulse Oximetry 05/23/18 19:00 05/23/18 20:00 05/23/18 21:00 Temperature 97.6 F Pulse Rate 82 84 88 Respiratory Rate 16 Blood Pressure 113/79 Pulse Oximetry 98 98 05/23/18 22:00 05/23/18 23:00 05/24/18 00:00 Temperature 98.2 F Pulse Rate 82 92 H 84 Respiratory Rate 18 Blood Pressure 122/79 Pulse Oximetry 97 05/24/18 01:00 05/24/18 02:00 05/24/18 03:00 Temperature 98.0 F Pulse Rate 82 84 67 Respiratory Rate 14 Blood Pressure 119/75 Pulse Oximetry 95 05/24/18 04:00 05/24/18 05:00 05/24/18 06:00 Temperature Pulse Rate 81 82 93 H Respiratory Rate Blood Pressure Pulse Oximetry 05/24/18 07:00 05/24/18 08:00 05/24/18 09:00 Temperature 97.7 F Pulse Rate 77 76 88 Respiratory Rate 20 Blood Pressure 139/87 Pulse Oximetry 92 L 92 L 05/24/18 10:00 Temperature Pulse Rate 85 Respiratory Rate Blood Pressure Pulse Oximetry Intake & Output 05/23/18 05/24/18 05/24/18 18:59 06:59 18:59 Intake Total 650 / 650 1290 / 1290 Output Total 1200 / 1200 1500 / 1500 Balance -550 / -550 -210 / -210 Weight 73.5 kg Intake: IV 310 / 310 1050 / 1050 Heparin/NS PF Inj 1,500 ML @ 0 10 / 10 mls/hr .ROUTE .STK-MED ONE Rx#: [id number] Heparin/D5W 25,000 U/250 mL 25, 250 / 250 000 unit In 250 ml @ 900 UNITS/ HR 9 mls/hr IV.CONT TITRATE PRN Rx#:[id number] NS Inj 1,000 ML @ 84 mls/hr IV. 1000 / 1000 CONT .[id number] [facility] Rx#:[id number] Flexbumin 25% Inj 50 ML @ 60 50 / 50 50 / 50 mls/hr IV.SIG Q12H [facility] Rx#: [id number] Oral 240 / 240 240 / 240 Anesthesia Amount 100 / 100 Output: Urine 1200 / 1200 1500 / 1500 Other: Date of Last Bowel Movement 05/22/18 Results Labs on day of discharge: Labs from last 24 hours 05/24/18 05/24/18 05/23/18 07:50 03:58 23:50 APTT POC Glucose 282 H 276 H 309 H 05/23/18 05/23/18 05/23/18 23:41 20:27 17:14 APTT 48.1 H D POC Glucose 355 H 221 H - Impressions ITS Impressions Chest X-Ray 05/19/18 04:12 CONCLUSION: No acute findings. Abdomen/Bladder Ultrasound 05/20/18 00:00 CONCLUSION: 1. Increased echotexture of both kidneys typical of chronic parenchymal disease. 2. No obstructive uropathy or other acute abnormality demonstrated. 3. Focal cortical thinning/scarring mid zone of the right kidney. Head CT 05/20/18 00:00 CONCLUSION: 1. No acute intracranial abnormality. 2. 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 3. Cortical atrophy . Lower Extremity Ultrasound 05/23/18 14:13 CONCLUSION: 1. Venous mapping as above Venous Doppler Study 05/23/18 14:13 CONCLUSION: 1. The study is negative for bilateral lower extremity deep venous thrombosis. Discharge Plan - Discharge Disposition Patient Disposition: Against Medical Advice - Discharge Condition Condition: Fair - Discharge Order Discharge Orders: Discharge Order (Routine); Ordered 05/24/18 Ordered By: Carli Duran - Discharge Details Anticipated Discharge Date: 05/24/18 - Physicians Team Primary Care Provider: [facility] Attending Provider: Carli Duran Other Providers: Shelly Pitt MD ; [place] ; Johnny Rae MD ; [facility] ; Marisol Prince MD ; Asha Christiansen MD
--- NOTE | 2018-05-24 10:49 | MB ---
cc: Asha Christiansen MD DATE: 05/24/2018 HISTORY OF PRESENT ILLNESS: The patient is a 72-year-old male with a past medical history of COPD, CHF, bronchial asthma, atrial fibrillation on Coumadin, diabetes mellitus, and hypertension. The patient was admitted to [facility] for shortness of breath, and he underwent an echocardiogram on 05/19/2018 which showed a cardiomyopathy with ejection fraction of 40-45%, moderate to severe aortic valve stenosis, and severe mitral valve stenosis. Subsequently, he underwent cardiac catheterization by Dr. Rae, which showed multivessel disease, severe mitral valve stenosis, severe pulmonary hypertension with a PA pressure of 80 mmHg and EF of 45%. The patient was evaluated by cardiothoracic surgery and plan to proceed with CABG and a mitral valve replacement. Pulmonary medicine was consulted for preop clearance. He underwent a pulmonary function test on 05/22/2018, which showed [id number] obstructive lung disease with FEV1 of 0.88 liters and FEV1/FVC 58% pre-bronchodilator treatment. A chest x-ray on admission showed no acute disease. The patient states that he uses 2 L oxygen at home. In addition, he is on nebulizers, Symbicort and Spiriva. He quit smoking weeks ago and has a 60+ pack year history of smoking. He reports shortness of breath with walking and a productive cough with phlegm. The patient denies any chest pain, fever or constitutional symptoms. In addition, he denies any nausea, vomiting or abdominal pain. PAST MEDICAL HISTORY: Significant for COPD, asthma, CHF, hypertension, diabetes mellitus, coronary artery disease, and atrial fibrillation. PAST SURGICAL HISTORY: Previous back and facial surgeries. FAMILY HISTORY: Coronary artery disease runs in the family. ALLERGIES: MULTIPLE, WHICH INCLUDE PENICILLIN INCLUDE CODEINE AND ASPIRIN. SOCIAL HISTORY: Active smoker, nondrinker. CURRENT MEDICATIONS: Include: 1. Insulin. 2. Solu-Medrol. 3. Spiriva. 4. Protonix. REVIEW OF SYSTEMS: As per HPI, review of systems is unremarkable. PHYSICAL EXAMINATION: GENERAL: A 72-year-old male, lying in bed in no acute distress. VITAL SIGNS: Temperature 97.7, pulse of 84, respiratory rate of 20, blood pressure 139/87, saturation 92-95% on 2 liter oxygen. HEENT: Atraumatic, normocephalic. Pupils are equal, round and reactive to light and accommodation. Extraocular muscles intact. Conjunctivae pink. Nonicteric sclerae. Oral mucosa within normal. NECK: Supple. No JVD, adenopathy or thyromegaly. Trachea in the midline. CARDIOVASCULAR: Regular rate and rhythm. No murmurs, rubs or gallops noted. PULMONARY: Bilateral air entry. No rales, wheezing. ABDOMEN: Soft, nontender distention. Positive bowel sounds. EXTREMITIES: No cyanosis, clubbing, edema. NEUROLOGIC: No focal sensory deficit. LABORATORY DATA: WBC 11.4, hemoglobin 13.9, hematocrit 41, platelet count of 151. Sodium 138, potassium 4.1, chloride 102, CO2 of 30, BUN 48, creatinine 1.43, glucose of 282 today, AST 110, ALT 133, total bilirubin 1.2. ABG performed on 05/19/2018 on a BiPAP 10/5 with 40% showed a pH of 7.45, CO2 of 35, pO2 of 149, bicarbonate 24, saturation of 97%. RADIOGRAPHIC STUDIES: Chest x-ray on 05/19/2018 showed no acute disease. CT brain showed no acute intracranial abnormalities. IMPRESSION: 1. Respiratory insufficiency. 2. Chronic obstructive pulmonary disease. 3. Active tobacco use. 4. Cardiomyopathy with ejection fraction of 40-45%. 5. Severe pulmonary hypertension with a PA pressure of 80 mmHg. 6. Status post cardiac catheterization, which showed multivessel disease with severe mitral stenosis. 7. History of atrial fibrillation. 8. Acute kidney injury. 9. Elevated liver enzymes. RECOMMENDATIONS: 1. Continue with oxygen and maintain saturations above 92%. 2. Bronchodilators in the form of DuoNeb every 4 hours plus every 2 hours p.r.n. for shortness of breath. 3. Increase Symbicort to 160/4.5 two puffs b.i.d. and continue with Spiriva 1 capsule daily. 3. Agree with steroids. He is currently on Solu-Medrol 40 mg IV every 12 hours. 4. Pulmonary function test reviewed, which showed [id number] obstructive lung disease. His FEV1 measured at 0.88 liters pre-bronchodilator treatment with FEV1/FVC 58%. 5. The patient is at high risk for surgery due to his [id number] obstructive lung disease. 6. Chest x-ray showed no acute disease. 7. The patient is counseled regarding smoking cessation. 8. Continue with heparin drip. 9. Monitor renal function and avoid nephrotoxins. 10. Continue all other medical management per primary team. Further recommendations will be based on hospital course. Thank you for this consult and allowing us to participate in this patient's care. MD MARTHA Alvarez/em , 08:17 AM , 08:31 AM
== END 2018-05-24 11:45 | disposition left against medical advice (07) ==
LOC: PHED 03:57 → PHEDA 05:43 → PHICU 07:57 → HCIS 05-21 03:00
PROVIDERS: ADMIT Internal Medicine; ATTEND Internal Medicine